=== PATIENT | male | born 1950 | race Caucasian/White ===

== ENCOUNTER 2016-06-03 10:03 | Inpatient (IN) | payer MEDICARE ==
--- NOTE | 2016-06-03 11:16 | ED ---
Nausea/Vomiting/Diarrhea HPI <AndreiDylan goodson - Last Filed: 06/03/16 14:44> - General Source: patient, EMS, RN notes reviewed Mode of arrival: EMS Limitations: physical limitation <Bonita Bains - Last Filed: 06/03/16 15:51> - General Chief complaint: Nausea/Vomiting/Diarrhea Stated complaint: NVD Time Seen by Provider: 06/03/16 10:50 - History of Present Illness Initial comments: 58-year-old male who is a paraplegic presents to the emergency department with a chief complaint of nausea vomiting and diarrhea. Patient has been having the symptoms for the past few days. Patient states that his got sick first and now he is sick. Patient states he is having a lot of acid reflux with this. Patient states having a lot of nausea and not as much vomiting. Patient does admit to diarrhea. Patient states that his whole belly is just kind of sore and bloated. Patient states that he was concerned because his normally changes his bandages but he is unable to have her do that due to feeling under the weather. Patient denies any fever chills with this. Patient states they're concerned due to the continued abdominal irritation so they thought that they should be seen. Patient denies any recent fever, chills, shortness of breath, chest pain, back pain, numbness or tingling, dysuria or hematuria, constipation, headaches or visual changes, or any other current symptoms. (Bonita Bains) - Related Data Home Medications Medication Instructions Recorded Confirmed Benazepril [Lotensin] 10 mg PO DAILY 06/03/16 06/03/16 Cholecalciferol [Vitamin D3] 1,000 unit PO DAILY 06/03/16 06/03/16 Cholecalciferol [Vitamin D3] 400 unit PO DAILY 06/03/16 06/03/16 Ferrous Sulfate [Feosol] 325 mg PO DAILY 06/03/16 06/03/16 Imipramine HCl [Tofranil] 10 mg PO TID 06/03/16 06/03/16 Metoclopramide [Reglan] 10 mg PO DAILY PRN 06/03/16 06/03/16 Nystatin 100,000 Unit/gm Powd 1 applic TOPICAL QID PRN 06/03/16 06/03/16 [Mycostatin Powder] Oxybutynin Chloride [Ditropan] 5 mg PO TID 06/03/16 06/03/16 Pravastatin Sodium [Pravachol] 20 mg PO HS 06/03/16 06/03/16 Zinc Sulfate 220 mg PO DAILY 06/03/16 06/03/16 metFORMIN HCL [Glucophage] 500 mg PO DAILY 06/03/16 06/03/16 traMADol HCl [Ultram] 50 mg PO DAILY PRN 06/03/16 06/03/16 Allergies Allergy/AdvReac Type Severity Reaction Status Date / Time Iodine and Iodide Containing Allergy Vomiting Verified 06/03/16 10:36 Produc Sulfa (Sulfonamide Allergy BODY Verified 06/03/16 10:36 Antibiotics) BLISTERS Review of Systems ROS Other: All systems not noted in ROS Statement are negative. <Dylan Forbes - Last Filed: 06/03/16 14:44> ROS Other: All systems not noted in ROS Statement are negative. <Bonita Bains - Last Filed: 06/03/16 15:51> ROS Statement: Those systems with pertinent positive or pertinent negative responses have been documented in the HPI. Past Medical History Past Medical History: Diabetes Mellitus, Hypertension Additional Past Medical History / Comment(s): parapalgic History of Any Multi-Drug Resistant Organisms: MRSA Additional Past Surgical History / Comment(s): spinal cord 1992 Past Psychological History: No Psychological Hx Reported Smoking Status: Former smoker Past Alcohol Use History: None Reported Past Drug Use History: None Reported <Bonita Bains - Last Filed: 06/03/16 15:51> General Exam <Dylan Forbes - Last Filed: 06/03/16 14:44> Limitations: physical limitation <Bonita Bains - Last Filed: 06/03/16 15:51> - General Exam Comments Initial Comments: General: The patient is awake and alert, in no distress, and does not appear acutely ill. Eye: Pupils are equal, round and reactive to light, extra-ocular movements are intact; there is normal conjunctiva bilaterally. No signs of icterus. Ears, nose, mouth and throat: There are moist mucous membranes and no oral lesions. Neck: The neck is supple, there is no tenderness. Cardiovascular: There is a regular rate and rhythm. No murmur, rub or gallop is appreciated. Respiratory: Lungs are clear to auscultation, respirations are non-labored, breath sounds are equal. No wheezes, stridor, rales, or rhonchi. Gastrointestinal: Soft, , non-tender abdomen without masses or organomegaly noted. There is no rebound or guarding present. No CVA tenderness. Bowel sounds are unremarkable. Back: There is no tenderness to palpation in the midline. There is no obvious deformity. No rashes noted. Musculoskeletal: Normal ROM, no tenderness, There is no pedal edema. There is no calf tenderness or swelling. Sensation intact. Pulses equal bilaterally 2+. Neurological: CN II-XII intact, There are no obvious motor or sensory deficits. Coordination appears grossly intact. Speech is normal. Skin: Skin is warm and dry and no rashes or lesions are noted. Psychiatric: Cooperative, appropriate mood & affect, normal judgment. (Bonita Bains) Medical Decision Making - Lab Data Result diagrams: 06/03/16 10:43 06/03/16 10:43 <Dylan Forbes - Last Filed: 06/03/16 14:44> - Lab Data Result diagrams: 06/03/16 10:43 06/03/16 10:43 - EKG Data -: EKG Interpreted by Me - Radiology Data Radiology results: report reviewed, image reviewed <Bonita Bains - Last Filed: 06/03/16 15:51> - Medical Decision Making Medical decision making. I interviewed the patient reviewed his labs. And spoke with his attending, Dr. Holliday. Patient be admitted to his service and started and continued on Rocephin and Levaquin. Septic protocol followed. Dr. Forbes (Dylan Forbes) 66-year-old male presents emergency department chief complaint of nausea vomiting and diarrhea. Results reviewed that do show positive UTI and also showed positive pneumonia patient also does have some distention and ileus in the abdomen. This time we will start antibiotics we will admit the patient. There is concern for possible CHF we did add cardiac enzymes any BNP to the patient's lab work which will be followed up By the Admitting Doctor. This and the Patient Will Be Admitted for Sepsis. All the Questions Have Been Answered. (Bonita Bains) - Lab Data Lab Results 06/03/16 06/03/16 06/03/16 Range/Units 10:43 10:43 11:37 WBC 16.0 H (3.8-10.6) k/uL RBC 4.76 (4.30-5.90) m/uL Hgb 13.8 (13.0-17.5) gm/dL Hct 41.6 (39.0-53.0) % MCV 87.2 (80.0-100.0) fL MCH 29.0 (25.0-35.0) pg MCHC 33.2 (31.0-37.0) g/dL RDW 14.5 (11.5-15.5) % Plt Count 290 (150-450) k/uL Neutrophils % 89 % Lymphocytes % 4 % Monocytes % 6 % Eosinophils % 0 % Basophils % 0 % Neutrophils # 14.3 H (1.3-7.7) k/uL Lymphocytes # 0.6 L (1.0-4.8) k/uL Monocytes # 1.0 (0-1.0) k/uL Eosinophils # 0.0 (0-0.7) k/uL Basophils # 0.0 (0-0.2) k/uL Sodium 135 L (137-145) mmol/L Potassium 3.9 (3.5-5.1) mmol/L Chloride 98 (98-107) mmol/L Carbon Dioxide 22 (22-30) mmol/L Anion Gap 15 mmol/L BUN 26 H (9-20) mg/dL Creatinine 0.78 (0.66-1.25) mg/dL Est GFR (MDRD) Af Amer >60 (>60 ml/min/1.73 sqM) Est GFR (MDRD) Non-Af >60 (>60 ml/min/1.73 sqM) Glucose 216 H (74-99) mg/dL Plasma Lactic Acid Timo 2.1 H (0.7-2.0) mmol/L Calcium 9.2 (8.4-10.2) mg/dL Total Bilirubin 0.6 (0.2-1.3) mg/dL AST 25 (17-59) U/L ALT 23 (21-72) U/L Alkaline Phosphatase 92 (38-126) U/L Total Creatine Kinase (55-170) U/L CK-MB (CK-2) (0.0-2.4) ng/mL CK-MB (CK-2) Rel Index Troponin I (0.000-0.034) ng/mL NT-Pro-B Natriuret Pep pg/mL Total Protein 7.5 (6.3-8.2) g/dL Albumin 3.8 (3.5-5.0) g/dL Amylase 41 (30-110) U/L Lipase 36 (23-300) U/L Urine Color Urine Appearance (Clear) Urine pH (5.0-8.0) Ur Specific [place] (1.001-1.035) Urine Protein (Negative) Urine Glucose (UA) (Negative) Urine Ketones (Negative) Urine Blood (Negative) Urine Nitrite (Negative) Urine Bilirubin (Negative) Urine Urobilinogen (<2.0) mg/dL Ur Leukocyte Esterase (Negative) Urine RBC (0-5) /hpf Urine WBC (0-5) /hpf Calcium Oxalate Crystal (None) /hpf Urine Bacteria (None) /hpf Urine Mucus (None) /hpf 06/03/16 06/03/16 06/03/16 Range/Units 11:37 11:37 12:05 WBC (3.8-10.6) k/uL RBC (4.30-5.90) m/uL Hgb (13.0-17.5) gm/dL Hct (39.0-53.0) % MCV (80.0-100.0) fL MCH (25.0-35.0) pg MCHC (31.0-37.0) g/dL RDW (11.5-15.5) % Plt Count (150-450) k/uL Neutrophils % % Lymphocytes % % Monocytes % % Eosinophils % % Basophils % % Neutrophils # (1.3-7.7) k/uL Lymphocytes # (1.0-4.8) k/uL Monocytes # (0-1.0) k/uL Eosinophils # (0-0.7) k/uL Basophils # (0-0.2) k/uL Sodium (137-145) mmol/L Potassium (3.5-5.1) mmol/L Chloride (98-107) mmol/L Carbon Dioxide (22-30) mmol/L Anion Gap mmol/L BUN (9-20) mg/dL Creatinine (0.66-1.25) mg/dL Est GFR (MDRD) Af Amer (>60 ml/min/1.73 sqM) Est GFR (MDRD) Non-Af (>60 ml/min/1.73 sqM) Glucose (74-99) mg/dL Plasma Lactic Acid Timo (0.7-2.0) mmol/L Calcium (8.4-10.2) mg/dL Total Bilirubin (0.2-1.3) mg/dL AST (17-59) U/L ALT (21-72) U/L Alkaline Phosphatase (38-126) U/L Total Creatine Kinase 159 (55-170) U/L CK-MB (CK-2) 0.9 (0.0-2.4) ng/mL CK-MB (CK-2) Rel Index 0.6 Troponin I <0.012 (0.000-0.034) ng/mL NT-Pro-B Natriuret Pep 376 pg/mL Total Protein (6.3-8.2) g/dL Albumin (3.5-5.0) g/dL Amylase (30-110) U/L Lipase (23-300) U/L Urine Color Yellow Urine Appearance Cloudy (Clear) Urine pH 6.5 (5.0-8.0) Ur Specific [place] 1.018 (1.001-1.035) Urine Protein 2+ H (Negative) Urine Glucose (UA) Negative (Negative) Urine Ketones 1+ H (Negative) Urine Blood Large H (Negative) Urine Nitrite Positive (Negative) Urine Bilirubin Negative (Negative) Urine Urobilinogen <2.0 (<2.0) mg/dL Ur Leukocyte Esterase Large H (Negative) Urine RBC 134 H (0-5) /hpf Urine WBC >182 H (0-5) /hpf Calcium Oxalate Crystal Occasional H (None) /hpf Urine Bacteria Rare H (None) /hpf Urine Mucus Rare H (None) /hpf 06/03/16 15:51 EKG is more suspicious of normal sinus rhythm most likely due to patient's positioning. No ST elevation or depression. (Bonita Bains) Disposition <Dylan Forbes - Last Filed: 06/03/16 14:44> Time of Disposition: 14:33 Decision Date: 06/03/16 Decision Time: 14:33 <Bonita Bains - Last Filed: 06/03/16 15:51> Clinical Impression: Hyponatremia, Sepsis, UTI (urinary tract infection), Right lower lobe pneumonia , Nausea & vomiting, Ileus Disposition: ADMITTED IP TO THIS HOSP Condition: Stable
[2016-06-03] MEDS ORDERED: METOCLOPRAMIDE 5 MG/ML 2 ML VIAL IVP STA (11:17)
[2016-06-03] MEDS ORDERED: SODIUM CHLORIDE 0.9% 1,000 ML IV STA (11:17)
[2016-06-03 11:53] LABS: Basophils % (A) 0 %; CHCM 33.3; Eosinophils % (A) 0 %; HCT 41.6 % (39.0-53.0); HDW 2.42; HGB 13.8 gm/dL (13.0-17.5); Luc # (Auto) 0.15; Luc % (Auto) 1; Lymphocytes # (A) 0.6 k/uL (1.0-4.8); Lymphocytes % (A) 4 %; MCHC 33.2 g/dL (31.0-37.0); MCV 87.2 fL (80.0-100.0); Mean Platelet Volume 7.2; Monocytes % (A) 6 %; Neutrophils # (A) 14.3 k/uL (1.3-7.7); Neutrophils % (A) 89 %; RBC 4.76 m/uL (4.30-5.90); RDW 14.5 % (11.5-15.5); WBC (Perox) 15.35
[2016-06-03 12:01] LABS: ALT 23 U/L (21-72); AST 25 U/L (17-59); Alkaline Phosphatase 92 U/L (38-126); Amylase 41 U/L (30-110); Anion Gap 15 mmol/L; Blood Urea Nitrogen 26 mg/dL (9-20); Calcium 9.2 mg/dL (8.4-10.2); Carbon Dioxide 22 mmol/L (22-30); Chloride 98 mmol/L (98-107); Glucose 216 mg/dL (74-99); Non-African American GFR(MDRD) >60 (>60 ml/min/1.73 sqM); Potassium 3.9 mmol/L (3.5-5.1); Sodium 135 mmol/L (137-145); Total Bilirubin 0.6 mg/dL (0.2-1.3); Total Protein 7.5 g/dL (6.3-8.2)
--- NOTE | 2016-06-03 13:17 | CT ---
EXAMINATION TYPE: CT abdomen pelvis wo con DATE OF EXAM: 06/03/2016 12:54 PM COMPARISON: NONE INDICATION: nausea, vomiting, diarrhea DLP: 1545.9 mGycm, Automated exposure control for dose reduction was used. CONTRAST: 0 mL of Omnipaque 300. Study performed without Oral Contrast TECHNIQUE: Axial images were obtained from above the diaphragm to the pubic rami in the axial plane a t 5 mm thick sections. Reconstructed images are reviewed on the computer in the coronal plane. FINDINGS: Limited CT sections are obtained the lung bases. There is a consolidation in the posterior medial ri ght lung base. Correlate for atelectasis and pneumonia. Underlying mass is not excluded. Small left p leural effusion is present. Note is made of the hardening artifact from fixation rods through the tho racic spine.. CT ABDOMEN: Liver: Normal Spleen: Normal Pancreas: Normal Adrenal glands: The adrenal glands are normal. Gallbladder: Normal Kidneys: No masses are evident. No hydronephrosis is present. No cysts are present. There is a 0.5 cm calcification without obstruction of the mid right kidney. There is a nonobstructing 0.5 similar calcification posterior left mid kidney. Couple of punctate cortical medullary junction stones are wi thin the mid posterior kidney on the left. Within the left infundibulum more proximal pelvis is a 1.3 x 0.6 cm calcification. No hydronephrosis is evident. No hydroureter is evident bilaterally. Aorta: Vascular calcification is within the aorta. Inferior vena cava: Normal. CT PELVIS: Study is without oral contrast limiting the evaluation. Colostomy is in the left lower quadrant. Ther e is mild prominence of small bowel loops without evidence of a zone of transition. Appendix: Not visualized Urinary bladder: Decompressed with a Epps catheter. Genitourinary structures: Prostate appears unremarkable. Osseous structures: There is a right medullary elias within the femur. Osseous brain is from the anteri or right acetabulum. Degenerative changes are within the lumbar spine. Facet degenerative changes are within the lumbar spine IMPRESSIONS: 1. Multiple bilateral nonobstructing renal stones. 2. Consolidation posterior medial right lung base. Correlate for atelectasis and pneumonia. Underlyin g mass is not excluded. This should be followed to clearing. 3. Colostomy. 4. Probable ileus. No zone of transition suggest mild obstruction is evident.
[2016-06-03 13:28] LABS: Appearance,Urine Cloudy (Clear); Bacteria,Urine Rare /hpf; Bilirubin,Urine Negative (Negative); Calcium Oxalate Crystals,Urine Occasional /hpf; Glucose,Urine (UA) Negative (Negative); Ketones,Urine 1+ (Negative); Leukocyte Esterase,Urine Large (Negative); Mucus,Urine Rare /hpf; Nitrite,Urine Positive (Negative); PH, Urine 6.5 (5.0-8.0); Particle Count 17336; Protein,Urine 2+ (Negative); RBC,Urine 134 /hpf (0-5); Specific Gravity,Urine 1.018 (1.001-1.035); UA Billing (MACRO vs. MICRO) MICRO; Urobilinogen,Urine <2.0 mg/dL (<2.0); WBC,Urine >182 /hpf (0-5)
[2016-06-03] MEDS ORDERED: LEVOFLOXACIN 750MG-D5W PMX 750 MG in DEXTROSE/WATER 1 150ML.BAG IVPB STA (13:56)
[2016-06-03] MEDS ORDERED: NYSTATIN 100,000 UNIT/GM POWD 15 GM TOPICAL PRN (14:00)
[2016-06-03] MEDS ORDERED: METOCLOPRAMIDE 10 MG TAB PO PRN (14:00)
[2016-06-03] MEDS ORDERED: IPRATROPIUM-ALBUTEROL 3 ML NEB INHALATION PRN (14:00)
[2016-06-03] MEDS: SODIUM CHLORIDE 0.9% 1,000 ML IV SCH (14:14)
--- NOTE | 2016-06-03 14:26 | XR ---
EXAMINATION TYPE: XR chest 2V DATE OF EXAM: 06/03/2016 2:12 PM COMPARISON: None HISTORY: 66-year-old male with pain TECHNIQUE: AP and lateral views FINDINGS: The heart is upper limits of normal in size. There is mild interstitial prominence and small left ple ural effusion. Some subtle right infrahilar opacity is also noted. Old healed left-sided rib fracture deformity. Vertebral compression deformity of a midthoracic vertebral body is age-indeterminate. Mid to lower thoracic posterior fusion hardware. IMPRESSION: 1. Heart at the upper limits of normal in size with small pleural effusion and interstitial prominenc e. Correlate to exclude mild CHF. 2. Some patchy atelectasis or early developing infiltrate/edema at the right lower lung. 3. Age-indeterminate mid thoracic vertebral compression deformity. Prior mid to lower thoracic foreign diplomat ior fusion hardware.
[2016-06-03 14:47] LABS: Creatine Kinase 159 U/L (55-170)
[2016-06-03 15:00] LABS: Creatine Kinase MB 0.9 ng/mL (0.0-2.4); Troponin I <0.012 ng/mL (0.000-0.034)
[2016-06-03 17:26] LABS: Glucose,Whole Blood 154 mg/dL (75-99)
[2016-06-03] MEDS: OXYBUTYNIN CHLORIDE 5 MG TAB PO SCH ×2 (18:47→22:05)
[2016-06-03] MEDS: IMIPRAMINE 10 MG TAB PO SCH ×2 (18:47→22:05)
[2016-06-03 21:35] LABS: Glucose,Whole Blood 143 mg/dL (75-99)
[2016-06-03] MEDS: PRAVASTATIN SODIUM 20 MG TAB PO SCH (22:05)
[2016-06-03] MEDS: FAMOTIDINE 20 MG/2 ML VIAL IV SCH (22:06)
[2016-06-04] MEDS: SODIUM CHLORIDE 0.9% 1,000 ML IV SCH ×5 (02:26→20:47)
[2016-06-04] MEDS: ONDANSETRON 4 MG/2 ML VIAL IVP PRN ×3 (06:05→22:54)
[2016-06-04] MEDS: traMADol 50 MG TAB PO PRN ×2 (06:05→15:00)
[2016-06-04 07:09] LABS: Glucose,Whole Blood 141 mg/dL (75-99)
[2016-06-04] MEDS: IMIPRAMINE 10 MG TAB PO SCH ×3 (08:12→20:44)
[2016-06-04] MEDS: FAMOTIDINE 20 MG/2 ML VIAL IV SCH ×2 (08:12→20:45)
[2016-06-04] MEDS: LISINOPRIL 10 MG TAB PO SCH (08:12)
[2016-06-04] MEDS: OXYBUTYNIN CHLORIDE 5 MG TAB PO SCH ×3 (08:13→20:45)
[2016-06-04] MEDS: ZINC SULFATE 220 MG CAP PO SCH (08:13)
[2016-06-04] MEDS: metFORMIN 500 MG TAB PO SCH (08:13)
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
[2016-06-04 11:22] LABS: Glucose,Whole Blood 135 mg/dL (75-99)
[2016-06-04] MEDS: CHOLECALCIFEROL 1,000 UNIT TAB PO SCH (12:53)
[2016-06-04] MEDS: CHOLECALCIFEROL 400 UNIT TAB PO SCH (12:54)
[2016-06-04] MEDS: FERROUS SULFATE 325 MG TAB PO SCH (12:57)
[2016-06-04 14:02] VITALS: BMI 31.6
[2016-06-04] MEDS: LEVOFLOXACIN 750MG-D5W PMX 750 MG in DEXTROSE/WATER 1 150ML.BAG IVPB SCH (15:00)
[2016-06-04 17:13] LABS: Glucose,Whole Blood 118 mg/dL (75-99)
[2016-06-04 20:19] LABS: Glucose,Whole Blood 116 mg/dL (75-99)
[2016-06-04] MEDS: PRAVASTATIN SODIUM 20 MG TAB PO SCH (20:44)
[2016-06-05] MEDS: SODIUM CHLORIDE 0.9% 1,000 ML IV SCH ×2 (03:32→11:11)
--- NOTE | 2016-06-05 06:15 | HP ---
DATE OF ADMISSION: CHIEF COMPLAINT: Intractable nausea, vomiting, diarrhea. HISTORY OF PRESENT ILLNESS: This is another admission for this 66-year-old white male paraplegic. He started to have a lot of liquid stool per his colostomy and nausea and vomiting. His has the same thing and she is his caregiver. He came to emergency room. He was assessed as being dehydrated and he was admitted. REVIEW OF SYSTEMS: He has had no headaches, change in his neurologic status, shortness of breath, cough, chest pain, heart disease, jaundice, etc. He does have an indwelling Epps. Past medical history, family history and personal history are all otherwise unremarkable and noncontributory and unchanged. PHYSICAL EXAMINATION: Blood pressure 138/87 with a pulse of 106, respirations 35 and he is afebrile. GENERAL: He appeared to be in no acute distress. Skin color is normal. Skin is warm and dry. Lymph nodes are not enlarged. Head, ears, eyes, nose, mouth, and throat were normal. Neck veins not distended. Thyroid was not enlarged. Chest is clear. Cardiac exam is normal. ABDOMEN: Soft and there are no masses. Colostomy is present. Extremities were unremarkable. He did have 2 ischial ulcers which are chronic. IMPRESSION: 1. Viral gastroenteritis. 2. Dehydration. 3. Chronic urinary tract infection with indwelling Epps. 4. Ischial decubiti.. 5. Paraplegia. PLAN: 1. Bedrest. 2. IV fluids. 3. Rehydrate. 4. Antiemetics and antidiarrheals.
--- NOTE | 2016-06-05 06:31 | PN ---
DATE OF SERVICE: 06/04/2016 CHIEF COMPLAINT: Probably gastroenteritis, dehydration and UTI. HISTORY OF PRESENT ILLNESS: This gentleman is doing fairly well and there has been no interval change. Diarrhea in the colostomy has slowed down and he is not as nauseated. PHYSICAL EXAM: Color is good and hydration is improved. Chest is clear. Cardiac exam is normal. IMPRESSION: Viral gastroenteritis. PLAN: Increase diet and advance activity as tolerated.
[2016-06-05] MEDS: FAMOTIDINE 20 MG/2 ML VIAL IV SCH (07:50)
[2016-06-05 07:52] LABS: Glucose,Whole Blood 101 mg/dL (75-99)
[2016-06-05] MEDS: IMIPRAMINE 10 MG TAB PO SCH ×3 (07:57→22:01)
[2016-06-05] MEDS: OXYBUTYNIN CHLORIDE 5 MG TAB PO SCH ×3 (07:57→22:01)
[2016-06-05] MEDS: ZINC SULFATE 220 MG CAP PO SCH (07:58)
[2016-06-05] MEDS: FERROUS SULFATE 325 MG TAB PO SCH (07:58)
[2016-06-05] MEDS: LISINOPRIL 10 MG TAB PO SCH (07:58)
[2016-06-05] MEDS: ZINC OXIDE 20% OINT 28.4 GM TUBE TOPICAL SCH (07:58)
[2016-06-05] MEDS: metFORMIN 500 MG TAB PO SCH (07:59)
[2016-06-05 09:05] LABS: Basophils % (A) 0 %; CH 28.3; CHCM 32.2; Eosinophils # (A) 0.3 k/uL (0-0.7); Eosinophils % (A) 5 %; HCT 35.8 % (39.0-53.0); HDW 2.61; HGB 11.7 gm/dL (13.0-17.5); Luc # (Auto) 0.15; Luc % (Auto) 2; Lymphocytes # (A) 0.5 k/uL (1.0-4.8); Lymphocytes % (A) 9 %; MCH 28.8 pg (25.0-35.0); MCHC 32.7 g/dL (31.0-37.0); MCV 88.2 fL (80.0-100.0); Mean Platelet Volume 6.5; Monocytes # (A) 0.5 k/uL (0-1.0); Monocytes % (A) 8 %; Neutrophils # (A) 4.7 k/uL (1.3-7.7); Neutrophils % (A) 76 %; RBC 4.06 m/uL (4.30-5.90); RDW 13.8 % (11.5-15.5); WBC 6.2 k/uL (3.8-10.6); WBC (Perox) 6.71
[2016-06-05 09:16] LABS: ALT 30 U/L (21-72); AST 17 U/L (17-59); Alkaline Phosphatase 75 U/L (38-126); Anion Gap 9 mmol/L; Blood Urea Nitrogen 10 mg/dL (9-20); Calcium 8.1 mg/dL (8.4-10.2); Carbon Dioxide 28 mmol/L (22-30); Chloride 103 mmol/L (98-107); Glucose 99 mg/dL (74-99); Non-African American GFR(MDRD) >60 (>60 ml/min/1.73 sqM); Potassium 3.5 mmol/L (3.5-5.1); Sodium 140 mmol/L (137-145); Total Bilirubin 0.4 mg/dL (0.2-1.3); Total Protein 6.2 g/dL (6.3-8.2)
[2016-06-05 11:26] LABS: Glucose,Whole Blood 104 mg/dL (75-99)
[2016-06-05] MEDS: CHOLECALCIFEROL 1,000 UNIT TAB PO SCH (11:40)
[2016-06-05] MEDS: CHOLECALCIFEROL 400 UNIT TAB PO SCH (11:40)
--- NOTE | 2016-06-05 14:04 | CDI ---
In responding to this query, please exercise your independent professional judgment. The [facility] Coding Staff and Clinical Documentation Specialists appreciate your assistance in clarifying documentation, maintaining compliance with coding guidelines, accurately documenting patients condition and capturing severity of illness. The fact that a question is asked does not imply that any particular answer is desired or expected. Communication forms are a method of clarifying documentation and are not made part of the Legal Health Record. Thank you in advance for your clarification. Last Revision, December 2014 Joan Tidwell [address] [place] [address] Documentation Clarification Form Date: 06/05/2016 1:52:00 PM From: Hoa Ellis, CCS, CCDS Admit Date: 06/03/2016 3:19:00 PM Patient Name: Barak Caputo Visit Number: [id number] Discharge Date: Dr. Reese Darling: A diagnosis of UTI has been documented in the ER note, the physician's H&P and also the [employer]'s H&P. The patient is a paraplegic with a chronic indwelling urinary catheter secondary to being a paraplegic and neurogenic bladder. History/Risk factors: Recent exposure to his being ill, nos. Hx UTIs, DM, previous DVT, Clinical Indicators: LAB: WBC 16.0^, Neut 14.3, Gluc 216 UA: cloudy, 2+ prot, 1+ ket, lg bl, lg osvaldo, RBC 134^, WBC >182^ Urine Culture: Pseudomonas aeruginosa, Gm Neg Bacilli. Blood culture prelim, neg @ 48 hrs. Treatment: IV Pepcid, INH, IV Levaquin, IV Zofran In your professional opinion, can you please clarify the etiology of the UTI, if known? Epps catheter Suprapubic catheter UTI not related to catheter/urostomy Other condition, please specify Unable to determine If an infective organism is present, please specify cause and effect relationship if applicable. Please document in your progress notes and discharge summary in order to capture severity of illness and risk of mortality. Include clinical findings that support your diagnosis. FYI: Press F11 to launch patient chart Place X here if this finding has no clinical significance, is not applicable or if you are not able to provide any additional documentation. Thank You. ENIO
[2016-06-05] MEDS: traMADol 50 MG TAB PO PRN (14:38)
[2016-06-05] MEDS: LEVOFLOXACIN 750MG-D5W PMX 750 MG in DEXTROSE/WATER 1 150ML.BAG IVPB SCH (15:20)
[2016-06-05] MEDS: ONDANSETRON 4 MG/2 ML VIAL IVP PRN (15:51)
[2016-06-05 17:21] LABS: Glucose,Whole Blood 113 mg/dL (75-99)
--- NOTE | 2016-06-05 17:45 | PN ---
DATE OF SERVICE: 06/05/2016 CHIEF COMPLAINT: Viral gastroenteritis and dehydration. HISTORY OF PRESENT ILLNESS: This gentleman is doing a bit better. The patient's nausea is improving and cramps are subsiding. PHYSICAL EXAMINATION: Color is good. Hydration is better. Chest is clear. Cardiac exam is normal. The abdomen is soft and nontender. IMPRESSION: Resolving viral gastroenteritis. PLAN: Continue on current program and advance diet and probably home tomorrow.
[2016-06-05 20:25] LABS: Glucose,Whole Blood 117 mg/dL (75-99)
[2016-06-05] MEDS: PRAVASTATIN SODIUM 20 MG TAB PO SCH (22:01)
[2016-06-05] MEDS: FAMOTIDINE 20 MG TAB PO SCH (22:01)
[2016-06-06] MEDS: SODIUM CHLORIDE 0.9% 1,000 ML IV SCH ×3 (07:27→11:47)
[2016-06-06 07:45] LABS: Glucose,Whole Blood 98 mg/dL (75-99)
[2016-06-06] MEDS: ZINC OXIDE 20% OINT 28.4 GM TUBE TOPICAL SCH (08:23)
[2016-06-06] MEDS: metFORMIN 500 MG TAB PO SCH (08:24)
[2016-06-06] MEDS: FERROUS SULFATE 325 MG TAB PO SCH (08:24)
[2016-06-06] MEDS: ZINC SULFATE 220 MG CAP PO SCH (08:24)
[2016-06-06] MEDS: FAMOTIDINE 20 MG TAB PO SCH (08:24)
[2016-06-06] MEDS: OXYBUTYNIN CHLORIDE 5 MG TAB PO SCH ×2 (08:24→15:32)
[2016-06-06] MEDS: LISINOPRIL 10 MG TAB PO SCH (08:24)
[2016-06-06] MEDS: IMIPRAMINE 10 MG TAB PO SCH ×2 (08:24→15:32)
[2016-06-06 11:03] LABS: Glucose,Whole Blood 130 mg/dL (75-99)
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
[2016-06-06] MEDS: CHOLECALCIFEROL 400 UNIT TAB PO SCH (12:04)
[2016-06-06] MEDS: LEVOFLOXACIN 750MG-D5W PMX 750 MG in DEXTROSE/WATER 1 150ML.BAG IVPB SCH (12:04)
[2016-06-06] MEDS: CHOLECALCIFEROL 1,000 UNIT TAB PO SCH (12:04)
[2016-06-06 16:32] VITALS: BP 118/60; PULSE 66; RESP 18; TEMP 96.9
[2016-06-07] MEDS ORDERED: LEVOFLOXACIN 750 MG TAB PO SCH (14:00)
--- NOTE | 2016-06-07 14:58 | PN ---
DATE OF SERVICE: 06/06/2016 CHIEF COMPLAINT: Abdominal pain, viral gastroenteritis, dehydration. HISTORY OF PRESENT ILLNESS: The gentleman is doing better and diet is being advanced. He can probably go home today. PHYSICAL EXAMINATION: ABDOMEN: Soft, nontender. Bowel sounds are present. CHEST: Clear. CARDIAC: Normal. IMPRESSION: 1. Viral gastroenteritis. 2. Dehydration. 3. Paraplegia. 4. Ischial decubiti. PLAN: Probably home today.
== END 2016-06-06 16:45 | disposition home health service (06) | DRG 698 ==
LOC: EC 10:03 → 5MS5E 15:19
PROVIDERS: ADMIT Family Medicine; ATTEND Family Medicine
DX: T83.511A Infection and inflammatory reaction due to indwelling urethral catheter, initial encounter (principal); A41.52 Sepsis due to Pseudomonas; J18.9 Pneumonia, unspecified organism; L89.153 Pressure ulcer of sacral region, stage 3; G82.20 Paraplegia, unspecified; E87.1 Hypo-osmolality and hyponatremia; K56.7 Ileus, unspecified; N31.9 Neuromuscular dysfunction of bladder, unspecified; E86.0 Dehydration; B96.1 Klebsiella pneumoniae [K. pneumoniae] as the cause of diseases classified elsewhere; E11.9 Type 2 diabetes mellitus without complications; I10 Essential (primary) hypertension; F32.9 Major depressive disorder, single episode, unspecified; A08.4 Viral intestinal infection, unspecified; E78.5 Hyperlipidemia, unspecified; N39.0 Urinary tract infection, site not specified; K21.9 Gastro-esophageal reflux disease without esophagitis; N20.0 Calculus of kidney; Y84.6 Urinary catheterization as the cause of abnormal reaction of the patient, or of later complication, without mention of misadventure at the time of the procedure; Z79.899 Other long term (current) drug therapy; Z82.49 Family history of ischemic heart disease and other diseases of the circulatory system; Z85.828 Personal history of other malignant neoplasm of skin; Z87.891 Personal history of nicotine dependence; Z93.3 Colostomy status; W14.XXXS Fall from tree, sequela
CPT/HCPCS: 36415; 71020; 74176; 80053; 81001; 82150; 82550; 82553; 83605; 83690; 83880; 84484; 85025; 87040; 87077; 87086; 87186; 87324; 87502; 93005; 96361; 96365; 96375; 99285

== ENCOUNTER 2016-08-29 12:35 | Emergency (ER) | payer MEDICARE ==
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
[2016-08-29 14:24] LABS: Basophils # (A) 0.1 k/uL (0-0.2); Basophils % (A) 1 %; CH 28.5; CHCM 33.9; Eosinophils # (A) 0.3 k/uL (0-0.7); Eosinophils % (A) 4 %; HCT 40.7 % (39.0-53.0); HDW 2.49; HGB 14.1 gm/dL (13.0-17.5); Luc # (Auto) 0.15; Luc % (Auto) 2; Lymphocytes # (A) 1.4 k/uL (1.0-4.8); Lymphocytes % (A) 17 %; MCH 29.3 pg (25.0-35.0); MCHC 34.7 g/dL (31.0-37.0); MCV 84.5 fL (80.0-100.0); Monocytes # (A) 0.9 k/uL (0-1.0); Monocytes % (A) 10 %; Neutrophils # (A) 5.6 k/uL (1.3-7.7); Neutrophils % (A) 66 %; RBC 4.81 m/uL (4.30-5.90); RDW 14.7 % (11.5-15.5); WBC 8.5 k/uL (3.8-10.6); WBC (Perox) 8.15
[2016-08-29] MEDS ORDERED: SODIUM CHLORIDE 0.9% 1,000 ML IV ONE (14:26)
[2016-08-29 14:33] LABS: ALT 22 U/L (21-72); AST 17 U/L (17-59); Alkaline Phosphatase 112 U/L (38-126); Anion Gap 11 mmol/L; Blood Urea Nitrogen 20 mg/dL (9-20); Calcium 9.7 mg/dL (8.4-10.2); Carbon Dioxide 25 mmol/L (22-30); Chloride 104 mmol/L (98-107); Glucose 260 mg/dL (74-99); Non-African American GFR(MDRD) >60 (>60 ml/min/1.73 sqM); Potassium 4.6 mmol/L (3.5-5.1); Sodium 140 mmol/L (137-145); Total Bilirubin 0.5 mg/dL (0.2-1.3); Total Protein 7.8 g/dL (6.3-8.2)
[2016-08-29] MEDS ORDERED: ceFAZolin 1,000 MG in DEXTROSE/WATER 1 50ML.BAG IVPB STA (14:54)
[2016-08-29 15:57] VITALS: BP 132/67; PULSE 73; RESP 16; TEMP 98.4
== END 2016-08-29 16:00 | disposition home or self-care (01) ==
LOC: EC 12:35
DX: T81.4XXA Infection following a procedure, initial encounter (principal); E11.9 Type 2 diabetes mellitus without complications; K21.9 Gastro-esophageal reflux disease without esophagitis; E78.5 Hyperlipidemia, unspecified; I10 Essential (primary) hypertension; F32.9 Major depressive disorder, single episode, unspecified; Z86.718 Personal history of other venous thrombosis and embolism; Z88.2 Allergy status to sulfonamides; Z91.048 Other nonmedicinal substance allergy status; Z79.82 Long term (current) use of aspirin; Z79.84 Long term (current) use of oral hypoglycemic drugs; Z79.899 Other long term (current) drug therapy; Z87.891 Personal history of nicotine dependence
CPT/HCPCS: 36415; 80053; 85025; 87040; 87070; 87205; 87077; 87186; 99283; 96365; J0690

== ENCOUNTER 2017-06-03 09:29 | Inpatient (IN) | payer MEDICARE ==
[2017-06-03] MEDS ORDERED: IBUPROFEN 600 MG TAB PO STA (09:48)
[2017-06-03] MEDS ORDERED: ACETAMINOPHEN TAB 500 MG TAB PO STA (09:48)
[2017-06-03] MEDS ORDERED: cefTRIAXone 2,000 MG in SODIUM CHLORIDE 0.9% 100 ML IVPB STA (09:49)
[2017-06-03] MEDS ORDERED: cefTRIAXone IN SWFI 2,000 MG/20 ML SYRINGE IVP STA (09:50)
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
[2017-06-03 10:17] LABS: Glucose,Whole Blood 167 mg/dL (75-99)
[2017-06-03] MEDS: SODIUM CHLORIDE 0.9% 500 ML IV SCH ×4 (10:29→11:20)
[2017-06-03 10:31] LABS: Appearance,Urine Turbid (Clear); Bilirubin,Urine Negative (Negative); Blood,Urine Large (Negative); Color,Urine Yellow; Glucose,Urine (UA) Negative (Negative); Ketones,Urine 2+ (Negative); Leukocyte Esterase,Urine Large (Negative); Mucus,Urine Moderate /hpf; Nitrite,Urine Positive (Negative); Protein,Urine 2+ (Negative); RBC,Urine >182 /hpf (0-5); Specific Gravity,Urine 1.018 (1.001-1.035); Urobilinogen,Urine <2.0 mg/dL (<2.0); WBC,Urine >182 /hpf (0-5)
[2017-06-03 10:47] LABS: Creatine Kinase 266 U/L (55-170)
[2017-06-03 10:51] LABS: HCT 35.7 % (39.0-53.0); HGB 11.7 gm/dL (13.0-17.5); MCH 27.7 pg (25.0-35.0); MCHC 32.8 g/dL (31.0-37.0); MCV 84.4 fL (80.0-100.0); Mean Platelet Volume 6.9; Platelet Count 222 k/uL (150-450); RBC 4.23 m/uL (4.30-5.90); RDW 14.4 % (11.5-15.5); WBC 7.2 k/uL (3.8-10.6)
[2017-06-03 10:55] LABS: INR 1.2 (<1.2); Partial Thromboplastin Time 27.2 sec (22.0-30.0); Prothrombin Time 11.7 sec (9.0-12.0)
[2017-06-03 10:59] LABS: Creatine Kinase MB 0.5 ng/mL (0.0-2.4); Troponin I <0.012 ng/mL (0.000-0.034)
[2017-06-03] MEDS ORDERED: OSELTAMIVIR 75 MG CAP PO STA (11:10)
--- NOTE | 2017-06-03 11:19 | XR ---
EXAMINATION TYPE: XR chest 2V DATE OF EXAM: 06/03/2017 COMPARISON: 06/03/2016 HISTORY: 67-year-old male with fever TECHNIQUE: AP and lateral views FINDINGS: Thoracic fusion hardware is present. Left heart margin obscured by adjacent pleural parenchymal disea se. Mild interstitial prominence. Large body habitus causing underpenetration limiting assessment. Th ere is a [id number] left pleural effusion, slightly increased from the exam of last year. IMPRESSION: Small to moderate left pleural effusion with left basilar and retrocardiac atelectasis and/or consoli dation.
[2017-06-03 11:20] LABS: ALT 30 U/L (21-72); AST 27 U/L (17-59); Albumin 3.4 g/dL (3.5-5.0); Alkaline Phosphatase 85 U/L (38-126); Anion Gap 14 mmol/L; Blood Urea Nitrogen 19 mg/dL (9-20); Calcium 8.4 mg/dL (8.4-10.2); Carbon Dioxide 24 mmol/L (22-30); Chloride 101 mmol/L (98-107); Glucose 164 mg/dL (74-99); Potassium 3.9 mmol/L (3.5-5.1); Sodium 139 mmol/L (137-145); Total Bilirubin 0.2 mg/dL (0.2-1.3); Total Protein 6.6 g/dL (6.3-8.2)
[2017-06-03 11:26] LABS: Band Neutrophils % 3 %; Eosinophils # (M) 0.22 k/uL (0-0.7); Lymphocytes # (M) 2.66 k/uL (1.0-4.8); Neutrophils % (M) 50 %; Nucleated Red Blood Cells 0 /100 WBC (0-0); Total Cells Counted 100
[2017-06-03 11:28] LABS: Hypochromasia (M) Present
[2017-06-03] MEDS ORDERED: SODIUM CHLORIDE 0.9% 500 ML IV ONE (11:30)
[2017-06-03] MEDS ORDERED: SODIUM CHLORIDE 0.9% 1,000 ML IV ONE (11:30)
[2017-06-03] MEDS ORDERED: NOREPINEPHRIN 4 MG-0.9% NS PMX 4 MG/250 ML ML IV ONE (14:45)
[2017-06-03] MEDS ORDERED: NALOXONE 0.4 MG/ML 1 ML VIAL IV PRN (14:57)
[2017-06-03 17:24] LABS: Glucose,Whole Blood 134 mg/dL (75-99)
[2017-06-03] MEDS: HYDROCORTISONE SUCCINATE 100 MG/2 ML VIAL IV SCH (19:09)
[2017-06-03] MEDS: LACTATED RINGERS 1,000 ML IV SCH (19:09)
[2017-06-03] MEDS ORDERED: NOREPINEPHRIN 4 MG-0.9% NS PMX 4 MG/250 ML ML IV SCH (20:00)
[2017-06-03 20:07] LABS: Glucose,Whole Blood 176 mg/dL (75-99)
[2017-06-03] MEDS ORDERED: AZITHROMYCIN 500 MG in SODIUM CHLORIDE 0.9% 250 ML IVPB SCH (21:00)
[2017-06-03] MEDS: OSELTAMIVIR 75 MG CAP PO SCH (21:38)
[2017-06-03] MEDS: OXYBUTYNIN CHLORIDE 5 MG TAB PO SCH (21:38)
[2017-06-03] MEDS: IMIPRAMINE 10 MG TAB PO SCH (21:38)
[2017-06-03] MEDS: INSULIN ASPART 100 UNIT/ML 1 ML 10 ML VIAL SQ SCH (21:39)
[2017-06-03] MEDS ORDERED: ALBUTEROL NEBULIZED 2.5 MG/3 ML INHALATION PRN (21:42)
[2017-06-04] MEDS: HYDROCORTISONE SUCCINATE 100 MG/2 ML VIAL IV SCH ×2 (00:39→06:26)
[2017-06-04] MEDS: HEPARIN SODIUM,PORCINE 5,000 UNIT/ML 1 ML VIAL SQ SCH ×3 (00:39→16:26)
[2017-06-04] MEDS: guaiFENesin SYRUP 100MG/5ML 200 MG/10 ML CUP PO PRN ×3 (00:40→21:37)
[2017-06-04] MEDS: LACTATED RINGERS 1,000 ML IV SCH ×4 (01:26→21:38)
[2017-06-04 04:57] LABS: Basophils % (A) 0 %; Eosinophils % (A) 0 %; HCT 34.5 % (39.0-53.0); HGB 11.2 gm/dL (13.0-17.5); Lymphocytes # (A) 0.3 k/uL (1.0-4.8); Lymphocytes % (A) 8 %; MCHC 32.4 g/dL (31.0-37.0); MCV 86.5 fL (80.0-100.0); Mean Platelet Volume 6.8; Monocytes # (A) 0.3 k/uL (0-1.0); Monocytes % (A) 7 %; Neutrophils # (A) 3.5 k/uL (1.3-7.7); Neutrophils % (A) 81 %; Platelet Count 181 k/uL (150-450); RBC 3.98 m/uL (4.30-5.90); WBC 4.4 k/uL (3.8-10.6)
[2017-06-04 05:14] LABS: Anion Gap 12 mmol/L; Blood Urea Nitrogen 14 mg/dL (9-20); Calcium 7.9 mg/dL (8.4-10.2); Carbon Dioxide 22 mmol/L (22-30); Chloride 108 mmol/L (98-107); Glucose 156 mg/dL (74-99); Magnesium 1.8 mg/dL (1.6-2.3); Phosphorus 2.8 mg/dL (2.5-4.5); Potassium 4.5 mmol/L (3.5-5.1); Sodium 142 mmol/L (137-145)
[2017-06-04 07:40] LABS: Glucose,Whole Blood 150 mg/dL (75-99)
[2017-06-04] MEDS: INSULIN ASPART 100 UNIT/ML 1 ML 10 ML VIAL SQ SCH ×4 (08:23→22:07)
[2017-06-04] MEDS: PANTOPRAZOLE 40 MG TABLET PO SCH (08:24)
--- NOTE | 2017-06-04 08:38 | XR ---
EXAMINATION TYPE: XR chest 1V DATE OF EXAM: 06/04/2017 COMPARISON: 06/03/2017 INDICATION: Assess lungs. No other history is provided. Previous history of fever. TECHNIQUE: Single frontal view of the chest is obtained. FINDINGS: The heart size is mildly prominent. The pulmonary vasculature is normal. Small left pleural effusion is present. Fixation rods from scoliosis treatment are evident. No significant interval changes evident. IMPRESSION: 1. Small stable left pleural effusion. Mild cardiomegaly may be present.
[2017-06-04] MEDS ORDERED: cefTRIAXone IN SWFI 1,000 MG/10 ML SYRINGE IVP SCH (09:00)
[2017-06-04] MEDS: ASCORBIC ACID 500 MG TAB PO SCH (09:14)
[2017-06-04] MEDS: DOCUSATE 100 MG CAP PO SCH (09:15)
[2017-06-04] MEDS: ASPIRIN 81 MG PO SCH (09:15)
[2017-06-04] MEDS: METOCLOPRAMIDE 10 MG TAB PO SCH (09:18)
[2017-06-04] MEDS: FERROUS SULFATE 325 MG TAB PO SCH (09:18)
[2017-06-04] MEDS: OXYBUTYNIN CHLORIDE 5 MG TAB PO SCH ×3 (09:18→21:38)
[2017-06-04] MEDS: OSELTAMIVIR 75 MG CAP PO SCH ×2 (09:19→21:38)
[2017-06-04] MEDS: IMIPRAMINE 10 MG TAB PO SCH ×3 (09:19→21:37)
[2017-06-04] MEDS: ZINC SULFATE 220 MG CAP PO SCH (09:20)
[2017-06-04] MEDS ORDERED: IPRATROPIUM-ALBUTEROL 3 ML NEB INHALATION PRN (10:29)
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
[2017-06-04] MEDS: IPRATROPIUM-ALBUTEROL 3 ML NEB INHALATION SCH ×3 (10:47→20:06)
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
[2017-06-04 12:41] LABS: Glucose,Whole Blood 220 mg/dL (75-99)
--- NOTE | 2017-06-04 12:47 | PN ---
PROGRESS NOTE DATE OF SERVICE: 06/04/2017 CHIEF COMPLAINT: Sepsis. HISTORY OF PRESENT ILLNESS: This gentleman is doing well. He feels better. Temperature is down. Blood pressure is improved. He is having no chest pain or abdominal pain. PHYSICAL EXAM: HEENT is normal. The chest is clear. Cardiac exam is normal. The abdomen is soft, nontender. IMPRESSION: 1. Septicemia. 2. Urinary tract infection. 3. Influenza. 4. Paraplegia. PLAN: Continue on IV fluids and antibiotics as well as Tamiflu. MMODL / IJN: [id number] /
--- NOTE | 2017-06-04 13:02 | HP ---
HISTORY AND PHYSICAL CHIEF COMPLAINT: Urinary tract infection, fever and 2 episodes of syncope. HISTORY OF PRESENT ILLNESS: This is another admission for this 67-year-old white male who has been paraplegic for many years and has suffered from frequent episodes of urinary tract infections as well as multiple stage IV decubitus include including coccyx, both ischium and now in the left greater trochanteric area. He developed fever and chills and came to the emergency room. While there had 2 syncopal events. Blood pressure is also low at 80 systolically. He was admitted. REVIEW OF SYSTEMS: He has had no neurologic changes, headache, change in vision, hearing, chest pain, cough, hemoptysis, sputum production, murmurs, rheumatic fever, renal failure, etc. Past medical history, family history and personal and social histories are otherwise essentially unremarkable. He is well cared for at home by his and home nursing. PHYSICAL EXAMINATION: Blood pressure is 80/45 with a pulse of 73 and regular, respirations of 15 and temperature of a 100.1. GENERAL: He appeared to be slightly overweight and in no acute distress. Skin color is normal and skin was hot and dry. Head ears, eyes, nose, mouth, and throat were normal. Neck veins are not distended and carotids normal. Chest demonstrated occasional rhonchi bilaterally and the cardiac exam demonstrates sinus rhythm. The abdomen is slightly protuberant, soft, nontender without any visceromegaly or masses. There is an indwelling catheter. Decubitus were not examined. IMPRESSION: 1. Probable bacterial septicemia. 2. Urinary tract infection. 3. History of numerous stage IV decubitus. 4. Paraplegia. PLAN: 1. Bed rest. 2. IV fluids. 3. Appropriate cultures. 4. IV antibiotic treatment. 5. Infectious Disease consult. MMODL / IJN: [id number] /
[2017-06-04 15:31] LABS: Hemoglobin A1C 7.3 % (4.0-6.0)
[2017-06-04 17:31] LABS: Glucose,Whole Blood 141 mg/dL (75-99)
[2017-06-04] MEDS: SODIUM HYPOCHLORITE 0.5% 480 ML BOT MISCELLANE SCH (19:46)
[2017-06-04] MEDS: AZITHROMYCIN 500 MG TAB PO SCH (21:38)
[2017-06-04 21:46] LABS: Glucose,Whole Blood 131 mg/dL (75-99)
--- NOTE | 2017-06-04 23:35 | P.CON ---
Consult Note - . Consult date: 06/04/17 Assessment/Plan:: This is a 67-year-old male patient who is well-known to ID service as he has history of a T8 complete spinal cord injury in 1991 and has had ongoing problems with pressure ulcers to his low back, ischium and perianal areas. He was treated here at the wound healing center for several years. He is status post colostomy and chronic Epps catheter placement. He now follows with Dr. Story at the wound center at [facility]. He goes there every 8 weeks by ambulance and has debridements and wound care performed and also has [facility] home care in place. Patient states that one wound is 4 cm deep with tunneling to the bone. Many years ago he was treated for osteomyelitis but not recently. Currently wound care is in the form of quarter-inch packing tape soaked with Dakins. He is also status post several flap procedures done by Dr. Story. Patient is essentially bedbound but recently has been getting into a wheelchair. Patient has a specialty mattress at home, air cushion and Roho for his chair. Regarding his Epps, this is changed every 30 days and was done yesterday. He has had history of frequent bladder infections but started using olive tree extract and his last bladder infection was at least 6 months ago. He continues to have output from his colostomy but no liquid stools. His usual consistency is soft. Patient states that on Friday he started feeling sick and canceled his usual wound appointment. He developed a cough that would not stop and he was not able to bring up any sputum. He was nauseated and then developed vomiting. His also had a cough but he does not think she had the flu. Patient developed mental status changes and was brought into [facility] emergency center for evaluation and was found to have temperature 101.5, tachycardia, hypotension and he was started on norepinephrine and was status post IV fluid resuscitation. Influenza A was positive and patient was started on Tamiflu. White count was 7.2, creatinine 0.6, albumin 3.4, CK 266. Urinalysis was turbid, blood large, leukoesterase large, rbc's greater than 182, wbc's greater than 182, clumps many, mucus moderate. Urine culture and blood culture are in progress. Lactic acid was 1.3. His chest x-ray showed small moderate left pleural effusion and left basilar and retrocardiac atelectasis and/or consolidation. Patient was admitted into the intensive care unit. Repeat chest x-ray this morning shows a small left pleural effusion and mild cardiomegaly. Patient's mental status is back to baseline. He is able to recall the events leading to his hospitalization and does remember being confused. Please see the consult note as dictated by LEAD[employer] WORK[employer] Mrs. Ragini Gil. as noted this pleasant Is known to the service is now been cared for by the plastic surgeon in [place]. The patient has evidence of influenza a and likely underlying pneumonia as well as gram-negative urinary tract infection and what that antibiotic therapy is altered to ceftazidime to ensure recovering from the prior Pseudomonas it's been isolated. This also give us coverage for. However Tamiflu is being utilized for his influenza. The patient's is mildly ill and does have a mask on, No other family members been ill and he does not have much outside contacts. He does not have much outside contact. The plan for now with final cultures to determine outpatient course of antibiotics. Local wound care Is provided with the nursing staff. Nu Gauze strip dressing is placed into the left deep hip ulceration. Cheryl dressing is applied to the left buttocks ulceration. DuoDERM to the right buttocks ulceration. Orders are placed. The patient will follow back up with his plastic surgeon after discharge. We however do discussed that he is currently in an air mattress at home and given his main difficulties he may do well to be transitioned to a gel mattress which may give him better offloading
[2017-06-05] MEDS: HEPARIN SODIUM,PORCINE 5,000 UNIT/ML 1 ML VIAL SQ SCH ×3 (00:18→16:16)
[2017-06-05] MEDS: guaiFENesin SYRUP 100MG/5ML 200 MG/10 ML CUP PO PRN (04:22)
[2017-06-05] MEDS: LACTATED RINGERS 1,000 ML IV SCH (04:23)
[2017-06-05 04:57] LABS: Anion Gap 9 mmol/L; Blood Urea Nitrogen 14 mg/dL (9-20); Calcium 7.8 mg/dL (8.4-10.2); Carbon Dioxide 28 mmol/L (22-30); Chloride 103 mmol/L (98-107); Glucose 142 mg/dL (74-99); Magnesium 1.7 mg/dL (1.6-2.3); Phosphorus 2.1 mg/dL (2.5-4.5); Potassium 3.4 mmol/L (3.5-5.1); Sodium 140 mmol/L (137-145)
[2017-06-05 05:08] LABS: Basophils % (A) 0 %; Eosinophils # (A) 0.1 k/uL (0-0.7); Eosinophils % (A) 1 %; Lymphocytes # (A) 0.9 k/uL (1.0-4.8); Lymphocytes % (A) 20 %; MCH 28.2 pg (25.0-35.0); MCHC 33.2 g/dL (31.0-37.0); MCV 84.9 fL (80.0-100.0); Mean Platelet Volume 6.9; Monocytes # (A) 0.4 k/uL (0-1.0); Monocytes % (A) 10 %; Neutrophils % (A) 67 %; Platelet Count 185 k/uL (150-450); RBC 3.53 m/uL (4.30-5.90); RDW 14.1 % (11.5-15.5); WBC 4.5 k/uL (3.8-10.6)
--- NOTE | 2017-06-05 06:48 | XR ---
EXAMINATION TYPE: XR chest 1V DATE OF EXAM: 06/05/2017 CLINICAL HISTORY: Difficulty breathing progress study. TECHNIQUE: Single AP portable frontal view of the chest is obtained. COMPARISON: Chest x-ray from one day earlier and older studies FINDINGS: Thoracic Shirley rods are redemonstrated. There is chronic parenchymal change with susp ected new small right pleural effusion. There is curvilinear left basilar opacity redemonstrated. Herb e left-sided volume loss with mediastinal shift is again seen. There are old left-sided posterior mid rib fractures again seen. Cardiac silhouette size is stable and upper limits of normal. Degenerative change right shoulder is redemonstrated. IMPRESSION: Chronic parenchymal change with small left pleural effusion and left-sided volume loss al l are redemonstrated. New small to tiny right pleural effusion is noted.
[2017-06-05 07:35] LABS: Glucose,Whole Blood 158 mg/dL (75-99)
[2017-06-05] MEDS: IPRATROPIUM-ALBUTEROL 3 ML NEB INHALATION SCH ×4 (07:58→18:38)
[2017-06-05] MEDS ORDERED: Magnesium Replacement Protocol 1 EACH MISC MISCELLANE PRN (08:04)
[2017-06-05] MEDS ORDERED: Potassium Replacement Protocol 1 EACH MISC MISCELLANE PRN (08:04)
[2017-06-05] MEDS: MAGNESIUM SULFATE-D5W PMX 1 GM in DEXTROSE/WATER 1 100ML.BAG IVPB SCH ×2 (08:09→08:32)
[2017-06-05] MEDS: METOCLOPRAMIDE 10 MG TAB PO SCH (08:16)
[2017-06-05] MEDS: PANTOPRAZOLE 40 MG TABLET PO SCH (08:17)
[2017-06-05] MEDS ORDERED: ONDANSETRON 4 MG/2 ML VIAL ONE (08:21)
[2017-06-05] MEDS: ASCORBIC ACID 500 MG TAB PO SCH (08:26)
[2017-06-05] MEDS: DOCUSATE 100 MG CAP PO SCH (08:27)
[2017-06-05] MEDS: ASPIRIN 81 MG PO SCH (08:27)
[2017-06-05] MEDS: OXYBUTYNIN CHLORIDE 5 MG TAB PO SCH ×3 (08:27→21:36)
[2017-06-05] MEDS: FERROUS SULFATE 325 MG TAB PO SCH (08:27)
[2017-06-05] MEDS: IMIPRAMINE 10 MG TAB PO SCH ×3 (08:27→21:36)
[2017-06-05] MEDS: OSELTAMIVIR 75 MG CAP PO SCH ×2 (08:27→20:41)
[2017-06-05] MEDS: ZINC SULFATE 220 MG CAP PO SCH (08:28)
[2017-06-05] MEDS: traMADol 50 MG TAB PO PRN ×2 (08:37→16:36)
[2017-06-05] MEDS: SODIUM HYPOCHLORITE 0.5% 480 ML BOT MISCELLANE SCH (08:40)
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
[2017-06-05] MEDS: INSULIN ASPART 100 UNIT/ML 1 ML 10 ML VIAL SQ SCH ×4 (10:45→20:56)
[2017-06-05] MEDS: POTASSIUM CHLORIDE ER 20 MEQ TAB.ER PO SCH ×2 (11:20→11:56)
[2017-06-05 11:52] LABS: Glucose,Whole Blood 166 mg/dL (75-99)
[2017-06-05] MEDS: SODIUM CHLORIDE 0.9% 1,000 ML IV SCH (14:21)
[2017-06-05] MEDS: ONDANSETRON 4 MG/2 ML VIAL IVP PRN ×2 (14:25→21:38)
[2017-06-05] MEDS ORDERED: ERTAPENEM 1 GM in SODIUM CHLORIDE 0.9% 50 ML IVPB SCH (16:00)
[2017-06-05 18:07] LABS: Glucose,Whole Blood 129 mg/dL (75-99)
--- NOTE | 2017-06-05 19:39 | PN ---
PROGRESS NOTE DATE OF SERVICE: 06/05/2017 CHIEF COMPLAINT: Sepsis, hypotension and syncope. HISTORY OF PRESENT ILLNESS: This gentleman is doing better. Pressors are off. He is nauseated but has no other symptoms. He states that he is occasionally prone to nausea. PHYSICAL EXAMINATION: Vital signs are normal. Chest is clear. Cardiac exam is normal. Abdomen is soft, nontender. IMPRESSION: 1. Bacterial septicemia. 2. Urinary tract infection. 3. Multiple decubitus ulcers. 4. Hypotension. PLAN: He will be moved to a step-down unit today. MMODL / IJN: [id number] /
[2017-06-05 20:12] LABS: Glucose,Whole Blood 136 mg/dL (75-99)
[2017-06-05] MEDS: AZITHROMYCIN 500 MG TAB PO SCH (20:41)
--- NOTE | 2017-06-05 22:36 | P.PN ---
Subjective Progress Note Date: 06/05/17 Principal diagnosis: Fever This is a 67-year-old male patient who is well-known to ID service as he has history of a T8 complete spinal cord injury in 1991 and has had ongoing problems with pressure ulcers to his low back, ischium and perianal areas. He was treated here at the wound healing center for several years. He is status post colostomy and chronic Epps catheter placement. He now follows with Dr. Story at the wound center at [facility]. He goes there every 8 weeks by ambulance and has debridements and wound care performed and also has [facility] home care in place. Patient states that one wound is 4 cm deep with tunneling to the bone. Many years ago he was treated for osteomyelitis but not recently. Currently wound care is in the form of quarter-inch packing tape soaked with Dakins. He is also status post several flap procedures done by Dr. Story. Patient is essentially bedbound but recently has been getting into a wheelchair. Patient has a specialty mattress at home, air cushion and Roho for his chair. Regarding his Epps, this is changed every 30 days and was done yesterday. He has had history of frequent bladder infections but started using olive tree extract and his last bladder infection was at least 6 months ago. He continues to have output from his colostomy but no liquid stools. His usual consistency is soft. Patient states that on Friday he started feeling sick and canceled his usual wound appointment. He developed a cough that would not stop and he was not able to bring up any sputum. He was nauseated and then developed vomiting. His also had a cough but he does not think she had the flu. Patient developed mental status changes and was brought into [facility] emergency center for evaluation and was found to have temperature 101.5, tachycardia, hypotension and he was started on norepinephrine and was status post IV fluid resuscitation. Influenza A was positive and patient was started on Tamiflu. White count was 7.2, creatinine 0.6, albumin 3.4, CK 266. Urinalysis was turbid, blood large, leukoesterase large, rbc's greater than 182, wbc's greater than 182, clumps many, mucus moderate. Urine culture and blood culture are in progress. Lactic acid was 1.3. His chest x-ray showed small moderate left pleural effusion and left basilar and retrocardiac atelectasis and/or consolidation. Patient was admitted into the intensive care unit. Repeat chest x-ray this morning shows a small left pleural effusion and mild cardiomegaly. Patient's mental status is back to baseline. He is able to recall the events leading to his hospitalization and does remember being confused. 06/05/2017 patient is feeling better today. Mental status is quite clear. Relates that he is eating quite well. Nursing staff relate no acute changes. Objective - Vital Signs Vital signs: Vital Signs Temp 97.3 F L 06/05/17 16:00 Pulse 67 06/05/17 18:48 Resp 16 06/05/17 18:48 BP 96/54 06/05/17 18:00 Pulse Ox 95 06/05/17 16:00 Intake & Output 06/05/17 06/05/17 06/06/17 06:59 18:59 06:59 Intake Total 2490 660 Output Total 1095 1620 Balance 1395 -960 Weight 107.6 kg 107.6 kg Intake: IV 1990 340 0.9ns 190 40 Lactated Ringers 1,000 ml 1800 300 @ 150 mls/hr IV .Q6H40M DARRICK Rx#:[id number] Intake, IV Titration 500 320 Amount Azithromycin 500 mg In 250 Sodium Chloride 0.9% 250 ml @ 125 mls/hr IVPB HS DARRICK Rx#:[id number] Lactated Ringers 1,000 ml 150 @ 150 mls/hr IV .Q6H40M DARRICK Rx#:[id number] Magnesium Sulfate-D5w Pmx 200 1 gm In Dextrose/Water 1 100ml.bag @ 100 mls/hr IVPB Q1H DARRICK Rx#: [id number] Sodium Chloride 0.9% 1, 20 000 ml @ 20 mls/hr IV . Q24H DARRICK Rx#:[id number] cefTAZidime 2 gm In 100 100 Sodium Chloride 0.9% 100 ml @ 100 mls/hr IVPB Q8HR DARRICK Rx#:[id number] Output: Urine 1095 1620 Other: Voiding Method Indwelling Catheter Indwelling Catheter - Exam Gen: This is a 67-year-old male. He is sitting up in the ICU bed and appears to be comfortable and in no acute distress. No respiratory distress is noted. HEENT: Head is atraumatic, normocephalic. Pupils equal, round. Sclerae is anicteric. Conjunctiva pink. Mucous members of the mouth are dry. No thrush noted. NECK: Supple. No JVD. No lymphadenopathy. No thyromegaly. LUNGS: Bilateral rhonchi. No intercostal retractions. HEART: Regular rate and rhythm. No murmur. ABDOMEN: Soft. Bowel sounds are present. No masses. No tenderness. Colostomy with bag filled with flatus. Epps catheter draining aime urine. Wound assessment deferred to Dr. Denis. EXTREMITIES: No pedal edema. Dorsalis pedis +2 bilaterally. NEUROLOGICAL: Patient is awake, alert and oriented x3. - Labs CBC & Chem 7: 06/05/17 04:10 06/05/17 16:06 Labs: Abnormal Lab Results - Last 24 Hours (Table) 06/05/17 06/05/17 06/05/17 Range/Units 04:10 04:10 07:33 RBC 3.53 L (4.30-5.90) m/uL Hgb 10.0 L (13.0-17.5) gm/dL Hct 30.0 L (39.0-53.0) % Lymphocytes # 0.9 L (1.0-4.8) k/uL Potassium 3.4 L (3.5-5.1) mmol/L Creatinine 0.60 L (0.66-1.25) mg/dL Glucose 142 H (74-99) mg/dL POC Glucose (mg/dL) 158 H (75-99) mg/dL Calcium 7.8 L (8.4-10.2) mg/dL Phosphorus 2.1 L (2.5-4.5) mg/dL 06/05/17 06/05/17 06/05/17 Range/Units 11:50 18:05 20:10 RBC (4.30-5.90) m/uL Hgb (13.0-17.5) gm/dL Hct (39.0-53.0) % Lymphocytes # (1.0-4.8) k/uL Potassium (3.5-5.1) mmol/L Creatinine (0.66-1.25) mg/dL Glucose (74-99) mg/dL POC Glucose (mg/dL) 166 H 129 H 136 H (75-99) mg/dL Calcium (8.4-10.2) mg/dL Phosphorus (2.5-4.5) mg/dL Microbiology - Last 24 Hours (Table) 06/03/17 09:50 Urine Culture - Preliminary Urine,Voided Klebsiella oxytoca 06/03/17 09:50 Blood Culture - Preliminary Blood No Growth after 48 hours Laboratory Results WBC 4.5 k/uL (3.8-10.6) 06/05/17 04:10 RBC 3.53 m/uL (4.30-5.90) L 06/05/17 04:10 Hgb 10.0 gm/dL (13.0-17.5) L 06/05/17 04:10 Hct 30.0 % (39.0-53.0) L 06/05/17 04:10 MCV 84.9 fL (80.0-100.0) 06/05/17 04:10 MCH 28.2 pg (25.0-35.0) 06/05/17 04:10 MCHC 33.2 g/dL (31.0-37.0) 06/05/17 04:10 RDW 14.1 % (11.5-15.5) 06/05/17 04:10 Plt Count 185 k/uL (150-450) 06/05/17 04:10 Neutrophils % 67 % 06/05/17 04:10 Neutrophils % (Manual) 50 % 06/03/17 09:50 Band Neutrophils % 3 % 06/03/17 09:50 Lymphocytes % 20 % 06/05/17 04:10 Lymphocytes % (Manual) 37 % 06/03/17 09:50 Monocytes % 10 % 06/05/17 04:10 Monocytes % (Manual) 7 % 06/03/17 09:50 Eosinophils % 1 % 06/05/17 04:10 Eosinophils % (Manual) 3 % 06/03/17 09:50 Basophils % 0 % 06/05/17 04:10 Neutrophils # 3.0 k/uL (1.3-7.7) 06/05/17 04:10 Neutrophils # (Manual) 3.80 k/uL (1.3-7.7) 06/03/17 09:50 Lymphocytes # 0.9 k/uL (1.0-4.8) L 06/05/17 04:10 Lymphocytes # (Manual) 2.66 k/uL (1.0-4.8) 06/03/17 09:50 Monocytes # 0.4 k/uL (0-1.0) 06/05/17 04:10 Monocytes # (Manual) 0.50 k/uL (0-1.0) 06/03/17 09:50 Eosinophils # 0.1 k/uL (0-0.7) 06/05/17 04:10 Eosinophils # (Manual) 0.22 k/uL (0-0.7) 06/03/17 09:50 Basophils # 0.0 k/uL (0-0.2) 06/05/17 04:10 Nucleated RBCs 0 /100 WBC (0-0) 06/03/17 09:50 Manual Slide Review Performed 06/03/17 09:50 Hypochromasia (manual) Present 06/03/17 09:50 PT 11.7 sec (9.0-12.0) 06/03/17 10:20 INR 1.2 (<1.2) H 06/03/17 10:20 APTT 27.2 sec (22.0-30.0) 06/03/17 10:20 Sodium 140 mmol/L (137-145) 06/05/17 04:10 Potassium 3.6 mmol/L (3.5-5.1) 06/05/17 16:06 Chloride 103 mmol/L (98-107) 06/05/17 04:10 Carbon Dioxide 28 mmol/L (22-30) 06/05/17 04:10 Anion Gap 9 mmol/L 06/05/17 04:10 BUN 14 mg/dL (9-20) 06/05/17 04:10 Creatinine 0.60 mg/dL (0.66-1.25) L 06/05/17 04:10 Est GFR (CKD-EPI)AfAm >90 (>60 ml/min/1.73 sqM) 06/05/17 04:10 Est GFR (CKD-EPI)NonAf >90 (>60 ml/min/1.73 sqM) 06/05/17 04:10 Glucose 142 mg/dL (74-99) H 06/05/17 04:10 POC Glucose (mg/dL) 136 mg/dL (75-99) H 06/05/17 20:10 POC Glu Concessionist ID Francine Robison 06/05/17 20:[address] Glu mg/dL 163 06/04/17 04:16 Hemoglobin A1c 7.3 % (4.0-6.0) H 06/04/17 04:16 Plasma Lactic Acid Timo 1.3 mmol/L (0.7-2.0) 06/03/17 09:50 Calcium 7.8 mg/dL (8.4-10.2) L 06/05/17 04:10 Phosphorus 2.1 mg/dL (2.5-4.5) L 06/05/17 04:10 Magnesium 1.7 mg/dL (1.6-2.3) 06/05/17 04:10 Total Bilirubin 0.2 mg/dL (0.2-1.3) 06/03/17 09:50 AST 27 U/L (17-59) 06/03/17 09:50 ALT 30 U/L (21-72) 06/03/17 09:50 Alkaline Phosphatase 85 U/L (38-126) 06/03/17 09:50 Total Creatine Kinase 266 U/L (55-170) H 06/03/17 09:50 CK-MB (CK-2) 0.5 ng/mL (0.0-2.4) 06/03/17 09:50 CK-MB (CK-2) Rel Index 0.2 06/03/17 09:50 Troponin I <0.012 ng/mL (0.000-0.034) 06/03/17 09:50 Total Protein 6.6 g/dL (6.3-8.2) 06/03/17 09:50 Albumin 3.4 g/dL (3.5-5.0) L 06/03/17 09:50 Cortisol 7 ug/dL 06/03/17 15:12 Urine Color Yellow 06/03/17 09:50 Urine Appearance Turbid (Clear) 06/03/17 09:50 Urine pH 6.0 (5.0-8.0) 06/03/17 09:50 Ur Specific [place] 1.018 (1.001-1.035) 06/03/17 09:50 Urine Protein 2+ (Negative) H 06/03/17 09:50 Urine Glucose (UA) Negative (Negative) 06/03/17 09:50 Urine Ketones 2+ (Negative) H 06/03/17 09:50 Urine Blood Large (Negative) H 06/03/17 09:50 Urine Nitrite Positive (Negative) 06/03/17 09:50 Urine Bilirubin Negative (Negative) 06/03/17 09:50 Urine Urobilinogen <2.0 mg/dL (<2.0) 06/03/17 09:50 Ur Leukocyte Esterase Large (Negative) H 06/03/17 09:50 Urine RBC >182 /hpf (0-5) H 06/03/17 09:50 Urine WBC >182 /hpf (0-5) H 06/03/17 09:50 Urine WBC Clumps Many /hpf (None) H 06/03/17 09:50 Urine Mucus Moderate /hpf (None) H 06/03/17 09:50 Influenza Type A RNA Detected (Not Detectd) H 06/03/17 10:00 Influenza Type B (PCR) Not Detected (Not Detectd) 06/03/17 10:00 Microbiology 06/03/17 09:50 Urine,Voided Urine Culture - Preliminary Klebsiella oxytoca 06/03/17 09:50 Blood Blood Culture - Preliminary No Growth after 48 hours Assessment and Plan (1) Influenza Current Visit: Yes Status: Acute Code(s): J11.1 - FLU DUE TO UNIDENTIFIED INFLUENZA VIRUS W OTH RESP MANIFEST SNOMED Code(s): 5610062 (2) Sepsis Narrative/Plan: this pleasant Is known to the service is now been cared for by the plastic surgeon in [place]. The patient has evidence of influenza a and likely underlying pneumonia as well as gram-negative urinary tract infection and what that antibiotic therapy is altered to ceftazidime to ensure recovering from the prior Pseudomonas it's been isolated. This also give us coverage for. However Tamiflu is being utilized for his influenza. The patient's is mildly ill and does have a mask on, No other family members been ill and he does not have much outside contacts. He does not have much outside contact. The plan for now with final cultures to determine outpatient course of antibiotics. Local wound care Is provided with the nursing staff. Nu Gauze strip dressing is placed into the left deep hip ulceration. Cheryl dressing is applied to the left buttocks ulceration. DuoDERM to the right buttocks ulceration. Orders are placed. The patient will follow back up with his plastic surgeon after discharge. We however do discussed that he is currently in an air mattress at home and given his main difficulties he may do well to be transitioned to a gel mattress which may give him better offloading 06/05/2017 reveals the patient to be feeling better. Still having cough, fever has improved. He is hemodynamically stable, and is ready for discharge out of the intensive care unit. Local wound care will continue as outlined. Continue antibiotic therapy however the gram-negative in his urine has now come back is an ESBL MDR to antibiotic therapy is changed to ertapenem. Continue the Tamiflu for the influenza. Current Visit: Yes Status: Acute Code(s): A41.9 - SEPSIS, UNSPECIFIED ORGANISM SNOMED Code(s): 41115900 (3) UTI (urinary tract infection) Current Visit: Yes Status: Acute Code(s): N39.0 - URINARY TRACT INFECTION, SITE NOT SPECIFIED SNOMED Code(s): 33914959
[2017-06-06] MEDS: HEPARIN SODIUM,PORCINE 5,000 UNIT/ML 1 ML VIAL SQ SCH ×3 (00:29→18:03)
[2017-06-06] MEDS: traMADol 50 MG TAB PO PRN ×3 (00:39→21:42)
[2017-06-06] MEDS: ONDANSETRON 4 MG/2 ML VIAL IVP PRN (05:13)
[2017-06-06 05:17] LABS: Basophils % (A) 1 %; Eosinophils # (A) 0.2 k/uL (0-0.7); Eosinophils % (A) 5 %; HCT 29.9 % (39.0-53.0); HGB 9.7 gm/dL (13.0-17.5); Lymphocytes # (A) 0.8 k/uL (1.0-4.8); Lymphocytes % (A) 17 %; MCH 27.4 pg (25.0-35.0); MCHC 32.5 g/dL (31.0-37.0); MCV 84.3 fL (80.0-100.0); Monocytes # (A) 0.4 k/uL (0-1.0); Monocytes % (A) 9 %; Neutrophils # (A) 3.3 k/uL (1.3-7.7); Neutrophils % (A) 67 %; Platelet Count 178 k/uL (150-450); RBC 3.55 m/uL (4.30-5.90); RDW 14.2 % (11.5-15.5); WBC 4.9 k/uL (3.8-10.6)
[2017-06-06 05:31] LABS: Anion Gap 9 mmol/L; Blood Urea Nitrogen 9 mg/dL (9-20); Calcium 7.8 mg/dL (8.4-10.2); Carbon Dioxide 32 mmol/L (22-30); Chloride 98 mmol/L (98-107); Glucose 113 mg/dL (74-99); Magnesium 2.1 mg/dL (1.6-2.3); Phosphorus 2.7 mg/dL (2.5-4.5); Potassium 3.6 mmol/L (3.5-5.1); Sodium 139 mmol/L (137-145)
[2017-06-06] MEDS: POTASSIUM CHLORIDE 10 MEQ in WATER FOR INJECTION 1 100ML.BAG IVPB SCH ×4 (06:40→13:53)
--- NOTE | 2017-06-06 07:21 | XR ---
EXAMINATION TYPE: XR chest 1V DATE OF EXAM: 06/06/2017 HISTORY: Shortness of breath. COMPARISON: 06/05/2017 TECHNIQUE: Single view of the chest is submitted. FINDINGS: Demonstrated are scattered senescent parenchymal change. Basilar infiltrates and small effusions persist. The heart is stable. Hilar and mediastinal structures are within normal limits. Degenerative changes are seen of the dorsal spine. Shirley rods are in place. IMPRESSION: 1. Essentially stable chest.
[2017-06-06 07:34] LABS: Glucose,Whole Blood 134 mg/dL (75-99)
[2017-06-06] MEDS: IPRATROPIUM-ALBUTEROL 3 ML NEB INHALATION SCH ×4 (07:37→19:47)
[2017-06-06] MEDS: INSULIN ASPART 100 UNIT/ML 1 ML 10 ML VIAL SQ SCH ×4 (07:48→21:04)
[2017-06-06] MEDS: ASCORBIC ACID 500 MG TAB PO SCH (08:39)
[2017-06-06] MEDS: DOCUSATE 100 MG CAP PO SCH (08:39)
[2017-06-06] MEDS: PANTOPRAZOLE 40 MG TABLET PO SCH (08:39)
[2017-06-06] MEDS: FERROUS SULFATE 325 MG TAB PO SCH (08:39)
[2017-06-06] MEDS: METOCLOPRAMIDE 10 MG TAB PO SCH (08:39)
[2017-06-06] MEDS: ASPIRIN 81 MG PO SCH (08:40)
[2017-06-06] MEDS: IMIPRAMINE 10 MG TAB PO SCH ×3 (08:40→21:41)
[2017-06-06] MEDS: OSELTAMIVIR 75 MG CAP PO SCH ×2 (08:41→21:42)
[2017-06-06] MEDS: ZINC SULFATE 220 MG CAP PO SCH (08:41)
[2017-06-06] MEDS ORDERED: FUROSEMIDE 10 MG/ML 4 ML VIAL IV STA (08:42)
[2017-06-06] MEDS: SODIUM HYPOCHLORITE 0.5% 480 ML BOT MISCELLANE SCH (08:51)
[2017-06-06] MEDS: OXYBUTYNIN CHLORIDE 5 MG TAB PO SCH ×3 (09:24→21:42)
[2017-06-06 09:38] VITALS: BMI 30.4
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
[2017-06-06 12:00] LABS: Glucose,Whole Blood 142 mg/dL (75-99)
[2017-06-06] MEDS: SODIUM CHLORIDE 0.9% 1,000 ML IV SCH (13:54)
[2017-06-06 17:30] LABS: Glucose,Whole Blood 112 mg/dL (75-99)
[2017-06-06] MEDS: MEROPENEM 1 GM in SODIUM CHLORIDE 0.9% 100 ML IVPB SCH (18:03)
--- NOTE | 2017-06-06 18:10 | PN ---
PROGRESS NOTE DATE OF SERVICE: 06/06/2017 CHIEF COMPLAINT: Sepsis. HISTORY OF PRESENT ILLNESS: This gentleman is doing a bit better yesterday than today. He is nauseated. He is not running a fever. PHYSICAL EXAM: His blood pressures are good. Chest is clear. Cardiac exam is normal. Abdomen is soft, nontender. IMPRESSION: 1. Septicemia. 2. Paraplegia. 3. Urinary tract infection. 4. Influenza. PLAN: Continue treatment and he will probably stay in ICU today for at least 1 more day. MMODL / IJN: [id number] /
[2017-06-06] MEDS: ONDANSETRON 4 MG TAB PO PRN (19:40)
[2017-06-06 20:39] LABS: Glucose,Whole Blood 132 mg/dL (75-99)
[2017-06-06] MEDS: guaiFENesin SYRUP 100MG/5ML 200 MG/10 ML CUP PO PRN (21:41)
[2017-06-06] MEDS: AZITHROMYCIN 500 MG TAB PO SCH (21:42)
--- NOTE | 2017-06-06 23:33 | P.PN ---
Subjective Progress Note Date: 06/06/17 Principal diagnosis: Fever This is a 67-year-old male patient who is well-known to ID service as he has history of a T8 complete spinal cord injury in 1991 and has had ongoing problems with pressure ulcers to his low back, ischium and perianal areas. He was treated here at the wound healing center for several years. He is status post colostomy and chronic Epps catheter placement. He now follows with Dr. Story at the wound center at [facility]. He goes there every 8 weeks by ambulance and has debridements and wound care performed and also has [facility] home care in place. Patient states that one wound is 4 cm deep with tunneling to the bone. Many years ago he was treated for osteomyelitis but not recently. Currently wound care is in the form of quarter-inch packing tape soaked with Dakins. He is also status post several flap procedures done by Dr. Story. Patient is essentially bedbound but recently has been getting into a wheelchair. Patient has a specialty mattress at home, air cushion and Roho for his chair. Regarding his Epps, this is changed every 30 days and was done yesterday. He has had history of frequent bladder infections but started using olive tree extract and his last bladder infection was at least 6 months ago. He continues to have output from his colostomy but no liquid stools. His usual consistency is soft. Patient states that on Friday he started feeling sick and canceled his usual wound appointment. He developed a cough that would not stop and he was not able to bring up any sputum. He was nauseated and then developed vomiting. His also had a cough but he does not think she had the flu. Patient developed mental status changes and was brought into [facility] emergency center for evaluation and was found to have temperature 101.5, tachycardia, hypotension and he was started on norepinephrine and was status post IV fluid resuscitation. Influenza A was positive and patient was started on Tamiflu. White count was 7.2, creatinine 0.6, albumin 3.4, CK 266. Urinalysis was turbid, blood large, leukoesterase large, rbc's greater than 182, wbc's greater than 182, clumps many, mucus moderate. Urine culture and blood culture are in progress. Lactic acid was 1.3. His chest x-ray showed small moderate left pleural effusion and left basilar and retrocardiac atelectasis and/or consolidation. Patient was admitted into the intensive care unit. Repeat chest x-ray this morning shows a small left pleural effusion and mild cardiomegaly. Patient's mental status is back to baseline. He is able to recall the events leading to his hospitalization and does remember being confused. 06/05/2017 patient is feeling better today. Mental status is quite clear. Relates that he is eating quite well. Nursing staff relate no acute changes. 06/06/2017 reveals the patient have further improvement. Appetite as well. Wounds have been dressed and he has no other new acute complaints. Is related to the culture now reveals evidence of the Klebsiella ESBL and subsequently his antibiotic therapy was changed to a carbapenem, however pseudomonas is now been isolated and further antibiotic changed to meropenem has been requested. Objective - Vital Signs Vital signs: Vital Signs Temp 98.6 F 06/06/17 21:52 Pulse 74 06/06/17 21:52 Resp 20 06/06/17 21:52 BP 96/55 06/06/17 21:52 Pulse Ox 95 06/06/17 21:52 Intake & Output 06/06/17 06/06/17 06/07/17 06:59 18:59 06:59 Intake Total 860 Output Total 1075 1850 475 Balance -215 -1850 -475 Weight 104.9 kg 104.9 kg Intake: IV 380 0.9ns 280 Potassium Chloride 10 meq 100 In Water For Injection 1 100ml.bag @ 100 mls/hr IVPB Q1H [facility] Rx#: [id number] Oral 480 Output: Urine 1075 1850 475 Other: Voiding Method Indwelling Catheter Indwelling Catheter - Exam Gen: This is a 67-year-old male. appears to be comfortable and in no acute distress. No respiratory distress is noted. HEENT: Head is atraumatic, normocephalic. Pupils equal, round. Sclerae is anicteric. Conjunctiva pink. Mucous members of the mouth are dry. No thrush noted. NECK: Supple. No JVD. No lymphadenopathy. No thyromegaly. LUNGS: Bilateral rhonchi. No intercostal retractions. HEART: Regular rate and rhythm. No murmur. ABDOMEN: Soft. Bowel sounds are present. No masses. No tenderness. Colostomy with bag filled with flatus. Epps catheter draining aime urine. Wound assessment reveals evidence of the dressings in place with no significant drainage or odor EXTREMITIES: No pedal edema. Dorsalis pedis +2 bilaterally. NEUROLOGICAL: Patient is awake, alert and oriented x3. - Labs CBC & Chem 7: 06/06/17 04:51 06/06/17 04:51 Labs: Abnormal Lab Results - Last 24 Hours (Table) 06/06/17 06/06/17 06/06/17 Range/Units 04:51 04:51 07:32 RBC 3.55 L (4.30-5.90) m/uL Hgb 9.7 L (13.0-17.5) gm/dL Hct 29.9 L (39.0-53.0) % Lymphocytes # 0.8 L (1.0-4.8) k/uL Carbon Dioxide 32 H (22-30) mmol/L Creatinine 0.60 L (0.66-1.25) mg/dL Glucose 113 H (74-99) mg/dL POC Glucose (mg/dL) 134 H (75-99) mg/dL Calcium 7.8 L (8.4-10.2) mg/dL 06/06/17 06/06/17 06/06/17 Range/Units 11:58 17:28 20:35 RBC (4.30-5.90) m/uL Hgb (13.0-17.5) gm/dL Hct (39.0-53.0) % Lymphocytes # (1.0-4.8) k/uL Carbon Dioxide (22-30) mmol/L Creatinine (0.66-1.25) mg/dL Glucose (74-99) mg/dL POC Glucose (mg/dL) 142 H 112 H 132 H (75-99) mg/dL Calcium (8.4-10.2) mg/dL Microbiology - Last 24 Hours (Table) 06/03/17 09:50 Blood Culture - Preliminary Blood No Growth after 72 hours 06/03/17 09:50 Urine Culture - Final Urine,Voided Klebsiella oxytoca Pseudomonas aeruginosa Laboratory Results WBC 4.9 k/uL (3.8-10.6) 06/06/17 04:51 RBC 3.55 m/uL (4.30-5.90) L 06/06/17 04:51 Hgb 9.7 gm/dL (13.0-17.5) L 06/06/17 04:51 Hct 29.9 % (39.0-53.0) L 06/06/17 04:51 MCV 84.3 fL (80.0-100.0) 06/06/17 04:51 MCH 27.4 pg (25.0-35.0) 06/06/17 04:51 MCHC 32.5 g/dL (31.0-37.0) 06/06/17 04:51 RDW 14.2 % (11.5-15.5) 06/06/17 04:51 Plt Count 178 k/uL (150-450) 06/06/17 04:51 Neutrophils % 67 % 06/06/17 04:51 Neutrophils % (Manual) 50 % 06/03/17 09:50 Band Neutrophils % 3 % 06/03/17 09:50 Lymphocytes % 17 % 06/06/17 04:51 Lymphocytes % (Manual) 37 % 06/03/17 09:50 Monocytes % 9 % 06/06/17 04:51 Monocytes % (Manual) 7 % 06/03/17 09:50 Eosinophils % 5 % 06/06/17 04:51 Eosinophils % (Manual) 3 % 06/03/17 09:50 Basophils % 1 % 06/06/17 04:51 Neutrophils # 3.3 k/uL (1.3-7.7) 06/06/17 04:51 Neutrophils # (Manual) 3.80 k/uL (1.3-7.7) 06/03/17 09:50 Lymphocytes # 0.8 k/uL (1.0-4.8) L 06/06/17 04:51 Lymphocytes # (Manual) 2.66 k/uL (1.0-4.8) 06/03/17 09:50 Monocytes # 0.4 k/uL (0-1.0) 06/06/17 04:51 Monocytes # (Manual) 0.50 k/uL (0-1.0) 06/03/17 09:50 Eosinophils # 0.2 k/uL (0-0.7) 06/06/17 04:51 Eosinophils # (Manual) 0.22 k/uL (0-0.7) 06/03/17 09:50 Basophils # 0.0 k/uL (0-0.2) 06/06/17 04:51 Nucleated RBCs 0 /100 WBC (0-0) 06/03/17 09:50 Manual Slide Review Performed 06/03/17 09:50 Hypochromasia (manual) Present 06/03/17 09:50 PT 11.7 sec (9.0-12.0) 06/03/17 10:20 INR 1.2 (<1.2) H 06/03/17 10:20 APTT 27.2 sec (22.0-30.0) 06/03/17 10:20 Sodium 139 mmol/L (137-145) 06/06/17 04:51 Potassium 3.6 mmol/L (3.5-5.1) 06/06/17 04:51 Chloride 98 mmol/L (98-107) 06/06/17 04:51 Carbon Dioxide 32 mmol/L (22-30) H 06/06/17 04:51 Anion Gap 9 mmol/L 06/06/17 04:51 BUN 9 mg/dL (9-20) 06/06/17 04:51 Creatinine 0.60 mg/dL (0.66-1.25) L 06/06/17 04:51 Est GFR (CKD-EPI)AfAm >90 (>60 ml/min/1.73 sqM) 06/06/17 04:51 Est GFR (CKD-EPI)NonAf >90 (>60 ml/min/1.73 sqM) 06/06/17 04:51 Glucose 113 mg/dL (74-99) H 06/06/17 04:51 POC Glucose (mg/dL) 132 mg/dL (75-99) H 06/06/17 20:35 POC Glu [employer] ID Addie Bridges 06/06/17 20:[address] Glu mg/dL 163 06/04/17 04:16 Hemoglobin A1c 7.3 % (4.0-6.0) H 06/04/17 04:16 Plasma Lactic Acid Timo 1.3 mmol/L (0.7-2.0) 06/03/17 09:50 Calcium 7.8 mg/dL (8.4-10.2) L 06/06/17 04:51 Phosphorus 2.7 mg/dL (2.5-4.5) 06/06/17 04:51 Magnesium 2.1 mg/dL (1.6-2.3) 06/06/17 04:51 Total Bilirubin 0.2 mg/dL (0.2-1.3) 06/03/17 09:50 AST 27 U/L (17-59) 06/03/17 09:50 ALT 30 U/L (21-72) 06/03/17 09:50 Alkaline Phosphatase 85 U/L (38-126) 06/03/17 09:50 Total Creatine Kinase 266 U/L (55-170) H 06/03/17 09:50 CK-MB (CK-2) 0.5 ng/mL (0.0-2.4) 06/03/17 09:50 CK-MB (CK-2) Rel Index 0.2 06/03/17 09:50 Troponin I <0.012 ng/mL (0.000-0.034) 06/03/17 09:50 Total Protein 6.6 g/dL (6.3-8.2) 06/03/17 09:50 Albumin 3.4 g/dL (3.5-5.0) L 06/03/17 09:50 Cortisol 7 ug/dL 06/03/17 15:12 Urine Color Yellow 06/03/17 09:50 Urine Appearance Turbid (Clear) 06/03/17 09:50 Urine pH 6.0 (5.0-8.0) 06/03/17 09:50 Ur Specific [place] 1.018 (1.001-1.035) 06/03/17 09:50 Urine Protein 2+ (Negative) H 06/03/17 09:50 Urine Glucose (UA) Negative (Negative) 06/03/17 09:50 Urine Ketones 2+ (Negative) H 06/03/17 09:50 Urine Blood Large (Negative) H 06/03/17 09:50 Urine Nitrite Positive (Negative) 06/03/17 09:50 Urine Bilirubin Negative (Negative) 06/03/17 09:50 Urine Urobilinogen <2.0 mg/dL (<2.0) 06/03/17 09:50 Ur Leukocyte Esterase Large (Negative) H 06/03/17 09:50 Urine RBC >182 /hpf (0-5) H 06/03/17 09:50 Urine WBC >182 /hpf (0-5) H 06/03/17 09:50 Urine WBC Clumps Many /hpf (None) H 06/03/17 09:50 Urine Mucus Moderate /hpf (None) H 06/03/17 09:50 Influenza Type A RNA Detected (Not Detectd) H 06/03/17 10:00 Influenza Type B (PCR) Not Detected (Not Detectd) 06/03/17 10:00 Microbiology 06/03/17 09:50 Blood Blood Culture - Preliminary No Growth after 72 hours 06/03/17 09:50 Urine,Voided Urine Culture - Final Klebsiella oxytoca Pseudomonas aeruginosa Assessment and Plan (1) Influenza Current Visit: Yes Status: Acute Code(s): J11.1 - FLU DUE TO UNIDENTIFIED INFLUENZA VIRUS W OTH RESP MANIFEST SNOMED Code(s): 2204259 (2) Sepsis Narrative/Plan: this pleasant Is known to the service is now been cared for by the plastic surgeon in [place]. The patient has evidence of influenza a and likely underlying pneumonia as well as gram-negative urinary tract infection and what that antibiotic therapy is altered to ceftazidime to ensure recovering from the prior Pseudomonas it's been isolated. This also give us coverage for. However Tamiflu is being utilized for his influenza. The patient's is mildly ill and does have a mask on, No other family members been ill and he does not have much outside contacts. He does not have much outside contact. The plan for now with final cultures to determine outpatient course of antibiotics. Local wound care Is provided with the nursing staff. Nu Gauze strip dressing is placed into the left deep hip ulceration. Cheryl dressing is applied to the left buttocks ulceration. DuoDERM to the right buttocks ulceration. Orders are placed. The patient will follow back up with his plastic surgeon after discharge. We however do discussed that he is currently in an air mattress at home and given his main difficulties he may do well to be transitioned to a gel mattress which may give him better offloading 06/05/2017 reveals the patient to be feeling better. Still having cough, fever has improved. He is hemodynamically stable, and is ready for discharge out of the intensive care unit. Local wound care will continue as outlined. Continue antibiotic therapy however the gram-negative in his urine has now come back is an ESBL MDR to antibiotic therapy is changed to ertapenem. Continue the Tamiflu for the influenza. 06/06/2017 patient has had some further improvement. Respiratory status is improving with the Tamiflu. Having no further high-grade fevers or chills. Cough is improved but still persistent. He does have evidence of the Klebsiella ESBL however pseudomonas is no also isolated and antibiotic therapy is further transition [facility]. Discharge plan is not yet clear Current Visit: Yes Status: Acute Code(s): A41.9 - SEPSIS, UNSPECIFIED ORGANISM SNOMED Code(s): 63836283 (3) UTI (urinary tract infection) Current Visit: Yes Status: Acute Code(s): N39.0 - URINARY TRACT INFECTION, SITE NOT SPECIFIED SNOMED Code(s): 83128297
[2017-06-07] MEDS: MEROPENEM 1 GM in SODIUM CHLORIDE 0.9% 100 ML IVPB SCH ×3 (00:12→17:46)
[2017-06-07] MEDS: HEPARIN SODIUM,PORCINE 5,000 UNIT/ML 1 ML VIAL SQ SCH ×3 (00:12→17:41)
[2017-06-07 07:12] LABS: Glucose,Whole Blood 116 mg/dL (75-99)
--- NOTE | 2017-06-07 07:15 | XR ---
EXAMINATION TYPE: XR chest 1V DATE OF EXAM: 06/07/2017 HISTORY: assess lungs. REFERENCE: Previous study dated 06/06/2017. FINDINGS: There has been elias fixation of the thoracic spine and thoracolumbar junction. The heart is enlarged. There is worsening right basilar atelectasis. There are small, bilateral effus ions. IMPRESSION: 1. CARDIOMEGALY. 2. WORSENING RIGHT BASILAR AIRSPACE DISEASE. 3. SMALL, BILATERAL EFFUSIONS.
[2017-06-07] MEDS: IPRATROPIUM-ALBUTEROL 3 ML NEB INHALATION SCH ×4 (07:20→20:04)
[2017-06-07] MEDS: INSULIN ASPART 100 UNIT/ML 1 ML 10 ML VIAL SQ SCH ×4 (07:35→21:19)
[2017-06-07] MEDS: ONDANSETRON 4 MG TAB PO PRN (08:29)
[2017-06-07] MEDS: ASPIRIN 81 MG PO SCH (08:31)
[2017-06-07] MEDS: OXYBUTYNIN CHLORIDE 5 MG TAB PO SCH ×3 (08:31→20:10)
[2017-06-07] MEDS: ASCORBIC ACID 500 MG TAB PO SCH (08:31)
[2017-06-07] MEDS: FERROUS SULFATE 325 MG TAB PO SCH (08:31)
[2017-06-07] MEDS: OSELTAMIVIR 75 MG CAP PO SCH ×2 (08:31→20:10)
[2017-06-07] MEDS: DOCUSATE 100 MG CAP PO SCH (08:31)
[2017-06-07] MEDS: METOCLOPRAMIDE 10 MG TAB PO SCH (08:32)
[2017-06-07] MEDS: IMIPRAMINE 10 MG TAB PO SCH ×3 (08:32→20:11)
[2017-06-07] MEDS: SODIUM HYPOCHLORITE 0.5% 480 ML BOT MISCELLANE SCH (08:32)
[2017-06-07] MEDS: PANTOPRAZOLE 40 MG TABLET PO SCH (08:33)
[2017-06-07] MEDS: ZINC SULFATE 220 MG CAP PO SCH (08:35)
[2017-06-07 08:36] LABS: Basophils % (A) 0 %; Eosinophils # (A) 0.3 k/uL (0-0.7); Eosinophils % (A) 5 %; HCT 32.5 % (39.0-53.0); HGB 10.9 gm/dL (13.0-17.5); Lymphocytes # (A) 0.6 k/uL (1.0-4.8); Lymphocytes % (A) 10 %; MCH 28.3 pg (25.0-35.0); MCHC 33.5 g/dL (31.0-37.0); MCV 84.5 fL (80.0-100.0); Mean Platelet Volume 6.9; Monocytes # (A) 0.5 k/uL (0-1.0); Monocytes % (A) 8 %; Neutrophils # (A) 4.7 k/uL (1.3-7.7); Neutrophils % (A) 75 %; Platelet Count 219 k/uL (150-450); RBC 3.84 m/uL (4.30-5.90); WBC 6.4 k/uL (3.8-10.6)
[2017-06-07 09:01] LABS: Anion Gap 12 mmol/L; Blood Urea Nitrogen 12 mg/dL (9-20); Calcium 8.4 mg/dL (8.4-10.2); Carbon Dioxide 30 mmol/L (22-30); Chloride 96 mmol/L (98-107); Glucose 105 mg/dL (74-99); Phosphorus 2.5 mg/dL (2.5-4.5); Potassium 3.9 mmol/L (3.5-5.1); Sodium 138 mmol/L (137-145)
[2017-06-07 12:08] LABS: Glucose,Whole Blood 129 mg/dL (75-99)
[2017-06-07] MEDS: methylPREDNISolone SOD SUCCI 40 MG/ML 1 ML VIAL IV SCH ×2 (12:35→17:41)
[2017-06-07] MEDS: SODIUM CHLORIDE 0.9% 1,000 ML IV SCH (12:38)
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
--- NOTE | 2017-06-07 14:14 | PN ---
PROGRESS NOTE DATE OF SERVICE: 06/07/17 CHIEF COMPLAINT: Sepsis and hypotension. HISTORY OF PRESENT ILLNESS: This gentleman is still having trouble with nausea. He has had no abdominal pain, fever, etc. PHYSICAL EXAM: Hydration is good. He is awake and alert. Chest is clear. Cardiac exam is normal and the abdomen is soft, nontender. IMPRESSION: 1. Septicemia. 2. Influenza. 3. Urinary tract infection. 4. Paraplegia. PLAN: Look for etiology of nausea and continue with the IV fluids and antibiotics. MMODL / IJN: [id number] /
[2017-06-07 17:32] LABS: Glucose,Whole Blood 197 mg/dL (75-99)
[2017-06-07] MEDS: AZITHROMYCIN 500 MG TAB PO SCH (20:10)
[2017-06-07 20:57] LABS: Glucose,Whole Blood 216 mg/dL (75-99)
[2017-06-08] MEDS: HEPARIN SODIUM,PORCINE 5,000 UNIT/ML 1 ML VIAL SQ SCH ×3 (00:02→16:36)
[2017-06-08] MEDS: MEROPENEM 1 GM in SODIUM CHLORIDE 0.9% 100 ML IVPB SCH ×3 (00:02→16:34)
[2017-06-08] MEDS: methylPREDNISolone SOD SUCCI 40 MG/ML 1 ML VIAL IV SCH ×4 (00:02→17:56)
[2017-06-08 07:25] LABS: Glucose,Whole Blood 228 mg/dL (75-99)
[2017-06-08] MEDS: IPRATROPIUM-ALBUTEROL 3 ML NEB INHALATION SCH ×4 (07:48→19:50)
[2017-06-08] MEDS: INSULIN ASPART 100 UNIT/ML 1 ML 10 ML VIAL SQ SCH ×4 (07:48→22:05)
[2017-06-08] MEDS: DOCUSATE 100 MG CAP PO SCH (07:50)
[2017-06-08] MEDS: OXYBUTYNIN CHLORIDE 5 MG TAB PO SCH ×3 (07:50→22:03)
[2017-06-08] MEDS: PANTOPRAZOLE 40 MG TABLET PO SCH (07:50)
[2017-06-08] MEDS: METOCLOPRAMIDE 10 MG TAB PO SCH (07:50)
[2017-06-08] MEDS: FERROUS SULFATE 325 MG TAB PO SCH (07:50)
[2017-06-08] MEDS: IMIPRAMINE 10 MG TAB PO SCH ×3 (07:50→22:03)
[2017-06-08] MEDS: ASCORBIC ACID 500 MG TAB PO SCH (07:50)
[2017-06-08] MEDS: ASPIRIN 81 MG PO SCH (07:51)
[2017-06-08] MEDS: ZINC SULFATE 220 MG CAP PO SCH (07:51)
[2017-06-08] MEDS: SODIUM CHLORIDE 0.9% 1,000 ML IV SCH (09:48)
[2017-06-08 12:20] LABS: Glucose,Whole Blood 191 mg/dL (75-99)
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
[2017-06-08 17:07] LABS: Glucose,Whole Blood 280 mg/dL (75-99)
[2017-06-08 21:40] LABS: Glucose,Whole Blood 267 mg/dL (75-99)
[2017-06-08] MEDS: AZITHROMYCIN 500 MG TAB PO SCH (22:03)
[2017-06-09] MEDS: HEPARIN SODIUM,PORCINE 5,000 UNIT/ML 1 ML VIAL SQ SCH ×4 (00:30→23:27)
[2017-06-09] MEDS: MEROPENEM 1 GM in SODIUM CHLORIDE 0.9% 100 ML IVPB SCH ×4 (00:30→23:27)
[2017-06-09] MEDS: SODIUM HYPOCHLORITE 0.5% 480 ML BOT MISCELLANE SCH ×2 (04:00→21:58)
[2017-06-09] MEDS: IPRATROPIUM-ALBUTEROL 3 ML NEB INHALATION SCH ×4 (07:16→19:15)
[2017-06-09 07:28] LABS: Glucose,Whole Blood 165 mg/dL (75-99)
[2017-06-09] MEDS: METOCLOPRAMIDE 10 MG TAB PO SCH (08:00)
[2017-06-09] MEDS: FERROUS SULFATE 325 MG TAB PO SCH (08:00)
[2017-06-09] MEDS: PANTOPRAZOLE 40 MG TABLET PO SCH (08:00)
[2017-06-09] MEDS: IMIPRAMINE 10 MG TAB PO SCH ×3 (08:00→21:54)
[2017-06-09] MEDS: ZINC SULFATE 220 MG CAP PO SCH ×2 (08:00→08:03)
[2017-06-09] MEDS: ASCORBIC ACID 500 MG TAB PO SCH (08:01)
[2017-06-09] MEDS: OXYBUTYNIN CHLORIDE 5 MG TAB PO SCH ×3 (08:01→21:54)
[2017-06-09] MEDS: ASPIRIN 81 MG PO SCH (08:01)
[2017-06-09] MEDS: DOCUSATE 100 MG CAP PO SCH (08:01)
[2017-06-09] MEDS: INSULIN ASPART 100 UNIT/ML 1 ML 10 ML VIAL SQ SCH ×4 (08:01→21:54)
[2017-06-09] MEDS: SODIUM CHLORIDE 0.9% 1,000 ML IV SCH (10:19)
[2017-06-09 12:14] LABS: Glucose,Whole Blood 166 mg/dL (75-99)
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
[2017-06-09 17:05] LABS: Glucose,Whole Blood 199 mg/dL (75-99)
--- NOTE | 2017-06-09 18:10 | PN ---
PROGRESS NOTE DATE OF SERVICE: 06/08/17 CHIEF COMPLAINT: Septicemia, influenza, and urinary tract infection. HISTORY OF PRESENT ILLNESS: This gentleman is doing a little bit better. He is less nauseated and he is starting to eat. Temperature has gone down. PHYSICAL EXAM: CHEST: Clear. Cardiac exam is normal. The abdomen is slightly protuberant, soft, nontender. IMPRESSION: 1. Septicemia. 2. Urinary tract infection. 3. Influenza. PLAN: He is probably getting to the point where he could go home soon. MMODL / IJN: [id number] /
--- NOTE | 2017-06-09 18:34 | PN ---
PROGRESS NOTE DATE OF SERVICE: 06/08/17 CHIEF COMPLAINT: Sepsis. HISTORY OF PRESENT ILLNESS: This gentleman is doing much better. Temperature is down, he has not had any significant shortness of breath or cough. He has had no abdominal pain. PHYSICAL EXAM: Chest is quite clear. Cardiac exam is normal. Abdomen is soft, nontender. The vital signs are normal. IMPRESSION: Resolving septicemia with hypotension and syncope. He can probably go home anytime. MMODL / IJN: [id number] /
[2017-06-09 20:49] LABS: Glucose,Whole Blood 214 mg/dL (75-99)
[2017-06-09] MEDS: AZITHROMYCIN 500 MG TAB PO SCH (21:54)
--- NOTE | 2017-06-09 23:24 | P.PN ---
Subjective Progress Note Date: 06/09/17 Principal diagnosis: Fever This is a 67-year-old male patient who is well-known to ID service as he has history of a T8 complete spinal cord injury in 1991 and has had ongoing problems with pressure ulcers to his low back, ischium and perianal areas. He was treated here at the wound healing center for several years. He is status post colostomy and chronic Epps catheter placement. He now follows with Dr. Story at the wound center at [facility]. He goes there every 8 weeks by ambulance and has debridements and wound care performed and also has [facility] home care in place. Patient states that one wound is 4 cm deep with tunneling to the bone. Many years ago he was treated for osteomyelitis but not recently. Currently wound care is in the form of quarter-inch packing tape soaked with Dakins. He is also status post several flap procedures done by Dr. Story. Patient is essentially bedbound but recently has been getting into a wheelchair. Patient has a specialty mattress at home, air cushion and Roho for his chair. Regarding his Epps, this is changed every 30 days and was done yesterday. He has had history of frequent bladder infections but started using olive tree extract and his last bladder infection was at least 6 months ago. He continues to have output from his colostomy but no liquid stools. His usual consistency is soft. Patient states that on Friday he started feeling sick and canceled his usual wound appointment. He developed a cough that would not stop and he was not able to bring up any sputum. He was nauseated and then developed vomiting. His also had a cough but he does not think she had the flu. Patient developed mental status changes and was brought into [facility] emergency center for evaluation and was found to have temperature 101.5, tachycardia, hypotension and he was started on norepinephrine and was status post IV fluid resuscitation. Influenza A was positive and patient was started on Tamiflu. White count was 7.2, creatinine 0.6, albumin 3.4, CK 266. Urinalysis was turbid, blood large, leukoesterase large, rbc's greater than 182, wbc's greater than 182, clumps many, mucus moderate. Urine culture and blood culture are in progress. Lactic acid was 1.3. His chest x-ray showed small moderate left pleural effusion and left basilar and retrocardiac atelectasis and/or consolidation. Patient was admitted into the intensive care unit. Repeat chest x-ray this morning shows a small left pleural effusion and mild cardiomegaly. Patient's mental status is back to baseline. He is able to recall the events leading to his hospitalization and does remember being confused. 06/05/2017 patient is feeling better today. Mental status is quite clear. Relates that he is eating quite well. Nursing staff relate no acute changes. 06/06/2017 reveals the patient have further improvement. Appetite as well. Wounds have been dressed and he has no other new acute complaints. Is related to the culture now reveals evidence of the Klebsiella ESBL and subsequently his antibiotic therapy was changed to a carbapenem, however pseudomonas is now been isolated and further antibiotic changed to meropenem has been requested. 06/09/2017 reveals the patient have further improvement. He is now out of the intensive care unit. In general he is feeling considerably better. Looking forward to potential transfer to home. Denies further fevers or chills. Wound care has been without difficulty. Objective - Vital Signs Vital signs: Vital Signs Temp 97.4 F L 06/09/17 14:00 Pulse 70 06/09/17 19:25 Resp 18 06/09/17 14:00 BP 109/55 06/09/17 14:00 Pulse Ox 92 L 06/09/17 14:00 Intake & Output 06/09/17 06/09/17 06/10/17 06:59 18:59 06:59 Intake Total 300 Output Total 700 475 Balance -400 -475 Intake: Oral 300 Output: Urine 700 475 Other: Voiding Method Indwelling Catheter Indwelling Catheter # Voids 0 - Exam Gen: This is a 67-year-old male. appears to be comfortable and in no acute distress. No respiratory distress is noted. HEENT: Head is atraumatic, normocephalic. Pupils equal, round. Sclerae is anicteric. Conjunctiva pink. Mucous members of the mouth are dry. No thrush noted. NECK: Supple. No JVD. No lymphadenopathy. No thyromegaly. LUNGS: Bilateral rhonchi. No intercostal retractions. HEART: Regular rate and rhythm. No murmur. ABDOMEN: Soft. Bowel sounds are present. No masses. No tenderness. Colostomy with bag filled with flatus. Epps catheter draining aime urine. Wound assessment reveals evidence of the dressings in place with no significant drainage or odor EXTREMITIES: No pedal edema. Dorsalis pedis +2 bilaterally. NEUROLOGICAL: Patient is awake, alert and oriented x3. - Labs CBC & Chem 7: 06/07/17 07:35 06/07/17 07:35 Labs: Abnormal Lab Results - Last 24 Hours (Table) 06/09/17 06/09/17 06/09/17 Range/Units 07:25 12:11 17:01 POC Glucose (mg/dL) 165 H 166 H 199 H (75-99) mg/dL 06/09/17 Range/Units 20:47 POC Glucose (mg/dL) 214 H (75-99) mg/dL Microbiology - Last 24 Hours (Table) 06/03/17 09:50 Blood Culture - Final Blood No Growth after 144 hours Laboratory Results WBC 6.4 k/uL (3.8-10.6) 06/07/17 07:35 RBC 3.84 m/uL (4.30-5.90) L 06/07/17 07:35 Hgb 10.9 gm/dL (13.0-17.5) L 06/07/17 07:35 Hct 32.5 % (39.0-53.0) L 06/07/17 07:35 MCV 84.5 fL (80.0-100.0) 06/07/17 07:35 MCH 28.3 pg (25.0-35.0) 06/07/17 07:35 MCHC 33.5 g/dL (31.0-37.0) 06/07/17 07:35 RDW 14.0 % (11.5-15.5) 06/07/17 07:35 Plt Count 219 k/uL (150-450) 06/07/17 07:35 Neutrophils % 75 % 06/07/17 07:35 Neutrophils % (Manual) 50 % 06/03/17 09:50 Band Neutrophils % 3 % 06/03/17 09:50 Lymphocytes % 10 % 06/07/17 07:35 Lymphocytes % (Manual) 37 % 06/03/17 09:50 Monocytes % 8 % 06/07/17 07:35 Monocytes % (Manual) 7 % 06/03/17 09:50 Eosinophils % 5 % 06/07/17 07:35 Eosinophils % (Manual) 3 % 06/03/17 09:50 Basophils % 0 % 06/07/17 07:35 Neutrophils # 4.7 k/uL (1.3-7.7) 06/07/17 07:35 Neutrophils # (Manual) 3.80 k/uL (1.3-7.7) 06/03/17 09:50 Lymphocytes # 0.6 k/uL (1.0-4.8) L 06/07/17 07:35 Lymphocytes # (Manual) 2.66 k/uL (1.0-4.8) 06/03/17 09:50 Monocytes # 0.5 k/uL (0-1.0) 06/07/17 07:35 Monocytes # (Manual) 0.50 k/uL (0-1.0) 06/03/17 09:50 Eosinophils # 0.3 k/uL (0-0.7) 06/07/17 07:35 Eosinophils # (Manual) 0.22 k/uL (0-0.7) 06/03/17 09:50 Basophils # 0.0 k/uL (0-0.2) 06/07/17 07:35 Nucleated RBCs 0 /100 WBC (0-0) 06/03/17 09:50 Manual Slide Review Performed 06/03/17 09:50 Hypochromasia (manual) Present 06/03/17 09:50 PT 11.7 sec (9.0-12.0) 06/03/17 10:20 INR 1.2 (<1.2) H 06/03/17 10:20 APTT 27.2 sec (22.0-30.0) 06/03/17 10:20 Sodium 138 mmol/L (137-145) 06/07/17 07:35 Potassium 3.9 mmol/L (3.5-5.1) 06/07/17 07:35 Chloride 96 mmol/L (98-107) L 06/07/17 07:35 Carbon Dioxide 30 mmol/L (22-30) 06/07/17 07:35 Anion Gap 12 mmol/L 06/07/17 07:35 BUN 12 mg/dL (9-20) 06/07/17 07:35 Creatinine 0.57 mg/dL (0.66-1.25) L 06/07/17 07:35 Est GFR (CKD-EPI)AfAm >90 (>60 ml/min/1.73 sqM) 06/07/17 07:35 Est GFR (CKD-EPI)NonAf >90 (>60 ml/min/1.73 sqM) 06/07/17 07:35 Glucose 105 mg/dL (74-99) H 06/07/17 07:35 POC Glucose (mg/dL) 214 mg/dL (75-99) H 06/09/17 20:47 POC Glu Order Runner ID Mana Hernandez 06/09/17 20:[address] Glu mg/dL 163 06/04/17 04:16 Hemoglobin A1c 7.3 % (4.0-6.0) H 06/04/17 04:16 Plasma Lactic Acid [place] 1.3 mmol/L (0.7-2.0) 06/03/17 09:50 Calcium 8.4 mg/dL (8.4-10.2) 06/07/17 07:35 Phosphorus 2.5 mg/dL (2.5-4.5) 06/07/17 07:35 Magnesium 2.0 mg/dL (1.6-2.3) 06/07/17 07:35 Total Bilirubin 0.2 mg/dL (0.2-1.3) 06/03/17 09:50 AST 27 U/L (17-59) 06/03/17 09:50 ALT 30 U/L (21-72) 06/03/17 09:50 Alkaline Phosphatase 85 U/L (38-126) 06/03/17 09:50 Total Creatine Kinase 266 U/L (55-170) H 06/03/17 09:50 CK-MB (CK-2) 0.5 ng/mL (0.0-2.4) 06/03/17 09:50 CK-MB (CK-2) Rel Index 0.2 06/03/17 09:50 Troponin I <0.012 ng/mL (0.000-0.034) 06/03/17 09:50 Total Protein 6.6 g/dL (6.3-8.2) 06/03/17 09:50 Albumin 3.4 g/dL (3.5-5.0) L 06/03/17 09:50 Cortisol 7 ug/dL 06/03/17 15:12 Urine Color Yellow 06/03/17 09:50 Urine Appearance Turbid (Clear) 06/03/17 09:50 Urine pH 6.0 (5.0-8.0) 06/03/17 09:50 Ur Specific [place] 1.018 (1.001-1.035) 06/03/17 09:50 Urine Protein 2+ (Negative) H 06/03/17 09:50 Urine Glucose (UA) Negative (Negative) 06/03/17 09:50 Urine Ketones 2+ (Negative) H 06/03/17 09:50 Urine Blood Large (Negative) H 06/03/17 09:50 Urine Nitrite Positive (Negative) 06/03/17 09:50 Urine Bilirubin Negative (Negative) 06/03/17 09:50 Urine Urobilinogen <2.0 mg/dL (<2.0) 06/03/17 09:50 Ur Leukocyte Esterase Large (Negative) H 06/03/17 09:50 Urine RBC >182 /hpf (0-5) H 06/03/17 09:50 Urine WBC >182 /hpf (0-5) H 06/03/17 09:50 Urine WBC Clumps Many /hpf (None) H 06/03/17 09:50 Urine Mucus Moderate /hpf (None) H 06/03/17 09:50 Influenza Type A RNA Detected (Not Detectd) H 06/03/17 10:00 Influenza Type B (PCR) Not Detected (Not Detectd) 06/03/17 10:00 Microbiology 06/03/17 09:50 Blood Blood Culture - Final No Growth after 144 hours 06/03/17 09:50 Urine,Voided Urine Culture - Final Klebsiella oxytoca Pseudomonas aeruginosa Assessment and Plan (1) Influenza Current Visit: Yes Status: Acute Code(s): J11.1 - FLU DUE TO UNIDENTIFIED INFLUENZA VIRUS W OTH RESP MANIFEST SNOMED Code(s): 9071270 (2) Sepsis Narrative/Plan: this pleasant Is known to the service is now been cared for by the plastic surgeon in [place]. The patient has evidence of influenza a and likely underlying pneumonia as well as gram-negative urinary tract infection and what that antibiotic therapy is altered to ceftazidime to ensure recovering from the prior Pseudomonas it's been isolated. This also give us coverage for. However Tamiflu is being utilized for his influenza. The patient's is mildly ill and does have a mask on, No other family members been ill and he does not have much outside contacts. He does not have much outside contact. The plan for now with final cultures to determine outpatient course of antibiotics. Local wound care Is provided with the nursing staff. Nu Gauze strip dressing is placed into the left deep hip ulceration. Cheryl dressing is applied to the left buttocks ulceration. DuoDERM to the right buttocks ulceration. Orders are placed. The patient will follow back up with his plastic surgeon after discharge. We however do discussed that he is currently in an air mattress at home and given his main difficulties he may do well to be transitioned to a gel mattress which may give him better offloading 06/05/2017 reveals the patient to be feeling better. Still having cough, fever has improved. He is hemodynamically stable, and is ready for discharge out of the intensive care unit. Local wound care will continue as outlined. Continue antibiotic therapy however the gram-negative in his urine has now come back is an ESBL MDR to antibiotic therapy is changed to ertapenem. Continue the Tamiflu for the influenza. 06/06/2017 patient has had some further improvement. Respiratory status is improving with the Tamiflu. Having no further high-grade fevers or chills. Cough is improved but still persistent. He does have evidence of the Klebsiella ESBL however pseudomonas is no also isolated and antibiotic therapy is further transition to meropenem from the [facility]. Discharge plan is not yet clear 06/09/2017 reveals a patient with further improvement. He has completed his course of Tamiflu and his fevers have resolved. However the difficulty with the urinary tract infection and there is evidence of klebsiella ESBL and pseudomonas. He is responding well to antibiotic therapy with meropenem. However at the time of discharge tomorrow we'll transition to doxycycline and ciprofloxacin to complete his course of therapy. Local wound care continues as per the plan of his plastic surgeon Dr. Story. Continue with offloading and local wound care currently with the honey and plain gauze packing. Current Visit: Yes Status: Acute Code(s): A41.9 - SEPSIS, UNSPECIFIED ORGANISM SNOMED Code(s): 01645085 (3) UTI (urinary tract infection) Current Visit: Yes Status: Acute Code(s): N39.0 - URINARY TRACT INFECTION, SITE NOT SPECIFIED SNOMED Code(s): 87968958
[2017-06-10] MEDS: traMADol 50 MG TAB PO PRN (02:39)
[2017-06-10] MEDS: ONDANSETRON 4 MG TAB PO PRN (04:35)
[2017-06-10 07:28] LABS: Glucose,Whole Blood 142 mg/dL (75-99)
[2017-06-10] MEDS: IPRATROPIUM-ALBUTEROL 3 ML NEB INHALATION SCH ×4 (07:40→20:05)
[2017-06-10] MEDS: ASCORBIC ACID 500 MG TAB PO SCH (08:33)
[2017-06-10] MEDS: HEPARIN SODIUM,PORCINE 5,000 UNIT/ML 1 ML VIAL SQ SCH ×2 (08:33→16:41)
[2017-06-10] MEDS: ZINC SULFATE 220 MG CAP PO SCH (08:34)
[2017-06-10] MEDS: INSULIN ASPART 100 UNIT/ML 1 ML 10 ML VIAL SQ SCH ×4 (08:34→21:12)
[2017-06-10] MEDS: OXYBUTYNIN CHLORIDE 5 MG TAB PO SCH ×3 (08:34→21:11)
[2017-06-10] MEDS: PANTOPRAZOLE 40 MG TABLET PO SCH (08:34)
[2017-06-10] MEDS: ASPIRIN 81 MG PO SCH (08:35)
[2017-06-10] MEDS: IMIPRAMINE 10 MG TAB PO SCH ×3 (08:35→21:12)
[2017-06-10] MEDS: FERROUS SULFATE 325 MG TAB PO SCH (08:35)
[2017-06-10] MEDS: METOCLOPRAMIDE 10 MG TAB PO SCH (08:35)
[2017-06-10] MEDS: MEROPENEM 1 GM in SODIUM CHLORIDE 0.9% 100 ML IVPB SCH ×2 (08:35→16:41)
[2017-06-10] MEDS: DOCUSATE 100 MG CAP PO SCH (08:35)
[2017-06-10 12:31] LABS: Glucose,Whole Blood 129 mg/dL (75-99)
[2017-06-10] MEDS: SODIUM CHLORIDE 0.9% 1,000 ML IV SCH (12:33)
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
[2017-06-10 17:26] LABS: Glucose,Whole Blood 146 mg/dL (75-99)
--- NOTE | 2017-06-10 18:02 | PN ---
PROGRESS NOTE DATE OF SERVICE: 06/10/17 CHIEF COMPLAINT: Septicemia. HISTORY OF PRESENT ILLNESS: This gentleman is doing well, but now he has redeveloped nausea. PHYSICAL EXAM: CHEST: Clear except for occasional rales. Cardiac exam is normal. Abdomen is soft, nontender. IMPRESSION: 1. Nausea, etiology unknown. 2. Septicemia with hypovolemic shock and syncope. PLAN: No change in program. He will not be able to go home until the nausea is cleared. MMODL / IJN: [id number] /
[2017-06-10 20:52] LABS: Glucose,Whole Blood 158 mg/dL (75-99)
[2017-06-10] MEDS: AZITHROMYCIN 500 MG TAB PO SCH (21:11)
[2017-06-10] MEDS: guaiFENesin SYRUP 100MG/5ML 200 MG/10 ML CUP PO PRN (21:12)
[2017-06-10] MEDS: SODIUM HYPOCHLORITE 0.5% 480 ML BOT MISCELLANE SCH (21:12)
[2017-06-10 22:48] VITALS: RESP 16
[2017-06-11] MEDS ORDERED: HEPARIN SODIUM,PORCINE 5,000 UNIT/ML 1 ML VIAL ONE
[2017-06-11 06:32] VITALS: BP 108/61; TEMP 97.9
[2017-06-11 07:26] LABS: Glucose,Whole Blood 146 mg/dL (75-99)
--- NOTE | 2017-06-11 07:44 | P.PN ---
Subjective Progress Note Date: 06/10/17 Principal diagnosis: Fever This is a 67-year-old male patient who is well-known to ID service as he has history of a T8 complete spinal cord injury in 1991 and has had ongoing problems with pressure ulcers to his low back, ischium and perianal areas. He was treated here at the wound healing center for several years. He is status post colostomy and chronic Epps catheter placement. He now follows with Dr. Story at the wound center at [facility]. He goes there every 8 weeks by ambulance and has debridements and wound care performed and also has [facility] home care in place. Patient states that one wound is 4 cm deep with tunneling to the bone. Many years ago he was treated for osteomyelitis but not recently. Currently wound care is in the form of quarter-inch packing tape soaked with Dakins. He is also status post several flap procedures done by Dr. Story. Patient is essentially bedbound but recently has been getting into a wheelchair. Patient has a specialty mattress at home, air cushion and Roho for his chair. Regarding his Epps, this is changed every 30 days and was done yesterday. He has had history of frequent bladder infections but started using olive tree extract and his last bladder infection was at least 6 months ago. He continues to have output from his colostomy but no liquid stools. His usual consistency is soft. Patient states that on Friday he started feeling sick and canceled his usual wound appointment. He developed a cough that would not stop and he was not able to bring up any sputum. He was nauseated and then developed vomiting. His also had a cough but he does not think she had the flu. Patient developed mental status changes and was brought into [facility] emergency center for evaluation and was found to have temperature 101.5, tachycardia, hypotension and he was started on norepinephrine and was status post IV fluid resuscitation. Influenza A was positive and patient was started on Tamiflu. White count was 7.2, creatinine 0.6, albumin 3.4, CK 266. Urinalysis was turbid, blood large, leukoesterase large, rbc's greater than 182, wbc's greater than 182, clumps many, mucus moderate. Urine culture and blood culture are in progress. Lactic acid was 1.3. His chest x-ray showed small moderate left pleural effusion and left basilar and retrocardiac atelectasis and/or consolidation. Patient was admitted into the intensive care unit. Repeat chest x-ray this morning shows a small left pleural effusion and mild cardiomegaly. Patient's mental status is back to baseline. He is able to recall the events leading to his hospitalization and does remember being confused. 06/05/2017 patient is feeling better today. Mental status is quite clear. Relates that he is eating quite well. Nursing staff relate no acute changes. 06/06/2017 reveals the patient have further improvement. Appetite as well. Wounds have been dressed and he has no other new acute complaints. Is related to the culture now reveals evidence of the Klebsiella ESBL and subsequently his antibiotic therapy was changed to a carbapenem, however pseudomonas is now been isolated and further antibiotic changed to meropenem has been requested. 06/09/2017 reveals the patient have further improvement. He is now out of the intensive care unit. In general he is feeling considerably better. Looking forward to potential transfer to home. Denies further fevers or chills. Wound care has been without difficulty. 06/10/2017 patient has further improvement. Remains without fever no difficulty with wound care. Much less short of breath. Objective - Vital Signs Vital signs: Vital Signs Temp 97.9 F 06/11/17 05:50 Pulse 67 06/11/17 05:50 Resp 16 06/11/17 05:50 BP 108/61 06/11/17 05:50 Pulse Ox 97 06/11/17 05:50 Intake & Output 06/10/17 06/11/17 06/11/17 18:59 06:59 18:59 Output Total 1250 975 Balance -1250 -975 Weight 104.9 kg 104.9 kg Output: Urine 1250 975 Other: Voiding Method Indwelling Catheter Indwelling Catheter # Voids 1 - Exam Gen: This is a 67-year-old male. appears to be comfortable and in no acute distress. No respiratory distress is noted. HEENT: Head is atraumatic, normocephalic. Pupils equal, round. Sclerae is anicteric. Conjunctiva pink. Mucous members of the mouth are dry. No thrush noted. NECK: Supple. No JVD. No lymphadenopathy. No thyromegaly. LUNGS: Bilateral rhonchi. No intercostal retractions. HEART: Regular rate and rhythm. No murmur. ABDOMEN: Soft. Bowel sounds are present. No masses. No tenderness. Colostomy with bag filled with flatus. Epps catheter draining aime urine. Wound assessment reveals evidence of the dressings in place with no significant drainage or odor EXTREMITIES: No pedal edema. Dorsalis pedis +2 bilaterally. NEUROLOGICAL: Patient is awake, alert and oriented x3. - Labs CBC & Chem 7: 06/07/17 07:35 06/07/17 07:35 Labs: Abnormal Lab Results - Last 24 Hours (Table) 06/10/17 06/10/17 06/10/17 Range/Units 12:27 17:16 20:51 POC Glucose (mg/dL) 129 H 146 H 158 H (75-99) mg/dL 06/11/17 Range/Units 07:22 POC Glucose (mg/dL) 146 H (75-99) mg/dL Laboratory Results WBC 6.4 k/uL (3.8-10.6) 06/07/17 07:35 RBC 3.84 m/uL (4.30-5.90) L 06/07/17 07:35 Hgb 10.9 gm/dL (13.0-17.5) L 06/07/17 07:35 Hct 32.5 % (39.0-53.0) L 06/07/17 07:35 MCV 84.5 fL (80.0-100.0) 06/07/17 07:35 MCH 28.3 pg (25.0-35.0) 06/07/17 07:35 MCHC 33.5 g/dL (31.0-37.0) 06/07/17 07:35 RDW 14.0 % (11.5-15.5) 06/07/17 07:35 Plt Count 219 k/uL (150-450) 06/07/17 07:35 Neutrophils % 75 % 06/07/17 07:35 Neutrophils % (Manual) 50 % 06/03/17 09:50 Band Neutrophils % 3 % 06/03/17 09:50 Lymphocytes % 10 % 06/07/17 07:35 Lymphocytes % (Manual) 37 % 06/03/17 09:50 Monocytes % 8 % 06/07/17 07:35 Monocytes % (Manual) 7 % 06/03/17 09:50 Eosinophils % 5 % 06/07/17 07:35 Eosinophils % (Manual) 3 % 06/03/17 09:50 Basophils % 0 % 06/07/17 07:35 Neutrophils # 4.7 k/uL (1.3-7.7) 06/07/17 07:35 Neutrophils # (Manual) 3.80 k/uL (1.3-7.7) 06/03/17 09:50 Lymphocytes # 0.6 k/uL (1.0-4.8) L 06/07/17 07:35 Lymphocytes # (Manual) 2.66 k/uL (1.0-4.8) 06/03/17 09:50 Monocytes # 0.5 k/uL (0-1.0) 06/07/17 07:35 Monocytes # (Manual) 0.50 k/uL (0-1.0) 06/03/17 09:50 Eosinophils # 0.3 k/uL (0-0.7) 06/07/17 07:35 Eosinophils # (Manual) 0.22 k/uL (0-0.7) 06/03/17 09:50 Basophils # 0.0 k/uL (0-0.2) 06/07/17 07:35 Nucleated RBCs 0 /100 WBC (0-0) 06/03/17 09:50 Manual Slide Review Performed 06/03/17 09:50 Hypochromasia (manual) Present 06/03/17 09:50 PT 11.7 sec (9.0-12.0) 06/03/17 10:20 INR 1.2 (<1.2) H 06/03/17 10:20 APTT 27.2 sec (22.0-30.0) 06/03/17 10:20 Sodium 138 mmol/L (137-145) 06/07/17 07:35 Potassium 3.9 mmol/L (3.5-5.1) 06/07/17 07:35 Chloride 96 mmol/L (98-107) L 06/07/17 07:35 Carbon Dioxide 30 mmol/L (22-30) 06/07/17 07:35 Anion Gap 12 mmol/L 06/07/17 07:35 BUN 12 mg/dL (9-20) 06/07/17 07:35 Creatinine 0.57 mg/dL (0.66-1.25) L 06/07/17 07:35 Est GFR (CKD-EPI)AfAm >90 (>60 ml/min/1.73 sqM) 06/07/17 07:35 Est GFR (CKD-EPI)NonAf >90 (>60 ml/min/1.73 sqM) 06/07/17 07:35 Glucose 105 mg/dL (74-99) H 06/07/17 07:35 POC Glucose (mg/dL) 146 mg/dL (75-99) H 06/11/17 07:22 POC Glu Wash [employer] Hel[employer] ID [place]ñez 06/11/17 07:[address] Glu mg/dL 163 06/04/17 04:16 Hemoglobin A1c 7.3 % (4.0-6.0) H 06/04/17 04:16 Plasma Lactic Acid Timo 1.3 mmol/L (0.7-2.0) 06/03/17 09:50 Calcium 8.4 mg/dL (8.4-10.2) 06/07/17 07:35 Phosphorus 2.5 mg/dL (2.5-4.5) 06/07/17 07:35 Magnesium 2.0 mg/dL (1.6-2.3) 06/07/17 07:35 Total Bilirubin 0.2 mg/dL (0.2-1.3) 06/03/17 09:50 AST 27 U/L (17-59) 06/03/17 09:50 ALT 30 U/L (21-72) 06/03/17 09:50 Alkaline Phosphatase 85 U/L (38-126) 06/03/17 09:50 Total Creatine Kinase 266 U/L (55-170) H 06/03/17 09:50 CK-MB (CK-2) 0.5 ng/mL (0.0-2.4) 06/03/17 09:50 CK-MB (CK-2) Rel Index 0.2 06/03/17 09:50 Troponin I <0.012 ng/mL (0.000-0.034) 06/03/17 09:50 Total Protein 6.6 g/dL (6.3-8.2) 06/03/17 09:50 Albumin 3.4 g/dL (3.5-5.0) L 06/03/17 09:50 Cortisol 7 ug/dL 06/03/17 15:12 Urine Color Yellow 06/03/17 09:50 Urine Appearance Turbid (Clear) 06/03/17 09:50 Urine pH 6.0 (5.0-8.0) 06/03/17 09:50 Ur Specific Cerulean 1.018 (1.001-1.035) 06/03/17 09:50 Urine Protein 2+ (Negative) H 06/03/17 09:50 Urine Glucose (UA) Negative (Negative) 06/03/17 09:50 Urine Ketones 2+ (Negative) H 06/03/17 09:50 Urine Blood Large (Negative) H 06/03/17 09:50 Urine Nitrite Positive (Negative) 06/03/17 09:50 Urine Bilirubin Negative (Negative) 06/03/17 09:50 Urine Urobilinogen <2.0 mg/dL (<2.0) 06/03/17 09:50 Ur Leukocyte Esterase Large (Negative) H 06/03/17 09:50 Urine RBC >182 /hpf (0-5) H 06/03/17 09:50 Urine WBC >182 /hpf (0-5) H 06/03/17 09:50 Urine WBC Clumps Many /hpf (None) H 06/03/17 09:50 Urine Mucus Moderate /hpf (None) H 06/03/17 09:50 Influenza Type A RNA Detected (Not Detectd) H 06/03/17 10:00 Influenza Type B (PCR) Not Detected (Not Detectd) 06/03/17 10:00 Microbiology 06/03/17 09:50 Blood Blood Culture - Final No Growth after 144 hours 06/03/17 09:50 Urine,Voided Urine Culture - Final Klebsiella oxytoca Pseudomonas aeruginosa Assessment and Plan (1) Influenza Current Visit: Yes Status: Acute Code(s): J11.1 - FLU DUE TO UNIDENTIFIED INFLUENZA VIRUS W OTH RESP MANIFEST SNOMED Code(s): 8356715 (2) Sepsis Narrative/Plan: this pleasant Is known to the service is now been cared for by the plastic surgeon in [place]. The patient has evidence of influenza a and likely underlying pneumonia as well as gram-negative urinary tract infection and what that antibiotic therapy is altered to ceftazidime to ensure recovering from the prior Pseudomonas it's been isolated. This also give us coverage for. However Tamiflu is being utilized for his influenza. The patient's is mildly ill and does have a mask on, No other family members been ill and he does not have much outside contacts. He does not have much outside contact. The plan for now with final cultures to determine outpatient course of antibiotics. Local wound care Is provided with the nursing staff. Nu Gauze strip dressing is placed into the left deep hip ulceration. Cheryl dressing is applied to the left buttocks ulceration. DuoDERM to the right buttocks ulceration. Orders are placed. The patient will follow back up with his plastic surgeon after discharge. We however do discussed that he is currently in an air mattress at home and given his main difficulties he may do well to be transitioned to a gel mattress which may give him better offloading 06/05/2017 reveals the patient to be feeling better. Still having cough, fever has improved. He is hemodynamically stable, and is ready for discharge out of the intensive care unit. Local wound care will continue as outlined. Continue antibiotic therapy however the gram-negative in his urine has now come back is an ESBL MDR to antibiotic therapy is changed to ertapenem. Continue the Tamiflu for the influenza. 06/06/2017 patient has had some further improvement. Respiratory status is improving with the Tamiflu. Having no further high-grade fevers or chills. Cough is improved but still persistent. He does have evidence of the Klebsiella ESBL however pseudomonas is no also isolated and antibiotic therapy is further transition to meropenem from the [facility]. Discharge plan is not yet clear 06/09/2017 reveals a patient with further improvement. He has completed his course of Tamiflu and his fevers have resolved. However the difficulty with the urinary tract infection and there is evidence of klebsiella ESBL and pseudomonas. He is responding well to antibiotic therapy with meropenem. However at the time of discharge tomorrow we'll transition to doxycycline and ciprofloxacin to complete his course of therapy. Local wound care continues as per the plan of his plastic surgeon Dr. Story. Continue with offloading and local wound care currently with the honey and plain gauze packing. 06/10/2017 patient continues to have improvement. His influenza responding well to Tamiflu however he will qualify for home O2. As noted there is evidence of the ESBL Klebsiella and Pseudomonas in his urine and fortunately we will transition this to doxycycline Current Visit: Yes Status: Acute Code(s): A41.9 - SEPSIS, UNSPECIFIED ORGANISM SNOMED Code(s): 14395117 (3) UTI (urinary tract infection) Current Visit: Yes Status: Acute Code(s): N39.0 - URINARY TRACT INFECTION, SITE NOT SPECIFIED SNOMED Code(s): 94173256
[2017-06-11] MEDS: MEROPENEM 1 GM in SODIUM CHLORIDE 0.9% 100 ML IVPB SCH ×2 (07:54→09:48)
[2017-06-11] MEDS: traMADol 50 MG TAB PO PRN (07:56)
[2017-06-11] MEDS: guaiFENesin SYRUP 100MG/5ML 200 MG/10 ML CUP PO PRN (07:56)
[2017-06-11] MEDS: IMIPRAMINE 10 MG TAB PO SCH (07:57)
[2017-06-11] MEDS: ZINC SULFATE 220 MG CAP PO SCH (07:57)
[2017-06-11] MEDS: HEPARIN SODIUM,PORCINE 5,000 UNIT/ML 1 ML VIAL SQ SCH ×2 (07:57→09:48)
[2017-06-11] MEDS: INSULIN ASPART 100 UNIT/ML 1 ML 10 ML VIAL SQ SCH ×2 (07:57→12:26)
[2017-06-11] MEDS: OXYBUTYNIN CHLORIDE 5 MG TAB PO SCH (07:58)
[2017-06-11] MEDS: FERROUS SULFATE 325 MG TAB PO SCH (07:58)
[2017-06-11] MEDS: ASPIRIN 81 MG PO SCH (07:58)
[2017-06-11] MEDS: DOCUSATE 100 MG CAP PO SCH (07:58)
[2017-06-11] MEDS: METOCLOPRAMIDE 10 MG TAB PO SCH (07:58)
[2017-06-11] MEDS: PANTOPRAZOLE 40 MG TABLET PO SCH (07:58)
[2017-06-11] MEDS: ASCORBIC ACID 500 MG TAB PO SCH (07:58)
[2017-06-11] MEDS: SODIUM CHLORIDE 0.9% 1,000 ML IV SCH (08:00)
[2017-06-11] MEDS: IPRATROPIUM-ALBUTEROL 3 ML NEB INHALATION SCH ×2 (08:20→12:30)
[2017-06-11 12:27] LABS: Glucose,Whole Blood 113 mg/dL (75-99)
[2017-06-11 12:31] VITALS: PULSE 76
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
--- NOTE | 2017-06-11 17:48 | DS ---
DISCHARGE SUMMARY CHIEF COMPLAINT: Sepsis, septic shock, and syncope. HISTORY OF PRESENT ILLNESS AND PHYSICAL EXAM: Details of this man's history and physical can be found in the initial workup. LABORATORY STUDIES: While he was in the hospital, he had laboratory studies, details of which can be found in the laboratory section of chart. COURSE IN HOSPITAL: After admission, he was placed on bedrest, started on intravenous fluids and was in ICU for several days. Blood pressure responded to antibiotics, pressors and fluids. Eventually was taken off pressors and was able to be moved to the step-down floor. He did fairly well except he had intermittent episodes of nausea, which were not explained. Finally, they seemed to subside and it was felt that he could be discharged. He will go home on his usual activity and medications and home care. Antibiotics will be prescribed by Infectious Disease and we will follow him as an outpatient. FINAL DIAGNOSES: 1. Bacterial septicemia. 2. Urinary tract infection. 3. Multiple stage IV decubiti. 4. Septic shock. 5. Syncopal episodes. 6. Paraplegia. OPERATIONS: None. CONSULTATION: Infectious Disease and intensive medicine. He is improved. MMODL / IJN: [id number] /
== END 2017-06-11 13:44 | disposition home health service (06) | DRG 698 ==
LOC: EC 09:29 → 6ICU 14:57 → 4MS4W 06-06 13:52
PROVIDERS: ADMIT Family Medicine; ATTEND Family Medicine
DX: T83.511A Infection and inflammatory reaction due to indwelling urethral catheter, initial encounter (principal); A41.59 Other Gram-negative sepsis; A41.52 Sepsis due to Pseudomonas; J96.01 Acute respiratory failure with hypoxia; J90 Pleural effusion, not elsewhere classified; R65.21 Severe sepsis with septic shock; R57.1 Hypovolemic shock; L89.154 Pressure ulcer of sacral region, stage 4; L89.324 Pressure ulcer of left buttock, stage 4; G93.41 Metabolic encephalopathy; L89.224 Pressure ulcer of left hip, stage 4; L89.314 Pressure ulcer of right buttock, stage 4; G82.20 Paraplegia, unspecified; J98.11 Atelectasis; E87.70 Fluid overload, unspecified; S24.103S Unspecified injury at T7-T10 level of thoracic spinal cord, sequela; N39.0 Urinary tract infection, site not specified; Z16.12 Extended spectrum beta lactamase (ESBL) resistance; E78.5 Hyperlipidemia, unspecified; R11.0 Nausea; F12.90 Cannabis use, unspecified, uncomplicated; F32.9 Major depressive disorder, single episode, unspecified; I11.9 Hypertensive heart disease without heart failure; J10.1 Influenza due to other identified influenza virus with other respiratory manifestations; J98.01 Acute bronchospasm; K21.9 Gastro-esophageal reflux disease without esophagitis; G43.909 Migraine, unspecified, not intractable, without status migrainosus; E11.9 Type 2 diabetes mellitus without complications; E66.9 Obesity, unspecified; J10.81 Influenza due to other identified influenza virus with encephalopathy; Z68.30 Body mass index [BMI] 30.0-30.9, adult; Z99.3 Dependence on wheelchair; Z93.3 Colostomy status; Z74.01 Bed confinement status; Z79.84 Long term (current) use of oral hypoglycemic drugs; Z79.899 Other long term (current) drug therapy; Z79.82 Long term (current) use of aspirin; Z88.2 Allergy status to sulfonamides; Z91.041 Radiographic dye allergy status; Z87.891 Personal history of nicotine dependence; Z86.718 Personal history of other venous thrombosis and embolism; Z86.14 Personal history of Methicillin resistant Staphylococcus aureus infection; Z85.828 Personal history of other malignant neoplasm of skin; Z86.69 Personal history of other diseases of the nervous system and sense organs; Z87.898 Personal history of other specified conditions; Z87.440 Personal history of urinary (tract) infections; Z82.49 Family history of ischemic heart disease and other diseases of the circulatory system; Z80.8 Family history of malignant neoplasm of other organs or systems; Z84.89 Family history of other specified conditions; Z82.0 Family history of epilepsy and other diseases of the nervous system; Z82.61 Family history of arthritis
CPT/HCPCS: 36415; 71045; 71046; 80048; 80053; 81001; 82533; 82550; 82553; 83036; 83605; 83735; 84100; 84132; 84484; 85025; 85610; 85730; 87040; 87077; 87086; 87186; 87502; 93005; 94640; 94760; 96361; 96365; 96366; 96375; 99291

== ENCOUNTER 2017-06-20 02:28 | Inpatient (IN) | payer MEDICARE ==
[2017-06-20] MEDS ORDERED: SODIUM CHLORIDE 0.9% 1,000 ML IV STA ×2 (03:07→08:34)
[2017-06-20] MEDS ORDERED: ONDANSETRON 4 MG/2 ML VIAL IVP STA (03:07)
[2017-06-20 03:41] LABS: Basophils % (A) 0 %; Eosinophils # (A) 0.2 k/uL (0-0.7); Eosinophils % (A) 1 %; HCT 36.1 % (39.0-53.0); HGB 11.7 gm/dL (13.0-17.5); Lymphocytes # (A) 0.6 k/uL (1.0-4.8); Lymphocytes % (A) 5 %; MCHC 32.4 g/dL (31.0-37.0); MCV 83.3 fL (80.0-100.0); Mean Platelet Volume 7.3; Monocytes # (A) 0.9 k/uL (0-1.0); Monocytes % (A) 7 %; Neutrophils # (A) 11.7 k/uL (1.3-7.7); Neutrophils % (A) 87 %; Platelet Count 328 k/uL (150-450); RBC 4.33 m/uL (4.30-5.90); RDW 14.5 % (11.5-15.5); WBC 13.5 k/uL (3.8-10.6)
[2017-06-20 03:51] LABS: Albumin 3.6 g/dL (3.5-5.0); Calcium 9.3 mg/dL (8.4-10.2); Potassium 4.6 mmol/L (3.5-5.1); Total Bilirubin 0.5 mg/dL (0.2-1.3); Total Protein 6.7 g/dL (6.3-8.2)
[2017-06-20 04:00] LABS: Appearance,Urine Turbid (Clear); Bacteria,Urine Rare /hpf; Bilirubin,Urine Negative (Negative); Blood,Urine Moderate (Negative); Budding Yeast,Urine Moderate /hpf; Color,Urine Yellow; Glucose,Urine (UA) Negative (Negative); Ketones,Urine 3+ (Negative); Leukocyte Esterase,Urine Large (Negative); Mucus,Urine Rare /hpf; Nitrite,Urine Negative (Negative); PH, Urine 5.5 (5.0-8.0); Protein,Urine 2+ (Negative); RBC,Urine 73 /hpf (0-5); Specific Gravity,Urine 1.019 (1.001-1.035); Squamous Epithelial Cell,Urine 2 /hpf (0-4); Urobilinogen,Urine <2.0 mg/dL (<2.0); WBC,Urine >182 /hpf (0-5)
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
--- NOTE | 2017-06-20 05:08 | XR ---
EXAM: XR Abdomen, 1 View CLINICAL HISTORY: Patient currently being treated for UTI and complains of nausea, vomiting and diarrhea. TECHNIQUE: Frontal supine view of the abdomen/pelvis. COMPARISON: Chest x-ray dated 06/07/[address] of the abdomen/pelvis dated 06/03/2016. FINDINGS: Limitations: Limited evaluation secondary to patient body habitus and acquisition of frontal images. Gastrointestinal tract: Nonspecific bowel gas pattern without evidence of obstruction. Mild small bowel wall thickening is suspected raising concern for infectious versus inflammatory enteritis. Left colostomy is noted. Organs: 0.9 cm radiopaque structure overlies the expected area of the left kidney, likely representing the nonobstructive stone seen on the prior study. Right nephrolithiasis previously seen is not definitively visualized on this study. Bones/joints: Multilevel degenerative changes are seen throughout the lumbar spine with mild/moderate levoscoliosis, as seen on prior study. Godwin fixation of the thoracic spine and thoracolumbar spine junction is again seen. Severe degenerative changes of the right hip are partially viewed. IMPRESSION: As above. If there is further clinical concern, consider CT of the abdomen/pelvis for further evaluation.
[2017-06-20] MEDS ORDERED: RX INFO: IV CONTRAST WAS GIVEN 1 EACH MISC MISCELLANE PRN (05:31)
[2017-06-20] MEDS ORDERED: methylPREDNISolone SOD SUCCI 125 MG/2 ML VIAL IV STA ×2 (05:32→05:50)
[2017-06-20] MEDS ORDERED: diphenhydrAMINE 50 MG/ML 1 ML VIAL IVP STA (05:32)
[2017-06-20] MEDS ORDERED: FAMOTIDINE 20 MG/2 ML VIAL IV STA ×2 (05:32→05:52)
[2017-06-20] MEDS ORDERED: SODIUM CHLORIDE 0.9% 1,000 ML IV ONE ×2 (05:54→08:33)
--- NOTE | 2017-06-20 07:40 | CT ---
EXAMINATION TYPE: CT abdomen pelvis w con DATE OF EXAM: 06/20/2017 COMPARISON: Prior CT abdomen pelvis June 03, 2016. Abdominal x-ray earlier today. HISTORY: nausea and vomiting CT DLP: 2791.7 mGycm, Automated Exposure Control for Dose Reduction was Utilized. CONTRAST: CT scan of the abdomen and pelvis is performed without oral but with IV Contrast, patient injected wi th 100 mL of Isovue 300. FINDINGS: LUNG BASES: There is persistent small left pleural effusion with associated left basilar compressive atelectasis not significantly changed from prior. Calcifications at level of aortic valve are redemon strated. Mild cardiomegaly is again seen. There is tiny right pleural effusion and associated right b asilar compressive atelectasis improved from prior. LIVER/GB: Somewhat contracted gallbladder is seen. PANCREAS: No significant abnormality is seen. SPLEEN: No significant abnormality is seen. ADRENALS: No significant abnormality is seen. KIDNEYS: There is 5 mm calculus lower pole level right kidney coronal image 59. There are 2-3 calculi scattered throughout the left kidney, largest measures 4 mm lower pole level posteriorly axial image 49 series 5. There is elongated oval-shaped 11 mm calculus at left UPJ on axial image 44 causing mil d to moderate left-sided pyelocaliectasis. There is delayed excretion in the left kidney noted. There is no right-sided obstructing calculi or hydronephrosis. Epps catheter is seen within urinary bladd er which is fairly well decompressed and thus suboptimally evaluated BOWEL: No suspicious small or large bowel dilatation is seen. There is rectal pouch remnant. There is left lower quadrant colostomy. PROSTATE/SEMINAL VESICLES: No gross abnormality seen. LYMPH NODES: No greater than 1cm abdominal or pelvic lymph nodes are appreciated. OSSEOUS STRUCTURES: There is heterotopic ossification anterior to the right femoral head. There is mo derate to advanced joint space loss in both hips. Osseous structures are demineralized. There is post surgical change in the thoracic spine. There are large bridging osteophytes in the lumbar spine. Ther e is facet arthropathy lower lumbar levels. OTHER: No significant additional abnormality is seen. IMPRESSION: 1. Redemonstration of oval left-sided renal calculus correlating with recent x-ray measuring 11 mm lo ng axis current study with interval change in position now at UPJ causing mild to moderate left-sided hydronephrosis and delayed excretion in the left kidney.
[2017-06-20] MEDS ORDERED: cefTRIAXone 2,000 MG in SODIUM CHLORIDE 0.9% 100 ML IVPB STA (08:26)
[2017-06-20] MEDS ORDERED: cefTRIAXone IN SWFI 2,000 MG/20 ML SYRINGE IVP STA (08:30)
[2017-06-20] MEDS ORDERED: KETOROLAC 30 MG/ML 1 ML VIAL IVP STA (08:34)
[2017-06-20] MEDS ORDERED: MORPHINE SULFATE 4 MG/0.8 ML SYRINGE (INJ) IVP PRN (08:34)
[2017-06-20] MEDS ORDERED: PANTOPRAZOLE 40 MG/10 ML VIAL IVP STA (08:34)
[2017-06-20] MEDS ORDERED: ONDANSETRON 4 MG/2 ML VIAL IVP PRN (08:34)
[2017-06-20] MEDS: SODIUM CHLORIDE 0.9% 1,000 ML IV SCH ×2 (08:44→17:40)
[2017-06-20 11:52] VITALS: BMI 30.3
[2017-06-20] MEDS ORDERED: DOCUSATE 100 MG CAP PO PRN (13:10)
[2017-06-20] MEDS ORDERED: traMADol 50 MG TAB PO PRN (13:10)
[2017-06-20] MEDS ORDERED: LEVOFLOXACIN 500MG-D5W PMX 500 MG in DEXTROSE/WATER 1 100ML.BAG IVPB SCH (14:00)
[2017-06-20] MEDS: MEROPENEM 1 GM in SODIUM CHLORIDE 0.9% 100 ML IVPB SCH ×2 (17:37→23:53)
[2017-06-20] MEDS: OXYBUTYNIN CHLORIDE 5 MG TAB PO SCH ×2 (17:38→21:30)
[2017-06-20] MEDS: IMIPRAMINE 10 MG TAB PO SCH ×2 (17:38→21:29)
--- NOTE | 2017-06-20 17:47 | HP ---
HISTORY AND PHYSICAL I am covering for Dr. Darling. DATE OF SERVICE: 06/20/2017 CHIEF COMPLAINTS: Nausea, vomiting and diarrhea. HISTORY OF PRESENT ILLNESS: This 67-year-old gentleman with a past medical history of DVT, diabetes mellitus , GERD, hypertension, hyperlipidemia, history of MRSA, history of back surgery, history of hernia repair, depression, being followed by Dr. Darling in the outpatient setting, was admitted with nausea, vomiting and diarrhea. The patient was recently in the hospital for sepsis with UTI. The patient was getting p.o. in the form of doxycycline and ciprofloxacin. Patient also had ESBL E coli. Patient also has a colostomy bag. The patient is not constipated. Because of significant difficulties, the patient was admitted for further evaluation and treatment. WBC count was 13.5. UA is unremarkable. Influenza is negative. There is no history of any fever, rigor or chills. No history of headache, loss of consciousness, seizures. The patient was also found to have a kidney stone on the abdominal/pelvis CT scan; left-sided renal calculus which is in the ureteropelvic junction causing mild to moderate left-sided hydronephrosis and delayed excretion of left kidney. However, the patient has paraplegia and is unable to feel any pain at this time. PAST MEDICAL HISTORY: 1. History of diabetes mellitus. 2. DVT. 3. GERD. 4. Hypertension. 5. Hyperlipidemia. HOME MEDICATIONS: 1. Ultram 50 mg q.i.d. p.r.n. 2. Glucophage 500 mg b.i.d. 3. Zinc sulfate 220 mg p.o. daily. 4. Pravachol 20 mg at bedtime. 5. Ditropan 5 mg p.o. t.i.d. 6. [place] leaf 150 to 300 mg p.o. daily. 7. Multivitamins 1 p.o. daily. 8. Reglan 10 mg p.o. daily. 9. Tofranil 10 mg p.o. t.i.d. 10.Iron sulfate 325 mg p.o. daily. 11.Monodox 100 mg p.o. b.i.d. 12.Dok 100 mg p.o. daily p.r.n. 13.Cipro 500 mg p.o. b.i.d. 14.Vitamin D3 400 daily. 15.Vitamin D3 1000 daily. 16.Lotensin 10 mg p.o. daily. 17.Ecotrin 81 mg p.o. daily. 18.Vitamin C 1000 mg p.o. daily. ALLERGIES: 1. SHELLFISH. 2. IODINE. 3. SULFA. FAMILY HISTORY: History of CAD, dementia, DJD, melanoma, asbestosis. SOCIAL HISTORY: No history of alcohol intake. Previous history of smoking. REVIEW OF SYSTEMS: ENT: No diminished hearing. Diminished vision. CARDIOVASCULAR SYSTEM: No angina, palpitations. RESPIRATORY SYSTEM: No cough, hemoptysis. GI: As mentioned earlier. : As mentioned earlier. NERVOUS SYSTEM: As mentioned earlier. ALLERGY/IMMUNOLOGY: No asthma, hayfever. MUSCULOSKELETAL: As mentioned earlier. HEMATOLOGY/ONCOLOGY: No history of anemia. ENDOCRINE: As mentioned earlier. CONSTITUTIONAL: As mentioned earlier. DERMATOLOGY: Negative. RHEUMATOLOGY: Negative. PSYCHIATRY: As mentioned earlier. PHYSICAL EXAMINATION: Alert, oriented x3. Pulse 71, blood pressure 120/60, respiration 18, temperature 97.6, pulse ox 96% on 2 L. HEENT: Conjunctivae normal. Oral mucosa moist. NECK: No jugular venous distention. No carotid bruit. No lymph node enlargement. CARDIOVASCULAR SYSTEM: S1, S2 muffled. No S3. No S4. RESPIRATORY SYSTEM: Breath sounds diminished at the bases. A few scattered rhonchi and crackles. Expiratory wheezing also present. ABDOMEN: Soft, obese, nontender. No mass palpable. LEGS: Paraplegia with weakness and wasting and contractures. NERVOUS SYSTEM: Higher functions as mentioned earlier. Paraplegia. SKIN: No ulcer, rash, bleeding. LYMPHATICS: No lymph node palpable in neck, axillae or groin. JOINTS: No active deforming arthropathy. LABS: WBC 13.5, hemoglobin 11.7. Glucose 185. UA noted. ASSESSMENT: 1. Nausea, vomiting, diarrhea; possible acute gastroenteritis or gastritis. 2. History of recent urinary tract infection with ESBL Escherichia coli. 3. Recent history of flu. 4. Rule out active urinary tract infection. 5. Paraplegia. 6. Increased white count. 7. Diabetes mellitus, type 2. 8. History of deep venous thrombosis. 9. Gastroesophageal reflux disease. 10.Hypertension. 11.Hyperlipidemia. 12.History of T8 spinal cord injury. 13.History of chronic Epps catheter. 14.History of methicillin-resistant Staphylococcus aeruginosa. 15.History of back surgery and degenerative joint disease. 16.History of hernia repair. 17.History of depression. RECOMMENDATIONS AND DISCUSSION: I recommend to continue current medication, continue symptomatic treatment. Otherwise, at this time I would recommend empiric antibiotics, infectious disease evaluation. Symptomatic treatment for the gastritis. Guarded prognosis because of the multiple complex medical issues. We will obtain cultures. See orders for further details. Home medications will be continued. Further recommendations to follow. Discussed with the patient, who understands and agrees. DARA / ELINAN: [id number] / ENIO
[2017-06-20 18:03] LABS: Appearance,Urine Turbid (Clear); Bacteria,Urine Rare /hpf; Bilirubin,Urine Negative (Negative); Blood,Urine Small (Negative); Budding Yeast,Urine Few /hpf; Color,Urine Yellow; Glucose,Urine (UA) Negative (Negative); Ketones,Urine Negative (Negative); Leukocyte Esterase,Urine Large (Negative); Mucus,Urine Occasional /hpf; Nitrite,Urine Negative (Negative); Protein,Urine Trace (Negative); RBC,Urine 36 /hpf (0-5); Specific Gravity,Urine 1.017 (1.001-1.035); Urobilinogen,Urine <2.0 mg/dL (<2.0); WBC,Urine 137 /hpf (0-5)
[2017-06-20] MEDS: metFORMIN 500 MG TAB PO SCH (21:29)
[2017-06-20] MEDS: PRAVASTATIN SODIUM 20 MG TAB PO SCH (21:29)
[2017-06-20] MEDS: HEPARIN SODIUM,PORCINE 5,000 UNIT/ML 1 ML VIAL SQ SCH (21:29)
[2017-06-21] MEDS: SODIUM CHLORIDE 0.9% 1,000 ML IV SCH ×3 (05:17→15:24)
--- NOTE | 2017-06-21 06:57 | CONS ---
CONSULTATION DATE OF SERVICE: 06/20/2017. REASON FOR CONSULTATION: Infection. HISTORY OF PRESENT ILLNESS: The patient is 67-year-old male with past medical history significant for PE, paraplegia. He was recently admitted at this facility where the patient was treated for acute influenza and also with urinary tract infection with urine culture finalized with ESBL Klebsiella and Pseudomonas aeruginosa. The patient has finished his Tamiflu therapy by the time he was discharged and he was discharged home on oral doxycycline to cover for the Pseudomonas and the ESBL Klebsiella. The patient was discharged home about 9 days ago and apparently the patient seems to be having decreased appetite since the time of discharge. The patient has been sleeping more. The patient started having vomiting yesterday evening with multiple bouts of vomiting. No significant abdominal pain, though the patient did have normal soft stool in his colostomy bag. No high- grade fever or chills. With these symptoms the patient presented back to the [facility] ER. The patient was evaluated by the ER physician. No fever on presentation to hospital. However, the patient did have an elevated white count of 13.5. His urine has been positive with large leukocyte esterase, 182 WBC, moderate bacteria with yeast. Influenza A and B were negative. The patient did have a CT of the abdomen and pelvis with lungs showing small pleural effusion. On the kidneys, the patient did have a left- sided calculus which apparently is now at the UB junction causing mild to moderate left- sided hydronephrosis. The patient has been admitted to the hospital and was started on Solu-Medrol in addition to levofloxacin and Rocephin. Infectious Disease was consulted for further recommendation regarding antibiotic therapy. The patient also have multiple wounds to his left hip and gluteal area for which the patient apparently has been following with [facility] with Dr. Story and current local wound care with Aquacel Silver packing. REVIEW OF SYSTEMS: CONSTITUTIONAL: Positive for weakness. Denies any high-grade fever. EYES: No complaint. ENT: No complaint. RESPIRATORY: No complaint. CARDIOVASCULAR: No complaint. GENITOURINARY: As per HPI. GASTROINTESTINAL: As per HPI. MUSCULOSKELETAL: No complaint. INTEGUMENTARY: As per HPI. PSYCHOLOGICAL: No complaint. ENDOCRINE: No complaint. NEUROLOGIC: No complaint. 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 PAST SURGICAL HISTORY: Right inguinal hernia repair, spinal cord surgery with Dr. Bhatti in [place], multiple wound debridements, right femur elias placement, neck abscess drained, skin cancer removed, colostomy, indwelling Epps. SOCIAL HISTORY: Remote history of smoking. No drinking or drug use. FAMILY HISTORY: Mother with history of coronary artery disease, dementia and osteoarthritis. Father history of melanoma and asbestosis. ALLERGIES: To SULFA, PRODUCTS and SHELLFISH. MEDICATION: Medications include the patient is currently on Rocephin 1 g IV piggyback daily. He is on Levaquin, vitamin C, Colace, heparin, , Zestril, Glucophage, Reglan, Theragran, Zofran, Ditropan, Protonix, Pravachol, Ultram. EXAMINATION: Blood pressure 120/52 with a pulse 81, temperature 97.7. He is 97% on 4 L nasal cannula. General description is an elderly male lying in bed in no distress. No tachypnea or accessory muscle of respiration use. HEENT: Shows slight pallor. No scleral icterus. Oral mucosa membrane is dry. No pharyngeal erythema or thrush. NECK: Trachea central. No thyromegaly. LUNGS: Unlabored breathing. Clear to auscultation anteriorly. HEART: S1, S2. Regular rate and rhythm. ABDOMEN: Soft, no tenderness. No guarding, no rigidity. EXTREMITIES: No edema feet. Examination of the left gluteal and pelvic area did show multiple pressure ulcers, mostly stage III with good granulation tissue. Minimal surrounding erythema. No foul smelling drainage. NEUROLOGICAL: Patient is awake, alert, oriented x3. Mood and affect normal. LABS: Hemoglobin is 11.7, white count 13.5, BUN of 24, creatinine 1.22. Electrolytes has been normal. Liver enzymes are normal. Urine has been significantly positive. Cultures have been currently pending. CT report as mentioned above. DIAGNOSTIC IMPRESSION AND PLAN: 1. Patient admitted to the hospital with intractable nausea and vomiting in a patient who did have recent urinary tract infection with urinary tract infection with the urine that also showed ESBL Klebsiella with Pseudomonas aeruginosa. Now presenting with nausea, vomiting and did have evidence of a left-sided kidney stone, currently at the ureteropelvic junction causing mild source is more likely responsible for his symptoms of nausea vomiting and his component of urinary tract infection. In view of the recent resistant gram-negative pathogen, I will recommend broad- spectrum antibiotic coverage to cover for these pathogens. 2. Patient does have multiple wounds to the left gluteal sacral area stage III pressure ulcers with no cellulitis. PLAN: 1. Discontinue Rocephin and Levaquin. 2. Will start the patient on meropenem 1 g q.8 to cover for the Pseudomonas as well as ESBL Klebsiella that was recently grown. 3. As Epps catheter is leaking, we will change his Epps catheter. Obtain the culture from new Epps. 4. Aquacel silver packing of the wound to the sacrum and gluteal area. 5. We will follow the patient over the weekend; however, as the patient is known to Dr. Denis, will sign out back to him on Friday. MMJESEL / ELINAN: [id number] /
[2017-06-21 07:50] LABS: Basophils % (A) 0 %; Eosinophils % (A) 0 %; HCT 32.3 % (39.0-53.0); HGB 10.4 gm/dL (13.0-17.5); Lymphocytes # (A) 0.5 k/uL (1.0-4.8); Lymphocytes % (A) 7 %; MCH 27.4 pg (25.0-35.0); MCHC 32.1 g/dL (31.0-37.0); MCV 85.3 fL (80.0-100.0); Mean Platelet Volume 7.6; Monocytes # (A) 0.6 k/uL (0-1.0); Monocytes % (A) 8 %; Neutrophils # (A) 6.2 k/uL (1.3-7.7); Neutrophils % (A) 83 %; Platelet Count 304 k/uL (150-450); RBC 3.78 m/uL (4.30-5.90); RDW 14.2 % (11.5-15.5); WBC 7.5 k/uL (3.8-10.6)
[2017-06-21 08:08] LABS: Anion Gap 10 mmol/L; Blood Urea Nitrogen 23 mg/dL (9-20); Calcium 8.7 mg/dL (8.4-10.2); Carbon Dioxide 27 mmol/L (22-30); Chloride 107 mmol/L (98-107); Glucose 157 mg/dL (74-99); Potassium 4.3 mmol/L (3.5-5.1); Sodium 144 mmol/L (137-145)
[2017-06-21] MEDS: MEROPENEM 1 GM in SODIUM CHLORIDE 0.9% 100 ML IVPB SCH ×3 (08:08→23:21)
[2017-06-21] MEDS: PANTOPRAZOLE 40 MG/10 ML VIAL IVP SCH (08:09)
[2017-06-21] MEDS: metFORMIN 500 MG TAB PO SCH ×2 (08:09→22:43)
[2017-06-21] MEDS: LISINOPRIL 10 MG TAB PO SCH (08:09)
[2017-06-21] MEDS: ASCORBIC ACID 500 MG TAB PO SCH (08:09)
[2017-06-21] MEDS: HEPARIN SODIUM,PORCINE 5,000 UNIT/ML 1 ML VIAL SQ SCH ×2 (08:09→22:42)
[2017-06-21] MEDS: METOCLOPRAMIDE 10 MG TAB PO SCH (08:09)
[2017-06-21] MEDS: OXYBUTYNIN CHLORIDE 5 MG TAB PO SCH ×3 (08:09→22:43)
[2017-06-21] MEDS: IMIPRAMINE 10 MG TAB PO SCH ×3 (08:09→22:43)
[2017-06-21] MEDS: ZINC SULFATE 220 MG CAP PO SCH (08:10)
[2017-06-21] MEDS ORDERED: OLIVE LEAF PO SCH (09:00)
[2017-06-21] MEDS ORDERED: cefTRIAXone IN SWFI 1,000 MG/10 ML SYRINGE IVP SCH (09:00)
--- NOTE | 2017-06-21 09:47 | P.PN ---
Subjective Progress Note Date: 06/21/17 The patient feels better. The nausea and vomiting is gone. His Epps catheters changed and is draining better. He can be discharged home from urologic standpoint. I make arrangements for shockwave lithotripsy to the left upper ureteral stone for a week from Friday. Objective - Vital Signs Vital signs: Vital Signs Temp 97.5 F L 06/21/17 07:55 Pulse 69 06/21/17 07:55 Resp 16 06/21/17 07:55 BP 102/57 06/21/17 07:55 Pulse Ox 97 06/21/17 08:13 Intake & Output 06/20/17 06/21/17 06/21/17 18:59 06:59 18:59 Intake Total 500 Output Total 1550 1200 Balance -1050 -1200 Weight 104.326 kg Intake: Intake, IV Titration 500 Amount Sodium Chloride 0.9% 1, 500 000 ml @ 100 mls/hr IV . Q10H ONE Rx#:[id number] Output: Urine 1150 1200 Stool 400 Other: Voiding Method Indwelling Catheter Indwelling Catheter - Labs CBC & Chem 7: 06/21/17 07:32 06/21/17 07:32 Labs: Abnormal Lab Results - Last 24 Hours (Table) 06/20/17 06/21/17 06/21/17 Range/Units 17:47 07:32 07:32 RBC 3.78 L (4.30-5.90) m/uL Hgb 10.4 L (13.0-17.5) gm/dL Hct 32.3 L (39.0-53.0) % Lymphocytes # 0.5 L (1.0-4.8) k/uL BUN 23 H (9-20) mg/dL Glucose 157 H (74-99) mg/dL Urine Protein Trace H (Negative) Urine Blood Small H (Negative) Ur Leukocyte Esterase Large H (Negative) Urine RBC 36 H (0-5) /hpf Urine WBC 137 H (0-5) /hpf Urine WBC Clumps Many H (None) /hpf Urine Bacteria Rare H (None) /hpf Urine Mucus Occasional H (None) /hpf Urine Yeast (Budding) Few H (None) /hpf Microbiology - Last 24 Hours (Table) 06/20/17 17:47 Urine Culture - Preliminary Urine,Catheterized 04/27/18 03:40 Urine Culture - Preliminary Urine,Catheterized
[2017-06-21] MEDS: MULTIVITAMINS, THERA 1 EACH TAB PO SCH (11:57)
--- NOTE | 2017-06-21 13:13 | P.PN ---
Subjective Progress Note Date: 06/21/17 Progress note being dictated for Dr. Gonzalez Interval history: This a 67-year-old gentleman admitted with nausea, vomiting, diarrhea, possible acute gastroenteritis or gastritis, possible acute UTI in a patient with history of recent UTI with ESBL E. coli, The patient who is paraplegic, multiple ulcers and multiple other medical issues. Epps catheter leaking, has been changed. Repeat culture obtained from new Epps catheter, results pending. Maintained on IV antibiotics of Merrem as per infectious disease,. Nausea, vomiting subsided. Tolerating clear liquid diet. Multiple ulcers of the left hip, left buttock-follows with Dr. Lucas at [facility] in [place]. Maintained on specialty bed. Regarding left upper ureteral stone, scheduled for shockwave lithotripsy outpatient as per urology. Objective - Vital Signs Vital signs: Vital Signs Temp 97.5 F L 06/21/17 07:55 Pulse 69 06/21/17 07:55 Resp 16 06/21/17 07:55 BP 102/57 06/21/17 07:55 Pulse Ox 97 06/21/17 08:13 Intake & Output 06/20/17 06/21/17 06/21/17 18:59 06:59 18:59 Intake Total 500 800 Output Total 1550 1200 Balance -1050 -1200 800 Weight 104.326 kg Intake: Intake, IV Titration 500 800 Amount Meropenem 1 gm In Sodium 100 Chloride 0.9% 100 ml @ 200 mls/hr IVPB Q8HR [facility] Rx#:[id number] Sodium Chloride 0.9% 1, 500 700 000 ml @ 100 mls/hr IV . Q10H ONE Rx#:[id number] Output: Urine 1150 1200 Stool 400 Other: Voiding Method Indwelling Catheter Indwelling Catheter Indwelling Catheter - Exam PHYSICAL EXAM: VITAL SIGNS: As above GENERAL: Sitting up in bed, no acute distress HEENT: Conjunctivae normal. eyes normal. Oral mucosa moist NECK: No JVD. No thyroid enlargement. No LNs CARDIOVASCULAR: S1, S2 muffled. No murmur RESPIRATION: Breath sounds diminished in the bases. Occasional scattered rhonch ,no crackles. No wheezing ABDOMEN: Soft, nontender . No guarding. no masses palpable. Positive bowel sounds. PSYCHIATRY: Alert and oriented -3, mood and affect normal. NERVOUS SYSTEM: Higher functions as previously mentioned, paraplegic. Skin: Ulcers: Left gluteal/pelvic area; Left hip, left lower buttocks, left upper buttock, and multiple pressure ulcers-mostly stage III without foul- smelling drainage, minimal erythema. Lymphatic system. No LN neck axilla or groin. Microbiology 06/20/17 17:47 Urine,Catheterized Urine Culture - Preliminary 06/20/17 03:40 Urine,Catheterized Urine Culture - Preliminary - Labs CBC & Chem 7: 06/21/17 07:32 06/21/17 07:32 Labs: Abnormal Lab Results - Last 24 Hours (Table) 06/20/17 06/21/17 06/21/17 Range/Units 17:47 07:32 07:32 RBC 3.78 L (4.30-5.90) m/uL Hgb 10.4 L (13.0-17.5) gm/dL Hct 32.3 L (39.0-53.0) % Lymphocytes # 0.5 L (1.0-4.8) k/uL BUN 23 H (9-20) mg/dL Glucose 157 H (74-99) mg/dL Urine Protein Trace H (Negative) Urine Blood Small H (Negative) Ur Leukocyte Esterase Large H (Negative) Urine RBC 36 H (0-5) /hpf Urine WBC 137 H (0-5) /hpf Urine WBC Clumps Many H (None) /hpf Urine Bacteria Rare H (None) /hpf Urine Mucus Occasional H (None) /hpf Urine Yeast (Budding) Few H (None) /hpf Microbiology - Last 24 Hours (Table) 06/20/17 17:47 Urine Culture - Preliminary Urine,Catheterized 06/20/17 03:40 Urine Culture - Preliminary Urine,Catheterized Assessment and Plan Assessment: 1. Nausea, vomiting, diarrhea, possible acute gastroenteritis or gastritis, improving 2. Recent UTI with ESBL E. coli, pseudomonas aeruginosa 3. Recent influenza 4. Rule out acute UTI 5. Paraplegic,History of T8 spinal cord injury 6. Chronic Epps catheter 7. Diabetes mellitus type 2 8. Leukocytosis, resolved 9. Left hip, left buttock, left upper buttock wounds, stage III pressure ulcers. 10. Left-sided kidney stone, scheduled for outpatient lithotripsy Plan: Continue on current medication regime ,monitoring and symptomatic treatment. Repeat urine cultures pending. Antibiotics/Wound Care as per infectious disease. Close monitoring of Accu-Cheks, sliding scale in addition to metformin. The impression and plan of care has been dictated as directed. : I performed a history and examination of this patient, discussed the same with the dictator. I agree with the dictator's note ,documented as a scribe. Any additional findings or plans will be noted.
--- NOTE | 2017-06-21 15:54 | PN ---
PROGRESS NOTE DATE OF SERVICE: 06/21/2017. REASON FOR FOLLOWUP VISIT: 1. Catheter associated urinary tract infection with mild hydronephrosis. 2. Multiple pressure ulcers to left . INTERVAL HISTORY: The patient is afebrile. He is feeling slightly better. No further nausea or vomiting. No complaint of any abdominal pain. Denies any chest pain or shortness of breath or cough. EXAMINATION: Blood pressure 102/57, pulse of 59, temperature 97.5. He is 99% on 4 L nasal cannula. General description is an elderly male lying in bed in no distress. Respiratory system unlabored breathing. Clear to auscultation anteriorly. Heart S1, S2. Regular rate and rhythm. Abdomen soft, no tenderness. LABS: Hemoglobin 10.4, white count normal to 7.5. BUN of 23, creatinine 0.91. The initial UA showing yeast. Patient repeat urine culture currently pending. DIAGNOSTIC IMPRESSION AND PLAN: 1. Patient with complicated urinary tract infection catheter associated in a patient who also has evidence of a mild to moderate left-sided hydronephrosis from UPJ stone evaluated by Urology, planning for outpatient procedure. Initial culture with yeast. Diflucan will be added. Continue meropenem while repeat urine cultures are finalized. 2. Patient with left scrotal multiple pressure ulcer. Local wound care with Aquacel Silver dressing. Keep the area off the pressure. MMODL / IJN: [id number] /
[2017-06-21 17:28] LABS: Glucose,Whole Blood 106 mg/dL (75-99)
[2017-06-21] MEDS: INSULIN ASPART 100 UNIT/ML 1 ML 10 ML VIAL SQ SCH ×2 (17:36→22:42)
[2017-06-21 19:52] LABS: Glucose,Whole Blood 160 mg/dL (75-99)
[2017-06-21] MEDS: PRAVASTATIN SODIUM 20 MG TAB PO SCH (22:43)
[2017-06-22 07:25] LABS: Glucose,Whole Blood 105 mg/dL (75-99)
[2017-06-22] MEDS: INSULIN ASPART 100 UNIT/ML 1 ML 10 ML VIAL SQ SCH ×3 (07:27→17:33)
[2017-06-22 07:33] LABS: Basophils % (A) 1 %; Eosinophils # (A) 0.1 k/uL (0-0.7); Eosinophils % (A) 3 %; HCT 32.2 % (39.0-53.0); HGB 10.6 gm/dL (13.0-17.5); Lymphocytes % (A) 20 %; MCH 27.9 pg (25.0-35.0); MCHC 32.9 g/dL (31.0-37.0); Monocytes # (A) 0.5 k/uL (0-1.0); Monocytes % (A) 10 %; Neutrophils # (A) 3.4 k/uL (1.3-7.7); Neutrophils % (A) 65 %; Platelet Count 282 k/uL (150-450); RBC 3.78 m/uL (4.30-5.90); RDW 14.2 % (11.5-15.5); WBC 5.3 k/uL (3.8-10.6)
[2017-06-22 07:51] LABS: Anion Gap 11 mmol/L; Blood Urea Nitrogen 23 mg/dL (9-20); Calcium 8.5 mg/dL (8.4-10.2); Carbon Dioxide 27 mmol/L (22-30); Chloride 106 mmol/L (98-107); Glucose 91 mg/dL (74-99); Potassium 4.2 mmol/L (3.5-5.1); Sodium 144 mmol/L (137-145)
[2017-06-22] MEDS: ZINC SULFATE 220 MG CAP PO SCH (08:44)
[2017-06-22] MEDS: OXYBUTYNIN CHLORIDE 5 MG TAB PO SCH ×2 (08:44→15:31)
[2017-06-22] MEDS: MEROPENEM 1 GM in SODIUM CHLORIDE 0.9% 100 ML IVPB SCH ×2 (08:44→15:31)
[2017-06-22] MEDS: METOCLOPRAMIDE 10 MG TAB PO SCH (08:44)
[2017-06-22] MEDS: IMIPRAMINE 10 MG TAB PO SCH ×2 (08:44→15:31)
[2017-06-22] MEDS: LISINOPRIL 10 MG TAB PO SCH (08:44)
[2017-06-22] MEDS: metFORMIN 500 MG TAB PO SCH (08:45)
[2017-06-22] MEDS: HEPARIN SODIUM,PORCINE 5,000 UNIT/ML 1 ML VIAL SQ SCH (08:45)
[2017-06-22] MEDS: ASCORBIC ACID 500 MG TAB PO SCH (08:45)
[2017-06-22] MEDS: PANTOPRAZOLE 40 MG/10 ML VIAL IVP SCH (08:46)
[2017-06-22 08:54] VITALS: BP 108/63; PULSE 65; RESP 18; TEMP 97.4
[2017-06-22] MEDS: SODIUM CHLORIDE 0.9% 1,000 ML IV SCH ×2 (08:57→19:02)
[2017-06-22] MEDS ORDERED: FLUCONAZOLE 100 MG TAB PO SCH (09:00)
--- NOTE | 2017-06-22 09:30 | P.PN ---
Subjective Progress Note Date: 06/22/17 The patient remains afebrile. There is no nausea. From a urologic standpoint he may be discharged home. Objective - Vital Signs Vital signs: Vital Signs Temp 97.4 F L 06/22/17 08:00 Pulse 65 06/22/17 08:00 Resp 18 06/22/17 08:00 BP 108/63 06/22/17 08:00 Pulse Ox 94 L 06/21/17 21:09 Intake & Output 06/21/17 06/22/17 06/22/17 18:59 06:59 18:59 Intake Total 800 700 Output Total 2200 Balance 800 -1500 Intake: Intake, IV Titration 800 100 Amount Meropenem 1 gm In Sodium 100 100 Chloride 0.9% 100 ml @ 200 mls/hr IVPB Q8HR [facility] Rx#:[id number] Sodium Chloride 0.9% 1, 700 000 ml @ 100 mls/hr IV . Q10H ONE Rx#:[id number] Oral 600 Output: Urine 2200 Other: Voiding Method Indwelling Catheter Indwelling Catheter - Labs CBC & Chem 7: 06/22/17 07:05 06/22/17 07:05 Labs: Abnormal Lab Results - Last 24 Hours (Table) 06/21/17 06/21/17 06/21/17 Range/Units 07:32 17:22 19:51 RBC (4.30-5.90) m/uL Hgb (13.0-17.5) gm/dL Hct (39.0-53.0) % BUN (9-20) mg/dL POC Glucose (mg/dL) 106 H 160 H (75-99) mg/dL Hemoglobin A1c 7.0 H (4.0-6.0) % 06/22/17 06/22/17 06/22/17 Range/Units 07:05 07:05 07:24 RBC 3.78 L (4.30-5.90) m/uL Hgb 10.6 L (13.0-17.5) gm/dL Hct 32.2 L (39.0-53.0) % BUN 23 H (9-20) mg/dL POC Glucose (mg/dL) 105 H (75-99) mg/dL Hemoglobin A1c (4.0-6.0) % Microbiology - Last 24 Hours (Table) 06/20/17 17:47 Urine Culture - Final Urine,Catheterized 06/20/17 13:29 Blood Culture - Preliminary Blood No Growth after 24 hours 06/20/17 03:40 Urine Culture - Preliminary Urine,Catheterized Yeast species
[2017-06-22 11:25] LABS: Glucose,Whole Blood 126 mg/dL (75-99)
[2017-06-22] MEDS: MULTIVITAMINS, THERA 1 EACH TAB PO SCH (13:12)
--- NOTE | 2017-06-22 16:30 | P.DS ---
Providers Date of admission: 06/20/17 08:35 Attending physician: Mayra Taylor Consults: 06/20/17 08:33 Consult Physician Routine Consulting Provider: Clarence Gunderson Consult Reason/Comments: known Do you want consulting provider notified?: Yes 06/20/17 13:13 Consult Physician Routine Consulting Provider: Ronnie Pal Consult Reason/Comments: uti Do you want consulting provider notified?: Already Contacted Primary care physician: Reese Holleyhven [place] [facility] Course: Mr. Lin is a 67-year-old male with a past medical history of DVT, diabetes mellitus, GERD,, hypertension, hyperlipidemia, history of MRSA, history of back surgery, history of hernia repair, depression now being followed by within an outpatient setting admitted to the hospital with a chief complaint of nausea vomiting and diarrhea. The patient was recently admitted to the hospital for sepsis with UTI. Patient has been getting doxycycline and ciprofloxacin as outpatient. Patient had ESBL E. coli. Patient also has a colostomy bag in place. So this current admission the patient was found to have a kidney stone on the abdomen/pelvis CAT scan of with left-sided renal calculus which is in the ureteropelvic junction causing mild to moderate left-sided hydronephrosis and delayed excretion of left kidney. However the patient has paraplegia so was not able to feel any pain at this time. So urology and ID services have been consulted. Patient was empirically started on meropenem by ID Dr. Pal. Eventually on looking at his previous cultures and that he responded to the previous antibiotics it was decided that the patient can be discharged on Ceftin 500 mg twice a day for 1 week as per ID recommendations. The patient showed significant improvement in his symptoms and urology services stated that he can have outpatient follow-up for his renal calculi. So the patient has been cleared by both urology and ID services and is being discharged home on Ceftin 500 mg twice a day for 7 days. Prior treatment plan was discussed in detail with the patient and his at the bedside. Discharge diagnosis Nausea vomiting secondary to acute viral gastroenteritis resolved History of recent urinary tract infection with ESBL E. coli Reason history of flu Left renal calculi Paraplegia Type 2 diabetes mellitus History of DVT GERD Hypertension Hyperlipidemia 38 spinal cord injury Chronic indwelling Epps catheter History of MRSA in the past History of back surgery History of depression Patient Condition at Discharge: Good Plan - Discharge Summary Discharge Rx Participant: No New Discharge Prescriptions: New Cefuroxime Axetil [Ceftin] 500 mg PO BID 7 Days #14 tab Continue traMADol HCl [Ultram] 50 mg PO QID PRN PRN Reason: Pain Ferrous Sulfate [Iron (65 MG Elemental)] 325 mg PO DAILY Imipramine HCl [Tofranil] 10 mg PO TID Oxybutynin Chloride [Ditropan] 5 mg PO TID Benazepril [Lotensin] 10 mg PO DAILY metFORMIN HCL [Glucophage] 500 mg PO BID Pravastatin Sodium [Pravachol] 20 mg PO HS Cholecalciferol [Vitamin D3] 1,000 unit PO DAILY Zinc Sulfate 220 mg PO DAILY Metoclopramide [Reglan] 10 mg PO DAILY Rhododendron [place] 150mg 150 - 300 mg PO DAILY Multivitamins, Thera [Multivitamin (formulary)] 1 tab PO DAILY Docusate Sodium [Dok] 100 mg PO DAILY PRN PRN Reason: Constipation Ascorbic Acid [Vitamin C] 1,000 mg PO DAILY Aspirin EC [Ecotrin Low Dose] 81 mg PO DAILY Discontinued Cholecalciferol [Vitamin D3] 400 unit PO DAILY Ciprofloxacin HCl [Cipro] 500 mg PO Q12HR #20 tablet Doxycycline Monohydrate [Monodox] 100 mg PO Q12HR #20 cap Discharge Medication List Benazepril [Lotensin] 10 mg PO DAILY 06/03/16 [History] Cholecalciferol [Vitamin D3] 1,000 unit PO DAILY 06/03/16 [History] Ferrous Sulfate [Iron (65 MG Elemental)] 325 mg PO DAILY 06/03/16 [History] Imipramine HCl [Tofranil] 10 mg PO TID 06/03/16 [History] Metoclopramide [Reglan] 10 mg PO DAILY 06/03/16 [History] Oxybutynin Chloride [Ditropan] 5 mg PO TID 06/03/16 [History] Pravastatin Sodium [Pravachol] 20 mg PO HS 06/03/16 [History] Zinc Sulfate 220 mg PO DAILY 06/03/16 [History] metFORMIN HCL [Glucophage] 500 mg PO BID 06/03/16 [History] traMADol HCl [Ultram] 50 mg PO QID PRN 06/03/16 [History] Ascorbic Acid [Vitamin C] 1,000 mg PO DAILY 08/29/16 [History] Aspirin EC [Ecotrin Low Dose] 81 mg PO DAILY 08/29/16 [History] Docusate Sodium [Dok] 100 mg PO DAILY PRN 08/29/16 [History] Multivitamins, Thera [Multivitamin (formulary)] 1 tab PO DAILY 08/29/16 [History ] Rhododendron [place] 150mg 150 - 300 mg PO DAILY 08/29/16 [History] Cefuroxime Axetil [Ceftin] 500 mg PO BID 7 Days #14 tab 06/22/17 [Rx] Follow up Appointment(s)/Referral(s): Reese Darling MD [Primary Care Provider] - 1-2 days (plese call for appt , office closed) [facility], [NON-STAFF] - 3 Days (continue previous scheduled appointment. ) Ronnie Pal MD [STAFF PHYSICIAN] - As Needed (please call for appointment if needed, office closed.) Clarence Gunderson MD [STAFF PHYSICIAN] - 1-2 Days (as previously scheduled for outpatient procedure) Patient Instructions/Handouts: Urinary Tract Infection in Men (DC), Type 2 Diabetes in Adults (DC) Discharge Disposition: HOME WITH HOME HEALTH SERVICES
[2017-06-22 17:16] LABS: Glucose,Whole Blood 99 mg/dL (75-99)
--- NOTE | 2017-06-22 19:07 | PN ---
PROGRESS NOTE DATE OF SERVICE: 06/22/2017. REASON FOR FOLLOWUP: 1. Catheter associated UTI infection, complicated UTI with left-sided hydronephrosis. 2. Patient with multiple left gluteal pressure ulcer. INTERVAL HISTORY: The patient is afebrile. He is feeling much better. The patient denies having any chest pain or shortness of breath. No cough. No further nausea or vomiting. Did have output in the colostomy bag and tolerating her regular diet. Patient is anxious to go home today. EXAMINATION: Blood pressure 108/63 with a pulse of 55, temperature 97.4. He is 95% on room air. General description is an elderly male lying in bed in no distress. Respiratory system: Unlabored breathing, clear to auscultation anteriorly. Heart S1, S2. Regular rate and rhythm. Abdomen soft. No tenderness. Extremities: No edema of feet. LABS: Hemoglobin 10.2, white count 5.3, BUN of 23, creatinine 0.87. The cultures done on initial admission Mouna glabrata with repeat urine culture has been negative. Blood cultures negative. DIAGNOSTIC IMPRESSION AND PLAN: Patient admitted to the hospital with nausea and vomiting with evidence of left-sided mild hydronephrosis from ureteropelvic junction stone with significantly positive urinalysis likely a complicated catheter associated urinary tract infection. The patient fever and white count responded to the initial antibiotics, which were in the form of Rocephin and Levaquin but will subsequently switch over to meropenem with a previous history of ESBL pathogen. However, now with the culture negative and did not show any resistant pathogen, the patient insisting on going home, he may be able to go home on Ceftin 500 b.i.d. for another 7 to 10 days with close outpatient followup. This was discussed in detail with the admitting services. In view of the patient insisting on going home, the patient ended up staying in the hospital overnight. Dr. Denis will follow the patient as of tomorrow. DARA / ELINAN: [id number] /
== END 2017-06-22 19:23 | disposition home health service (06) | DRG 391 ==
LOC: EC 02:28 → 5MS5E 08:35
PROVIDERS: ADMIT Hospitalist; ATTEND Hospitalist
DX: A08.4 Viral intestinal infection, unspecified (principal); L89.223 Pressure ulcer of left hip, stage 3; L89.323 Pressure ulcer of left buttock, stage 3; T83.518A Infection and inflammatory reaction due to other urinary catheter, initial encounter; N39.0 Urinary tract infection, site not specified; N13.2 Hydronephrosis with renal and ureteral calculous obstruction; G82.20 Paraplegia, unspecified; E11.9 Type 2 diabetes mellitus without complications; K21.9 Gastro-esophageal reflux disease without esophagitis; I10 Essential (primary) hypertension; E78.5 Hyperlipidemia, unspecified; F32.9 Major depressive disorder, single episode, unspecified; T83.031A Leakage of indwelling urethral catheter, initial encounter; M47.9 Spondylosis, unspecified; E86.0 Dehydration; Z86.14 Personal history of Methicillin resistant Staphylococcus aureus infection; Z87.19 Personal history of other diseases of the digestive system; Z93.3 Colostomy status; Z87.440 Personal history of urinary (tract) infections; Z87.828 Personal history of other (healed) physical injury and trauma; Z87.891 Personal history of nicotine dependence; Z86.718 Personal history of other venous thrombosis and embolism; Z80.8 Family history of malignant neoplasm of other organs or systems; Z82.49 Family history of ischemic heart disease and other diseases of the circulatory system; Z81.8 Family history of other mental and behavioral disorders; Z88.2 Allergy status to sulfonamides; Z91.041 Radiographic dye allergy status; Z91.013 Allergy to seafood; Z79.899 Other long term (current) drug therapy; Z79.84 Long term (current) use of oral hypoglycemic drugs; Z79.2 Long term (current) use of antibiotics; Z85.828 Personal history of other malignant neoplasm of skin; Y84.6 Urinary catheterization as the cause of abnormal reaction of the patient, or of later complication, without mention of misadventure at the time of the procedure; Z79.82 Long term (current) use of aspirin
CPT/HCPCS: 36415; 74018; 74177; 80048; 80053; 81001; 82150; 83036; 83690; 85025; 87040; 87086; 87502; 93005; 94760; 96361; 96374; 96375; 99285

== ENCOUNTER 2017-07-14 11:30 | Day surgery (SDC) | payer MEDICARE ==
[2017-07-09 09:12] VITALS: BMI 30.3
[2017-07-14 09:58] VITALS: TEMP 97.8
--- NOTE | 2017-07-14 10:13 | XR ---
Abdomen HISTORY: Preop kidney stones Frontal view of the abdomen submitted on 2 images and correlated prior abdomen and CT abdomen pelvis 06/20/2017 Hypertrophic changes about the hips are again seen, postop changes in the proximal right femur. No ev ident bowel obstruction or pneumoperitoneum. Large amount of bowel gas obscures detail somewhat howev er calcification is present overlying the midpole the right kidney measuring approximately 6 mm in si ze. There is a calcification superimposed over the left renal pelvis measuring approximately 1 cm in greatest dimension. Surgical clips present in the mid abdomen. Postop changes are noted to the thorac ic spine. Ostomy present in the left lower quadrant. IMPRESSION: Bilateral nephrolithiasis.
--- NOTE | 2017-07-14 10:43 | P.OP ---
Date of Procedure: 07/14/17 Preoperative Diagnosis: Left renal stone Postoperative Diagnosis: Same Procedure(s) Performed: Extracorporeal shockwave lithotripsy 2500 shocks at energy level 4 Anesthesia: MAC Surgeon: Clarence Gunderson Pathology: none sent Condition: stable Disposition: PACU Indications for Procedure: The patient is a 67-year-old paraplegic totally bedridden the 12 mm UPJ stone causing nausea and vomiting Description of Procedure: Patient is brought to the operating suite. He is given IV sedation. The stone was seen in 2 views of fluoroscopy. 2500 shocks at energy levels 4R administered to fracture the stone. Then of the procedure the patient awake and returned recovery in good condition. He tolerated procedure well be discharged home upon recovery. He'll follow-up in the office in one week with a KUB.
[2017-07-14 10:51] VITALS: RESP 18
[2017-07-14 11:17] VITALS: BP 120/78; PULSE 99
[~2017-07-14 11:30] MED LIST: DEXAMETHASONE SOD PHOSPHATE 10 MG/ML 1 ML VIAL IV ONE; GLYCOPYRROLATE 0.2 MG/ML 2 ML VIAL ONE; KETAMINE 10 MG/ML 20 ML VIAL ONE; LACTATED RINGERS 1,000 ML IV SCH; LIDOCAINE 1% 20 ML VIAL (10MG/ML) FOR IV START INTRADERMA PRN; LIDOCAINE 1% INJ 10MG/ML (20 ML MDV) ONE; MIDAZOLAM 2 MG/2 ML VIAL ONE; MORPHINE SULFATE 4 MG/ML SYRINGE IV PRN; ONDANSETRON 4 MG/2 ML VIAL IVP ONE; PROPOFOL 10 MG/ML 20 ML VIAL IV ONE; Pre Op ABX Message 1 EACH MISC MISCELLANE ONE; fentaNYL (PF) 50 MCG/ML 2 ML AMP ONE
== END 2017-07-14 12:45 | disposition home or self-care (01) ==
LOC: ORWHC2ENDO 11:30
PROVIDERS: ATTEND Urology
DX: N20.1 Calculus of ureter (principal); N31.9 Neuromuscular dysfunction of bladder, unspecified; Z91.048 Other nonmedicinal substance allergy status; I10 Essential (primary) hypertension; E11.9 Type 2 diabetes mellitus without complications; E78.00 Pure hypercholesterolemia, unspecified; M19.90 Unspecified osteoarthritis, unspecified site; G82.20 Paraplegia, unspecified; Z86.718 Personal history of other venous thrombosis and embolism; Z85.828 Personal history of other malignant neoplasm of skin; Z79.82 Long term (current) use of aspirin; Z79.84 Long term (current) use of oral hypoglycemic drugs; Z79.899 Other long term (current) drug therapy; Z88.1 Allergy status to other antibiotic agents; Z88.0 Allergy status to penicillin; Z91.013 Allergy to seafood; Z88.2 Allergy status to sulfonamides
CPT/HCPCS: 74018; 50590; J2250; J2001; J3010; J2704

== ENCOUNTER → 2017-07-19 | Outpatient (CLI) | payer MEDICARE ==
--- NOTE | 2017-07-19 11:08 | XR ---
EXAMINATION TYPE: XR abdomen 1V DATE OF EXAM: 07/19/2017 10:16 AM CLINICAL HISTORY: Left renal calculus status post lithotripsy TECHNIQUE: Single supine KUB image of the abdomen is obtained. COMPARISON: 07/14/2017. FINDINGS: There is decrease in size of the previously seen 11 mm calculus now measuring 5 mm radiogra phically. Exam is slightly limited by overlying colonic stool and gas, however no gross evidence of c alculus is seen along the course of the ureters. Known right renal calculi are obstructed in visualiz ation. Diffuse colonic gas and stool are similar to the prior and may represent ileus with distal col onic gas noted. Extensive degenerative changes the hip, partial visualization of a right femoral fixa tion elias, and diffuse osseous demineralization with extensive degenerative changes of the lumbar spin e are seen in addition to partial visualization of scoliosis rods. IMPRESSION: Decreased size of the known left renal calculus previously measuring 11 mm and now measur ing 5 mm. Visualization of the remaining calculi are limited due to extensive overlying bowel gas and fecal material.
== END | disposition home or self-care (01) ==
LOC: RADXRMAIN 10:02
PROVIDERS: ATTEND Family Medicine
DX: N20.0 Calculus of kidney (principal)
CPT/HCPCS: 74018

== ENCOUNTER 2017-12-30 04:27 | Inpatient (IN) | payer MEDICARE ==
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
[2017-12-30] MEDS: SODIUM CHLORIDE 0.9% 500 ML 500 ML IV SCH (04:54)
--- NOTE | 2017-12-30 05:18 | XR ---
EXAMINATION TYPE: XR chest 1V portable DATE OF EXAM: 12/30/2017 COMPARISON: 06/07/2017 HISTORY: Fever TECHNIQUE: Single frontal view of the chest is obtained. FINDINGS: There is blunting of left costophrenic angle. There is probably infiltrate in the left low er lobe. The right lung is clear. There is no heart failure. There is spinal elias stabilizing the thor acic spine. IMPRESSION: There is clearing of pleural fluid and infiltrate at the right lung base compared to old exam. There is increased pleural fluid and infiltrate at the left lung base compared to old exam. No heart failure.
[2017-12-30 05:43] LABS: Basophils % (A) 0 %; Eosinophils % (A) 0 %; HCT 33.1 % (39.0-53.0); HGB 10.7 gm/dL (13.0-17.5); Lymphocytes # (A) 0.2 k/uL (1.0-4.8); Lymphocytes % (A) 2 %; MCH 27.4 pg (25.0-35.0); MCHC 32.4 g/dL (31.0-37.0); MCV 84.5 fL (80.0-100.0); Mean Platelet Volume 7.1; Monocytes # (A) 0.7 k/uL (0-1.0); Monocytes % (A) 6 %; Neutrophils % (A) 90 %; Platelet Count 196 k/uL (150-450); RBC 3.92 m/uL (4.30-5.90); RDW 15.5 % (11.5-15.5); WBC 11.2 k/uL (3.8-10.6)
[2017-12-30 05:51] LABS: INR 1.3 (<1.2); Partial Thromboplastin Time 27.6 sec (22.0-30.0)
[2017-12-30 05:56] LABS: Albumin 2.9 g/dL (3.5-5.0); Calcium 8.6 mg/dL (8.4-10.2); Potassium 4.4 mmol/L (3.5-5.1); Total Bilirubin 0.6 mg/dL (0.2-1.3); Total Protein 6.2 g/dL (6.3-8.2)
[2017-12-30 06:18] LABS: Appearance,Urine Turbid (Clear); Bacteria,Urine Rare /hpf; Bilirubin,Urine Negative (Negative); Blood,Urine Moderate (Negative); Budding Yeast,Urine Many /hpf; Color,Urine Yellow; Glucose,Urine (UA) Negative (Negative); Ketones,Urine 1+ (Negative); Leukocyte Esterase,Urine Large (Negative); Mucus,Urine Rare /hpf; Nitrite,Urine Negative (Negative); Protein,Urine 2+ (Negative); RBC,Urine 61 /hpf (0-5); Specific Gravity,Urine 1.015 (1.001-1.035); Squamous Epithelial Cell,Urine 13 /hpf (0-4); Urobilinogen,Urine <2.0 mg/dL (<2.0); WBC,Urine >182 /hpf (0-5)
[2017-12-30] MEDS ORDERED: LEVOFLOXACIN 750MG-D5W PMX 750 MG in DEXTROSE/WATER 1 150ML.BAG IVPB STA (06:44)
[2017-12-30] MEDS ORDERED: PNEUMONIA PROTOCOL UTILIZED 1 EACH MISC PO PRN (06:44)
[2017-12-30] MEDS ORDERED: PIPERACILLIN-TAZOBACTAM 3.375 GM in SODIUM CHLORIDE 0.9% 100 ML IVPB STA (06:44)
[2017-12-30] MEDS: HEPARIN SODIUM,PORCINE 5,000 UNIT/ML 1 ML VIAL SQ SCH ×2 (10:34→14:56)
[2017-12-30] MEDS ORDERED: DOCUSATE 100 MG CAP PO PRN (11:03)
[2017-12-30] MEDS: SODIUM CHLORIDE 0.9% 1,000 ML IV SCH ×3 (11:14→19:59)
[2017-12-30] MEDS ORDERED: LEVOFLOXACIN 750 MG TAB PO SCH (12:00)
[2017-12-30] MEDS: PIPERACILLIN-TAZOBACTAM 3.375 GM in SODIUM CHLORIDE 0.9% 100 ML IVPB SCH (14:56)
[2017-12-30] MEDS: IMIPRAMINE 10 MG TAB PO SCH ×2 (14:56→20:52)
[2017-12-30] MEDS: OXYBUTYNIN CHLORIDE 5 MG TAB PO SCH ×2 (14:56→20:52)
[2017-12-30 15:42] LABS: Appearance,Urine Cloudy (Clear); Bacteria,Urine Rare /hpf; Bilirubin,Urine Negative (Negative); Blood,Urine Moderate (Negative); Budding Yeast,Urine Few /hpf; Color,Urine Yellow; Glucose,Urine (UA) Negative (Negative); Hyaline Casts,Urine 5 /lpf (0-2); Ketones,Urine Negative (Negative); Leukocyte Esterase,Urine Large (Negative); Nitrite,Urine Negative (Negative); PH, Urine 5.5 (5.0-8.0); Protein,Urine 1+ (Negative); RBC,Urine 26 /hpf (0-5); Specific Gravity,Urine 1.014 (1.001-1.035); Squamous Epithelial Cell,Urine 1 /hpf (0-4); Urobilinogen,Urine <2.0 mg/dL (<2.0); WBC,Urine 80 /hpf (0-5)
[2017-12-30 17:02] LABS: Glucose,Whole Blood 128 mg/dL (75-99)
[2017-12-30] MEDS: INSULIN ASPART 100 UNIT/ML 1 ML 10 ML VIAL SQ SCH ×2 (17:05→20:51)
--- NOTE | 2017-12-30 18:33 | HP ---
HISTORY AND PHYSICAL CHIEF COMPLAINT: Three or four day history of fever, chills, and urinary tract infection. HISTORY OF PRESENT ILLNESS: This is another of many admissions for this 67-year-old paraplegic. He frequently gets into difficulty urinary tract infections and has become septic. He also has a problem with chronic decubiti. He has a colostomy and indwelling Epps catheter. He was started on antibiotic, but continued to have chills, fever, and presented to the emergency room. He has become dehydrated and his renal function is deteriorating. REVIEW OF SYSTEMS: He has no confusion, syncope, change in vision or hearing, headache, chest pain, shortness of breath, nausea, vomiting, abdominal pain, etc. Past medical history, family history, personal and social histories are essentially otherwise unremarkable and unchanged. HE IS ALLERGIC TO SULFA, PENICILLIN, IODINE. He does not smoke or drink. PHYSICAL EXAMINATION: Blood pressure 77/54 with a pulse of 94, respirations of 36 and temperature 101. In general he appeared to be slightly dehydrated. He is awake and alert. Head, ears, eyes, nose, mouth, and throat were normal. Mucous membranes are dry. Chest is clear to auscultation. Cardiac exam demonstrates a grade 2/6 systolic murmur. The abdomen is slightly protuberant, soft and no masses. He had a colostomy in the left lower quadrant. There is an indwelling Epps. IMPRESSION: 1. Urinary tract infection. 2. Paraplegia. 3. Neurogenic bladder. 4. Dehydration. 5. Prerenal azotemia. PLAN: 1. Bed rest. 2. IV fluids. 3. IV antibiotics. 4. Follow kidney function. MMODL / IJN: [id number] /
[2017-12-30] MEDS: ACETAMINOPHEN TAB 325 MG TAB PO PRN (18:52)
[2017-12-30 20:41] LABS: Glucose,Whole Blood 194 mg/dL (75-99)
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
[2017-12-31] MEDS: HEPARIN SODIUM,PORCINE 5,000 UNIT/ML 1 ML VIAL SQ SCH ×4 (00:44→23:44)
[2017-12-31] MEDS: PIPERACILLIN-TAZOBACTAM 3.375 GM in SODIUM CHLORIDE 0.9% 100 ML IVPB SCH ×3 (00:49→16:56)
[2017-12-31] MEDS: ACETAMINOPHEN TAB 325 MG TAB PO PRN ×3 (03:22→21:39)
[2017-12-31] MEDS: SODIUM CHLORIDE 0.9% 1,000 ML IV SCH ×4 (04:18→23:43)
[2017-12-31 05:05] LABS: Hemoglobin A1C 7.4 % (4.0-6.0)
[2017-12-31] MEDS: traMADol 50 MG TAB PO PRN ×3 (06:28→16:58)
[2017-12-31] MEDS ORDERED: VANCOMYCIN IV PER PHARMACY 1 EACH MISC MISCELLANE PRN (07:06)
[2017-12-31 07:22] LABS: Glucose,Whole Blood 190 mg/dL (75-99)
[2017-12-31] MEDS: INSULIN ASPART 100 UNIT/ML 1 ML 10 ML VIAL SQ SCH ×4 (07:58→21:22)
[2017-12-31] MEDS: ASPIRIN 81 MG PO SCH (07:59)
[2017-12-31] MEDS: IMIPRAMINE 10 MG TAB PO SCH ×3 (07:59→21:21)
[2017-12-31] MEDS: ASCORBIC ACID 500 MG TAB PO SCH (07:59)
[2017-12-31] MEDS: OXYBUTYNIN CHLORIDE 5 MG TAB PO SCH ×3 (07:59→21:21)
[2017-12-31] MEDS: LISINOPRIL 10 MG TAB PO SCH (07:59)
[2017-12-31] MEDS: FERROUS SULFATE 325 MG TAB PO SCH (07:59)
[2017-12-31] MEDS ORDERED: VANCOMYCIN 2,000 MG in SODIUM CHLORIDE 0.9% 500 ML 500 ML IVPB ONE (08:00)
[2017-12-31 09:03] LABS: Basophils % (A) 0 %; Eosinophils % (A) 0 %; HCT 32.3 % (39.0-53.0); HGB 10.5 gm/dL (13.0-17.5); Lymphocytes # (A) 0.3 k/uL (1.0-4.8); Lymphocytes % (A) 3 %; MCH 27.7 pg (25.0-35.0); MCHC 32.6 g/dL (31.0-37.0); Mean Platelet Volume 7.7; Monocytes # (A) 0.3 k/uL (0-1.0); Monocytes % (A) 3 %; Neutrophils # (A) 9.8 k/uL (1.3-7.7); Neutrophils % (A) 92 %; Platelet Count 175 k/uL (150-450); RBC 3.81 m/uL (4.30-5.90); RDW 15.8 % (11.5-15.5); WBC 10.6 k/uL (3.8-10.6)
[2017-12-31 09:05] LABS: Calcium 8.2 mg/dL (8.4-10.2); Potassium 3.8 mmol/L (3.5-5.1)
[2017-12-31 10:12] LABS: C Reactive Protein 220.5 mg/L (<10.0)
[2017-12-31 10:37] LABS: Erythrocyte Sedimentation Rate 102 mm/hr (0-15)
[2017-12-31 12:14] LABS: Glucose,Whole Blood 175 mg/dL (75-99)
[2017-12-31 13:34] VITALS: BMI 29.0
--- NOTE | 2017-12-31 15:52 | CDI ---
Last Revision, January 2017 Documentation Clarification Form Date: 12/31/2017 3:28:14 PM From: Nina Ascencio RN, CCDS Admit Date: 12/30/2017 6:49:00 AM Patient Name: Barak Caputo Visit Number: [id number] Discharge Date: ATTENTION: The Clinical Documentation Specialists (CDI) and [facility] Coding Staff appreciate your assistance in clarifying documentation. Please respond to the clarification below the line at the bottom and electronically sign. The CDI & [facility] Coding staff will review the response and follow-up if needed. Please note: Queries are made part of the Legal Health Record. If you have any questions, please contact the author of this message via ITS. Rahat Chandra MD UTI was documented in the Emergency Department notes and your consult. History/Risk Factors: Chronic Epps present on admission, UTI, Diabetes mellitus, Complete T8 spinal cord injury, Paraplegia Clinical Indicators: Present with mental status change more confused with evidence of urinary tract infection. Patient has a history of chronic Epps catheter, last changed 12/24/17. Vital Signs: 91/57 97 20 100.5 93 % RA WBC: 11.2 Neutrophils 10.0, Lactic acid 1.7, UA: Large Leukocyte esterase, WBC .182, hyaline casts 5 Urine Culture: Pending Treatment Zosyn IV Vancomycin IV IV Fluids Monitor CBC, Electrolytes Vital signs Please document the condition that these clinical indicators signify, whether Present on Admission, and cause if known: UTI With Sepsis If due to Epps catheter Not Epps catheter related Specify organism, if known Identify location of infection (if known) Bladder, Kidney, Urethra Pyelonephritis Contaminated specimen Other, please specify Unable to determine Present on Admission: Yes No Please continue to document in your progress notes in order to capture severity of illness and risk of mortality. Include clinical findings that support your diagnosis. At admission there was concerns for urinary tract infection given the outpatient urinalysis and urine culture. However the inpatient urine culture failed to reveal evidence of significant infection related to the Epps catheter that was in place at admission. There is no evidence of pyelonephritis. The source for sepsis at the time of admission was found to be related to the large pressure ulceration from the recent surgical intervention of the left buttocks area. MTDD
--- NOTE | 2017-12-31 16:26 | CDI ---
Last Revision, January 2017 Documentation Clarification Form Date: 12/31/2017 3:52:59 PM From: Nina Ascencio RN, CCDS Admit Date: 12/30/2017 6:49:00 AM Patient Name: Barak Caputo Visit Number: [id number] Discharge Date: ATTENTION: The Clinical Documentation Specialists (CDI) and [facility] Coding Staff appreciate your assistance in clarifying documentation. Please respond to the clarification below the line at the bottom and electronically sign. The CDI & [facility] Coding staff will review the response and follow-up if needed. Please note: Queries are made part of the Legal Health Record. If you have any questions, please contact the author of this message via ITS. Reese Cortes MD Altered mental status was documented in the in the Emergency department assessment, ID assessment and evaluation. Patient history/risk factors: Spinal cord injury with paraplegia, Hypertension, UTI, Chronic Epps, Clinical Indicators: Present to ED with history of becoming less responsive and more confused, disoriented. Family member reports fever and weakness. Labs: WBC 11.2, HGB 10.7, HCT 33.1, BUN 77, CR 3.30 Lactic acid 1.7 Chest x ray: There is increased pleural fluid and infiltrate at the left lung base. Treatment: ID Consult states "Paraplegia with evidence of altered mental status and still some confusion" "Gram negative Sepsis, UTI" Neuro assessment per protocol Monitor Labs: CBC, Electrolyte In your professional opinion, please clarify the etiology of the altered mental status, if known. Metabolic Encephalopathy Other condition (please specify) Unable to determine Please continue to document in your progress notes and discharge summary in order to capture severity of illness and risk of mortality. Include clinical findings that support your diagnosis. MTDD
[2017-12-31 17:17] LABS: Glucose,Whole Blood 130 mg/dL (75-99)
[2017-12-31] MEDS: MEROPENEM 1 GM in SODIUM CHLORIDE 0.9% 100 ML IVPB SCH (18:32)
[2017-12-31 21:23] LABS: Glucose,Whole Blood 109 mg/dL (75-99)
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
[2018-01-01] MEDS: SODIUM CHLORIDE 0.9% 1,000 ML IV SCH ×3 (05:35→21:42)
[2018-01-01] MEDS: MEROPENEM 1 GM in SODIUM CHLORIDE 0.9% 100 ML IVPB SCH ×2 (05:36→18:22)
[2018-01-01] MEDS ORDERED: LEVOFLOXACIN 750MG-D5W PMX 750 MG in DEXTROSE/WATER 1 150ML.BAG IVPB SCH (06:00)
[2018-01-01 06:09] LABS: Calcium 7.9 mg/dL (8.4-10.2); Potassium 4.1 mmol/L (3.5-5.1)
[2018-01-01 07:47] LABS: Glucose,Whole Blood 123 mg/dL (75-99)
[2018-01-01] MEDS: INSULIN ASPART 100 UNIT/ML 1 ML 10 ML VIAL SQ SCH ×5 (08:22→21:42)
[2018-01-01] MEDS: HEPARIN SODIUM,PORCINE 5,000 UNIT/ML 1 ML VIAL SQ SCH ×2 (08:30→16:12)
[2018-01-01] MEDS: IMIPRAMINE 10 MG TAB PO SCH ×3 (08:30→21:13)
[2018-01-01] MEDS: ASCORBIC ACID 500 MG TAB PO SCH (08:31)
[2018-01-01] MEDS: OXYBUTYNIN CHLORIDE 5 MG TAB PO SCH ×3 (08:31→21:13)
[2018-01-01] MEDS: LISINOPRIL 10 MG TAB PO SCH (08:31)
[2018-01-01] MEDS: ASPIRIN 81 MG PO SCH (08:31)
[2018-01-01] MEDS: FERROUS SULFATE 325 MG TAB PO SCH (08:31)
[2018-01-01] MEDS ORDERED: VANCOMYCIN 1,500 MG in SODIUM CHLORIDE 0.9% 250 ML IVPB ONE (09:00)
--- NOTE | 2018-01-01 10:35 | CDI ---
Last Revision, January 2017 Documentation Clarification Form Date: 01/01/2018 10:07:34 AM From: Nina Ascencio RN, CCDS Admit Date: 12/30/2017 6:49:00 AM Patient Name: Barak Caputo Visit Number: [id number] Discharge Date: ATTENTION: The Clinical Documentation Specialists (CDI) and [facility] Coding Staff appreciate your assistance in clarifying documentation. Please respond to the clarification below the line at the bottom and electronically sign. The CDI & [facility] Coding staff will review the response and follow-up if needed. Please note: Queries are made part of the Legal Health Record. If you have any questions, please contact the author of this message via ITS. Reese Cortes MD 12/30/17 ID consult (Dr. Denis) progress note states Gram negative sepsis". History/Risk Factors: Chronic indwelling Epps catheter, UTI's, Diabetes mellitus, Complete T8 spinal cord injury with Paraplegia, Clinical Indicators: "Patient presents for evaluation of increasing alteration of his mental status. He had evidence of sepsis as noted by the fever, leukocytosis and acute renal failure. The patient also had markedly altered mental status." per Dr. Denis assessment. WBC/Left Shift 11.2, Neutrophils 10.0, UA Large Leukocyte esterase, WBC >182, culture prior to admit show pseudomonas aeruginosa; BUN 77, Creatinine 3.30 Albumin 2.9 Lactic acid: 1.7 Blood cultures: Pending Vitals signs on admission: 97 20 100.5, 92 22 Treatment: ID Consult: Yes, see above assessment Antibiotics: Meropenem IV, Levaquin IV, Vancomycin IV IV Bolus, IV Fluid Monitor CBC, Lytes, Blood sugars Vital signs In your professional opinion, please clarify if these findings signify one of the following conditions, whether the condition is POA, and cause, if known: Condition Sepsis ruled in Sepsis ruled out Severe Sepsis (specify organ dysfunction) Septic Shock Other, please specify Unable to determine Present on Admission: Yes No Identify the (suspected) organism Link or clarify if there is associated (due to/with): Organ failure Shock Please continue to document in your progress notes and discharge summary in order to capture severity of illness and risk of mortality. Include clinical findings that support your diagnosis. MTDD
[2018-01-01 12:11] LABS: Glucose,Whole Blood 137 mg/dL (75-99)
--- NOTE | 2018-01-01 13:07 | PN ---
PROGRESS NOTE DATE OF SERVICE: 12/31/2017 CHIEF COMPLAINT: Urinary tract infection, sepsis and dehydration. HISTORY OF PRESENT ILLNESS: This gentleman is a little bit better, but he is still a little bit lethargic. Temperature has come down. Cultures are pending. PHYSICAL EXAM: Hydration is improved. Skin is still dry. Chest is clear. Cardiac exam is unchanged. Abdomen is soft and protuberant. IMPRESSION: 1. Urinary tract infection. 2. Paraplegia. 3. Dehydration. PLAN: Continue on current program. MMODL / IJN: [id number] /
--- NOTE | 2018-01-01 15:53 | PN ---
PROGRESS NOTE CHIEF COMPLAINT: Urinary tract infection, dehydration. HISTORY OF PRESENT ILLNESS: This gentleman is definitely improving. His hydration is improved. He is more much more awake and alert. PHYSICAL EXAMINATION: Color is better and hydration is improved. Chest is clear. Cardiac exam is unchanged. Abdomen is soft, nontender. IMPRESSION: 1. Urinary tract infection. 2. Dehydration. 3. Paraplegia. 4. Renal failure. PLAN: 1. Continue with IV fluids and antibiotics. 2. Renal consult. MMODL / IJN: [id number] /
[2018-01-01 17:21] LABS: Glucose,Whole Blood 149 mg/dL (75-99)
--- NOTE | 2018-01-01 20:02 | CONS ---
CONSULTATION REASON FOR CONSULT: Renal failure. HISTORY OF PRESENT ILLNESS: The patient is a 67-year-old male who has a history of paraplegia and currently has a chronic indwelling Epps catheter. Patient has had previous history of urinary tract infections. He was admitted to the hospital with decreased oral intake, nausea, weakness, not feeling well. Patient is maintained on HERSON inhibitors at home. His blood pressure was significantly low with systolic in the 80s. Currently patient is maintained on IV fluids. There is no previous history of kidney diseases. Previous serum creatinine in May was 0.87 mg/dL. On this admission, serum creatinine was at 3.3 mg/dL. Patient has had good urine output. His creatinine is down to 3.1 today. The HERSON inhibitors are on hold and patient is maintained on IV fluids. However, blood pressure remains on the lower side. Patient states overall he is feeling better. PAST MEDICAL HISTORY: 1. History of spinal cord injury. 2. Chronic wounds. 3. History of repeated urinary tract infections. 4. Colostomy for non-healing wounds as a diversion along with the indwelling Epps catheter. 5. Chronic wounds on the skin with history of osteomyelitis. 6. History of rheumatic fever. 7. Previous history of nephrolithiasis. PAST SURGICAL HISTORY: 1. Hernia repair. 2. Lithotripsy. 3. Right inguinal hernia repair. 4. Spinal cord surgeries. 5. Wound debridements. 6. Basal cell skin cancer removal. 7. Colostomy. 8. Drainage of an abscess in the back. SOCIAL HISTORY: Patient is a former smoker. No history of drug abuse or alcohol abuse. MEDICATIONS: Medications at home included: 1. Lotensin. 2. Vitamin D3. 3. Iron. 4. Tofranil. 5. Reglan. 6. Ditropan. 7. Pravachol. 8. Glucophage. 9. Ultram. 10.Vitamin C. 11.Aspirin. 12.Levaquin. ALLERGIES: Include: 1. SHELLFISH. 2. IODINE. 3. SULFA. SHELLFISH AND IODINE CAUSE NAUSEA, VOMITING AND DIARRHEA. SULFA CAUSES BLISTERS. REVIEW OF SYSTEMS: As per HPI. Other systems negative. PHYSICAL EXAMINATION: Patient is currently comfortable, awake. He is alert and oriented x3. He is not in any acute distress. Blood pressure was 123/83, heart rate 106 per minute. Patient is afebrile. EXAMINATION OF THE HEART: S1, S2. EXAMINATION OF LUNGS: Bilateral breath sounds are heard. ABDOMEN: Soft, non-tender. Examination of lower extremities shows wasting bilaterally. Patient is paraplegic. LABS: Labs show sodium 137, potassium 4.1, chloride 108. CO2 is 19, BUN 87, serum creatinine 3.17. Vancomycin trough was 13.3. ASSESSMENT: 1. Acute kidney injury, non-oliguric, secondary to hypotension, hypoperfusion, currently with good urine output. Continue to hold off on HERSON inhibitors. Continue aggressive IV hydration. Repeat labs in a.m. and continue to avoid nephrotoxic agents. Recommend close monitoring of vancomycin levels. However, if it is not absolutely necessary, vancomycin should be discontinued, given the advanced renal failure. 2. Chronic wounds and decubitus ulcers, being followed at the wound clinic at [facility]. 3. History of hypertension. Blood pressure is currently low. 4. Pyuria with previous urine cultures showing no significant growth. PLAN: Continue IV fluids. Discontinue lisinopril. Repeat labs in a.m. Recommend to discontinue the vancomycin. Thank you for this consultation. We will continue to follow the patient with you during his hospitalization. MMODL / IJN: [id number] /
[2018-01-01 21:03] LABS: Glucose,Whole Blood 174 mg/dL (75-99)
[2018-01-02] MEDS: HEPARIN SODIUM,PORCINE 5,000 UNIT/ML 1 ML VIAL SQ SCH ×4 (00:39→23:34)
[2018-01-02] MEDS: SODIUM CHLORIDE 0.9% 1,000 ML IV SCH ×4 (06:03→23:35)
[2018-01-02] MEDS: MEROPENEM 1 GM in SODIUM CHLORIDE 0.9% 100 ML IVPB SCH ×2 (06:45→18:29)
[2018-01-02] MEDS: IMIPRAMINE 10 MG TAB PO SCH ×3 (07:18→21:59)
[2018-01-02] MEDS: ASCORBIC ACID 500 MG TAB PO SCH (07:19)
[2018-01-02] MEDS: ASPIRIN 81 MG PO SCH (07:19)
[2018-01-02] MEDS: OXYBUTYNIN CHLORIDE 5 MG TAB PO SCH ×3 (07:19→21:59)
[2018-01-02] MEDS: FERROUS SULFATE 325 MG TAB PO SCH (07:20)
[2018-01-02] MEDS: ACETAMINOPHEN TAB 325 MG TAB PO PRN ×2 (07:21→17:11)
[2018-01-02] MEDS: INSULIN ASPART 100 UNIT/ML 1 ML 10 ML VIAL SQ SCH ×5 (07:21→22:00)
[2018-01-02 07:40] LABS: Glucose,Whole Blood 152 mg/dL (75-99)
--- NOTE | 2018-01-02 10:16 | P.PN ---
Subjective Patient is seen in follow-up for acute kidney injury. Patient's basic creatinine is 1 and peaked at 3.37 this admission. It was 3.17 yesterday. Labs from this morning are pending. Patient presented with altered mental status. He is noted to have UTI but urine culture positive for Pseudomonas as an outpatient. Additionally he has sacral wounds which are positive for Pseudomonas and MRSA. One set of blood culture was also positive for staph epi. He is maintained on IV antibiotics. He's receiving normal saline at 150 mL an hour. He is a chronic Epps catheter and is nonoliguric. Oral intake is fair. No vomiting or diarrhea. Vital signs are stable. General: The patient appeared well nourished and normally developed. HEENT: Head exam is unremarkable. Neck is without jugular venous distension. LUNGS: Lungs are clear to auscultation and percussion. Breath sounds decreased. HEART: Rate and Rhythm are regular. First and second heart sounds normal. No murmurs, rubs or gallops. ABDOMEN: Abdominal exam reveals normal bowel sounds. Non-tender and non- distended. No evidence of peritonitis. EXTREMITITES: Trace edema. Objective - Vital Signs Vital signs: Vital Signs Temp 98.0 F 01/02/18 07:23 Pulse 69 01/02/18 07:23 Resp 20 01/02/18 08:00 BP 104/64 01/02/18 07:23 Pulse Ox 93 L 01/02/18 07:23 Intake & Output 01/01/18 01/02/18 01/02/18 18:59 06:59 18:59 Intake Total 1500 Output Total 900 900 Balance -900 600 Intake: Intake, IV Titration 1300 Amount Meropenem 1 gm In Sodium 100 Chloride 0.9% 100 ml @ 200 mls/hr IVPB Q12H [facility] Rx#:[id number] Sodium Chloride 0.9% 1, 1200 000 ml @ 150 mls/hr IV . Q6H40M [facility] Rx#:[id number] Oral 200 Output: Urine 900 900 Other: Voiding Method Indwelling Catheter Indwelling Catheter Indwelling Catheter - Labs CBC & Chem 7: 12/31/17 08:16 01/01/18 05:12 Labs: Abnormal Lab Results - Last 24 Hours (Table) 01/01/18 01/01/18 01/01/18 Range/Units 11:56 17:08 21:00 POC Glucose (mg/dL) 137 H 149 H 174 H (75-99) mg/dL 01/02/18 Range/Units 07:06 POC Glucose (mg/dL) 152 H (75-99) mg/dL Microbiology - Last 24 Hours (Table) 12/30/17 14:50 Gram Stain - Final Hip - Left Wound Culture - Final Pseudomonas aeruginosa Methicillin resist S. aureus 12/30/17 14:50 Gram Stain - Final Buttock Wound Culture - Final Pseudomonas aeruginosa Methicillin resist S. aureus 12/31/17 19:47 Blood Culture Gram Stain - Preliminary Blood 12/31/17 19:47 Blood Culture - Final Blood 12/31/17 20:01 Blood Culture - Preliminary Blood No Growth after 24 hours 12/30/17 00:47 Blood Culture Gram Stain - Final Blood Blood Culture - Final Staphylococcus epidermidis 12/30/17 14:50 Anaerobic Culture - Preliminary Hip - Left 12/30/17 14:50 Anaerobic Culture - Preliminary Buttock Assessment and Plan Plan: Assessment: 1. Acute kidney injury secondary to ATN secondary to hypotension. His blood pressure was in the systolic 70s to 80s yesterday. Creatinine 3.17 as of yesterday. Baseline creatinine is 1. 2. Sepsis secondary to UTI. Also noted to have sacral wound. Urine culture prior to admission was positive for Pseudomonas. Wound cultures positive for Pseudomonas and MRSA. Maintain on antibiotics per infectious disease. 3. Staph epidermidis bacteremia. 4. Metabolic acidosis secondary to acute kidney injury. 5. History of hypertension. Blood pressures currently on the lower side. Plan: I will decrease rate of normal saline to 100 mL an hour. Add oral sodium bicarbonate. Avoid nephrotoxins. Continue to hold antihypertensives. Encouraged oral intake. Check renal ultrasound.
[2018-01-02 10:29] LABS: Calcium 8.2 mg/dL (8.4-10.2); Potassium 3.9 mmol/L (3.5-5.1)
[2018-01-02] MEDS: SODIUM BICARBONATE TAB 650 MG TAB PO SCH ×2 (11:37→21:59)
[2018-01-02] MEDS ORDERED: VANCOMYCIN 1,500 MG in SODIUM CHLORIDE 0.9% 250 ML IVPB ONE (12:00)
[2018-01-02 12:44] LABS: Glucose,Whole Blood 190 mg/dL (75-99)
--- NOTE | 2018-01-02 13:07 | P.PN ---
Subjective 67-year-old pleasant gentleman paraplegic has chronic decubitus ulcers which appears to be infected with staph aureus pseudomonas as well as Epps catheter with urinary tract infection at the same organisms. Patient the pseudomonas and staph aureus resistant to levofloxacin because of which levofloxacin will be discontinued. Patient is presently on meropenem and vancomycin both of which will be continued. Patient was bacteremic on sixth and repeat blood cultures on 08-31 that negative. Patient also has acute renal failure baseline creatinine of around 1 has gone up to around 3.5 secondary to acute tubular necrosis. HERSON inhibitor is being held. Patient had low blood pressures because of a possibly sepsis. Presently doing well regarding this. Patient is receiving IV hydration nephrology is following the patient. Constitutional: Denied any fatigue denied any fever. Cardio vascular: denied any chest pain, palpitations Gastrointestinal denied any nausea vomiting Pulmonary: Denied any shortness of breath cough Neurologic denied any new focal deficits All inpatient medications were reviewed and appropriate changes in these medications as dictated in the interval history and assessment and plan. Objective - Vital Signs Vital signs: Vital Signs Temp 98.0 F 01/02/18 07:23 Pulse 69 01/02/18 07:23 Resp 20 01/02/18 08:00 BP 104/64 01/02/18 07:23 Pulse Ox 93 L 01/02/18 07:23 Intake & Output 01/01/18 01/02/18 01/02/18 18:59 06:59 18:59 Intake Total 1500 Output Total 900 900 Balance -900 600 Weight 99.79 kg Intake: Intake, IV Titration 1300 Amount Meropenem 1 gm In Sodium 100 Chloride 0.9% 100 ml @ 200 mls/hr IVPB Q12H [facility] Rx#:[id number] Sodium Chloride 0.9% 1, 1200 000 ml @ 150 mls/hr IV . Q6H40M [facility] Rx#:[id number] Oral 200 Output: Urine 900 900 Other: Voiding Method Indwelling Catheter Indwelling Catheter Indwelling Catheter - Exam PHYSICAL EXAMINATION: GENERAL: The patient is alert and oriented x3, not in any acute distress. Well developed, well nourished. HEENT: Pupils are round and equally reacting to light. EOMI. No scleral icterus. No conjunctival pallor. Normocephalic, atraumatic. No pharyngeal erythema. No thyromegaly. CARDIOVASCULAR: S1 and S2 present. No murmurs, rubs, or gallops. PULMONARY: Chest is clear to auscultation, no wheezing or crackles. ABDOMEN: Soft, nontender, nondistended, normoactive bowel sounds. No palpable organomegaly. has a colostomy in place MUSCULOSKELETAL: No joint swelling or deformity. EXTREMITIES: No cyanosis, clubbing, or pedal edema. Patient's decubitus ulcerations staging please refer to infectious disease and nursing documentation NEUROLOGICAL: Gross neurological examination did not reveal any focal deficits. SKIN: No rashes. - Labs CBC & Chem 7: 12/31/17 08:16 01/02/18 08:48 Labs: Abnormal Lab Results - Last 24 Hours (Table) 01/01/18 01/01/18 01/02/18 Range/Units 17:08 21:00 07:06 Chloride (98-107) mmol/L Carbon Dioxide (22-30) mmol/L BUN (9-20) mg/dL Creatinine (0.66-1.25) mg/dL Glucose (74-99) mg/dL POC Glucose (mg/dL) 149 H 174 H 152 H (75-99) mg/dL Calcium (8.4-10.2) mg/dL 01/02/18 01/02/18 Range/Units 08:48 12:38 Chloride 110 H (98-107) mmol/L Carbon Dioxide 19 L (22-30) mmol/L BUN 74 H (9-20) mg/dL Creatinine 2.49 H (0.66-1.25) mg/dL Glucose 157 H (74-99) mg/dL POC Glucose (mg/dL) 190 H (75-99) mg/dL Calcium 8.2 L (8.4-10.2) mg/dL Microbiology - Last 24 Hours (Table) 12/30/17 14:50 Gram Stain - Final Hip - Left Wound Culture - Final Pseudomonas aeruginosa Methicillin resist S. aureus 12/30/17 14:50 Gram Stain - Final Buttock Wound Culture - Final Pseudomonas aeruginosa Methicillin resist S. aureus 12/31/17 19:47 Blood Culture Gram Stain - Preliminary Blood 12/31/17 19:47 Blood Culture - Final Blood 12/31/17 20:01 Blood Culture - Preliminary Blood No Growth after 24 hours 12/30/17 00:47 Blood Culture Gram Stain - Final Blood Blood Culture - Final Staphylococcus epidermidis 12/30/17 14:50 Anaerobic Culture - Preliminary Hip - Left 12/30/17 14:50 Anaerobic Culture - Preliminary Buttock Assessment and Plan Plan: Sepsis and gram-negative bacteria possible source of infection being urinary tract infection or infected decubitus ulcers. Patient is an above-mentioned antibiotics meropenem and vancomycin. Levofloxacin was discontinued . Patient had MRSA and pseudomonal bacteremia -Acute tubular necrosis: Secondary to sepsis hypotension improving now continue with IV fluids. Continue to hold off on HERSON inhibitor -Paraplegia supportive care -Toxic encephalopathy from sepsis resolved at this point of time it appears to have had a encephalopathy on admission. -DVT in the past: Patient is not on any anti-correlation for DVT although is on DVT prophylaxis with subcutaneous heparin -Hyperlipidemia -Hypertension
--- NOTE | 2018-01-02 14:39 | US ---
EXAMINATION TYPE: US kidneys/renal and bladder DATE OF EXAM: 01/02/2018 COMPARISON: NONE CLINICAL HISTORY: miguel. EXAM MEASUREMENTS: Right Kidney: 12.8 x 5.0 x 6.8 cm Left Kidney: 15.0 x 8.4 x 7.9 cm Right Kidney: No hydronephrosis or masses seen Left Kidney: No hydronephrosis or masses seen Bladder: benavides in place, empty IMPRESSION: 1. Normal renal ultrasound
[2018-01-02 17:30] LABS: Glucose,Whole Blood 107 mg/dL (75-99)
[2018-01-02 20:48] LABS: Glucose,Whole Blood 154 mg/dL (75-99)
[2018-01-03] MEDS: MEROPENEM 1 GM in SODIUM CHLORIDE 0.9% 100 ML IVPB SCH ×2 (06:36→17:36)
[2018-01-03 07:29] LABS: Glucose,Whole Blood 148 mg/dL (75-99)
[2018-01-03 08:10] LABS: Calcium 8.1 mg/dL (8.4-10.2); Magnesium 2.1 mg/dL (1.6-2.3); Potassium 3.9 mmol/L (3.5-5.1)
[2018-01-03] MEDS: SODIUM BICARBONATE TAB 650 MG TAB PO SCH ×2 (08:10→20:16)
[2018-01-03] MEDS: HEPARIN SODIUM,PORCINE 5,000 UNIT/ML 1 ML VIAL SQ SCH ×3 (08:10→23:25)
[2018-01-03] MEDS: ASCORBIC ACID 500 MG TAB PO SCH (08:10)
[2018-01-03] MEDS: FERROUS SULFATE 325 MG TAB PO SCH (08:10)
[2018-01-03] MEDS: OXYBUTYNIN CHLORIDE 5 MG TAB PO SCH ×3 (08:10→20:16)
[2018-01-03] MEDS: INSULIN ASPART 100 UNIT/ML 1 ML 10 ML VIAL SQ SCH ×4 (08:11→20:57)
[2018-01-03] MEDS: ASPIRIN 81 MG PO SCH (08:11)
[2018-01-03] MEDS: IMIPRAMINE 10 MG TAB PO SCH ×3 (08:11→20:16)
[2018-01-03] MEDS ORDERED: VANCOMYCIN 2,000 MG in SODIUM CHLORIDE 0.9% 500 ML 500 ML IVPB ONE (09:00)
[2018-01-03] MEDS ORDERED: LEVOFLOXACIN 750 MG TAB PO SCH (09:00)
[2018-01-03] MEDS: SODIUM CHLORIDE 0.9% 1,000 ML IV SCH ×2 (11:24→20:12)
[2018-01-03 11:51] LABS: Glucose,Whole Blood 207 mg/dL (75-99)
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
--- NOTE | 2018-01-03 12:48 | P.PN ---
Subjective 67-year-old pleasant gentleman paraplegic has chronic decubitus ulcers which appears to be infected with staph aureus pseudomonas as well as Epps catheter with urinary tract infection at the same organisms. Patient the pseudomonas and staph aureus resistant to levofloxacin because of which levofloxacin will be discontinued. Patient is presently on meropenem and vancomycin both of which will be continued. Patient was bacteremic on sixth and repeat blood cultures on - that negative. Patient also has acute renal failure baseline creatinine of around 1 has gone up to around 3.5 secondary to acute tubular necrosis. HERSON inhibitor is being held. Patient had low blood pressures because of a possibly sepsis. Presently doing well regarding this. Patient is receiving IV hydration nephrology is following the patient. 01/03/2018 No overnight events. Constitutional: Denied any fatigue denied any fever. Cardio vascular: denied any chest pain, palpitations Gastrointestinal denied any nausea vomiting Pulmonary: Denied any shortness of breath cough Neurologic denied any new focal deficits All inpatient medications were reviewed and appropriate changes in these medications as dictated in the interval history and assessment and plan. Objective - Vital Signs Vital signs: Vital Signs Temp 98.8 F 01/03/18 07:04 Pulse 85 01/03/18 07:04 Resp 18 01/03/18 07:04 BP 110/70 01/03/18 07:04 Pulse Ox 93 L 01/03/18 07:04 Intake & Output 01/02/18 01/03/18 01/03/18 18:59 06:59 18:59 Output Total 700 1550 Balance -700 -1550 Weight 99.79 kg Output: Urine 700 1550 Other: Voiding Method Indwelling Catheter Indwelling Catheter Indwelling Catheter - Exam PHYSICAL EXAMINATION: GENERAL: The patient is alert and oriented x3, not in any acute distress. Well developed, well nourished. HEENT: Pupils are round and equally reacting to light. EOMI. No scleral icterus. No conjunctival pallor. Normocephalic, atraumatic. No pharyngeal erythema. No thyromegaly. CARDIOVASCULAR: S1 and S2 present. No murmurs, rubs, or gallops. PULMONARY: Chest is clear to auscultation, no wheezing or crackles. ABDOMEN: Soft, nontender, nondistended, normoactive bowel sounds. No palpable organomegaly. has a colostomy in place MUSCULOSKELETAL: No joint swelling or deformity. EXTREMITIES: No cyanosis, clubbing, or pedal edema. Patient's decubitus ulcerations staging please refer to infectious disease and nursing documentation NEUROLOGICAL: Gross neurological examination did not reveal any focal deficits. SKIN: No rashes. - Labs CBC & Chem 7: 12/31/17 08:16 01/03/18 07:23 Labs: Abnormal Lab Results - Last 24 Hours (Table) 01/02/18 01/02/18 01/03/18 Range/Units 17:21 20:47 07:10 Chloride (98-107) mmol/L Carbon Dioxide (22-30) mmol/L BUN (9-20) mg/dL Creatinine (0.66-1.25) mg/dL Glucose (74-99) mg/dL POC Glucose (mg/dL) 107 H 154 H 148 H (75-99) mg/dL Calcium (8.4-10.2) mg/dL 01/03/18 01/03/18 Range/Units 07:23 11:40 Chloride 113 H (98-107) mmol/L Carbon Dioxide 21 L (22-30) mmol/L BUN 56 H (9-20) mg/dL Creatinine 1.94 H (0.66-1.25) mg/dL Glucose 141 H (74-99) mg/dL POC Glucose (mg/dL) 207 H (75-99) mg/dL Calcium 8.1 L (8.4-10.2) mg/dL Microbiology - Last 24 Hours (Table) 12/30/17 14:50 Gram Stain - Final Hip - Left Wound Culture - Final Pseudomonas aeruginosa Methicillin resist S. aureus 12/31/17 19:47 Blood Culture Gram Stain - Final Blood Blood Culture - Final Coagulase Negative Staph 12/31/17 20:01 Blood Culture - Preliminary Blood No Growth after 48 hours 12/30/17 14:50 Gram Stain - Final Buttock Wound Culture - Final Pseudomonas aeruginosa Methicillin resist S. aureus Assessment and Plan Plan: Sepsis and gram-negative bacteria possible source of infection being urinary tract infection or infected decubitus ulcers. Patient is an above-mentioned antibiotics meropenem and vancomycin. Levofloxacin was discontinued . Patient had MRSA and pseudomonal bacteremia -Acute tubular necrosis: Secondary to sepsis hypotension improving now continue with IV fluids. Continue to hold off on HERSON inhibitor -Paraplegia supportive care -Toxic encephalopathy from sepsis resolved at this point of time it appears to have had a encephalopathy on admission. -DVT in the past: Patient is not on any anti-correlation for DVT although is on DVT prophylaxis with subcutaneous heparin -Hyperlipidemia -Hypertension
[2018-01-03 17:08] LABS: Glucose,Whole Blood 125 mg/dL (75-99)
[2018-01-03 20:43] LABS: Glucose,Whole Blood 145 mg/dL (75-99)
[2018-01-04] MEDS: MEROPENEM 1 GM in SODIUM CHLORIDE 0.9% 100 ML IVPB SCH ×2 (05:13→17:33)
[2018-01-04] MEDS: SODIUM CHLORIDE 0.9% 1,000 ML IV SCH ×2 (05:13→16:45)
[2018-01-04 07:15] LABS: Glucose,Whole Blood 154 mg/dL (75-99)
[2018-01-04 07:46] LABS: Calcium 7.9 mg/dL (8.4-10.2)
[2018-01-04] MEDS: SODIUM BICARBONATE TAB 650 MG TAB PO SCH ×2 (08:38→21:06)
[2018-01-04] MEDS: ASPIRIN 81 MG PO SCH (08:38)
[2018-01-04] MEDS: OXYBUTYNIN CHLORIDE 5 MG TAB PO SCH ×3 (08:38→21:06)
[2018-01-04] MEDS: ASCORBIC ACID 500 MG TAB PO SCH (08:38)
[2018-01-04] MEDS: IMIPRAMINE 10 MG TAB PO SCH ×3 (08:38→21:06)
[2018-01-04] MEDS: HEPARIN SODIUM,PORCINE 5,000 UNIT/ML 1 ML VIAL SQ SCH ×3 (08:39→23:24)
[2018-01-04] MEDS: INSULIN ASPART 100 UNIT/ML 1 ML 10 ML VIAL SQ SCH ×4 (08:39→21:06)
[2018-01-04] MEDS: FERROUS SULFATE 325 MG TAB PO SCH (08:39)
[2018-01-04] MEDS: traMADol 50 MG TAB PO PRN (08:45)
[2018-01-04 09:13] LABS: Vancomycin,Random 23.1 ug/mL
[2018-01-04 11:47] LABS: Glucose,Whole Blood 190 mg/dL (75-99)
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
[2018-01-04 16:47] LABS: Glucose,Whole Blood 162 mg/dL (75-99)
[2018-01-04 20:57] LABS: Glucose,Whole Blood 151 mg/dL (75-99)
[2018-01-05] MEDS: SODIUM CHLORIDE 0.9% 1,000 ML IV SCH ×3 (05:03→23:03)
[2018-01-05] MEDS: MEROPENEM 1 GM in SODIUM CHLORIDE 0.9% 100 ML IVPB SCH (05:04)
[2018-01-05] MEDS ORDERED: VANCOMYCIN 2,000 MG in SODIUM CHLORIDE 0.9% 500 ML 500 ML IVPB ONE (06:00)
[2018-01-05 07:07] LABS: Glucose,Whole Blood 174 mg/dL (75-99)
[2018-01-05] MEDS: OXYBUTYNIN CHLORIDE 5 MG TAB PO SCH ×3 (08:23→21:10)
[2018-01-05] MEDS: IMIPRAMINE 10 MG TAB PO SCH ×3 (08:23→21:10)
[2018-01-05] MEDS: ASPIRIN 81 MG PO SCH (08:23)
[2018-01-05] MEDS: SODIUM BICARBONATE TAB 650 MG TAB PO SCH ×2 (08:23→21:10)
[2018-01-05] MEDS: HEPARIN SODIUM,PORCINE 5,000 UNIT/ML 1 ML VIAL SQ SCH ×3 (08:23→23:01)
[2018-01-05] MEDS: ASCORBIC ACID 500 MG TAB PO SCH (08:23)
[2018-01-05] MEDS: INSULIN ASPART 100 UNIT/ML 1 ML 10 ML VIAL SQ SCH ×4 (08:23→21:25)
[2018-01-05] MEDS: FERROUS SULFATE 325 MG TAB PO SCH (08:23)
[2018-01-05] MEDS: traMADol 50 MG TAB PO PRN (08:28)
[2018-01-05 09:42] LABS: Calcium 7.8 mg/dL (8.4-10.2); Potassium 4.3 mmol/L (3.5-5.1)
[2018-01-05 12:22] LABS: Glucose,Whole Blood 146 mg/dL (75-99)
[2018-01-05 17:31] LABS: Glucose,Whole Blood 113 mg/dL (75-99)
[2018-01-05 21:02] LABS: Glucose,Whole Blood 136 mg/dL (75-99)
[2018-01-05] MEDS: CEFEPIME 2 GM in SODIUM CHLORIDE 0.9% 50 ML IVPB SCH (21:10)
[2018-01-05] MEDS: DOXYCYCLINE 100 MG CAP PO SCH (21:10)
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
[2018-01-05] MEDS: ACETAMINOPHEN TAB 325 MG TAB PO PRN (23:01)
[2018-01-06] MEDS: ACETAMINOPHEN TAB 325 MG TAB PO PRN (04:01)
[2018-01-06] MEDS: SODIUM CHLORIDE 0.9% 1,000 ML IV SCH ×2 (04:17→18:41)
[2018-01-06 04:27] LABS: Anisocytosis Slight; Basophils % (A) 0 %; Eosinophils # (A) 0.1 k/uL (0-0.7); Eosinophils % (A) 1 %; HCT 31.8 % (39.0-53.0); HGB 10.5 gm/dL (13.0-17.5); Lymphocytes # (A) 0.4 k/uL (1.0-4.8); Lymphocytes % (A) 3 %; MCH 28.5 pg (25.0-35.0); MCHC 33.1 g/dL (31.0-37.0); MCV 86.2 fL (80.0-100.0); Mean Platelet Volume 8.1; Monocytes # (A) 0.3 k/uL (0-1.0); Monocytes % (A) 3 %; Neutrophils # (A) 9.4 k/uL (1.3-7.7); Neutrophils % (A) 91 %; Platelet Count 306 k/uL (150-450); RBC 3.69 m/uL (4.30-5.90); RDW 16.2 % (11.5-15.5); WBC 10.3 k/uL (3.8-10.6)
[2018-01-06 05:40] LABS: Albumin 2.6 g/dL (3.5-5.0); Calcium 7.9 mg/dL (8.4-10.2); Potassium 4.8 mmol/L (3.5-5.1); Total Bilirubin 0.6 mg/dL (0.2-1.3)
[2018-01-06 07:06] LABS: Glucose,Whole Blood 169 mg/dL (75-99)
[2018-01-06] MEDS: INSULIN ASPART 100 UNIT/ML 1 ML 10 ML VIAL SQ SCH ×4 (08:04→21:52)
[2018-01-06] MEDS: HEPARIN SODIUM,PORCINE 5,000 UNIT/ML 1 ML VIAL SQ SCH ×2 (08:04→16:47)
[2018-01-06] MEDS: ASCORBIC ACID 500 MG TAB PO SCH (08:05)
[2018-01-06] MEDS: ASPIRIN 81 MG PO SCH (08:06)
[2018-01-06] MEDS: CEFEPIME 2 GM in SODIUM CHLORIDE 0.9% 50 ML IVPB SCH (08:06)
[2018-01-06] MEDS: FERROUS SULFATE 325 MG TAB PO SCH (08:06)
[2018-01-06] MEDS: DOXYCYCLINE 100 MG CAP PO SCH ×2 (08:06→21:45)
[2018-01-06] MEDS: SODIUM BICARBONATE TAB 650 MG TAB PO SCH ×2 (08:07→21:45)
[2018-01-06] MEDS: IMIPRAMINE 10 MG TAB PO SCH ×3 (08:07→21:45)
[2018-01-06] MEDS: OXYBUTYNIN CHLORIDE 5 MG TAB PO SCH ×3 (08:07→21:45)
[2018-01-06] MEDS: METOCLOPRAMIDE 5 MG/ML 2 ML VIAL IVP PRN (10:46)
--- NOTE | 2018-01-06 11:00 | CDI ---
Last Revision, January 2017 Documentation Clarification Form Date: 01/06/2018 10:25:58 AM From: Nina Ascencio RN, CCDS Admit Date: 12/30/2017 6:49:00 AM Patient Name: Barak Caputo Visit Number: [id number] Discharge Date: 01/14/18 ATTENTION: The Clinical Documentation Specialists (CDI) and [facility] Coding Staff appreciate your assistance in clarifying documentation. Please respond to the clarification below the line at the bottom and electronically sign. The CDI & [facility] Coding staff will review the response and follow-up if needed. Please note: Queries are made part of the Legal Health Record. If you have any questions, please contact the author of this message via ITS. Rahat Chandra MD A decubitus ulcers was documented in the past medical history and ongoing progress notes by Nephrology and Internal medicine. History/Risk Factors: Diabetes Mellitus, Hypertension, Spinal cord injury, paraplegia, UTI with Chronic Epps catheter, Clinical Indicators: It is noted that the patient has nonhealing sores on buttocks, current wounds 4 1/2 cm deep wound to left hip trochanter, left ischium, on buttock right and left. In the past medical history wound description: evidence of recent surgical intervention to the left buttock. There is evidence of the large surgical wound that is healing well along the trochanter area; evidence of the ulceration is approximately 1x0.5 x 4.5 cm. On the buttock the ulceration are approximately [id number]. Treatment: Air bed Vibromycin PO Cefepime IV Ensure TID Monitor supplement intake, monitor wound heal Monitor BGL Elements for accurate and compliant documentation of an ulcer: The location/laterality of the ulcer Etiology (decubitus/pressure, diabetic, PVD) Stage I-IV, Unstageable, Suspected Deep Tissue Injury (To the deepest stage) If the ulcer was present at admission (POA) or occurred after admission In your professional opinion, can you please further clarify the diagnosis, location, laterality and whether present on admission (POA): Stage 1 Pressure/Decubitus Ulcer (intact skin, non-blanching redness of local area) Stage 2 Pressure/Decubitus Ulcer (Partial thickness, loss of dermis, pink wound bed) Stage 3 Pressure/Decubitus Ulcer (Full thickness tissue loss) Stage 4 Pressure/Decubitus Ulcer (Full thickness tissue loss with exposed bone , tendon, or muscle. May have slough or eschar present) Unstageable Other condition, please specify Unable to determine Please indicate etiology of pressure ulcer (if known). Please continue to document in your progress notes and discharge summary in order to capture severity of illness and risk of mortality. Include clinical findings that support your diagnosis. ____ please clarify that the large post surgical pressure ulcerations, which are present on admission, are of the left hip area specifically at the left trochanter measuring at 1 x 0.5 x 4.5, left buttocks at 4 x 3 x 1 cm. The pressure ulcerations are stage IV in that they penetrate to the exposed bony structure of the pelvis. MTDD
[2018-01-06 11:45] LABS: Glucose,Whole Blood 128 mg/dL (75-99)
--- NOTE | 2018-01-06 15:45 | PN ---
PROGRESS NOTE DATE OF SERVICE: 01/05/2018 CHIEF COMPLAINT: Urinary tract infection, dehydration. HISTORY OF PRESENT ILLNESS: This gentleman is doing fairly well, but he still does not feel back to normal. He is running somewhat low-grade temperatures. There is question as to whether not he will receive a PICC line. PHYSICAL EXAM: Chest is clear. Cardiac exam is unchanged and the abdomen is protuberant, soft, nontender. IMPRESSION: 1. Urinary tract infection. 2. Paraplegia. 3. Dehydration. PLAN: Continue with fluids and antibiotics and await further guidelines from Infectious Disease. MMODL / IJN: [id number] /
--- NOTE | 2018-01-06 15:51 | PN ---
PROGRESS NOTE DATE OF SERVICE: 01/06/2018 CHIEF COMPLAINT: Urinary tract infection and quadriplegia with persistent low-grade fever. HISTORY OF PRESENT ILLNESS: This gentleman does not feel well today. He cannot pinpoint it. He is not having any nausea, chest pain, shortness of breath, abdominal pain, etc. PHYSICAL EXAM: He is still running low-grade temperatures around 99-100. Chest is clear. Cardiac exam is normal except for his murmur. Abdomen is soft and nontender. IMPRESSION: 1. Urinary tract infection. 2. Malaise. 3. Persistent fever. 4. Paraplegia. PLAN: Continue with IV fluids and antibiotics. We are waiting to see if anything further is to be done with regard to treating his infection from Infectious Disease. MMODL / IJN: [id number] /
[2018-01-06 16:58] LABS: Glucose,Whole Blood 163 mg/dL (75-99)
[2018-01-06] MEDS: traMADol 50 MG TAB PO PRN (17:46)
[2018-01-06 21:00] LABS: Glucose,Whole Blood 151 mg/dL (75-99)
--- NOTE | 2018-01-06 22:19 | PN ---
PROGRESS NOTE HISTORY: Patient is seen for followup for acute kidney injury. His renal function has improved. Patient is maintained on IV fluids. His serum creatinine is down to 1.4 from 3.3 mg/dL on admission. Creatinine was 1.3 yesterday, it is at 1.4 today. The patient has an indwelling Epps catheter. PHYSICAL EXAMINATION: Blood pressure this morning was 127/56, heart rate about 87. Patient had temperature of 100.3 degrees Fahrenheit. He had a temperature of 101 earlier this morning. Examination of the heart, S1, S2. Examination lungs bilateral breath sounds are heard. Abdomen is soft, nontender. Examination of the lower extremity shows significant wasting and paraplegia. LABS: Sodium 136, potassium 4.8, chloride 107, BUN 27, serum creatinine 1.4 mg/dL. ASSESSMENT: 1. Acute kidney injury, prerenal, currently improved with IV hydration. Serum creatinine slightly worse today. Will continue to monitor for now. Continue with IV fluids. There are no nephrotoxic agents on board at this time. The patient is not severely hypotensive. 2. Wound in the left hip growing pseudomonas and MRSA, maintained on cefepime and doxycycline. 3. Paraplegia with chronic wounds and diverting colostomy and indwelling Epps catheter. 4. Fever, being followed by ID. Continue antibiotics as per ID recommendations. Repeat labs in a.m. MMJESEL / ELINAN: [id number] /
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
[2018-01-07] MEDS: HEPARIN SODIUM,PORCINE 5,000 UNIT/ML 1 ML VIAL SQ SCH ×4 (00:23→23:59)
[2018-01-07] MEDS: ACETAMINOPHEN TAB 325 MG TAB PO PRN (05:15)
[2018-01-07] MEDS: SODIUM CHLORIDE 0.9% 1,000 ML IV SCH ×2 (05:15→17:21)
[2018-01-07 07:34] LABS: Glucose,Whole Blood 144 mg/dL (75-99)
[2018-01-07] MEDS: ASCORBIC ACID 500 MG TAB PO SCH (08:29)
[2018-01-07] MEDS: SODIUM BICARBONATE TAB 650 MG TAB PO SCH ×2 (08:30→21:22)
[2018-01-07] MEDS: IMIPRAMINE 10 MG TAB PO SCH ×3 (08:30→21:22)
[2018-01-07] MEDS: OXYBUTYNIN CHLORIDE 5 MG TAB PO SCH ×3 (08:30→21:22)
[2018-01-07] MEDS: DOXYCYCLINE 100 MG CAP PO SCH ×2 (08:30→21:22)
[2018-01-07] MEDS: FERROUS SULFATE 325 MG TAB PO SCH (08:31)
[2018-01-07] MEDS: ASPIRIN 81 MG PO SCH (08:31)
[2018-01-07] MEDS: INSULIN ASPART 100 UNIT/ML 1 ML 10 ML VIAL SQ SCH ×4 (08:31→20:50)
[2018-01-07] MEDS: CEFEPIME 2 GM in SODIUM CHLORIDE 0.9% 50 ML IVPB SCH (09:18)
[2018-01-07 10:46] LABS: Anisocytosis Slight; Basophils % (A) 0 %; Eosinophils # (A) 0.1 k/uL (0-0.7); Eosinophils % (A) 1 %; HCT 31.4 % (39.0-53.0); HGB 9.9 gm/dL (13.0-17.5); Lymphocytes # (A) 0.2 k/uL (1.0-4.8); Lymphocytes % (A) 2 %; MCH 27.2 pg (25.0-35.0); MCHC 31.7 g/dL (31.0-37.0); MCV 85.9 fL (80.0-100.0); Mean Platelet Volume 7.1; Monocytes # (A) 0.1 k/uL (0-1.0); Monocytes % (A) 1 %; Neutrophils # (A) 10.9 k/uL (1.3-7.7); Neutrophils % (A) 96 %; Platelet Count 295 k/uL (150-450); RBC 3.65 m/uL (4.30-5.90); RDW 16.3 % (11.5-15.5); WBC 11.3 k/uL (3.8-10.6)
[2018-01-07 10:58] LABS: Calcium 7.9 mg/dL (8.4-10.2); Potassium 4.7 mmol/L (3.5-5.1)
[2018-01-07] MEDS: ACETAMINOPHEN IV (For NPO) 1,000 MG in EMPTY BAG 1 BAG IVPB PRN ×2 (11:29→18:52)
[2018-01-07 12:38] LABS: Glucose,Whole Blood 141 mg/dL (75-99)
--- NOTE | 2018-01-07 13:35 | PN ---
PROGRESS NOTE DATE OF SERVICE: 01/07/2018 CHIEF COMPLAINT: Sepsis with urinary tract infection. HISTORY OF PRESENT ILLNESS: This gentleman is currently having a shaking chill. He denies any pain in the abdomen, chest, or headache. He is oriented and alert. PHYSICAL EXAM: Breath sounds are heard on both sides. The abdomen is soft and nontender. IMPRESSION: 1. Shaking chill. 2. Sepsis. 3. Urinary tract infection. 4. decubitus. PLAN: 1. Blood cultures. 2. May require changes to his antibiotic regimen. MMODL / IJN: [id number] /
[2018-01-07 17:10] LABS: Glucose,Whole Blood 122 mg/dL (75-99)
[2018-01-07 20:50] LABS: Glucose,Whole Blood 120 mg/dL (75-99)
--- NOTE | 2018-01-07 23:05 | PN ---
PROGRESS NOTE The patient was seen this morning for followup for acute kidney injury. Currently maintained on IV fluids. The patient has had good urine output. He has been running a fever. It had been at 102.9 degrees Fahrenheit this morning at around 11 o'clock. Heart rate about 109-110 per minute. EXAMINATION: Of the heart S1, S2. Examination of the lungs, decreased breath sounds at the bases. Abdomen is soft, nontender. Exam of lower extremities shows severe wasting. The PBX TEACHER exam shows paraplegia. The labs show sodium 137, potassium 4.7, chloride 106, BUN 24, serum creatinine 1.49, hemoglobin 9.9 g/dL. ASSESSMENT: 1. Acute kidney injury, mainly prerenal, improved with IV hydration. Serum creatinine is staying at about 1.4 mg/dL. The patient remains on IV fluids and there is a component of acute tubular necrosis as well secondary to underlying infection. No nephrotoxic agents on board. Blood pressure has been slightly on the lower side. The patient has had good urine output. I will continue the IV fluids. 2. Fever secondary to wound in the left trochanteric area, status post skin graft, maintained on cefepime being followed by ID. The patient is also on Vibramycin. Wound cultures have grown MRSA and Pseudomonas. 3. Paraplegia with significant wounds with diverting colostomy and chronic indwelling Peps catheter. PLAN: Continue with IV fluids. Continue antibiotics. Continue with oral sodium bicarb as well. Avoid nephrotoxic agents. MMODL / IJN: [id number] /
[2018-01-08] MEDS: SODIUM CHLORIDE 0.9% 1,000 ML IV SCH ×3 (00:57→23:11)
[2018-01-08] MEDS: ACETAMINOPHEN IV (For NPO) 1,000 MG in EMPTY BAG 1 BAG IVPB PRN (05:30)
[2018-01-08 07:29] LABS: Glucose,Whole Blood 139 mg/dL (75-99)
[2018-01-08] MEDS: IMIPRAMINE 10 MG TAB PO SCH ×3 (08:38→23:11)
[2018-01-08] MEDS: FERROUS SULFATE 325 MG TAB PO SCH (08:38)
[2018-01-08] MEDS: OXYBUTYNIN CHLORIDE 5 MG TAB PO SCH ×3 (08:38→23:11)
[2018-01-08] MEDS: ASPIRIN 81 MG PO SCH (08:38)
[2018-01-08] MEDS: SODIUM BICARBONATE TAB 650 MG TAB PO SCH ×2 (08:38→21:00)
[2018-01-08] MEDS: ASCORBIC ACID 500 MG TAB PO SCH (08:39)
[2018-01-08] MEDS: HEPARIN SODIUM,PORCINE 5,000 UNIT/ML 1 ML VIAL SQ SCH ×3 (08:39→23:11)
[2018-01-08] MEDS: DOXYCYCLINE 100 MG CAP PO SCH ×2 (08:39→21:00)
[2018-01-08] MEDS: INSULIN ASPART 100 UNIT/ML 1 ML 10 ML VIAL SQ SCH ×4 (08:39→21:21)
[2018-01-08] MEDS: CEFEPIME 2 GM in SODIUM CHLORIDE 0.9% 50 ML IVPB SCH (08:40)
[2018-01-08 11:59] LABS: Glucose,Whole Blood 136 mg/dL (75-99)
[2018-01-08] MEDS: ACETAMINOPHEN TAB 325 MG TAB PO PRN ×2 (12:46→18:49)
[2018-01-08 17:05] LABS: Glucose,Whole Blood 110 mg/dL (75-99)
--- NOTE | 2018-01-08 18:51 | PN ---
PROGRESS NOTE DATE OF SERVICE: 01/08/2018 CHIEF COMPLAINT: Sepsis. HISTORY OF PRESENT ILLNESS: This gentleman is still not doing well. Blood cultures were obtained yesterday. He is still getting shaking chills at night. PHYSICAL EXAMINATION: He is slightly pale. Hydration is good. Chest is clear. Cardiac exam is normal. Abdomen is soft, nontender. IMPRESSION: Persistent septicemia, probably secondary to either cystitis or decubitus ulcers. PLAN: Continue to follow with Infectious Disease. MMODL / IJN: [id number] /
[2018-01-08 20:36] LABS: Glucose,Whole Blood 130 mg/dL (75-99)
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
--- NOTE | 2018-01-08 23:18 | PN ---
PROGRESS NOTE Patient is seen for followup for acute kidney injury. His renal function has improved. Creatinine serum creatinine was 1.49 yesterday, down from 3.37. The patient continues to have good urine output. He is maintained on IV fluids. He is not eating much and when patient was seen this morning, he is having chills. He continues to have a fever which was 102 degrees Fahrenheit in the early afternoon. PHYSICAL EXAMINATION: Blood pressure this morning was 106/55, heart rate of 92 per minute. Patient is afebrile. Examination of the heart S1, S2. Examination of lungs bilateral breath sounds are heard. Decreased breath sounds at the bases. Abdomen is soft, nontender. Examination lower extremity shows severe wasting and edema trace bilaterally. Chronic skin changes are noted. VP LAB exam shows patient has paraplegia. LABS: Show sodium 137, potassium 4.7, BUN 24, serum creatinine 1.49, calcium 7.9, hemoglobin 9.9 g/dL. ASSESSMENT: 1. Acute kidney injury. Prerenal and secondary to underlying infection, currently nonoliguric and significantly improved. Patient remains on IV fluids. He has very poor oral intake. I will repeat his labs tomorrow. There are no nephrotoxic agents on board at this time. Blood pressure is low. He may need a fluid bolus if blood pressure remains on the lower side. 2. Fever/sepsis secondary to wound on the left trochanteric area with skin graft being followed by ID maintained on antibiotics. 3. Paraplegia with chronic wounds and with chronic indwelling Epps catheter and diverting colostomy. 4. Type 2 diabetes. 5. Pyuria with urine culture showing no growth. PLAN: Continue IV fluids. The patient may use the Tylenol for fever and we would like to avoid the Motrin if possible. Repeat a basic metabolic panel in a.m. MMODL / IJN: [id number] /
[2018-01-08] MEDS: DAPTOmycin 500 MG in SODIUM CHLORIDE 0.9% 50 ML IVPB SCH (23:45)
[2018-01-09] MEDS: METOCLOPRAMIDE 5 MG/ML 2 ML VIAL IVP PRN (05:37)
[2018-01-09] MEDS: SODIUM CHLORIDE 0.9% 1,000 ML IV SCH ×2 (05:42→18:13)
[2018-01-09 07:15] LABS: Glucose,Whole Blood 105 mg/dL (75-99)
[2018-01-09] MEDS: INSULIN ASPART 100 UNIT/ML 1 ML 10 ML VIAL SQ SCH ×4 (07:17→21:34)
[2018-01-09] MEDS: FERROUS SULFATE 325 MG TAB PO SCH (07:36)
[2018-01-09] MEDS: IMIPRAMINE 10 MG TAB PO SCH ×3 (07:36→21:34)
[2018-01-09] MEDS: ASPIRIN 81 MG PO SCH (07:36)
[2018-01-09] MEDS: SODIUM BICARBONATE TAB 650 MG TAB PO SCH ×2 (07:36→21:33)
[2018-01-09] MEDS: ASCORBIC ACID 500 MG TAB PO SCH (07:37)
[2018-01-09] MEDS: OXYBUTYNIN CHLORIDE 5 MG TAB PO SCH ×3 (07:37→21:34)
[2018-01-09] MEDS: ACETAMINOPHEN TAB 325 MG TAB PO PRN ×3 (07:37→21:35)
[2018-01-09] MEDS: HEPARIN SODIUM,PORCINE 5,000 UNIT/ML 1 ML VIAL SQ SCH ×2 (07:37→15:37)
[2018-01-09] MEDS: CEFEPIME 2 GM in SODIUM CHLORIDE 0.9% 50 ML IVPB SCH ×2 (07:37→22:24)
--- NOTE | 2018-01-09 09:31 | MISC ---
MISCELLANOUS REPORT Sepsis is ruled in. MMODL / IJN: [id number] /
--- NOTE | 2018-01-09 09:31 | MISC ---
MISCELLANOUS REPORT ETIOLOGY OF ALTERED MENTAL STATUS: Other condition septicemia. MMODL / IJN: [id number] /
--- NOTE | 2018-01-09 09:55 | P.PN ---
Subjective Patient is seen in follow-up for acute kidney injury. Renal function has improved since admission. Creatinine from January 07 was 1.49. Oral intake is just fair. He is a Epps catheter in place. He is nonoliguric. He continues to be febrile. Vital signs are stable. General: The patient appeared well nourished and normally developed. HEENT: Head exam is unremarkable. Neck is without jugular venous distension. LUNGS: Lungs are clear to auscultation and percussion. Breath sounds decreased. HEART: Rate and Rhythm are regular. First and second heart sounds normal. No murmurs, rubs or gallops. ABDOMEN: Abdominal exam reveals normal bowel sounds. Non-tender and non- distended. No evidence of peritonitis. EXTREMITITES: No clubbing, cyanosis, or edema. Chronic skin changes noted. Objective - Vital Signs Vital signs: Vital Signs Temp 101.2 F H 01/09/18 08:30 Pulse 83 01/09/18 06:28 Resp 16 01/09/18 08:00 BP 126/74 01/09/18 06:28 Pulse Ox 92 L 01/09/18 06:28 Intake & Output 01/08/18 01/09/18 01/09/18 18:59 06:59 18:59 Intake Total 200 Output Total 700 550 Balance -500 -550 Intake: Oral 200 Output: Urine 700 550 Other: Voiding Method Indwelling Catheter Indwelling Catheter # Voids 0 # Bowel Movements 0 0 - Labs CBC & Chem 7: 01/07/18 10:35 01/07/18 10:35 Labs: Abnormal Lab Results - Last 24 Hours (Table) 01/08/18 01/08/18 01/08/18 Range/Units 11:37 17:03 20:35 POC Glucose (mg/dL) 136 H 110 H 130 H (75-99) mg/dL 01/09/18 Range/Units 07:12 POC Glucose (mg/dL) 105 H (75-99) mg/dL Microbiology - Last 24 Hours (Table) 01/06/18 04:02 Blood Culture - Preliminary Blood No Growth after 72 hours 01/06/18 03:50 Blood Culture - Preliminary Blood No Growth after 72 hours 01/07/18 10:54 Blood Culture - Preliminary Blood No Growth after 24 hours 01/07/18 10:35 Blood Culture - Preliminary Blood No Growth after 24 hours Assessment and Plan Plan: Assessment: 1. Acute kidney injury secondary to ATN secondary to hypotension and infection. Creatinine 1.49 as of January 07. Baseline creatinine is 1. No evidence of hydronephrosis noted on renal ultrasound. 2. Sepsis secondary to sacral and trochanteric wound. Wound cultures positive for Pseudomonas and MRSA. Maintained on antibiotics per infectious disease. 3. Paraplegia with chronic wounds and chronic indwelling Epps catheter. 4. Metabolic acidosis secondary to acute kidney injury. 5. History of hypertension. Currently controlled. Plan: I will decrease rate of normal saline to 75 mL an hour. Maintain oral sodium bicarbonate. Avoid nephrotoxins. Continue to hold antihypertensives. Encouraged oral intake. Repeat electrolytes the morning.
[2018-01-09] MEDS ORDERED: LIDOCAINE 1% INJ 10MG/ML (20 ML MDV) SQ ONE (11:17)
[2018-01-09 12:17] LABS: Glucose,Whole Blood 106 mg/dL (75-99)
--- NOTE | 2018-01-09 12:18 | IR ---
PICC LINE PLACEMENT: HISTORY: Infection requiring long-term antibiotic therapy PROCEDURE: Ultrasound and fluoroscopic guidance of PICC line placement. COMPLICATIONS: None ANESTHESIA: 1. 1% Lidocaine locally. FINDINGS/TECHNIQUE: The procedure was explained to the patient. The risks, complications, benefits and alternatives were discussed and any questions were answered. Informed consent was obtained. The patient was placed supine on the fluoroscopic table and prepped and draped in the usual sterile fash ion. Utilizing a 21 gauge needle and sonographic and fluoroscopic guidance, access in the left ceph alic vein was achieved and there is placement of a 0.018 guidewire. The vein is patent. A 4-F sheat h was placed over the guidewire. The guidewire and dilator were removed and a 4-F. PICC line was miri timothy through the sheath with the tip at the level of the SVC. The sheath was removed, the catheter wa s flushed and sutured into position. The patient was stable throughout the procedure and remained st able upon discharge from the Department of Radiology. The vein puncture was patent under ultrasound. A fontana scale image was obtained to document patency of the vein punctured. All elements of the maximal barrier technique were utilized. FLUOROSCOPY TIME: 0.4 minutes and one image submitted IMPRESSION: Successful PICC line placement under ultrasound and fluoroscopic guidance.
[2018-01-09 13:45] LABS: Calcium 7.7 mg/dL (8.4-10.2); Potassium 4.2 mmol/L (3.5-5.1)
[2018-01-09 17:06] LABS: Glucose,Whole Blood 140 mg/dL (75-99)
--- NOTE | 2018-01-09 17:19 | XR ---
EXAMINATION TYPE: XR chest 1V portable DATE OF EXAM: 01/09/2018 COMPARISON: 12/30/2017 HISTORY: Pneumonia. Chest pain TECHNIQUE: Single frontal view of the chest is obtained. FINDINGS: There is some pleural reaction and blunting at the left costophrenic angle. There is no he art failure. There are paraspinal rods stabilizing the thoracic and lumbar spine. There is no heart f ailure. Right lung is fairly clear. IMPRESSION: Pleural diaphragmatic scarring and atelectasis and fluid at the left lung base unchanged compared to last exam. No heart failure.
[2018-01-09 20:46] LABS: Glucose,Whole Blood 144 mg/dL (75-99)
[2018-01-09] MEDS: DAPTOmycin 500 MG in SODIUM CHLORIDE 0.9% 50 ML IVPB SCH (21:34)
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
[2018-01-10] MEDS: HEPARIN SODIUM,PORCINE 5,000 UNIT/ML 1 ML VIAL SQ SCH ×4 (00:08→23:14)
[2018-01-10] MEDS: SODIUM CHLORIDE 0.9% 1,000 ML IV SCH ×2 (06:19→20:51)
[2018-01-10 07:15] LABS: Glucose,Whole Blood 114 mg/dL (75-99)
[2018-01-10] MEDS: INSULIN ASPART 100 UNIT/ML 1 ML 10 ML VIAL SQ SCH ×4 (07:34→21:47)
[2018-01-10] MEDS: IMIPRAMINE 10 MG TAB PO SCH ×3 (07:36→21:47)
[2018-01-10] MEDS: ASPIRIN 81 MG PO SCH (07:37)
[2018-01-10] MEDS: OXYBUTYNIN CHLORIDE 5 MG TAB PO SCH ×3 (07:37→21:47)
[2018-01-10] MEDS: FERROUS SULFATE 325 MG TAB PO SCH (07:37)
[2018-01-10] MEDS: SODIUM BICARBONATE TAB 650 MG TAB PO SCH ×2 (07:37→21:47)
[2018-01-10] MEDS: ASCORBIC ACID 500 MG TAB PO SCH (07:37)
[2018-01-10] MEDS: CEFEPIME 2 GM in SODIUM CHLORIDE 0.9% 50 ML IVPB SCH (07:57)
--- NOTE | 2018-01-10 08:08 | P.PN ---
Subjective Patient is seen in follow-up for acute kidney injury. Renal function has improved since admission. Creatinine down to 1.5 as of yesterday. Oral intake is just fair. He is a Epps catheter in place. He is nonoliguric. Afebrile this morning. Feels better. Vital signs are stable. General: The patient appeared well nourished and normally developed. HEENT: Head exam is unremarkable. Neck is without jugular venous distension. LUNGS: Lungs are clear to auscultation and percussion. Breath sounds decreased. HEART: Rate and Rhythm are regular. First and second heart sounds normal. No murmurs, rubs or gallops. ABDOMEN: Abdominal exam reveals normal bowel sounds. Non-tender and non- distended. No evidence of peritonitis. EXTREMITITES: No clubbing, cyanosis, or edema. Chronic skin changes noted. Objective - Vital Signs Vital signs: Vital Signs Temp 98.5 F 01/10/18 06:35 Pulse 90 01/09/18 23:00 Resp 18 01/09/18 23:00 BP 129/66 01/09/18 23:00 Pulse Ox 90 L 01/09/18 23:00 Intake & Output 01/09/18 01/10/18 01/10/18 18:59 06:59 18:59 Intake Total 450 Output Total 1300 1325 Balance -1300 -875 Intake: Oral 450 Output: Urine 1300 1325 Other: Voiding Method Indwelling Catheter Indwelling Catheter # Bowel Movements 1 - Labs CBC & Chem 7: 01/07/18 10:35 01/09/18 13:17 Labs: Abnormal Lab Results - Last 24 Hours (Table) 01/09/18 01/09/18 01/09/18 Range/Units 12:10 13:17 17:04 Chloride 108 H (98-107) mmol/L Carbon Dioxide 20 L (22-30) mmol/L BUN 23 H (9-20) mg/dL Glucose 107 H (74-99) mg/dL POC Glucose (mg/dL) 106 H 140 H (75-99) mg/dL Calcium 7.7 L (8.4-10.2) mg/dL 01/09/18 01/10/18 Range/Units 20:35 07:13 Chloride (98-107) mmol/L Carbon Dioxide (22-30) mmol/L BUN (9-20) mg/dL Glucose (74-99) mg/dL POC Glucose (mg/dL) 144 H 114 H (75-99) mg/dL Calcium (8.4-10.2) mg/dL Microbiology - Last 24 Hours (Table) 01/06/18 04:02 Blood Culture - Preliminary Blood No Growth after 96 hours 01/06/18 03:50 Blood Culture - Preliminary Blood No Growth after 96 hours 01/07/18 10:54 Blood Culture - Preliminary Blood No Growth after 48 hours 01/07/18 10:35 Blood Culture - Preliminary Blood No Growth after 48 hours Assessment and Plan Plan: Assessment: 1. Acute kidney injury secondary to ATN secondary to hypotension and infection. Creatinine 1.5 as of yesterday. Baseline creatinine is 1. No evidence of hydronephrosis noted on renal ultrasound. 2. Sepsis secondary to sacral and trochanteric wound. Wound cultures positive for Pseudomonas and MRSA. Maintained on antibiotics per infectious disease. 3. Paraplegia with chronic wounds and chronic indwelling Epps catheter. 4. Metabolic acidosis secondary to acute kidney injury. 5. History of hypertension. Currently controlled. Plan: Maintain normal saline at 75 mL an hour. Maintain oral sodium bicarbonate. Avoid nephrotoxins. Continue to hold antihypertensives. Encouraged oral intake.
[2018-01-10 09:43] LABS: Calcium 7.6 mg/dL (8.4-10.2); Magnesium 1.8 mg/dL (1.6-2.3); Potassium 3.6 mmol/L (3.5-5.1)
[2018-01-10 12:07] LABS: Glucose,Whole Blood 127 mg/dL (75-99)
[2018-01-10] MEDS: MEROPENEM 2 GM in SODIUM CHLORIDE 0.9% 100 ML IVPB SCH ×2 (13:08→20:51)
--- NOTE | 2018-01-10 15:13 | PN ---
PROGRESS NOTE DATE OF SERVICE: 01/09/2018 CHIEF COMPLAINT: Urinary tract infection, sepsis, sacral decubitus ulcers, paraplegia. HISTORY OF PRESENT ILLNESS: This gentleman continues to struggle. He is still having significant malaise, nausea, chills and fever. PHYSICAL EXAMINATION: He is pale. Skin is dry. Chest is clear. Cardiac exam is normal. Abdomen is soft. IMPRESSION: 1. Paraplegia with sepsis. 2. Urinary tract infection. 3. Paraplegia. 4. Decubitus ulcers. PLAN: Infectious Disease is adjusting antibiotics and cultures are demonstrating Klebsiella from his wounds as well as strep on the blood culture. MMODL / IJN: [id number] /
--- NOTE | 2018-01-10 15:28 | PN ---
PROGRESS NOTE DATE OF SERVICE: 01/10/2018 CHIEF COMPLAINT: Sepsis. HISTORY OF PRESENT ILLNESS: This gentleman is doing better. His temperature was down last night. He is not nauseated. PHYSICAL EXAMINATION: Color is better. Chest is clear. Cardiac exam is normal. Abdomen is soft, nontender. IMPRESSION: 1. Sepsis. 2. Urinary tract infection. 3. Decubitus ulcers. 4. Paraplegia. PLAN: Continue with current program with the hopes that sepsis clears. MMODL / IJN: [id number] /
[2018-01-10 17:16] LABS: Glucose,Whole Blood 139 mg/dL (75-99)
[2018-01-10 21:20] LABS: Glucose,Whole Blood 138 mg/dL (75-99)
[2018-01-10] MEDS: DAPTOmycin 500 MG in SODIUM CHLORIDE 0.9% 50 ML IVPB SCH (22:13)
[2018-01-10] MEDS: ACETAMINOPHEN TAB 325 MG TAB PO PRN (23:13)
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
[2018-01-11] MEDS: MEROPENEM 2 GM in SODIUM CHLORIDE 0.9% 100 ML IVPB SCH ×3 (05:19→21:27)
[2018-01-11 07:16] LABS: Glucose,Whole Blood 123 mg/dL (75-99)
[2018-01-11] MEDS ORDERED: ANIDULAFUNGIN 200 MG in SODIUM CHLORIDE 0.9% 200 ML IVPB ONE (07:19)
[2018-01-11] MEDS: INSULIN ASPART 100 UNIT/ML 1 ML 10 ML VIAL SQ SCH ×4 (07:48→21:38)
--- NOTE | 2018-01-11 08:22 | P.PN ---
Subjective Patient is seen in follow-up for acute kidney injury. Renal function has improved since admission. Creatinine down to 1.11 as of yesterday. Oral intake is just fair. He is a Epps catheter in place. He is nonoliguric. Afebrile this morning. Continues to be nauseous. Vital signs are stable. General: The patient appeared well nourished and normally developed. HEENT: Head exam is unremarkable. Neck is without jugular venous distension. LUNGS: Lungs are clear to auscultation and percussion. Breath sounds decreased. HEART: Rate and Rhythm are regular. First and second heart sounds normal. No murmurs, rubs or gallops. ABDOMEN: Abdominal exam reveals normal bowel sounds. Non-tender and non- distended. No evidence of peritonitis. EXTREMITITES: No clubbing, cyanosis, or edema. Chronic skin changes noted. Objective - Vital Signs Vital signs: Vital Signs Temp 96.9 F L 01/11/18 06:38 Pulse 76 01/11/18 06:38 Resp 18 01/11/18 06:38 BP 122/67 01/11/18 06:38 Pulse Ox 92 L 01/11/18 06:38 Intake & Output 01/10/18 01/11/18 01/11/18 18:59 06:59 18:59 Intake Total 600 Output Total 600 1800 Balance -600 -1200 Intake: Oral 600 Output: Urine 600 1800 Stool 0 Other: Voiding Method Indwelling Catheter Indwelling Catheter # Bowel Movements 1 0 - Labs CBC & Chem 7: 01/07/18 10:35 01/10/18 09:02 Labs: Abnormal Lab Results - Last 24 Hours (Table) 01/10/18 01/10/18 01/10/18 Range/Units 09:02 12:02 17:13 Chloride 110 H (98-107) mmol/L BUN 22 H (9-20) mg/dL Glucose 185 H (74-99) mg/dL POC Glucose (mg/dL) 127 H 139 H (75-99) mg/dL Calcium 7.6 L (8.4-10.2) mg/dL 01/10/18 01/11/18 Range/Units 21:12 07:15 Chloride (98-107) mmol/L BUN (9-20) mg/dL Glucose (74-99) mg/dL POC Glucose (mg/dL) 138 H 123 H (75-99) mg/dL Calcium (8.4-10.2) mg/dL Microbiology - Last 24 Hours (Table) 01/06/18 04:02 Blood Culture - Preliminary Blood No Growth after 120 hours 01/06/18 03:50 Blood Culture - Preliminary Blood No Growth after 120 hours 01/07/18 10:54 Blood Culture - Final Blood 01/07/18 10:35 Blood Culture - Preliminary Blood No Growth after 72 hours Assessment and Plan Plan: Assessment: 1. Acute kidney injury secondary to ATN secondary to hypotension and infection. Creatinine 1.11 as of yesterday. Baseline creatinine is 1. No evidence of hydronephrosis noted on renal ultrasound. 2. Sepsis secondary to sacral and trochanteric wound. Wound cultures positive for Pseudomonas and MRSA. Maintained on antibiotics per infectious disease. 3. Paraplegia with chronic wounds and chronic indwelling Epps catheter. 4. Metabolic acidosis secondary to acute kidney injury. Improved. 5. History of hypertension. Currently controlled. Plan: I will decrease normal saline to 50 mL an hour. Maintain oral sodium bicarbonate. Avoid nephrotoxins. Continue to hold antihypertensives. Encouraged oral intake.
[2018-01-11] MEDS: HEPARIN SODIUM,PORCINE 5,000 UNIT/ML 1 ML VIAL SQ SCH ×2 (08:38→15:56)
[2018-01-11] MEDS: ASCORBIC ACID 500 MG TAB PO SCH (08:38)
[2018-01-11] MEDS: SODIUM BICARBONATE TAB 650 MG TAB PO SCH ×2 (08:38→21:29)
[2018-01-11] MEDS: FERROUS SULFATE 325 MG TAB PO SCH (08:38)
[2018-01-11] MEDS: IMIPRAMINE 10 MG TAB PO SCH ×2 (08:38→21:41)
[2018-01-11] MEDS: OXYBUTYNIN CHLORIDE 5 MG TAB PO SCH ×3 (08:38→21:41)
[2018-01-11] MEDS: ASPIRIN 81 MG PO SCH (08:38)
[2018-01-11] MEDS: SODIUM CHLORIDE 0.9% 1,000 ML IV SCH (08:39)
[2018-01-11 11:44] LABS: Glucose,Whole Blood 177 mg/dL (75-99)
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
[2018-01-11] MEDS: ACETAMINOPHEN TAB 325 MG TAB PO PRN ×2 (15:56→18:08)
[2018-01-11 17:17] LABS: Glucose,Whole Blood 127 mg/dL (75-99)
[2018-01-11 20:55] LABS: Glucose,Whole Blood 139 mg/dL (75-99)
[2018-01-11] MEDS ORDERED: IBUPROFEN 400 MG TAB PO STA (22:13)
[2018-01-11] MEDS: DAPTOmycin 500 MG in SODIUM CHLORIDE 0.9% 50 ML IVPB SCH (22:38)
[2018-01-12] MEDS: HEPARIN SODIUM,PORCINE 5,000 UNIT/ML 1 ML VIAL SQ SCH ×4 (00:25→23:03)
[2018-01-12] MEDS: ACETAMINOPHEN TAB 325 MG TAB PO PRN ×3 (00:26→20:57)
[2018-01-12] MEDS: MEROPENEM 2 GM in SODIUM CHLORIDE 0.9% 100 ML IVPB SCH ×3 (04:32→19:42)
[2018-01-12 07:45] LABS: Glucose,Whole Blood 120 mg/dL (75-99)
[2018-01-12] MEDS: METOCLOPRAMIDE 5 MG/ML 2 ML VIAL IVP PRN (08:29)
--- NOTE | 2018-01-12 08:30 | P.PN ---
Subjective Patient is seen in follow-up for acute kidney injury. Renal function has improved since admission. Creatinine down to 1.11 as of 01/10. Oral intake is just fair. He is a Epps catheter in place. He is nonoliguric. Patient again spiked a fever last night. Vital signs are stable. General: The patient appeared well nourished and normally developed. HEENT: Head exam is unremarkable. Neck is without jugular venous distension. LUNGS: Lungs are clear to auscultation and percussion. Breath sounds decreased. HEART: Rate and Rhythm are regular. First and second heart sounds normal. No murmurs, rubs or gallops. ABDOMEN: Abdominal exam reveals normal bowel sounds. Non-tender and non- distended. No evidence of peritonitis. EXTREMITITES: No clubbing, cyanosis, or edema. Chronic skin changes noted. Objective - Vital Signs Vital signs: Vital Signs Temp 97.7 F 01/12/18 07:35 Pulse 92 01/12/18 07:35 Resp 16 01/12/18 07:35 BP 127/63 01/12/18 07:35 Pulse Ox 93 L 01/12/18 07:35 Intake & Output 01/11/18 01/12/18 01/12/18 18:59 06:59 18:59 Intake Total 1400 Output Total 1200 1150 Balance 200 -1150 Intake: Oral 1400 Output: Urine 1200 1150 Other: Voiding Method Indwelling Catheter Indwelling Catheter # Voids 0 # Bowel Movements 0 0 - Labs CBC & Chem 7: 01/07/18 10:35 01/10/18 09:02 Labs: Abnormal Lab Results - Last 24 Hours (Table) 01/11/18 01/11/18 01/11/18 Range/Units 11:42 17:12 20:49 POC Glucose (mg/dL) 177 H 127 H 139 H (75-99) mg/dL 01/12/18 Range/Units 07:34 POC Glucose (mg/dL) 120 H (75-99) mg/dL Microbiology - Last 24 Hours (Table) 01/06/18 04:02 Blood Culture - Final Blood No Growth after 144 hours 01/06/18 03:50 Blood Culture - Final Blood No Growth after 144 hours 01/07/18 10:54 Blood Culture Gram Stain - Preliminary Blood Blood Culture - Preliminary Mouna glabrata 01/07/18 10:35 Blood Culture - Preliminary Blood No Growth after 96 hours Assessment and Plan Plan: Assessment: 1. Acute kidney injury secondary to ATN secondary to hypotension and infection. Creatinine 1.11 as of January 10. Baseline creatinine is 1. No evidence of hydronephrosis noted on renal ultrasound. 2. Sepsis secondary to sacral and trochanteric wound. Wound cultures positive for Pseudomonas and MRSA. Maintained on antibiotics per infectious disease. Also noted to have Mouna glabrata bacteremia and is maintained on antifungal. 3. Paraplegia with chronic wounds and chronic indwelling Epps catheter. 4. Metabolic acidosis secondary to acute kidney injury. Improved. 5. History of hypertension. Currently controlled. Plan: Maintain normal saline at 50 mL an hour. Maintain oral sodium bicarbonate. Avoid nephrotoxins. Continue to hold antihypertensives. Encouraged oral intake.
[2018-01-12] MEDS: ASPIRIN 81 MG PO SCH (08:33)
[2018-01-12] MEDS: ANIDULAFUNGIN 100 MG in SODIUM CHLORIDE 0.9% 100 ML IVPB SCH (08:33)
[2018-01-12] MEDS: ASCORBIC ACID 500 MG TAB PO SCH (08:33)
[2018-01-12] MEDS: IMIPRAMINE 10 MG TAB PO SCH ×3 (08:33→20:58)
[2018-01-12] MEDS: OXYBUTYNIN CHLORIDE 5 MG TAB PO SCH ×3 (08:33→20:58)
[2018-01-12] MEDS: SODIUM BICARBONATE TAB 650 MG TAB PO SCH ×2 (08:33→20:58)
[2018-01-12] MEDS: FERROUS SULFATE 325 MG TAB PO SCH (08:33)
[2018-01-12] MEDS: INSULIN ASPART 100 UNIT/ML 1 ML 10 ML VIAL SQ SCH ×4 (08:33→20:58)
[2018-01-12] MEDS: SODIUM CHLORIDE 0.9% 1,000 ML IV SCH ×2 (08:34→23:04)
[2018-01-12 11:39] LABS: Glucose,Whole Blood 163 mg/dL (75-99)
[2018-01-12 17:33] LABS: Glucose,Whole Blood 132 mg/dL (75-99)
[2018-01-12 20:48] LABS: Glucose,Whole Blood 152 mg/dL (75-99)
[2018-01-12] MEDS: DAPTOmycin 500 MG in SODIUM CHLORIDE 0.9% 50 ML IVPB SCH (20:58)
--- NOTE | 2018-01-12 21:29 | P.PN ---
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 infection) Current Visit: Yes Status: Acute Code(s): N39.0 - URINARY TRACT INFECTION, SITE NOT SPECIFIED SNOMED Code(s): 40323076 (4) Paraplegia Current Visit: Yes Status: Acute Code(s): G82.20 - PARAPLEGIA, UNSPECIFIED SNOMED Code(s): 60039267
[2018-01-13] MEDS: MEROPENEM 2 GM in SODIUM CHLORIDE 0.9% 100 ML IVPB SCH ×3 (03:18→20:22)
[2018-01-13] MEDS: ACETAMINOPHEN TAB 325 MG TAB PO PRN ×3 (03:18→21:01)
[2018-01-13] MEDS: METOCLOPRAMIDE 5 MG/ML 2 ML VIAL IVP PRN (06:05)
[2018-01-13 07:27] LABS: Glucose,Whole Blood 111 mg/dL (75-99)
[2018-01-13] MEDS: INSULIN ASPART 100 UNIT/ML 1 ML 10 ML VIAL SQ SCH ×4 (08:14→21:01)
[2018-01-13] MEDS: ANIDULAFUNGIN 100 MG in SODIUM CHLORIDE 0.9% 100 ML IVPB SCH (08:15)
[2018-01-13] MEDS: HEPARIN SODIUM,PORCINE 5,000 UNIT/ML 1 ML VIAL SQ SCH ×2 (08:15→16:47)
[2018-01-13] MEDS: OXYBUTYNIN CHLORIDE 5 MG TAB PO SCH ×3 (08:16→21:01)
[2018-01-13] MEDS: FERROUS SULFATE 325 MG TAB PO SCH (08:16)
[2018-01-13] MEDS: ASPIRIN 81 MG PO SCH (08:16)
[2018-01-13] MEDS: SODIUM BICARBONATE TAB 650 MG TAB PO SCH (08:16)
[2018-01-13] MEDS: ASCORBIC ACID 500 MG TAB PO SCH (08:16)
[2018-01-13] MEDS: IMIPRAMINE 10 MG TAB PO SCH ×3 (08:16→21:01)
--- NOTE | 2018-01-13 10:45 | ECHOF ---
Referral Reason:Endocarditis MEASUREMENTS -------- HEIGHT: 185.4 cm WEIGHT: 99.8 kg BP: 121/64 RVIDd: 3.9 cm (< 3.3) IVSd: 1.2 cm (0.6 - 1.1) LVIDd: 3.5 cm (3.9 - 5.3) LVPWd: 1.2 cm (0.6 - 1.1) IVSs: 1.5 cm LVIDs: 1.8 cm LVPWs: 1.5 cm Ao Diam: 3.6 cm (2.0 - 3.7) Ao Diam: 3.6 cm (2.0 - 3.7) AV Cusp: 1.0 cm (1.5 - 2.6) LA Diam: 3.1 cm (2.7 - 3.8) MV E Riley: 1.17 m/s MV DecT: 433 ms MV A Riley: 1.30 m/s MV E/A Ratio: 0.91 AV maxP.59 mmHg AV meanP.03 mmHg RAP: 5.00 mmHg RVSP: 27.93 mmHg FINDINGS -------- The rhythm appears to be atrial flutter. This was a technically difficult study with suboptimal views. The left ventricular size is normal. There is mild concentric left ventricular hypertrophy. Overa ll left ventricular systolic function is normal with, an EF between 55 - 60 %. The right ventricle is mild to moderately enlarged. Normal LA size by volume 22+/-6 ml/m2. The right atrium was not well visualized. 3 ml of Lumason was utilized for enhancement of images. There is mild aortic valve sclerosis. There is no evidence of aortic regurgitation. There is no e vidence of aortic stenosis. The mitral valve leaflets are mildly thickened. Mild mitral annular calcification present. There is trace to mild mitral regurgitation. The peak and mean MV gradients are 12.90mmHg 5.71mmHg as me asured by doppler. Kuny-[id number]-ugohxwjc mitral stenosis. Trace tricuspid regurgitation present. Right ventricular systolic pressure is normal at < 35 mmHg. There is no evidence of pulmonary hypertension. The pulmonic valve was not well visualized. The aortic root size is normal. Normal inferior vena cava with normal inspiratory collapse consistent with estimated right atrial pre ssure of 5 mmHg. There is no pericardial effusion. CONCLUSIONS -------- 1. The rhythm appears to be atrial flutter. 2. This was a technically difficult study with suboptimal views. 3. The left ventricular size is normal. 4. There is mild concentric left ventricular hypertrophy. 5. Overall left ventricular systolic function is normal with, an EF between 55 - 60 %. 6. The right ventricle is mild to moderately enlarged. 7. Normal LA size by volume 22+/-6 ml/m2. 8. The right atrium was not well visualized. 9. 3 ml of Lumason was utilized for enhancement of images. 10. There is mild aortic valve sclerosis. 11. There is no evidence of aortic stenosis. 12. The mitral valve leaflets are mildly thickened. 13. Mild mitral annular calcification present. 14. There is trace to mild mitral regurgitation. 15. The peak and mean MV gradients are 12.90mmHg 5.71mmHg as measured by doppler. 16. Ayau-ye-akzwuquv mitral stenosis. 17. Trace tricuspid regurgitation present. 18. Right ventricular systolic pressure is normal at < 35 mmHg. 19. There is no evidence of pulmonary hypertension. 20. The pulmonic valve was not well visualized. 21. The aortic root size is normal. 22. There is no pericardial effusion. PERFORMING [employer] TECHNICIANS: Tai Kessler RDCS
[2018-01-13 10:51] LABS: Calcium 7.4 mg/dL (8.4-10.2); Magnesium 1.8 mg/dL (1.6-2.3); Potassium 3.3 mmol/L (3.5-5.1)
[2018-01-13] MEDS ORDERED: Potassium Replacement Protocol 1 EACH MISC MISCELLANE PRN (11:01)
[2018-01-13 12:05] LABS: Glucose,Whole Blood 115 mg/dL (75-99)
[2018-01-13] MEDS: POTASSIUM CHLORIDE ER 20 MEQ TAB.ER PO SCH ×2 (12:37→14:28)
--- NOTE | 2018-01-13 14:10 | PN ---
PROGRESS NOTE DATE OF SERVICE: 01/11/2018 CHIEF COMPLAINT: Persistent sepsis. HISTORY OF PRESENT ILLNESS: This gentleman continues to run fevers at night and experience malaise. He is not having any chest pain, abdominal pain, etc. Blood cultures are being taken regularly and he may have grown out a fungus. PHYSICAL EXAM: His chest is clear and the cardiac exam demonstrated sinus rhythm. Abdomen is soft. He is somewhat pale. IMPRESSION: 1. Sepsis, source unknown. 2. Urinary tract infection. 3. Decubiti. 4. Paraplegia. PLAN: Continue to follow blood cultures and recommendations of Infectious Disease. MMODL / IJN: [id number] /
--- NOTE | 2018-01-13 14:16 | PN ---
PROGRESS NOTE DATE OF SERVICE: 01/12/2018 CHIEF COMPLAINT: Sepsis. HISTORY OF PRESENT ILLNESS: This patient is still having difficulties with elevating temperatures at night AND septicemia. Antifungal has been added. He has no other complaints except his malaise. PHYSICAL EXAM: His color is good. Hydration is adequate. Chest is clear. The cardiac exam is normal. Abdomen is soft, nontender. IMPRESSION: 1. Septicemia. 2. Probable fungal infection. PLAN: Continue to follow with the IV fluids, antibiotics and recommendations of Infectious Disease. MMODL / IJN: [id number] /
--- NOTE | 2018-01-13 14:19 | PN ---
PROGRESS NOTE DATE OF SERVICE: 01/13/2018 CHIEF COMPLAINT: Persistent sepsis. HISTORY OF PRESENT ILLNESS: This gentleman is still having difficulty with elevated temperatures. PICC line is removed which would considered a source of swell. He has no chest pain or shortness of breath. He has had no abdominal pain. PHYSICAL EXAM: He is slightly pale. Chest is clear. Cardiac exam is normal. The. Abdomen is soft and nontender. IMPRESSION: 1. Sepsis, source unknown. 2. Positive blood cultures for fungi. 3. Paraplegia. PLAN: No change in program at this time and continue with IV antibiotics and antifungals. MMODL / IJN: [id number] /
[2018-01-13 17:04] LABS: Glucose,Whole Blood 112 mg/dL (75-99)
[2018-01-13] MEDS: SODIUM CHLORIDE 0.9% 1,000 ML IV SCH (20:22)
[2018-01-13 20:43] LABS: Glucose,Whole Blood 136 mg/dL (75-99)
[2018-01-13] MEDS: DAPTOmycin 500 MG in SODIUM CHLORIDE 0.9% 50 ML IVPB SCH (21:01)
--- NOTE | 2018-01-13 22:04 | PN ---
PROGRESS NOTE Patient is seen for followup for acute kidney injury. His renal function has improved significantly. Serum creatinine has been 1. When patient was seen this morning, he did not have a fever. He was comfortable. Blood pressure was 127/63, heart rate off about 80 per minute. Patient is afebrile. Examination of the heart: S1, S2. Examination of the lungs: Bilateral breath sounds are heard. Abdomen is soft, nontender. Exam of the lower extremities shows wasting of the lower extremities. The patient is paraplegic. LABS: Show sodium 140, potassium 3.3, chloride 106, BUN 20, serum creatinine 1.0. ASSESSMENT: 1. Acute kidney injury, ATN, as well as secondary to hypovolemia, currently improved. 2. Left hip wound with skin graft and infection maintained on antibiotics, being followed by ID. Wound cultures positive for Pseudomonas and MRSA. 3. Mouna glabrata fungemia. Repeat blood cultures have been negative. The patient is maintained on . 4. Paraplegia. 5. Metabolic acidosis. Maintained on sodium bicarb, currently improved. PLAN: Decrease oral sodium bicarb. Continue to encourage increased oral intake. May continue with IV fluids currently at 50 mL an hour. Repeat labs in a.m. Continue to avoid nephrotoxic agents. MMODL / IJN: [id number] /
--- NOTE | 2018-01-13 23:08 | P.PN ---
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 the patient has again worsened in the last day. Fevers have recurred is feeling much more poorly. Having fevers and chills feeling quite cold at times. The case is reviewed with the nurse, and the patient's PICC line was placed with evidence of negative blood cultures but after the PICC line was placed the Mouna glabrata became isolate from the blood. Because of this and now with increasing fevers and rash with PICC line to be removed hemolyze peripheral access for now. Echocardiogram has been requested and is still awaited. With the fungemia there is concerns to superinfection of possible endocarditis. Continue the Eraxis and monitor for clearance of his bacteremia and fungemia. January 13 2018 reveals the patient to have some further improvement today. His fever has resolved. He's feeling considerably better. At this time it appears that the Mouna glabrata fungemia was driving the fevers and was present at the time the PICC line was placed. This was not known. With removal of the PICC line he is now resolved his fever and is feeling considerably better. Echocardiogram without evidence of endocarditis As the patient starts to improve we'll then need to have several steps occur. Negative blood cultures will need to be verified before his next type of long- term catheter is placed. Then the outpatient antimicrobial therapy will need to be arranged. We'll try to reduce the antimicrobial spectrum, now that it is evident that the funky me was the cause of the fever and not antibiotic therapy. We'll de- escalate meropenem back to cefepime. This would also ease burden of antibiotic therapy in the home setting. Current Visit: Yes Status: Acute Code(s): A41.50 - GRAM-NEGATIVE SEPSIS, UNSPECIFIED SNOMED Code(s): 214676254 (3) UTI (urinary tract infection) Current Visit: Yes Status: Acute Code(s): N39.0 - URINARY TRACT INFECTION, SITE NOT SPECIFIED SNOMED Code(s): 03836012 (4) Paraplegia Current Visit: Yes Status: Acute Code(s): G82.20 - PARAPLEGIA, UNSPECIFIED SNOMED Code(s): 72714209
[2018-01-14] MEDS: HEPARIN SODIUM,PORCINE 5,000 UNIT/ML 1 ML VIAL SQ SCH ×2 (01:30→10:13)
[2018-01-14] MEDS: ACETAMINOPHEN TAB 325 MG TAB PO PRN (01:30)
[2018-01-14] MEDS ORDERED: MEPERIDINE 50 MG/ML SYRINGE IVP STA (03:18)
[2018-01-14] MEDS ORDERED: IBUPROFEN 400 MG TAB PO PRN (03:19)
[2018-01-14] MEDS ORDERED: ACETAMINOPHEN IV (For NPO) 1,000 MG in EMPTY BAG 1 BAG IVPB STA (04:44)
[2018-01-14 04:51] LABS: Glucose,Whole Blood 139 mg/dL (75-99)
[2018-01-14 07:16] LABS: Glucose,Whole Blood 131 mg/dL (75-99)
[2018-01-14 07:52] VITALS: RESP 18
[2018-01-14] MEDS: INSULIN ASPART 100 UNIT/ML 1 ML 10 ML VIAL SQ SCH ×2 (07:55→11:47)
[2018-01-14] MEDS ORDERED: SODIUM CHLORIDE 0.9% 500 ML 500 ML IV ONE (08:17)
[2018-01-14] MEDS: ANIDULAFUNGIN 100 MG in SODIUM CHLORIDE 0.9% 100 ML IVPB SCH (08:25)
[2018-01-14] MEDS ORDERED: CEFEPIME 2 GM in SODIUM CHLORIDE 0.9% 50 ML IVPB SCH (09:00)
[2018-01-14] MEDS ORDERED: SODIUM BICARBONATE TAB 650 MG TAB PO SCH (09:00)
[2018-01-14 09:58] VITALS: BP 88/53; PULSE 81; TEMP 96.1
[2018-01-14] MEDS: IMIPRAMINE 10 MG TAB PO SCH (10:10)
[2018-01-14] MEDS: ASCORBIC ACID 500 MG TAB PO SCH (10:10)
[2018-01-14] MEDS: FERROUS SULFATE 325 MG TAB PO SCH (10:10)
[2018-01-14] MEDS: ASPIRIN 81 MG PO SCH (10:10)
[2018-01-14] MEDS: OXYBUTYNIN CHLORIDE 5 MG TAB PO SCH (10:11)
[2018-01-14 11:40] LABS: Glucose,Whole Blood 133 mg/dL (75-99)
[2018-01-14] MEDS ORDERED: BARIUM SULFATE 450 ML ORAL.SUSP BOTTLE PO PRN (13:14)
[2018-01-14] MEDS ORDERED: NYSTATIN 100,000 UNIT/ML SUSP 500,000 UNIT/5 ML CUP PO SCH (13:30)
--- NOTE | 2018-01-17 10:23 | DS ---
DISCHARGE SUMMARY CHIEF COMPLAINT: Fever and chills with urinary tract infection and . HISTORY OF PRESENT ILLNESS AND PHYSICAL EXAM: Details of this man's history and physical can be found in the initial workup. COURSE IN THE HOSPITAL: After admission, he was placed on bedrest, started on intravenous fluids and IV antibiotics. fairly well, but he began to spike temperatures and have episodes of tachycardia with hypotension. Blood cultures were obtained. He was treated specifically for Gram He continued to have septic episodes and then grew out yeast. He seemed not to be responding and there was concern after he had when his blood pressure dropped and his temperature went to 103. It was decided to be safest to transfer him to a tertiary hospital and arrangements were made for him to go to [facility]. FINAL DIAGNOSES: 1. Septicemia. 2. Urinary tract infection. 3. sepsis . 4. Fungal sepsis. 5. Paraplegia. 6. History of multiple . MMODL / IJN: [id number] /
== END 2018-01-14 15:00 | disposition short-term general hospital (02) | DRG 871 ==
LOC: EC 04:27 → 4MS4W 06:49
PROVIDERS: ADMIT Family Medicine; ATTEND Family Medicine
PROC: 02HV33Z Insertion of Infusion Device into Superior Vena Cava, Percutaneous Approach (ICD-10-PCS; principal; 2017-12-30)
DX: A41.02 Sepsis due to Methicillin resistant Staphylococcus aureus (principal); L89.154 Pressure ulcer of sacral region, stage 4; G92 Toxic encephalopathy; N17.0 Acute kidney failure with tubular necrosis; B49 Unspecified mycosis; E87.2 Acidosis; G82.21 Paraplegia, complete; N39.0 Urinary tract infection, site not specified; A41.52 Sepsis due to Pseudomonas; E78.5 Hyperlipidemia, unspecified; D64.9 Anemia, unspecified; L08.89 Other specified local infections of the skin and subcutaneous tissue; E86.0 Dehydration; Z16.23 Resistance to quinolones and fluoroquinolones; N31.9 Neuromuscular dysfunction of bladder, unspecified; E86.1 Hypovolemia; I10 Essential (primary) hypertension; K21.9 Gastro-esophageal reflux disease without esophagitis; Z85.828 Personal history of other malignant neoplasm of skin; Z93.3 Colostomy status; Z88.0 Allergy status to penicillin; Z88.2 Allergy status to sulfonamides; Z88.8 Allergy status to other drugs, medicaments and biological substances; Z87.442 Personal history of urinary calculi; Z87.891 Personal history of nicotine dependence; Z79.2 Long term (current) use of antibiotics; Z79.84 Long term (current) use of oral hypoglycemic drugs; Z79.82 Long term (current) use of aspirin; Z79.899 Other long term (current) drug therapy; Z74.01 Bed confinement status; Z86.14 Personal history of Methicillin resistant Staphylococcus aureus infection; Z80.8 Family history of malignant neoplasm of other organs or systems; Z82.49 Family history of ischemic heart disease and other diseases of the circulatory system; Z87.440 Personal history of urinary (tract) infections; R21 Rash and other nonspecific skin eruption
CPT/HCPCS: 36415; 36569; 71045; 76770; 76937; 77001; 80048; 80053; 80202; 81001; 83036; 83605; 83735; 84484; 85025; 85610; 85652; 85730; 86140; 87040; 87070; 87075; 87077; 87086; 87186; 87205; 93005; 93306; 94760; 96361; 96365; 96366; 96367; 96372; 99285

== ENCOUNTER 2018-04-03 17:44 | Inpatient (IN) | payer MEDICARE, OTHER ==
[2018-04-03 18:28] LABS: Basophils # (A) 0.1 k/uL (0-0.2); Basophils % (A) 1 %; Eosinophils # (A) 0.3 k/uL (0-0.7); Eosinophils % (A) 3 %; HCT 36.6 % (39.0-53.0); HGB 11.9 gm/dL (13.0-17.5); Lymphocytes % (A) 10 %; MCH 27.7 pg (25.0-35.0); MCHC 32.4 g/dL (31.0-37.0); MCV 85.5 fL (80.0-100.0); Mean Platelet Volume 5.9; Monocytes # (A) 0.6 k/uL (0-1.0); Monocytes % (A) 6 %; Neutrophils % (A) 79 %; Platelet Count 394 k/uL (150-450); RBC 4.28 m/uL (4.30-5.90); RDW 15.6 % (11.5-15.5); WBC 10.1 k/uL (3.8-10.6)
[2018-04-03 18:37] LABS: Appearance,Urine Cloudy (Clear); Bacteria,Urine Occasional /hpf; Bilirubin,Urine Negative (Negative); Blood,Urine Trace (Negative); Color,Urine Yellow; Glucose,Urine (UA) Negative (Negative); Hyaline Casts,Urine 9 /lpf (0-2); Ketones,Urine Negative (Negative); Leukocyte Esterase,Urine Large (Negative); Mucus,Urine Rare /hpf; Nitrite,Urine Positive (Negative); Protein,Urine Trace (Negative); RBC,Urine 15 /hpf (0-5); Specific Gravity,Urine 1.014 (1.001-1.035); Urobilinogen,Urine <2.0 mg/dL (<2.0); WBC,Urine >182 /hpf (0-5)
[2018-04-03 18:38] LABS: Albumin 4.7 g/dL (3.5-5.0); Potassium 4.8 mmol/L (3.5-5.1); Total Bilirubin 0.3 mg/dL (0.2-1.3); Total Protein 8.9 g/dL (6.3-8.2)
[2018-04-03] MEDS ORDERED: PIPERACILLIN-TAZOBACTAM 3.375 GM in SODIUM CHLORIDE 0.9% 100 ML IVPB STA (18:49)
[2018-04-03] MEDS ORDERED: SODIUM CHLORIDE 0.9% 1,000 ML IV ONE (18:59)
[2018-04-03] MEDS ORDERED: NALOXONE 0.4 MG/ML 1 ML VIAL IV PRN (19:02)
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
[2018-04-03] MEDS ORDERED: METOCLOPRAMIDE 10 MG TAB PO PRN (20:25)
[2018-04-03 20:34] LABS: Glucose,Whole Blood 111 mg/dL (75-99)
[2018-04-03] MEDS: SODIUM CHLORIDE 0.9% 1,000 ML IV SCH (20:43)
[2018-04-03] MEDS: IMIPRAMINE 10 MG TAB PO SCH (20:43)
[2018-04-03] MEDS: PRAVASTATIN SODIUM 20 MG TAB PO SCH (20:43)
[2018-04-03] MEDS: OXYBUTYNIN CHLORIDE 5 MG TAB PO SCH (20:43)
[2018-04-03] MEDS: INSULIN ASPART (NovoLOG) 100 UNIT/ML VIAL SQ SCH (20:43)
[2018-04-03] MEDS: metFORMIN 500 MG TAB PO SCH (20:59)
[2018-04-03] MEDS: PIPERACILLIN-TAZOBACTAM 3.375 GM in SODIUM CHLORIDE 0.9% 100 ML IVPB SCH (23:50)
[2018-04-04 04:32] LABS: Hemoglobin A1C 6.2 % (4.0-6.0)
[2018-04-04] MEDS ORDERED: metFORMIN 500 MG TAB PO SCH (07:30)
[2018-04-04 07:44] LABS: Glucose,Whole Blood 135 mg/dL (75-99)
[2018-04-04] MEDS: INSULIN ASPART (NovoLOG) 100 UNIT/ML VIAL SQ SCH ×4 (10:05→20:28)
[2018-04-04] MEDS: IMIPRAMINE 10 MG TAB PO SCH ×3 (10:18→21:13)
[2018-04-04] MEDS: OXYBUTYNIN CHLORIDE 5 MG TAB PO SCH ×3 (10:19→21:13)
[2018-04-04] MEDS: LISINOPRIL 10 MG TAB PO SCH (10:19)
[2018-04-04] MEDS: CHOLECALCIFEROL 1,000 UNIT TAB PO SCH (10:19)
[2018-04-04] MEDS: SODIUM CHLORIDE 0.9% 1,000 ML IV SCH ×2 (10:19→20:27)
[2018-04-04] MEDS: FERROUS SULFATE 325 MG TAB PO SCH (10:19)
[2018-04-04] MEDS: ASPIRIN 81 MG PO SCH (10:19)
[2018-04-04] MEDS: metFORMIN 500 MG TAB PO SCH ×2 (10:19→18:03)
[2018-04-04] MEDS: ACETAMINOPHEN TAB 325 MG TAB PO PRN ×2 (10:29→16:27)
[2018-04-04] MEDS: PIPERACILLIN-TAZOBACTAM 3.375 GM in SODIUM CHLORIDE 0.9% 100 ML IVPB SCH ×3 (10:30→23:48)
[2018-04-04 11:44] LABS: Glucose,Whole Blood 143 mg/dL (75-99)
[2018-04-04] MEDS ORDERED: traMADol 50 MG TAB PO PRN (12:38)
[2018-04-04] MEDS: ONDANSETRON 4 MG/2 ML VIAL IVP PRN (14:51)
--- NOTE | 2018-04-04 15:11 | PN ---
PROGRESS NOTE DATE OF SERVICE: 04/04/2018 CHIEF COMPLAINT: Urinary tract infection. HISTORY OF PRESENT ILLNESS: This gentleman is doing well. He feels a little bit nauseated, but this could be from the antibiotic. He has had no fever. PHYSICAL EXAMINATION: Chest is clear. Cardiac exam is normal. Abdomen is soft, nontender. IMPRESSION: 1. Urinary tract infection. 2. Indwelling Epps catheter. 3. Paraplegia. PLAN: Continue with IV antibiotics and IV fluids. MMODL / IJN: [id number] /
--- NOTE | 2018-04-04 16:11 | HP ---
HISTORY AND PHYSICAL . CHIEF COMPLAINT: Urinary tract infection. HISTORY OF PRESENT ILLNESS: This is another of many admissions for this paraplegic gentleman who gets frequent difficulty with urinary tract infections. Visiting nurse called the office and said that he was having "symptoms." He was not having fever and chills, pain, etc., but he only noticed some leaking around his indwelling Epps catheter which has been a sign in the past of infection. Cultures obtained at the office at the same time was found to have an infection with Pseudomonas resistant to everything oral. We discussed with Infectious Disease. It was decided to bring him into the hospital for IV antibiotics. REVIEW OF SYSTEMS: He has had no headaches, confusion, chest pain, shortness of breath. No abdominal pain, delirium, fever and chills, etc. Past medical history, family history, personal and social history are all otherwise and unremarkable and noncontributory. He has chronic decubitus in the ischial area, hip, and now a new one in the left calf. The remainder of his history is unremarkable. PHYSICAL EXAM: Temperature 98.3, and blood pressure 108/69 with a pulse of 86 and respirations 16. GENERAL: He appeared to be well developed, well nourished, no acute distress. Skin color is normal. Skin is warm, dry. Lymph nodes are not enlarged. Head, ears, eyes, nose, mouth, and throat were normal. Neck veins not distended. Thyroid enlarged. Chest is clear. Cardiac exam is normal sinus rhythm. The abdomen is soft, nontender without any masses. There is a colostomy. He had an indwelling Epps. IMPRESSION: 1. Pseudomonas urinary tract infection, resistant to any antibiotics that can be taken orally. 2. Paraplegia. 3. Chronic decubiti of the ischium, hip. PLAN: 1. Bed rest. 2. IV fluids. 3. Infectious Disease consult. 4. Zosyn IV. He will have to be considered for a PICC line again. MMODL / IJN: [id number] /
[2018-04-04 17:25] LABS: Glucose,Whole Blood 91 mg/dL (75-99)
[2018-04-04] MEDS: MENTHOL-ZINC OXIDE OINT 113 GM TUBE TOPICAL SCH (20:27)
[2018-04-04] MEDS: PRAVASTATIN SODIUM 20 MG TAB PO SCH (20:27)
[2018-04-04 20:35] LABS: Glucose,Whole Blood 95 mg/dL (75-99)
[2018-04-04] MEDS ORDERED: ACETAMINOPHEN TOPICAL SCH (21:00)
[2018-04-04] MEDS ORDERED: BUTALBITAL TOPICAL SCH (21:00)
[2018-04-04] MEDS ORDERED: CAFFEINE TOPICAL SCH (21:00)
--- NOTE | 2018-04-05 00:08 | CONS ---
CONSULTATION DATE OF SERVICE: 04/04/2018. REASON FOR CONSULTATION: 1. Pseudomonas Catheter-associated urinary tract infection. 2. Multiple wounds. HISTORY OF PRESENT ILLNESS: The patient is a 68-year-old male with a past medical history significant for T8 paraplegia of traumatic fall. The patient did have a urinary retention requiring chronic Epps catheter apparently it was last changed last week on Friday. The patient that provided most of the history did mention that he was noticed to have significantly foul smelling urine from new bag. UA and cultures have been sent by the primary care physician with urine cultures have been very positive pseudomonas aeruginosa that was resistant to Quinolones as no oral option was available. We were unable to arrange for home IV antibiotic therapy on Friday evening day at 4:30. The patient was directed to go to the emergency room. Patient was seen by the ER physician. He was started on Zosyn and admitted to the hospital. Infectious Disease was consulted for further management of antibiotic therapy. The patient with no high- grade fever or chills. No nausea, no vomiting. Some generalized weakness. The patient also has multiple wounds to his left posterior leg and the left hip area and one to the sacrum area at different stages of healing. Currently with no significant drainage from any of these wounds. No surrounding redness. REVIEW OF SYSTEMS: Positive points have been mentioned in HPI. Rest of the review of systems has been negative. PAST MEDICAL HISTORY: T8 paraplegia, urinary retention, recurrent UTI, diabetes mellitus, DVT, gastroesophageal reflux disease, hypertension, hyperlipidemia. History of a ESBL E coli and MRSA infection. PAST SURGICAL HISTORY: Back surgery, hernia repair, surgery. Hernia repair, multiple wound debridements, right femoral art placement. SOCIAL HISTORY: Remote history of smoking. No drinking or drug use. FAMILY HISTORY: Mother with history of coronary artery disease, dementia, osteoarthritis. Father history of melanoma and asbestosis. ALLERGIES: TO IODINATED CONTRAST DYE, SULFA ANTIBIOTIC. MEDICATIONS: The patient is currently on Tylenol, aspirin, Calmoseptine ointment, vitamin D3, iron sulfate, NovoLog, Zestril. Glucophage, Reglan, Narcan, Zofran, Ditropan, Pravachol and Ultram. PHYSICAL EXAMINATION: Blood pressure is 97/56, pulse 72, temperature 97.4. He is 97% on room air. General description is an elderly male lying in bed in no distress. No tachypnea or accessory muscles of respiration use. HEENT: Shows slight pallor. No scleral icterus. Oral mucosal membranes are dry. No pharyngeal erythema or thrush. Neck: Trachea central. No thyromegaly. Lungs unlabored breathing, clear to auscultation anteriorly. Heart S1, S2. Regular rate and rhythm. ABDOMEN: Soft, no tenderness. No guarding or rigidity. EXTREMITIES: No edema of the feet. Skin examination: No rash or mass palpable. Patient wound with no slough tissue or erythema. The left gluteal area did have a wound. Stage IV pressure ulcer. No slough tissue. No erythema oir any drainage. Chronic deep wound to the left hip area with . Neurological: Patient is awake, alert, oriented times three. Mood and affect normal. LAB: UA was positive for leukocytosis with more than 2 WBC. BUN of 31, creatinine 1.10. White count 10.1. Urine culture done 03/31 for Pseudomonas aeruginosa that was resistant to quinolones. DIAGNOSTIC IMPRESSION AND PLAN: 1. The patient with catheter associated urinary tract infection showing Pseudomonas aeruginosa with no oral option available in this patient who did have a chronic indwelling Epps catheter because of urinary retention from a T8 spinal injury. The Epps catheter was recently changed, however it being an infected, Epps catheter and obtaining a urine culture from new Epps. 2. The patient did have multiple wounds including to the left posterior leg, left hip and gluteal area with no evidence of any secondary cellulitis. PLAN: 1. Recommend changing his Epps catheter. Obtain urine culture from new Epps. 2. Cefepime 2 g q.12h and will try to arrange for a midline on Friday. Continue Cefepime for about 4 days to finish a course of therapy. 3. Left leg wound to be treated with Aquacel Silver dressing which is . 4. Left gluteal wound with Medihoney, change daily. 5. Left leg wound will be packed with iodoform packing. was present at bedside. All her questions were answered. MMODL / IJN: [id number] /
[2018-04-05 07:28] LABS: Glucose,Whole Blood 107 mg/dL (75-99)
[2018-04-05] MEDS: INSULIN ASPART (NovoLOG) 100 UNIT/ML VIAL SQ SCH ×4 (07:29→20:58)
[2018-04-05] MEDS: FERROUS SULFATE 325 MG TAB PO SCH (08:17)
[2018-04-05] MEDS: LISINOPRIL 10 MG TAB PO SCH (08:17)
[2018-04-05] MEDS: ASPIRIN 81 MG PO SCH (08:17)
[2018-04-05] MEDS: metFORMIN 500 MG TAB PO SCH ×2 (08:17→17:36)
[2018-04-05] MEDS: OXYBUTYNIN CHLORIDE 5 MG TAB PO SCH ×3 (08:17→20:56)
[2018-04-05] MEDS: CHOLECALCIFEROL 1,000 UNIT TAB PO SCH (08:17)
[2018-04-05] MEDS: PIPERACILLIN-TAZOBACTAM 3.375 GM in SODIUM CHLORIDE 0.9% 100 ML IVPB SCH ×2 (08:18→15:32)
[2018-04-05] MEDS: IMIPRAMINE 10 MG TAB PO SCH ×3 (08:18→20:56)
[2018-04-05] MEDS: IRON POLYSACCHARIDE PO SCH (08:20)
[2018-04-05] MEDS: MENTHOL-ZINC OXIDE OINT 113 GM TUBE TOPICAL SCH ×2 (08:20→20:59)
[2018-04-05] MEDS: ZINC SULFATE 220 MG CAP PO SCH (08:22)
[2018-04-05 11:40] LABS: Glucose,Whole Blood 107 mg/dL (75-99)
[2018-04-05] MEDS: SODIUM CHLORIDE 0.9% 1,000 ML IV SCH ×2 (11:48→22:21)
[2018-04-05 17:40] LABS: Glucose,Whole Blood 134 mg/dL (75-99)
[2018-04-05 17:56] LABS: Appearance,Urine Cloudy (Clear); Bilirubin,Urine Negative (Negative); Blood,Urine Small (Negative); Color,Urine Light Yellow; Glucose,Urine (UA) Negative (Negative); Hyaline Casts,Urine 3 /lpf (0-2); Ketones,Urine Negative (Negative); Leukocyte Esterase,Urine Large (Negative); Mucus,Urine Rare /hpf; Nitrite,Urine Negative (Negative); PH, Urine 6.5 (5.0-8.0); Protein,Urine Trace (Negative); RBC,Urine 3 /hpf (0-5); Specific Gravity,Urine 1.009 (1.001-1.035); Squamous Epithelial Cell,Urine <1 /hpf (0-4); Urobilinogen,Urine <2.0 mg/dL (<2.0)
[2018-04-05] MEDS: CEFEPIME 2 GM in SODIUM CHLORIDE 0.9% 100 ML IVPB SCH (20:50)
[2018-04-05] MEDS: PRAVASTATIN SODIUM 20 MG TAB PO SCH (20:56)
[2018-04-05 20:59] LABS: Glucose,Whole Blood 117 mg/dL (75-99)
[2018-04-05] MEDS: ONDANSETRON 4 MG/2 ML VIAL IVP PRN (21:03)
--- NOTE | 2018-04-05 21:51 | PN ---
PROGRESS NOTE CHIEF COMPLAINT: Urinary tract infection with early sepsis. HISTORY OF PRESENT ILLNESS: This gentleman is doing better. Pain is improved and appetite is come back. Nausea is gone. PHYSICAL EXAM: Vital signs are normal. He is afebrile. Chest is clear. Abdomen is soft. IMPRESSION: 1. Urinary tract infection. 2. Paraplegia. PLAN: Is for him to have a PICC line placed and then receive IV antibiotics at home. MMODL / IJN: [id number] /
--- NOTE | 2018-04-06 00:45 | PN ---
PROGRESS NOTE DATE OF SERVICE: 04/05/2018. REASON FOR FOLLOW UP: 1. Pseudomonas urinary tract infection .. 2. Multiple wounds. INTERVAL HISTORY: The patient is currently afebrile. He has been feeling better. Breathing comfortably. Denies any chest pain or any cough. No abdominal pain and no diarrhea. PHYSICAL EXAMINATION: Blood pressure 111/69 with a pulse of 84, temperature 98.1. He is 97% on room air. General description is an elderly male lying in bed in no distress. Respiratory system: Unlabored breathing. Clear to auscultation anteriorly. Heart S1, S2. Regular rate and rhythm. The abdomen soft, no tenderness. LABS: Urine with pseudomonas. . DIAGNOSTIC IMPRESSION AND PLAN: 1. Patient with Pseudomonas aeruginosa urinary tract infection. Patient antibiotic in the form of 2 g q.12h. He will get a midline tomorrow, to continue with the for another week. Epps catheter has been changed. 2. The patient with left leg and gluteal area wound with local wound care that was up yesterday. Family present at bedside. Questions answered. MMODL / IJN: [id number] /
[2018-04-06 07:27] LABS: Glucose,Whole Blood 118 mg/dL (75-99)
[2018-04-06] MEDS: INSULIN ASPART (NovoLOG) 100 UNIT/ML VIAL SQ SCH ×2 (07:28→12:21)
[2018-04-06] MEDS: ONDANSETRON 4 MG/2 ML VIAL IVP PRN (07:31)
[2018-04-06] MEDS: ZINC SULFATE 220 MG CAP PO SCH (07:32)
[2018-04-06] MEDS: IMIPRAMINE 10 MG TAB PO SCH (07:32)
[2018-04-06] MEDS: OXYBUTYNIN CHLORIDE 5 MG TAB PO SCH (07:32)
[2018-04-06] MEDS: metFORMIN 500 MG TAB PO SCH (07:32)
[2018-04-06] MEDS: CEFEPIME 2 GM in SODIUM CHLORIDE 0.9% 100 ML IVPB SCH (07:32)
[2018-04-06] MEDS: CHOLECALCIFEROL 1,000 UNIT TAB PO SCH (07:32)
[2018-04-06] MEDS: ASPIRIN 81 MG PO SCH (07:32)
[2018-04-06] MEDS: FERROUS SULFATE 325 MG TAB PO SCH (07:32)
[2018-04-06] MEDS: IRON POLYSACCHARIDE PO SCH (07:33)
[2018-04-06] MEDS: LISINOPRIL 10 MG TAB PO SCH (07:33)
[2018-04-06] MEDS: MENTHOL-ZINC OXIDE OINT 113 GM TUBE TOPICAL SCH (07:34)
[2018-04-06 07:42] VITALS: BP 94/55; PULSE 69; RESP 16; TEMP 97.8
[2018-04-06 11:03] VITALS: BMI 29.0
[2018-04-06 12:19] LABS: Glucose,Whole Blood 99 mg/dL (75-99)
[2018-04-06] MEDS: SODIUM CHLORIDE 0.9% 1,000 ML IV SCH (14:14)
--- NOTE | 2018-04-06 17:16 | PN ---
PROGRESS NOTE DATE OF SERVICE: 04/06/2018. REASON FOR FOLLOWUP VISIT: 1. Pseudomonas catheter associated urinary tract infection. 2. Multiple wounds to the leg and hip area. INTERVAL HISTORY: The patient is seen on rounds this afternoon. The patient took out his PICC line waiting for discharge. Denies any chest pain, shortness of breath or cough. No abdominal pain. No diarrhea. PHYSICAL EXAMINATION: Blood pressure 94/55, pulse of 69, temperature 97.8. He is 95% on room air. General description is an elderly male lying in bed in no distress. Respiratory system: Unlabored breathing. Clear to auscultation anteriorly. Heart S1, S2. Regular rate and rhythm. ABDOMEN: Soft, no tenderness. LABS: No new labs have been obtained today. DIAGNOSTIC IMPRESSION AND PLAN: Patient with pseudomonas catheter associated urinary tract infection. The patient, at this time, to continue with Cefepime 2 gram for another five days to finish course of therapy. Continue supportive care. MMODL / IJN: [id number] /
--- NOTE | 2018-04-06 18:07 | DS ---
DISCHARGE SUMMARY CHIEF COMPLAINT: Urinary tract infection and early sepsis. HISTORY OF PRESENT ILLNESS AND PHYSICAL EXAMINATION: Details of this man's history and physical can be found in the initial workup. LABORATORY STUDIES: While he was in the hospital he had laboratory studies, details of which can be found in the laboratory section of his chart. COURSE IN THE HOSPITAL: After admission he was placed on bedrest and started on intravenous fluids and IV antibiotics. He was seen by Infectious Disease. He did quite well. It was felt that he could go home on March 06, and he will go home on IV antibiotics for another 7 to 10 days. FINAL DIAGNOSES: 1. Early septicemia. 2. Urinary tract infection. 3. Quadriplegia. 4. Several chronic or recurrent decubitus ulcers. OPERATIONS: None. CONSULTATIONS: Infectious Disease. He is improved. MMODL / IJN: [id number] /
== END 2018-04-06 14:46 | disposition home health service (06) | DRG 698 ==
LOC: EC 17:44 → 4MS4W 19:02 → OBSVTOIN 04-05 14:30
PROVIDERS: ADMIT Family Medicine; ATTEND Family Medicine
PROC: 05HF33Z Insertion of Infusion Device into Left Cephalic Vein, Percutaneous Approach (ICD-10-PCS; principal; 2018-04-06 13:15)
DX: T83.511A Infection and inflammatory reaction due to indwelling urethral catheter, initial encounter (principal); L89.224 Pressure ulcer of left hip, stage 4; A41.52 Sepsis due to Pseudomonas; G82.20 Paraplegia, unspecified; N39.0 Urinary tract infection, site not specified; L89.149 Pressure ulcer of left lower back, unspecified stage; L89.329 Pressure ulcer of left buttock, unspecified stage; L89.899 Pressure ulcer of other site, unspecified stage; S24.103S Unspecified injury at T7-T10 level of thoracic spinal cord, sequela; E11.9 Type 2 diabetes mellitus without complications; E78.5 Hyperlipidemia, unspecified; K21.9 Gastro-esophageal reflux disease without esophagitis; I10 Essential (primary) hypertension; Z79.82 Long term (current) use of aspirin; Z79.84 Long term (current) use of oral hypoglycemic drugs; Z79.899 Other long term (current) drug therapy; Z93.3 Colostomy status; Z86.718 Personal history of other venous thrombosis and embolism; Z74.01 Bed confinement status; Z87.440 Personal history of urinary (tract) infections; Z87.820 Personal history of traumatic brain injury; Z86.69 Personal history of other diseases of the nervous system and sense organs; Z86.19 Personal history of other infectious and parasitic diseases; Z85.828 Personal history of other malignant neoplasm of skin; Z87.81 Personal history of (healed) traumatic fracture; Z86.14 Personal history of Methicillin resistant Staphylococcus aureus infection; Z87.891 Personal history of nicotine dependence; Z86.59 Personal history of other mental and behavioral disorders; Y84.6 Urinary catheterization as the cause of abnormal reaction of the patient, or of later complication, without mention of misadventure at the time of the procedure; Z91.013 Allergy to seafood; Z88.2 Allergy status to sulfonamides; Z91.041 Radiographic dye allergy status; Z88.8 Allergy status to other drugs, medicaments and biological substances; Z82.49 Family history of ischemic heart disease and other diseases of the circulatory system; Z80.8 Family history of malignant neoplasm of other organs or systems; Z81.8 Family history of other mental and behavioral disorders; Z83.6 Family history of other diseases of the respiratory system; Z82.61 Family history of arthritis; W14.XXXS Fall from tree, sequela
CPT/HCPCS: 36410; 36415; 76937; 80053; 81001; 83036; 83605; 83690; 85025; 87040; 87077; 87086; 87186; 96365; 99284

== ENCOUNTER → 2018-08-19 | Day surgery (SDC) | payer MEDICARE, OTHER ==
[2018-08-18 12:04] VITALS: BMI 29.0
[2018-08-19 11:42] LABS: Basophils # (A) 0.1 k/uL (0-0.2); Basophils % (A) 1 %; Eosinophils # (A) 0.3 k/uL (0-0.7); Eosinophils % (A) 4 %; HCT 36.8 % (39.0-53.0); HGB 11.6 gm/dL (13.0-17.5); Lymphocytes # (A) 1.3 k/uL (1.0-4.8); Lymphocytes % (A) 15 %; MCH 26.4 pg (25.0-35.0); MCHC 31.4 g/dL (31.0-37.0); MCV 84.1 fL (80.0-100.0); Mean Platelet Volume 6.9; Monocytes # (A) 0.7 k/uL (0-1.0); Monocytes % (A) 8 %; Neutrophils # (A) 5.7 k/uL (1.3-7.7); Neutrophils % (A) 70 %; Platelet Count 300 k/uL (150-450); RBC 4.38 m/uL (4.30-5.90); RDW 15.4 % (11.5-15.5); WBC 8.2 k/uL (3.8-10.6)
[2018-08-19 11:57] LABS: Calcium 9.7 mg/dL (8.4-10.2); Potassium 4.6 mmol/L (3.5-5.1)
== END ==
LOC: CATHCVL 10:46
PROVIDERS: ATTEND Radiology Diagnostic Radiology
DX: N39.0 Urinary tract infection, site not specified (principal); Z91.013 Allergy to seafood; Z88.2 Allergy status to sulfonamides; Z91.09 Other allergy status, other than to drugs and biological substances
CPT/HCPCS: 36410; 76937; 80048; 85025; C1751

== ENCOUNTER 2021-11-05 18:30 | Inpatient (IN) | payer MEDICARE, OTHER ==
[2021-11-05] MEDS ORDERED: VANCOMYCIN IV PER PHARMACY 1 EACH MISC MISCELLANE PRN (18:55)
[2021-11-05] MEDS ORDERED: PIPERACILLIN-TAZOBACTAM 3.375 GM in SODIUM CHLORIDE 0.9% 100 ML IVPB STA (18:56)
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
[2021-11-05] MEDS ORDERED: VANCOMYCIN 1,500 MG in SODIUM CHLORIDE 0.9% 250 ML IVPB STA (19:00)
[2021-11-05 19:49] LABS: Anisocytosis Slight; Basophils # (A) 0.1 k/uL (0-0.2); Basophils % (A) 1 %; Eosinophils # (A) 0.4 k/uL (0-0.7); Eosinophils % (A) 3 %; HGB 9.3 gm/dL (13.0-17.5); Hypochromasia Slight; Lymphocytes % (A) 7 %; MCH 24.3 pg (25.0-35.0); MCHC 30.2 g/dL (31.0-37.0); MCV 80.6 fL (80.0-100.0); Monocytes # (A) 1.2 k/uL (0-1.0); Monocytes % (A) 8 %; Neutrophils # (A) 11.7 k/uL (1.3-7.7); Neutrophils % (A) 80 %; Platelet Count 579 k/uL (150-450); RBC 3.84 m/uL (4.30-5.90); RDW 16.5 % (11.5-15.5); WBC 14.7 k/uL (3.8-10.6)
[2021-11-05 19:55] LABS: African American GFR (CKD) >90 (>60 ml/min/1.73 sqM); Anion Gap 12 mmol/L; Blood Urea Nitrogen 23 mg/dL (9-20); Calcium 8.7 mg/dL (8.4-10.2); Carbon Dioxide 24 mmol/L (22-30); Chloride 100 mmol/L (98-107); Glucose 73 mg/dL (74-99); Non-African American GFR(CKD) >90 (>60 ml/min/1.73 sqM); Potassium 4.3 mmol/L (3.5-5.1); Sodium 136 mmol/L (137-145)
[2021-11-05] MEDS ORDERED: ACETAMINOPHEN TAB 325 MG TAB PO PRN (19:57)
[2021-11-05] MEDS ORDERED: NALOXONE 0.4 MG/ML 1 ML VIAL IV PRN (19:57)
[2021-11-05 20:03] LABS: INR 1.1 (<1.2); Partial Thromboplastin Time 29.3 sec (22.0-30.0); Prothrombin Time 11.8 sec (9.0-12.0)
--- NOTE | 2021-11-05 20:36 | XR ---
EXAMINATION TYPE: XR chest 2V DATE OF EXAM: 11/05/2021 COMPARISON: NONE None available. HISTORY: Fever TECHNIQUE: 2 views FINDINGS: There is thoracic mild kyphotic deformity with anterior wedging of lower thoracic vertebra. There is posterior spinal rods stabilizing the thoracic spine. There is increased density left lower lobe consistent with airspace consolidation. Left diaphragm not well evaluated. Right lung is clear. No heart failure. IMPRESSION: There is evidence for left pleural effusion and left lower lobe consolidation. No heart f ailure seen.
[2021-11-05] MEDS: SODIUM CHLORIDE 0.9% 1,000 ML IV SCH (21:25)
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
[2021-11-06] MEDS: HEPARIN SODIUM,PORCINE/PF 5,000 UNIT/0.5 ML SYRINGE SQ SCH ×2 (00:10→09:30)
[2021-11-06] MEDS: SODIUM CHLORIDE 0.9% 1,000 ML IV SCH ×2 (04:40→14:48)
[2021-11-06] MEDS: PIPERACILLIN-TAZOBACTAM 3.375 GM in SODIUM CHLORIDE 0.9% 100 ML IVPB SCH ×3 (04:41→20:57)
[2021-11-06] MEDS ORDERED: VANCOMYCIN 1,500 MG in SODIUM CHLORIDE 0.9% 250 ML IVPB SCH (08:00)
[2021-11-06 11:12] LABS: % Iron Saturation 6.37 (15.00-50.00)
[2021-11-06] MEDS ORDERED: traMADol 50 MG TAB PO PRN (12:02)
[2021-11-06] MEDS ORDERED: DEXTROSE 50% SYRINGE 50 ML IVP PRN ×2 (12:03)
[2021-11-06] MEDS ORDERED: PROTEIN SUPPLEMENT PO SCH (12:15)
[2021-11-06 12:44] LABS: Glucose,Whole Blood 160 mg/dL (70-110)
[2021-11-06] MEDS: INSULIN ASPART (NovoLOG) 100 UNIT/ML VIAL SQ SCH ×2 (12:46→18:09)
[2021-11-06] MEDS: ENOXAPARIN 40 MG/0.4 ML SYRINGE SQ SCH (14:03)
[2021-11-06] MEDS: FERROUS SULFATE 325 MG TAB PO SCH (14:03)
[2021-11-06 15:01] LABS: Appearance,Urine Clear (Clear); Bilirubin,Urine Negative (Negative); Blood,Urine Negative (Negative); Color,Urine Colorless; Glucose,Urine (UA) Negative (Negative); Ketones,Urine Negative (Negative); Leukocyte Esterase,Urine Negative (Negative); Nitrite,Urine Negative (Negative); PH, Urine 6.5 (5.0-8.0); Protein,Urine Negative (Negative); Urobilinogen,Urine <2.0 mg/dL (<2.0)
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
[2021-11-06] MEDS ORDERED: CALCIUM CARBONATE 500 MG CHEWABLE PO PRN (18:53)
[2021-11-06] MEDS ORDERED: TEMAZEPAM 15 MG CAP PO PRN (18:53)
[2021-11-06] MEDS ORDERED: LORazepam 0.5 MG TAB PO PRN (18:53)
[2021-11-06] MEDS ORDERED: LACTULOSE 20 GM/30 ML CUP PO PRN (18:53)
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
[2021-11-06] MEDS: metFORMIN 500 MG TAB PO SCH (20:58)
[2021-11-06] MEDS: PRAVASTATIN SODIUM 20 MG TAB PO SCH (20:58)
[2021-11-06 21:13] LABS: Glucose,Whole Blood 137 mg/dL (70-110)
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
[2021-11-07] MEDS: SODIUM CHLORIDE 0.9% 1,000 ML IV SCH ×3 (02:24→21:36)
[2021-11-07] MEDS: PIPERACILLIN-TAZOBACTAM 3.375 GM in SODIUM CHLORIDE 0.9% 100 ML IVPB SCH ×3 (04:33→21:34)
[2021-11-07 06:19] LABS: African American GFR (CKD) >90 (>60 ml/min/1.73 sqM); Anion Gap 12 mmol/L; Blood Urea Nitrogen 22 mg/dL (9-20); Calcium 8.3 mg/dL (8.4-10.2); Carbon Dioxide 25 mmol/L (22-30); Chloride 101 mmol/L (98-107); Glucose 157 mg/dL (74-99); Non-African American GFR(CKD) 80 (>60 ml/min/1.73 sqM); Potassium 4.8 mmol/L (3.5-5.1); Sodium 138 mmol/L (137-145)
[2021-11-07 07:15] LABS: Glucose,Whole Blood 145 mg/dL (70-110)
[2021-11-07] MEDS: INSULIN ASPART (NovoLOG) 100 UNIT/ML VIAL SQ SCH ×3 (07:30→16:54)
[2021-11-07 09:22] LABS: HCT 27.7 % (39.6-50.0); HGB 8.6 g/dL (13.0-17.0); MCH 24.7 pg (27.0-32.0); MCV 79.6 fL (80.0-97.0); Mean Platelet Volume 8.9 fL (9.5-12.2); NRBC Per 100 WBC 0 /100 WBCS (0.0-0.0); Platelet Count 592 X 10*3/uL (140-440); RBC 3.48 X 10*6/uL (4.40-5.60); RDW 18.5 % (11.5-14.5); WBC 14.27 X 10*3/uL (4.50-10.00)
[2021-11-07 09:30] LABS: C Reactive Protein 20.9 mg/dL (<1.0)
[2021-11-07] MEDS: metFORMIN 500 MG TAB PO SCH ×2 (09:41→21:36)
[2021-11-07] MEDS: ENOXAPARIN 40 MG/0.4 ML SYRINGE SQ SCH (09:41)
[2021-11-07] MEDS: FERROUS SULFATE 325 MG TAB PO SCH (09:43)
[2021-11-07 10:15] LABS: Basophils # (A) 0.06 X 10*3/uL (0.00-0.10); Basophils % (A) 0.4 %; Eosinophils # (A) 0.25 X 10*3/uL (0.04-0.35); Eosinophils % (A) 1.8 %; Immature Grans, Automated 1.2 %; Lymphocytes # (A) 1.06 X 10*3/uL (0.90-5.00); Lymphocytes % (A) 7.4 %; Monocytes % (A) 11.2 %; Neutrophils # (A) 11.13 X 10*3/uL (1.80-7.70)
[2021-11-07 12:07] LABS: Glucose,Whole Blood 159 mg/dL (70-110)
[2021-11-07 13:09] VITALS: BMI 26.4
[2021-11-07 16:55] LABS: Glucose,Whole Blood 130 mg/dL (70-110)
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
[2021-11-07] MEDS: ONDANSETRON 4 MG/2 ML VIAL IVP PRN (18:45)
[2021-11-07 20:15] LABS: Glucose,Whole Blood 159 mg/dL (70-110)
[2021-11-07] MEDS: PRAVASTATIN SODIUM 20 MG TAB PO SCH (21:36)
[2021-11-08] MEDS: PIPERACILLIN-TAZOBACTAM 3.375 GM in SODIUM CHLORIDE 0.9% 100 ML IVPB SCH ×3 (02:26→18:35)
[2021-11-08] MEDS: SODIUM CHLORIDE 0.9% 1,000 ML IV SCH ×2 (02:27→18:56)
[2021-11-08 07:05] LABS: Glucose,Whole Blood 142 mg/dL (70-110)
[2021-11-08] MEDS: INSULIN ASPART (NovoLOG) 100 UNIT/ML VIAL SQ SCH ×3 (07:48→16:48)
[2021-11-08] MEDS: metFORMIN 500 MG TAB PO SCH ×2 (07:54→20:55)
[2021-11-08] MEDS: ENOXAPARIN 40 MG/0.4 ML SYRINGE SQ SCH (07:55)
[2021-11-08] MEDS: FERROUS SULFATE 325 MG TAB PO SCH (07:55)
[2021-11-08 11:34] LABS: Glucose,Whole Blood 179 mg/dL (70-110)
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
[2021-11-08 16:41] LABS: Glucose,Whole Blood 130 mg/dL (70-110)
[2021-11-08] MEDS: ONDANSETRON 4 MG/2 ML VIAL IVP PRN (18:30)
[2021-11-08] MEDS ORDERED: ACETAMINOPHEN IV (For NPO) 1,000 MG in EMPTY BAG 1 BAG IVPB PRN (19:30)
[2021-11-08] MEDS: PRAVASTATIN SODIUM 20 MG TAB PO SCH (20:55)
[2021-11-08 21:05] LABS: Glucose,Whole Blood 141 mg/dL (70-110)
--- NOTE | 2021-11-08 22:45 | P.PN ---
Subjective Progress Note Date: 11/07/21 Principal diagnosis: UTI and pneumonia Patient is a 71-year-old male with a past medical history significant for hemiplegia since 1990 with a chronic indwelling Epps catheter and a recent outpatient culture positive for pseudomonas and MRSA admitted to the hospital with weakness and low-grade fever and elevated white count chest x-ray on admission also showed possible left lower lobe consolidation. On today's evaluation that is 11/07/2021, the patient denies having any fever or any chills, the patient is currently breathing comfortably denies any chest pain or shortness needed have a cough with occasional sputum no abdominal pain or diarrhea Objective - Vital Signs Vital signs: Vital Signs Temp 98.2 F 11/07/21 10:14 Pulse 77 11/07/21 10:14 Resp 16 11/07/21 09:12 BP 96/66 11/07/21 10:14 Pulse Ox 97 11/07/21 10:14 FiO2 Intake & Output 11/06/21 11/07/21 11/07/21 18:59 06:59 18:59 Intake Total 540 Output Total 0 600 Balance 540 -600 Weight 90.718 kg Intake: Oral 540 Output: Urine 0 600 Other: Voiding Method Indwelling Catheter Indwelling Catheter - Exam GENERAL DESCRIPTION: An elderly male lying in bed in no distress RESPIRATORY SYSTEM: Unlabored breathing , decreased breath sounds at bases HEART: S1 S2 regular rate and rhythm , ABDOMEN: Soft , no tenderness EXTREMITIES: No edema feet - Labs CBC & Chem 7: 11/07/21 05:31 11/07/21 05:31 Labs: Abnormal Lab Results - Last 24 Hours (Table) 11/06/21 11/06/21 11/06/21 Range/Units 12:42 14:54 21:12 WBC (4.50-10.00) X 10*3/uL RBC (4.40-5.60) X 10*6/uL Hgb (13.0-17.0) g/dL Hct (39.6-50.0) % MCV (80.0-97.0) fL MCH (27.0-32.0) pg MCHC (32.0-37.0) g/dL RDW (11.5-14.5) % Plt Count (140-440) X 10*3/uL Plt Count Comment MPV (9.5-12.2) fL Immature Gran # (0.00-0.04) X 10*3/uL Neutrophils # (1.80-7.70) X 10*3/uL Monocytes # (0.20-1.00) X 10*3/uL BUN (9-20) mg/dL Glucose (74-99) mg/dL POC Glucose (mg/dL) 160 H 137 H (70-110) mg/dL Calcium (8.4-10.2) mg/dL C-Reactive Protein (<1.0) mg/dL Procalcitonin (0.02-0.09) ng/mL Ur Specific [place] 1.000 L (1.001-1.035) 11/07/21 11/07/21 11/07/21 Range/Units 05:31 05:31 05:31 WBC 14.27 H (4.50-10.00) X 10*3/uL RBC 3.48 L (4.40-5.60) X 10*6/uL Hgb 8.6 L (13.0-17.0) g/dL Hct 27.7 L (39.6-50.0) % MCV 79.6 L (80.0-97.0) fL MCH 24.7 L (27.0-32.0) pg MCHC 31.0 L (32.0-37.0) g/dL RDW 18.5 H (11.5-14.5) % Plt Count 592 H (140-440) X 10*3/uL Plt Count Comment INCREASED A MPV 8.9 L (9.5-12.2) fL Immature Gran # 0.17 H (0.00-0.04) X 10*3/uL Neutrophils # 11.13 H (1.80-7.70) X 10*3/uL Monocytes # 1.60 H (0.20-1.00) X 10*3/uL BUN 22 H (9-20) mg/dL Glucose 157 H (74-99) mg/dL POC Glucose (mg/dL) (70-110) mg/dL Calcium 8.3 L (8.4-10.2) mg/dL C-Reactive Protein 20.9 H (<1.0) mg/dL Procalcitonin 0.43 H (0.02-0.09) ng/mL Ur Specific [place] (1.001-1.035) 11/07/21 11/07/21 Range/Units 07:13 12:05 WBC (4.50-10.00) X 10*3/uL RBC (4.40-5.60) X 10*6/uL Hgb (13.0-17.0) g/dL Hct (39.6-50.0) % MCV (80.0-97.0) fL MCH (27.0-32.0) pg MCHC (32.0-37.0) g/dL RDW (11.5-14.5) % Plt Count (140-440) X 10*3/uL Plt Count Comment MPV (9.5-12.2) fL Immature Gran # (0.00-0.04) X 10*3/uL Neutrophils # (1.80-7.70) X 10*3/uL Monocytes # (0.20-1.00) X 10*3/uL BUN (9-20) mg/dL Glucose (74-99) mg/dL POC Glucose (mg/dL) 145 H 159 H (70-110) mg/dL Calcium (8.4-10.2) mg/dL C-Reactive Protein (<1.0) mg/dL Procalcitonin (0.02-0.09) ng/mL Ur Specific [place] (1.001-1.035) Microbiology - Last 24 Hours (Table) 11/05/21 19:15 Blood Culture Gram Stain - Preliminary Blood 11/05/21 19:15 Blood Culture - Final Blood 11/05/21 19:00 Blood Culture - Preliminary Blood No Growth after 24 hours Assessment and Plan (1) Pneumonia Current Visit: Yes Status: Acute Code(s): J18.9 - PNEUMONIA, UNSPECIFIED ORGANISM SNOMED Code(s): 791596923 (2) UTI (urinary tract infection) Current Visit: Yes Status: Acute Code(s): N39.0 - URINARY TRACT INFECTION, SITE NOT SPECIFIED SNOMED Code(s): 85958859 Plan: 1patient with a chronic indwelling Epps catheter recently changed with urine culture done on 10/30/2021 positive for MRSA and Pseudomonas aeruginosa in this patient presenting to the hospital with weakness did have elevated white count and concern for possible catheter associated UTI, however UA this admission has been negative 2patient also have evidence of left lower pneumonia on the chest x-ray could be contributing to his symptoms 3patient will continue with Zosyn , try to obtain sputum to narrow down antibiotics 4patient with multiple wounds chronic local care with Aquacel silver rope and keep the area off the pressure
--- NOTE | 2021-11-08 22:48 | P.PN ---
Subjective Progress Note Date: 11/08/21 Principal diagnosis: UTI and pneumonia Patient is a 71-year-old male with a past medical history significant for hemiplegia since 1990 with a chronic indwelling Epps catheter and a recent outpatient culture positive for pseudomonas and MRSA admitted to the hospital with weakness and low-grade fever and elevated white count chest x-ray on admission also showed possible left lower lobe consolidation. On today's evaluation that is 11/08/2021, the patient remains to be afebrile, the patient is breathing comfortably on room air, the patient denies any chest pain or shortness needed have a cough with occasional sputum no abdominal pain or diarrhea Objective - Vital Signs Vital signs: Vital Signs Temp 98.0 F 11/08/21 12:37 Pulse 81 11/08/21 12:37 Resp 14 11/08/21 12:37 BP 99/61 11/08/21 12:37 Pulse Ox 91 L 11/08/21 01:43 FiO2 Intake & Output 11/07/21 11/08/21 11/08/21 18:59 06:59 18:59 Intake Total 1408 Output Total 400 Balance 1408 -400 Weight 90.718 kg Intake: Intake, IV Titration 1408 Amount Piperacillin-Tazobactam 3 100 .375 gm In Sodium Chloride 0.9% 100 ml @ 25 mls/hr IVPB Q8H [facility] Rx#: [id number] Sodium Chloride 0.9% 1, 1308 000 ml @ 130 mls/hr IV . Q7H42M [facility] Rx#:[id number] Output: Urine 400 Other: Voiding Method Indwelling Catheter Indwelling Catheter Indwelling Catheter - Exam GENERAL DESCRIPTION: An elderly male lying in bed in no distress RESPIRATORY SYSTEM: Unlabored breathing , decreased breath sounds at bases HEART: S1 S2 regular rate and rhythm , ABDOMEN: Soft , no tenderness EXTREMITIES: No edema feet - Labs CBC & Chem 7: 11/07/21 05:31 11/07/21 05:31 Labs: Abnormal Lab Results - Last 24 Hours (Table) 11/07/21 11/07/21 11/08/21 Range/Units 16:53 20:13 07:03 POC Glucose (mg/dL) 130 H 159 H 142 H (70-110) mg/dL 11/08/21 Range/Units 11:32 POC Glucose (mg/dL) 179 H (70-110) mg/dL Microbiology - Last 24 Hours (Table) 11/05/21 19:15 Blood Culture Gram Stain - Final Blood Blood Culture - Final Diphtheroid species 11/07/21 09:30 Gram Stain - Preliminary Sputum Sputum Culture - Preliminary 11/05/21 19:00 Blood Culture - Preliminary Blood No Growth after 48 hours Assessment and Plan (1) Pneumonia Current Visit: Yes Status: Acute Code(s): J18.9 - PNEUMONIA, UNSPECIFIED ORGANISM SNOMED Code(s): 623253649 Plan: 1patient with a chronic indwelling Epps catheter recently changed with urine culture done on 10/30/2021 positive for MRSA and Pseudomonas aeruginosa in this patient presenting to the hospital with weakness did have elevated white count and concern for possible catheter associated UTI, however UA this admission has been negative 2patient also have evidence of left lower pneumonia on the chest x-ray could be contributing to his symptoms 3patient will continue with Zosyn , sputum cultures are currently pending will wait for the culture finalized to determine discharge antibiotics 4patient with multiple wounds chronic local care with Aquacel silver rope and keep the area off the pressure 5-positive blood culture with diphtheroids species more likely contamination Time with Patient: Less than 30
[2021-11-09] MEDS: PIPERACILLIN-TAZOBACTAM 3.375 GM in SODIUM CHLORIDE 0.9% 100 ML IVPB SCH ×2 (02:51→10:32)
[2021-11-09] MEDS: SODIUM CHLORIDE 0.9% 1,000 ML IV SCH ×2 (05:21→10:31)
[2021-11-09 06:57] LABS: Glucose,Whole Blood 133 mg/dL (70-110)
[2021-11-09] MEDS: INSULIN ASPART (NovoLOG) 100 UNIT/ML VIAL SQ SCH ×3 (07:12→17:42)
[2021-11-09] MEDS: metFORMIN 500 MG TAB PO SCH (09:12)
[2021-11-09] MEDS: FERROUS SULFATE 325 MG TAB PO SCH (09:12)
[2021-11-09] MEDS: ENOXAPARIN 40 MG/0.4 ML SYRINGE SQ SCH (09:12)
[2021-11-09 09:14] LABS: Basophils # (A) 0.06 X 10*3/uL (0.00-0.10); Basophils % (A) 0.4 %; Eosinophils # (A) 0.41 X 10*3/uL (0.04-0.35); HCT 26.5 % (39.6-50.0); Immature Grans, Automated 0.9 %; Lymphocytes # (A) 0.96 X 10*3/uL (0.90-5.00); Lymphocytes % (A) 6.9 %; MCH 24.4 pg (27.0-32.0); MCHC 30.2 g/dL (32.0-37.0); MCV 80.8 fL (80.0-97.0); Mean Platelet Volume 8.8 fL (9.5-12.2); Monocytes # (A) 1.67 X 10*3/uL (0.20-1.00); NRBC Per 100 WBC 0 /100 WBCS (0.0-0.0); Neutrophils # (A) 10.65 X 10*3/uL (1.80-7.70); Neutrophils % (A) 76.8 %; Platelet Count 612 X 10*3/uL (140-440); RBC 3.28 X 10*6/uL (4.40-5.60); WBC 13.87 X 10*3/uL (4.50-10.00)
[2021-11-09 09:26] LABS: African American GFR (CKD) 102.7 (60.0-200.0); Albumin 2.5 g/dL (3.8-4.9); Albumin/Globulin Ratio 0.64 (1.60-3.17); Anion Gap 9.7 mmol/L (10.00-18.00); BUN/Creat Ratio 18.5 Ratio (12.00-20.00); Blood Urea Nitrogen 14.8 mg/dL (9.0-27.0); C Reactive Protein 14.5 mg/dL (0.00-0.80); Calcium 8.4 mg/dL (8.7-10.3); Carbon Dioxide 26.3 mmol/L (20.0-27.5); Globulin 3.9 g/dL (1.6-3.3); Non-African American GFR(CKD) 88.6 (60.0-200.0); Potassium 4.5 mmol/L (3.5-5.5); Total Bilirubin 0.2 mg/dL (0.30-1.20); Total Protein 6.4 g/dL (6.2-8.2)
[2021-11-09 11:37] LABS: Glucose,Whole Blood 172 mg/dL (70-110)
[2021-11-09 13:10] VITALS: BP 104/66; PULSE 87; RESP 14; TEMP 98.6
--- NOTE | 2021-11-09 15:49 | P.PN ---
Subjective Progress Note Date: 11/09/21 Principal diagnosis: UTI and pneumonia Patient is a 71-year-old male with a past medical history significant for hemiplegia since 1990 with a chronic indwelling Epps catheter and a recent outpatient culture positive for pseudomonas and MRSA admitted to the hospital with weakness and low-grade fever and elevated white count chest x-ray on admission also showed possible left lower lobe consolidation. On today's evaluation that is 11/09/2021, the patient continues to be afebrile, the patient is breathing comfortably on room air, the patient denies any chest pain or shortness of breath, the patient denies any worsening cough or sputum production, no abdominal pain or diarrhea Objective - Vital Signs Vital signs: Vital Signs Temp 97.9 F 11/09/21 07:39 Pulse 96 11/09/21 07:39 Resp 16 11/09/21 07:40 BP 98/59 11/09/21 07:39 Pulse Ox 94 L 11/09/21 02:00 FiO2 Intake & Output 11/08/21 11/09/21 11/09/21 18:59 06:59 18:59 Output Total 700 700 Balance -700 -700 Output: Urine 700 700 Other: Voiding Method Indwelling Catheter Indwelling Catheter Indwelling Catheter - Exam GENERAL DESCRIPTION: An elderly male lying in bed in no distress RESPIRATORY SYSTEM: Unlabored breathing , decreased breath sounds at bases HEART: S1 S2 regular rate and rhythm , ABDOMEN: Soft , no tenderness EXTREMITIES: No edema feet - Labs CBC & Chem 7: 11/09/21 05:49 11/09/21 05:49 Labs: Abnormal Lab Results - Last 24 Hours (Table) 11/08/21 11/08/21 11/08/21 Range/Units 11:32 16:38 21:04 WBC (4.50-10.00) X 10*3/uL RBC (4.40-5.60) X 10*6/uL Hgb (13.0-17.0) g/dL Hct (39.6-50.0) % MCH (27.0-32.0) pg MCHC (32.0-37.0) g/dL RDW (11.5-14.5) % Plt Count (140-440) X 10*3/uL MPV (9.5-12.2) fL Immature Gran # (0.00-0.04) X 10*3/uL Neutrophils # (1.80-7.70) X 10*3/uL Monocytes # (0.20-1.00) X 10*3/uL Eosinophils # (0.04-0.35) X 10*3/uL Anion Gap (10.00-18.00) mmol/L Glucose (70-110) mg/dL POC Glucose (mg/dL) 179 H 130 H 141 H (70-110) mg/dL Calcium (8.7-10.3) mg/dL Total Bilirubin (0.30-1.20) mg/dL C-Reactive Protein (0.00-0.80) mg/dL Albumin (3.8-4.9) g/dL Globulin (1.6-3.3) g/dL Albumin/Globulin Ratio (1.60-3.17) g/dL 11/09/21 11/09/21 11/09/21 Range/Units 05:49 05:49 06:55 WBC 13.87 H (4.50-10.00) X 10*3/uL RBC 3.28 L (4.40-5.60) X 10*6/uL Hgb 8.0 L (13.0-17.0) g/dL Hct 26.5 L (39.6-50.0) % MCH 24.4 L (27.0-32.0) pg MCHC 30.2 L (32.0-37.0) g/dL RDW 18.0 H (11.5-14.5) % Plt Count 612 H (140-440) X 10*3/uL MPV 8.8 L (9.5-12.2) fL Immature Gran # 0.12 H (0.00-0.04) X 10*3/uL Neutrophils # 10.65 H (1.80-7.70) X 10*3/uL Monocytes # 1.67 H (0.20-1.00) X 10*3/uL Eosinophils # 0.41 H (0.04-0.35) X 10*3/uL Anion Gap 9.70 L (10.00-18.00) mmol/L Glucose 128 H (70-110) mg/dL POC Glucose (mg/dL) 133 H (70-110) mg/dL Calcium 8.4 L (8.7-10.3) mg/dL Total Bilirubin 0.20 L (0.30-1.20) mg/dL C-Reactive Protein 14.50 H (0.00-0.80) mg/dL Albumin 2.5 L (3.8-4.9) g/dL Globulin 3.9 H (1.6-3.3) g/dL Albumin/Globulin Ratio 0.64 L (1.60-3.17) g/dL Microbiology - Last 24 Hours (Table) 11/07/21 09:30 Gram Stain - Final Sputum Sputum Culture - Final Mouna albicans 11/05/21 19:00 Blood Culture - Preliminary Blood No Growth after 72 hours 11/05/21 19:15 Blood Culture Gram Stain - Final Blood Blood Culture - Final Diphtheroid species Assessment and Plan (1) Pneumonia Current Visit: Yes Status: Acute Code(s): J18.9 - PNEUMONIA, UNSPECIFIED ORGANISM SNOMED Code(s): 395834153 Plan: 1patient with a chronic indwelling Epps catheter recently changed with urine culture done on 10/30/2021 positive for MRSA and Pseudomonas aeruginosa in this patient presenting to the hospital with weakness did have elevated white count and concern for possible catheter associated UTI, however UA this admission has been negative 2patient also have evidence of left lower pneumonia on the chest x-ray could be contributing to his symptoms 3-patient with multiple wounds chronic local care with Aquacel silver rope and k eep the area off the pressure, patient advised to follow-up in the wound care center for continued local wound care 4-positive blood culture with diphtheroids species more likely contamination 5patient has shown clinical improvement, the patient sputum culture showing Mouna likely colonizer with no resistant organism grown we will give a short course of oral Augmentin on discharge, prescription was sent to the pharmacy Time with Patient: Less than 30
[2021-11-09 16:50] LABS: Glucose,Whole Blood 121 mg/dL (70-110)
--- NOTE | 2021-11-09 21:46 | P.DS ---
Providers Date of admission: 11/05/21 19:57 Expected date of discharge: 11/09/21 Attending physician: Timoteo Enciso Consults: 11/05/21 19:39 Consult Physician Routine Consulting Provider: Ronnie Pal Consult Reason/Comments: polymicrobial uti Do you want consulting provider notified?: Yes Primary care physician: Howard William MD Hospital Course: Hospital course: Fever Hospital course: This is a 71-year-old patient, follows with visiting physicians. Has complete T8 spinal cord injury from fall from a tree while hunting in 1990 paraplegic. Chronic Epps catheter. Colostomy was done because patient being bedridden. And wounds. Patient presented with fever for about 7 days. Becoming delirious confused. Decreased appetite. Started on IV Zosyn. November 06: I assumed care of patient today. Tired. Eating some. IV Zosyn. at the bedside. ID consulted for wound care. November 07: Oral intake fair. Diet. IV Zosyn. Blood cultures positive for gram-positive bacilli. November 08: Some nausea. Getting IV Zosyn. Oral intake fair. Feels a bit better today. at the bedside. Blood cultures growing diphtheria species. Likely contaminant. November 09: Repeat cultures negative. Patient to be discharged on Augmentin for 7 days. Discussed with ID. Patient doing well. Patient may have of pneumonia also. Slight congested cough. Though better. Discussion and discharge planning more than 35 minutes On examination: VITAL SIGNS: 98.6, 87, 14, 104/66, 95% room air GENERAL APPEARANCE: Propped up in bed, comfortable HEENT: Normal external appearance of nose and ear. Oral cavity normal EYES: Pupils equal. Conjunctiva normal. NECK: JVD not raised. Mass not palpable. RESPIRATORY: Respiratory effort normal. Lungs clear to auscultation. CARDIOVASCULAR: First and second sounds normal. No edema. ABDOMEN: Soft. Liver and spleen not palpable. No tenderness. No mass palpable. Colostomy bag PSYCHIATRY: Alert and oriented x3. Mood and affect normal. NEUROLOGICAL: No power sensation lower extremity. DERMATOLOGICAL: Wounds more details look at nursing pictures INVESTIGATIONS, reviewed in the clinical context: November 06: WBC 13.8 hemoglobin 8 potassium 4.5 creatinine 0.8 November 07: WBC 14.2 hemoglobin 8.6 platelets 192 potassium 4.8 creatinine 0.95 White count 14.7 hemoglobin 9.3 platelets 579 potassium 4.3 BUN 23 crit 0.74 Influenza type A/type B/RSV/COVID-19: Not detected Previous labs: UA from [October 30]: Leukoesterase positive, WBC, WBC clumps moderate bacteria. Pseudomonas aeruginosa, Enterococcus faecalis Assessment and plan: -Possible pneumonia, suspect gram-negative organism Received IV Zosyn. Completed course of Augmentin -Acute UTI with cystitis secondary to Epps catheter from Pseudomonas aeruginosa and Enterococcus faecalis. IV Zosyn. Complete course of Augmentin was 7 days. -Chronic Decubitus wounds. Wound care per ID. -Diabetes mellitus type 2, on oral hypoglycemic Resume at home and. Follow Accu-Cheks -Chronic neurogenic bladder secondary to T8 injury Epps catheter -GERD Pepcid when necessary -Hyperlipidemia Pravachol -Chronic paraplegia from T8 spinal cord injury in 1990. -Chronic colostomy for diversion Colostomy care -Full code Disposition: Home Plan - Discharge Summary New Discharge Prescriptions: New Amoxic-Pot Clav 875-125Mg [Augmentin 875-125] 1 tab PO Q12HR 7 Days #14 tab Continue traMADol HCl [Ultram] 50 mg PO QID PRN PRN Reason: Pain Ferrous Sulfate [Iron (65 MG Elemental)] 325 mg PO BID Imipramine HCl [Tofranil] 10 mg PO BID Oxybutynin Chloride [Ditropan] 5 mg PO BID Benazepril [Lotensin] 10 mg PO DAILY metFORMIN HCL [Glucophage] 500 mg PO BID Pravastatin Sodium [Pravachol] 20 mg PO HS Dakin's Solution 0.25% 1 applic TOPICAL DAILY glipiZIDE [Glucotrol] 5 mg PO BID Imipramine [Tofranil] 10 mg PO DAILY PRN PRN Reason: leaking Discontinued Oxybutynin Chloride [Ditropan] 5 mg PO DAILY PRN PRN Reason: leaking Discharge Medication List Benazepril [Lotensin] 10 mg PO DAILY 06/03/16 [History] Ferrous Sulfate [Iron (65 MG Elemental)] 325 mg PO BID 06/03/16 [History] Imipramine HCl [Tofranil] 10 mg PO BID 06/03/16 [History] Oxybutynin Chloride [Ditropan] 5 mg PO BID 06/03/16 [History] Pravastatin Sodium [Pravachol] 20 mg PO HS 06/03/16 [History] metFORMIN HCL [Glucophage] 500 mg PO BID 06/03/16 [History] traMADol HCl [Ultram] 50 mg PO QID PRN 06/03/16 [History] Dakin's Solution 0.25% 1 applic TOPICAL DAILY 11/06/21 [History] Imipramine [Tofranil] 10 mg PO DAILY PRN 11/06/21 [History] glipiZIDE [Glucotrol] 5 mg PO BID 11/06/21 [History] Amoxic-Pot Clav 875-125Mg [Augmentin 875-125] 1 tab PO Q12HR 7 Days #14 tab 11/09/21 [Rx] Follow up Appointment(s)/Referral(s): Howard William MD [Primary Care Provider] - 1-2 days [facility], [NON-STAFF] - 1-2 Days Patient Instructions/Handouts: Urinary Tract Infection in Men (DC) Activity/Diet/Wound Care/Special Instructions: antibiotics per ID Discharge Disposition: HOME WITH HOME HEALTH SERVICES
--- NOTE | 2021-11-13 19:10 | CDI ---
Documentation Clarification Form Date: 11/13/21 From: NILA Verdugo Admit Date: 11/05/2021 07:57:00 PM Patient Name: Barak Caputo Visit Number: [id number] Discharge Date: 11/09/2021 05:44:00 PM ATTENTION: The Clinical Documentation Specialists (CDI) and [facility] Coding Staff appreciate your assistance in clarifying documentation. Please respond to the clarification below the line at the bottom and electronically sign. The CDI & [facility] Coding staff will review the response and follow-up if needed. Please note: Queries are made part of the Legal Health Record. If you have any questions, please contact the author of this message via ITS. Dr. Timoteo Enciso Decubitus ulcers are documented in the chart and by Wound Care on 11/06. Based on this information and the findings below, please clarify the site of the decubitus ulcers for this patient? History/Risk Factors: Patient is admitted with a UTI with an indwelling benavides catheter. Per the H&P, Benavides catheter had been placed due to his non-healing decubitus ulcers. Progress notes and the discharge summary state "chronic decubitus wounds" Clinical Indicators: Wound care indicates Right buttock, Stage 2, POA Left buttock, Stage 2, POA Left gluteal fold, Stage 2, POA Right buttock, DTI, POA Treatment: Dressing changes, Aquacel silver rope Please clarify the site of the documented decubitus ulcers for this patient? [ + ] Right buttock pressure ulcer, Left buttock pressure ulcer and Left gluteal fold pressure ulcer, Right buttock DTI [ ] Other sites, please specify [ ] Unable to determine MTDD
== END 2021-11-09 17:44 | disposition home health service (06) | DRG 698 ==
LOC: EC 18:30 → 4SSUR 19:57
PROVIDERS: ADMIT Hospitalist; ATTEND Hospitalist
DX: T83.511A Infection and inflammatory reaction due to indwelling urethral catheter, initial encounter (principal); J15.6 Pneumonia due to other Gram-negative bacteria; G82.20 Paraplegia, unspecified; N30.00 Acute cystitis without hematuria; Y73.2 Prosthetic and other implants, materials and accessory gastroenterology and urology devices associated with adverse incidents; B96.5 Pseudomonas (aeruginosa) (mallei) (pseudomallei) as the cause of diseases classified elsewhere; B95.2 Enterococcus as the cause of diseases classified elsewhere; E78.5 Hyperlipidemia, unspecified; N31.9 Neuromuscular dysfunction of bladder, unspecified; K21.9 Gastro-esophageal reflux disease without esophagitis; F32.A Depression, unspecified; Z20.822 Contact with and (suspected) exposure to COVID-19; E11.649 Type 2 diabetes mellitus with hypoglycemia without coma; F41.9 Anxiety disorder, unspecified; I10 Essential (primary) hypertension; Z99.3 Dependence on wheelchair; W14.XXXS Fall from tree, sequela; S24.103S Unspecified injury at T7-T10 level of thoracic spinal cord, sequela; L89.322 Pressure ulcer of left buttock, stage 2; Z74.01 Bed confinement status; Z93.3 Colostomy status; L89.96 Pressure-induced deep tissue damage of unspecified site; Z87.891 Personal history of nicotine dependence; L89.312 Pressure ulcer of right buttock, stage 2; Z87.440 Personal history of urinary (tract) infections; Z85.828 Personal history of other malignant neoplasm of skin; Z79.899 Other long term (current) drug therapy; Z79.84 Long term (current) use of oral hypoglycemic drugs; Z79.82 Long term (current) use of aspirin; Z88.2 Allergy status to sulfonamides; Z91.041 Radiographic dye allergy status; Z91.013 Allergy to seafood
CPT/HCPCS: 36415; 71046; 80048; 80053; 81003; 82607; 82728; 83540; 83550; 83605; 84145; 85025; 85610; 85730; 86140; 87040; 87070; 87205; 87636; 93005

== ENCOUNTER 2021-12-12 13:07 | Inpatient (IN) | payer MEDICARE, OTHER ==
[2021-12-12 13:50] LABS: Anisocytosis Slight; Basophils # (A) 0.1 k/uL (0-0.2); Basophils % (A) 1 %; Eosinophils # (A) 0.2 k/uL (0-0.7); Eosinophils % (A) 2 %; HCT 30.4 % (39.0-53.0); HGB 9.5 gm/dL (13.0-17.5); Hypochromasia Marked; Lymphocytes # (A) 0.7 k/uL (1.0-4.8); Lymphocytes % (A) 7 %; MCH 25.1 pg (25.0-35.0); MCHC 31.3 g/dL (31.0-37.0); Mean Platelet Volume 6.7; Monocytes # (A) 0.6 k/uL (0-1.0); Monocytes % (A) 6 %; Neutrophils # (A) 8.1 k/uL (1.3-7.7); Neutrophils % (A) 83 %; Platelet Count 525 k/uL (150-450); RDW 16.3 % (11.5-15.5); WBC 9.8 k/uL (3.8-10.6)
[2021-12-12 13:56] LABS: Appearance,Urine Turbid (Clear); Bilirubin,Urine Negative (Negative); Blood,Urine Moderate (Negative); Budding Yeast,Urine Rare /hpf; Color,Urine Yellow; Glucose,Urine (UA) Negative (Negative); Ketones,Urine Negative (Negative); Leukocyte Esterase,Urine Large (Negative); Mucus,Urine Many /hpf; Nitrite,Urine Positive (Negative); PH, Urine 5.5 (5.0-8.0); Protein,Urine 1+ (Negative); RBC,Urine 37 /hpf (0-5); Squamous Epithelial Cell,Urine 7 /hpf (0-4); Urobilinogen,Urine <2.0 mg/dL (<2.0); WBC,Urine >182 /hpf (0-5)
[2021-12-12 13:58] LABS: INR 1.2 (<1.2); Prothrombin Time 12.6 sec (9.0-12.0)
[2021-12-12 13:59] LABS: ALT 12 U/L (4-49); AST 19 U/L (17-59); African American GFR (CKD) >90 (>60 ml/min/1.73 sqM); Albumin 3.3 g/dL (3.5-5.0); Alkaline Phosphatase 108 U/L (38-126); Amylase 50 U/L (30-110); Anion Gap 14 mmol/L; Blood Urea Nitrogen 14 mg/dL (9-20); Calcium 8.9 mg/dL (8.4-10.2); Carbon Dioxide 29 mmol/L (22-30); Chloride 93 mmol/L (98-107); Glucose 134 mg/dL (74-99); Lipase 107 U/L (23-300); Magnesium 1.8 mg/dL (1.6-2.3); Non-African American GFR(CKD) >90 (>60 ml/min/1.73 sqM); Potassium 3.6 mmol/L (3.5-5.1); Sodium 136 mmol/L (137-145); Total Bilirubin 0.4 mg/dL (0.2-1.3); Total Protein 8.2 g/dL (6.3-8.2)
--- NOTE | 2021-12-12 14:06 | XR ---
EXAMINATION TYPE: XR chest 2V DATE OF EXAM: 12/12/2021 COMPARISON: Chest x-ray November 05, 2021 HISTORY: Weakness. TECHNIQUE: Frontal and lateral views of the chest are obtained. FINDINGS: Frontal view is suboptimal as does not include entire left lung base. Persistent small left pleural effusion and cardiomegaly. Persistent left basilar opacity. Right lung remains clear. Long s egment Shirley rods partially imaged. Bridging osteophytes in the thoracic spine again seen. High riding right humeral head suggests chronic rotator cuff tear similar to prior. IMPRESSION: Cardiomegaly with small left pleural effusion and left basilar acute infiltrate and/or a telectasis redemonstrated. No significant change from prior x-ray.
--- NOTE | 2021-12-12 14:47 | CT ---
EXAMINATION TYPE: CT abdomen pelvis wo con CT DLP: 766 mGycm, Automated exposure control for dose reduction was used. DATE OF EXAM: 12/12/2021 1:56 PM COMPARISON: CT abdomen pelvis most recent from 06/20/2017 . CLINICAL INDICATION:Male, 71 years old with history of Loss of appetite, nausea; TECHNIQUE: Standard CT of the abdomen and pelvis without IV or oral contrast. Lack of IV or oral co ntrast limits evaluation of solid and hollow organ viscera. Coronal and sagittal reformats were perfo rmed. FINDINGS: LOWER CHEST: Small left pleural effusion with associated atelectasis. Aortic valvular calcifications. Coronary arterial calcifications. ABDOMEN LIVER: Noncontrast appearance. GALLBLADDER AND BILE DUCTS: Unremarkable. PANCREAS: Unremarkable noncontrast appearance. SPLEEN: Unremarkable noncontrast appearance. ADRENAL GLANDS: Unremarkable noncontrast appearance. KIDNEYS AND URETERS: No hydronephrosis. Nonobstructive bilateral renal calculi. PELVIS BLADDER: Decompressed with Epps catheter in place. Few calculi demonstrated layering within the uret er bladder. REPRODUCTIVE: Unremarkable. ABDOMEN & PELVIS STOMACH AND BOWEL: Left lower quadrant colostomy. There is rectal pouch remnant. No evidence of bowel obstruction. PERITONEUM: No evidence of pneumoperitoneum or free fluid. VASCULATURE: Moderate atherosclerotic calcifications are present throughout the abdominal aorta and i ts branches. No evidence of aortic aneurysm. MUSCULOSKELETAL: No acute osseous abnormalities. Diffuse bone demineralization. Severe osteoarthritic changes of both hips. Partial visualization of right femoral intramedullary elias. Advanced degenerati ve changes of the thoracolumbar spine with fixation hardware along the posterior thoracic spine. Larg e bridging osteophytes of the lumbar spine. Atrophy of the right paraspinal musculature. LYMPH NODES: No gross evidence for lymphadenopathy. SOFT TISSUE/ABDOMINAL WALL: Asymmetric left lateral soft tissue edema. IMPRESSION: 1. No acute abdominal cyst pelvic process. 2. Nonobstructive bilateral renal calculi and urinary bladder calculi with Epps catheter in place. 3. Small left pleural effusion with associated atelectasis.
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
[2021-12-12] MEDS ORDERED: ACETAMINOPHEN IV (For NPO) 1,000 MG in EMPTY BAG 1 BAG IVPB STA (16:12)
[2021-12-12] MEDS ORDERED: SODIUM CHLORIDE 0.9% 1,000 ML IV STA ×2 (16:12→17:52)
[2021-12-12] MEDS ORDERED: cefTRIAXone IN SWFI 1,000 MG/10 ML SYRINGE IVP STA (16:54)
[2021-12-12] MEDS ORDERED: NALOXONE 0.4 MG/ML 1 ML VIAL IV PRN (17:53)
[2021-12-12] MEDS ORDERED: ACETAMINOPHEN IV (For NPO) 1,000 MG in EMPTY BAG 1 BAG IVPB PRN (17:54)
[2021-12-12] MEDS ORDERED: CEFEPIME 2 GM in SODIUM CHLORIDE 0.9% 100 ML IVPB SCH (18:00)
[2021-12-12] MEDS ORDERED: SODIUM CHLORIDE 0.9% 1,000 ML IV ONE (18:58)
[2021-12-12] MEDS: FERROUS SULFATE 325 MG TAB PO SCH (22:20)
[2021-12-12] MEDS: CEFEPIME 2 GM in SODIUM CHLORIDE 0.9% 100 ML IVPB SCH (22:20)
[2021-12-12] MEDS: OXYBUTYNIN CHLORIDE 5 MG TAB PO SCH (22:21)
[2021-12-12] MEDS: IMIPRAMINE 10 MG TAB PO SCH (22:21)
[2021-12-12] MEDS: PRAVASTATIN SODIUM 20 MG TAB PO SCH (22:22)
[2021-12-13] MEDS: CEFEPIME 2 GM in SODIUM CHLORIDE 0.9% 100 ML IVPB SCH ×3 (05:03→20:41)
[2021-12-13] MEDS: ONDANSETRON 4 MG/2 ML VIAL IVP PRN ×2 (05:56→20:35)
[2021-12-13 07:07] LABS: Glucose,Whole Blood 136 mg/dL (70-110)
[2021-12-13] MEDS ORDERED: IMIPRAMINE 10 MG TAB PO PRN (07:57)
[2021-12-13] MEDS ORDERED: traMADol 50 MG TAB PO PRN (07:57)
[2021-12-13] MEDS: OXYBUTYNIN CHLORIDE 5 MG TAB PO SCH ×2 (10:35→20:41)
[2021-12-13] MEDS: ASCORBIC ACID 500 MG TAB PO SCH (10:35)
[2021-12-13] MEDS: glipiZIDE 5 MG TAB PO SCH ×2 (10:35→20:41)
[2021-12-13] MEDS: metFORMIN 500 MG TAB PO SCH ×2 (10:35→17:04)
[2021-12-13] MEDS: lisinopriL 10 MG TAB PO SCH (10:35)
[2021-12-13] MEDS: FERROUS SULFATE 325 MG TAB PO SCH ×2 (10:35→20:41)
[2021-12-13] MEDS: SODIUM HYPOCHLORITE 0.25% 480 ML BOT MISCELLANE SCH (10:39)
[2021-12-13] MEDS: CHOLECALCIFEROL 10 MCG (400 IU) TABLET PO SCH (11:05)
[2021-12-13 11:44] LABS: Glucose,Whole Blood 140 mg/dL (70-110)
[2021-12-13 14:02] VITALS: BMI 23.0
--- NOTE | 2021-12-13 14:14 | FL ---
EXAMINATION TYPE: FL barium swallow w video DATE OF EXAM: 12/13/2021 MODIFIED SWALLOW / DEGLUTITION STUDY CLINICAL HISTORY: Dysphagia. History of paraplegic. TECHNIQUE: Deglutition study is performed utilizing thin liquid barium, and barium thick applesauce. 1 minutes of fluoro time and 0 images obtained. COMPARISON: None. FINDINGS: The oral and pharyngeal phases show satisfactory initiation and propagation with all modali ties tested. There is no evidence of penetration or aspiration with any modality tested. No signific ant pharyngeal residue was appreciated. Other modalities could not be assessed due to patient nausea and vomiting. IMPRESSION: Suboptimal study. No penetration or aspiration observed. Please refer to speech therapist notes for further details if necessary.
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
[2021-12-13] MEDS: IMIPRAMINE 10 MG TAB PO SCH ×2 (14:49→20:42)
[2021-12-13] MEDS: LACTATED RINGERS 1,000 ML IV SCH (16:15)
[2021-12-13 16:47] LABS: Glucose,Whole Blood 88 mg/dL (70-110)
[2021-12-13 20:36] LABS: Glucose,Whole Blood 112 mg/dL (70-110)
[2021-12-13] MEDS: PRAVASTATIN SODIUM 20 MG TAB PO SCH (20:41)
[2021-12-13] MEDS: PANTOPRAZOLE 40 MG/10 ML VIAL IVP SCH (20:41)
[2021-12-14] MEDS: LACTATED RINGERS 1,000 ML IV SCH ×4 (01:40→22:00)
[2021-12-14] MEDS: CEFEPIME 2 GM in SODIUM CHLORIDE 0.9% 100 ML IVPB SCH ×3 (05:47→21:51)
[2021-12-14 07:07] LABS: Glucose,Whole Blood 89 mg/dL (70-110)
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
[2021-12-14] MEDS: metFORMIN 500 MG TAB PO SCH ×2 (07:48→19:45)
[2021-12-14] MEDS: OXYBUTYNIN CHLORIDE 5 MG TAB PO SCH ×2 (08:45→21:50)
[2021-12-14] MEDS: CHOLECALCIFEROL 10 MCG (400 IU) TABLET PO SCH (08:45)
[2021-12-14] MEDS: IMIPRAMINE 10 MG TAB PO SCH ×2 (08:46→21:50)
[2021-12-14] MEDS: PANTOPRAZOLE 40 MG/10 ML VIAL IVP SCH (08:46)
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
[2021-12-14 10:50] LABS: Glucose,Whole Blood 91 mg/dL (70-110)
[2021-12-14] MEDS: SODIUM HYPOCHLORITE 0.25% 480 ML BOT MISCELLANE SCH (11:29)
[2021-12-14] MEDS ORDERED: SODIUM CHLORIDE 0.9% 500 ML 500 ML IV ONE (12:30)
[2021-12-14] MEDS: lisinopriL 10 MG TAB PO SCH (12:47)
[2021-12-14] MEDS: glipiZIDE 5 MG TAB PO SCH ×2 (12:47→22:50)
[2021-12-14] MEDS ORDERED: IV FLUID CONTINUATION 1,000 ML IV ONE (12:48)
[2021-12-14] MEDS ORDERED: PHENYLEPHRINE-0.9% NACL SYG 1,000 MCG/10 ML SYRINGE ONE (12:49)
[2021-12-14] MEDS ORDERED: LIDOCAINE 2% INJ 20 MG/ML (2 ML VIAL) ONE (12:49)
[2021-12-14] MEDS ORDERED: PROPOFOL 10 MG/ML 20 ML VIAL IV ONE (12:49)
--- NOTE | 2021-12-14 13:02 | P.PCN ---
Date of Procedure: 12/14/21 Procedure(s) Performed: BRIEF HISTORY: Patient is a 71-year-old, pleasant, white male with history of paraplegia admitted hospital with generalized weakness, persistent nausea with occasional emesis and progressive weight loss of almost 40 pounds in the last 6 months duration. He was on Reglan for the nausea with no help.. PROCEDURE PERFORMED: Esophagogastroduodenoscopy with biopsy. PREOPERATIVE DIAGNOSIS: Chronic persistent nausea/abdominal discomfort and weight loss of 30 pounds. IV sedation per anesthesia. PROCEDURE: After informed consent was obtained, the patient was brought into the endoscopy unit. IV sedation was administered by Anesthesia under continuous monitoring. Initially the Olympus GIF-140 video endoscope was inserted into the mouth. Esophagus intubated without any difficulty. It was gradually advanced into the stomach and duodenum and carefully examined. The bulb and the second part of the duodenum appeared normal. Biopsies were done from this area to rule out celiac disease. The scope at this time was withdrawn to the stomach, adequately insufflated with air, and upon careful examination, mucosa of the antrum, appeared normal. There was diffuse gastritis involving the proximal body the stomach and multiple biopsies were done from this area. The cardia and the fundus appeared normal. The scope was then withdrawn into the esophagus. The GE junction was located at 47 cm from the incisors. The esophagus appeared normal. There were no erosions or ulcerations seen and the patient tolerated the procedure well. IMPRESSION: 1. Mild diffuse gastritis involving the body the stomach status post biopsies. 2. No evidence of esophagitis, peptic ulcer disease or gastric outlet obstruction. RECOMMENDATIONS: The findings of this examination were discussed with the patient . At this time will await biopsy results. Continue with Reglan and Zofran alternating with each other for the nausea. Continue Protonix 40 mg daily. Advance diet as tolerated
[2021-12-14] MEDS: ASCORBIC ACID 500 MG TAB PO SCH (13:29)
[2021-12-14] MEDS: FERROUS SULFATE 325 MG TAB PO SCH ×2 (13:29→21:51)
[2021-12-14] MEDS ORDERED: ONDANSETRON 4 MG/2 ML VIAL IVP ONE (13:32)
--- NOTE | 2021-12-14 16:07 | P.PN ---
Subjective Progress Note Date: 12/14/21 Principal diagnosis: Urinary tract infection Patient is a 71-year-old male presented to hospital for weakness and decrease oral intake in this patient with a chronic indwelling Epps catheter patient was noticed to have a positive UA concerning for catheter associated a ttack infection and also have multiple ulceration to the sacral and gluteal area but no evidence of any cellulitis. On today's evaluation that is 12/14/2021, the patient denies having any fever or ages, patient is feeling slightly better today breathing comfortably on nasal cannula oxygen no chest pain shortness of breath or cough no abdominal pain or diarrhea Objective - Vital Signs Vital signs: Vital Signs Temp 97.4 F L 12/14/21 13:05 Pulse 78 12/14/21 13:05 Resp 16 12/14/21 13:05 BP 90/55 12/14/21 13:05 Pulse Ox 100 12/14/21 13:05 FiO2 Intake & Output 12/13/21 12/14/21 12/14/21 18:59 06:59 18:59 Intake Total 100 Output Total 100 500 150 Balance -100 -500 -50 Weight 79.107 kg Intake: IV 100 Output: Urine 100 500 150 Other: Voiding Method Indwelling Catheter Indwelling Catheter Indwelling Catheter - Exam GENERAL DESCRIPTION: An elderly male lying in bed in no distress RESPIRATORY SYSTEM: Unlabored breathing , decreased breath sounds at bases HEART: S1 S2 regular rate and rhythm , ABDOMEN: Soft , no tenderness EXTREMITIES: No edema feet - Labs CBC & Chem 7: 12/12/21 13:27 12/12/21 13:27 Labs: Abnormal Lab Results - Last 24 Hours (Table) 12/13/21 Range/Units 20:35 POC Glucose (mg/dL) 112 H (70-110) mg/dL Microbiology - Last 24 Hours (Table) 12/12/21 20:40 Blood Culture - Preliminary Blood No Growth after 24 hours 12/12/21 20:30 Blood Culture - Preliminary Blood No Growth after 24 hours 12/12/21 13:27 Urine Culture - Preliminary Urine,Voided Gram Neg Bacilli Assessment and Plan (1) UTI (urinary tract infection) Current Visit: Yes Status: Acute Code(s): N39.0 - URINARY TRACT INFECTION, SITE NOT SPECIFIED SNOMED Code(s): 54198013 Plan: 1patient presented to hospital with generalized weakness decreased urine output more likely related to the catheter assisted UTI and more likely from a gram- negative pathogen. 2patient with mildly elevated procalcitonin of 0.11 patient did have some atelectasis on the chest x-ray and do not have significant respiratory symptoms to be concerned for pneumonia. 3patient did have multiple pressure ulceration to his sacral area as well as left hip with no evidence of any cellulitis we will recommend local wound care. 4patient to continue cefepime while waiting for the culture to finalize and monitor clinical course closely. Family the bedside questions concerned were answered Time with Patient: Less than 30
[2021-12-14 16:50] LABS: Glucose,Whole Blood 87 mg/dL (70-110)
--- NOTE | 2021-12-14 18:22 | P.PN ---
Progress Note - Text Progress Note Date: 12/14/21 Chief Complaint: Decreased appetite This is a 71-year-old patient, follows with visiting physicians. 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 Chronic Epps catheter. Colostomy was done because patient being bedridden. And wo unds. Patient now presents with at least 4 weeks or more of nausea vomiting. Especially with eating. Unable to keep much down. Has been losing weight. Some shortness of breath. Has been having weight loss. Lives with his at home. 12/14/2021: Earlier underwent EGD. Showed mild diffuse gastritis. By Dr. Aamir Darling. Put on Reglan and Zofran. We will change to a ground diet. Had ensure. Active Medications Ascorbic Acid (Ascorbic Acid 500 Mg Tab) 500 mg PO DAILY [facility] Last Admin: 12/14/21 13:29 Dose: Not Given Cholecalciferol (Cholecalciferol 10 Mcg (400 Iu) Tablet) 10 mcg PO DAILY [facility] Last Admin: 12/14/21 08:45 Dose: 10 mcg Ferrous Sulfate (Ferrous Sulfate 325 Mg Tab) 325 mg PO BID [facility] Last Admin: 12/14/21 13:29 Dose: Not Given Glipizide (Glipizide 5 Mg Tab) 5 mg PO BID [facility] Last Admin: 12/14/21 12:47 Dose: Not Given Acetaminophen 1,000 mg/ IV (Solution) 100 mls @ 400 mls/hr IVPB Q6H PRN PRN Reason: Fever and/ or Pain Cefepime HCl 2 gm/ Sodium (Chloride) 100 mls @ 200 mls/hr IVPB Q8H [facility]; Protocol Last Admin: 12/14/21 15:30 Dose: 200 mls/hr Lactated Ringer's (Lactated Ringers) 1,000 mls @ 125 mls/hr IV .Q8H [facility] Last Admin: 12/14/21 16:20 Dose: Not Given Imipramine HCl (Imipramine 10 Mg Tab) 10 mg PO BID [facility] Last Admin: 12/14/21 08:46 Dose: 10 mg Imipramine HCl (Imipramine 10 Mg Tab) 10 mg PO DAILY PRN PRN Reason: leaking (urinary incontinence) Last Admin: 12/13/21 11:04 Dose: 10 mg Lisinopril (Lisinopril 10 Mg Tab) 10 mg PO DAILY [facility] Last Admin: 12/14/21 12:47 Dose: Not Given Metformin HCl (Metformin 500 Mg Tab) 500 mg PO BID-W/MEALS [facility] Last Admin: 12/14/21 07:48 Dose: 500 mg Metoclopramide HCl (Metoclopramide 10 Mg Tab) 10 mg PO ACHS PRN PRN Reason: Nausea Naloxone HCl (Naloxone 0.4 Mg/Ml 1 Ml Vial) 0.2 mg IV Q2M PRN PRN Reason: Opioid Reversal Ondansetron HCl (Ondansetron 4 Mg/2 Ml Vial) 4 mg IVP Q8HR PRN PRN Reason: Nausea And Vomiting Last Admin: 12/13/21 20:35 Dose: 4 mg Oxybutynin Chloride (Oxybutynin Chloride 5 Mg Tab) 5 mg PO BID [facility] Last Admin: 12/14/21 08:45 Dose: 5 mg Pantoprazole Sodium (Pantoprazole 40 Mg/10 Ml Vial) 40 mg IVP BID [facility] Last Admin: 12/14/21 08:46 Dose: 40 mg Pravastatin Sodium (Pravastatin Sodium 20 Mg Tab) 20 mg PO HS [facility] Last Admin: 12/13/21 20:41 Dose: 20 mg Sodium Hypochlorite (Sodium Hypochlorite 0.25% 480 Ml Bot) 10 ml MISCELLANE DAILY [facility] Last Admin: 12/14/21 11:29 Dose: Not Given Tramadol HCl (Tramadol 50 Mg Tab) 50 mg PO QID PRN PRN Reason: Pain Past medical history to include: Chronic decubitus ulcers, diabetes mellitus type 2, chronic neurogenic bladder with Epps catheter, GERD, chronic paraplegia from T8 spinal cord injury 1990, hyperlipidemia, chronic colostomy for diversion, DVT, depression Social history: Patient started smoking cigarettes age of 15 - changed to by smoking stopped in 2004. History of alcohol abuse stopped in 1990. 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 Lives with his . Has a wheelchair. Hospital bed with specialty mattress. On examination: VITAL SIGNS: 97.4, 83, 16, 86/46, 94% GENERAL APPEARANCE: Propped up in bed, tired HEENT: Normal external appearance of nose and ear. Oral cavity normal EYES: Pupils equal. Conjunctiva normal. NECK: JVD not raised. Mass not palpable. RESPIRATORY: Respiratory effort normal. Lungs clear to auscultation. CARDIOVASCULAR: First and second sounds normal. No edema. ABDOMEN: Soft. Liver and spleen not palpable. No tenderness. No mass palpable. Colostomy bag PSYCHIATRY: Alert and oriented x3. Mood and affect normal. NEUROLOGICAL: No power sensation lower extremity. DERMATOLOGICAL: Wounds more details look at nursing pictures INVESTIGATIONS, reviewed in the clinical context: EGD: Gastritis WBC 9.8 hemoglobin 9.5 platelets 525 sodium 136 potassium 3.6 creatinine 0.59 Pro-calcitonin 0.11 COVID 19: Detected EKG tracing personally reviewed by me-normal sinus rhythm. Nonspecific ST-T speech changes. Chest x-ray film personally reviewed by me-some cardiomegaly. Infiltrate versus atelectasis. Report: unchanged from previous x-ray. Assessment and plan: -Possible pneumonia, suspect gram-negative organism IV cefepime. -Questionable UTI with cystitis secondary to Epps catheter , difficult to assess patient nausea vomiting could be attributed to UTI. IV cefepime. Consult ID -Intermittent nausea vomiting. Difficulty swallowing. Barium swallow test unremarkable. EGD: Gastritis. -Chronic Decubitus wounds. Wound care -Diabetes mellitus type 2, on oral hypoglycemic Resume at home and. Follow Accu-Cheks -Chronic neurogenic bladder secondary to T8 injury Epps catheter -GERD Pepcid when necessary -Hyperlipidemia Pravachol -Chronic paraplegia from T8 spinal cord injury in 1990. -Chronic colostomy for diversion Colostomy care Continue IV cefepime. Changed to ground diet. Medications for nausea. PPI.
[2021-12-14] MEDS: METOCLOPRAMIDE 10 MG TAB PO PRN (19:46)
[2021-12-14 20:42] LABS: Glucose,Whole Blood 118 mg/dL (70-110)
[2021-12-14] MEDS: PRAVASTATIN SODIUM 20 MG TAB PO SCH (21:50)
[2021-12-15] MEDS: CEFEPIME 2 GM in SODIUM CHLORIDE 0.9% 100 ML IVPB SCH ×3 (05:50→21:17)
[2021-12-15 07:15] LABS: Glucose,Whole Blood 104 mg/dL (70-110)
[2021-12-15] MEDS: LACTATED RINGERS 1,000 ML IV SCH ×2 (08:53→12:45)
[2021-12-15] MEDS: metFORMIN 500 MG TAB PO SCH ×2 (08:55→16:46)
[2021-12-15] MEDS: PANTOPRAZOLE 40 MG TABLET PO SCH (08:55)
[2021-12-15] MEDS: ASCORBIC ACID 500 MG TAB PO SCH (08:55)
[2021-12-15] MEDS: IMIPRAMINE 10 MG TAB PO SCH ×2 (08:55→21:34)
[2021-12-15] MEDS: glipiZIDE 5 MG TAB PO SCH ×2 (08:55→21:18)
[2021-12-15] MEDS: OXYBUTYNIN CHLORIDE 5 MG TAB PO SCH ×2 (08:55→21:17)
[2021-12-15] MEDS: CHOLECALCIFEROL 10 MCG (400 IU) TABLET PO SCH (08:55)
[2021-12-15] MEDS: lisinopriL 10 MG TAB PO SCH (08:55)
[2021-12-15] MEDS: FERROUS SULFATE 325 MG TAB PO SCH ×2 (08:55→21:17)
[2021-12-15] MEDS: SODIUM HYPOCHLORITE 0.25% 480 ML BOT MISCELLANE SCH (08:56)
[2021-12-15 11:53] LABS: Glucose,Whole Blood 152 mg/dL (70-110)
[2021-12-15 16:44] LABS: Glucose,Whole Blood 72 mg/dL (70-110)
[2021-12-15] MEDS: ONDANSETRON 4 MG/2 ML VIAL IVP PRN (18:06)
[2021-12-15 19:25] LABS: Glucose,Whole Blood 98 mg/dL (70-110)
[2021-12-15] MEDS: PRAVASTATIN SODIUM 20 MG TAB PO SCH (21:17)
[2021-12-16] MEDS: CEFEPIME 2 GM in SODIUM CHLORIDE 0.9% 100 ML IVPB SCH ×3 (06:19→21:53)
[2021-12-16] MEDS: LACTATED RINGERS 1,000 ML IV SCH ×3 (06:19→16:03)
[2021-12-16 07:24] LABS: Glucose,Whole Blood 101 mg/dL (70-110)
[2021-12-16] MEDS: ONDANSETRON 4 MG/2 ML VIAL IVP PRN (07:44)
[2021-12-16] MEDS: ASCORBIC ACID 500 MG TAB PO SCH (07:44)
[2021-12-16] MEDS: CHOLECALCIFEROL 10 MCG (400 IU) TABLET PO SCH (07:44)
[2021-12-16] MEDS: glipiZIDE 5 MG TAB PO SCH ×2 (07:44→22:18)
[2021-12-16] MEDS: OXYBUTYNIN CHLORIDE 5 MG TAB PO SCH ×2 (07:44→21:53)
[2021-12-16] MEDS: IMIPRAMINE 10 MG TAB PO SCH ×2 (07:44→21:53)
[2021-12-16] MEDS: metFORMIN 500 MG TAB PO SCH (07:44)
[2021-12-16] MEDS: PANTOPRAZOLE 40 MG TABLET PO SCH ×2 (07:44→21:53)
[2021-12-16] MEDS: FERROUS SULFATE 325 MG TAB PO SCH (07:44)
[2021-12-16] MEDS: lisinopriL 10 MG TAB PO SCH (07:44)
[2021-12-16] MEDS: SODIUM HYPOCHLORITE 0.25% 480 ML BOT MISCELLANE SCH (07:47)
[2021-12-16 11:40] LABS: Glucose,Whole Blood 98 mg/dL (70-110)
[2021-12-16] MEDS: METOCLOPRAMIDE 10 MG TAB PO PRN (11:55)
[2021-12-16 11:58] LABS: African American GFR (CKD) 123.5 (60.0-200.0); Anion Gap 7.1 mmol/L (10.00-18.00); BUN/Creat Ratio 21.72 Ratio (12.00-20.00); Blood Urea Nitrogen 11.1 mg/dL (9.0-27.0); Calcium 7.9 mg/dL (8.7-10.3); Non-African American GFR(CKD) 106.6 (60.0-200.0); Potassium 3.5 mmol/L (3.5-5.5)
[2021-12-16 12:11] LABS: Basophils # (A) 0.04 X 10*3/uL (0.00-0.10); Basophils % (A) 0.5 %; Eosinophils # (A) 0.27 X 10*3/uL (0.04-0.35); Eosinophils % (A) 3.4 %; HCT 22.5 % (39.6-50.0); HGB 6.5 g/dL (13.0-17.0); Immature Grans, Automated 0.8 %; Lymphocytes # (A) 0.42 X 10*3/uL (0.90-5.00); Lymphocytes % (A) 5.3 %; MCH 23.1 pg (27.0-32.0); MCHC 28.9 g/dL (32.0-37.0); MCV 80.1 fL (80.0-97.0); Monocytes # (A) 0.95 X 10*3/uL (0.20-1.00); Monocytes % (A) 12.1 %; NRBC Per 100 WBC 0 /100 WBCS (0.0-0.0); Neutrophils # (A) 6.12 X 10*3/uL (1.80-7.70); Neutrophils % (A) 77.9 %; Platelet Count 365 X 10*3/uL (140-440); RBC 2.81 X 10*6/uL (4.40-5.60); RDW 17.6 % (11.5-14.5); WBC 7.86 X 10*3/uL (4.50-10.00)
[2021-12-16] MEDS ORDERED: METOCLOPRAMIDE 5 MG/ML 2 ML VIAL IVP PRN (12:25)
[2021-12-16] MEDS ORDERED: DEXTROSE 50% SYRINGE 50 ML IVP PRN ×2 (12:56)
[2021-12-16] MEDS ORDERED: FUROSEMIDE 10 MG/ML 2 ML VIAL IV ONE (14:15)
[2021-12-16 17:03] LABS: Glucose,Whole Blood 74 mg/dL (70-110)
[2021-12-16] MEDS: INSULIN ASPART (NovoLOG) 100 UNIT/ML VIAL SQ SCH ×2 (17:03→22:18)
[2021-12-16 21:47] LABS: Glucose,Whole Blood 105 mg/dL (70-110)
[2021-12-16] MEDS: PRAVASTATIN SODIUM 20 MG TAB PO SCH (21:53)
--- NOTE | 2021-12-16 23:39 | P.PN ---
Subjective Progress Note Date: 12/15/21 Principal diagnosis: Urinary tract infection Patient is a 71-year-old male presented to hospital for weakness and decrease oral intake in this patient with a chronic indwelling Epps catheter patient was noticed to have a positive UA concerning for catheter associated a ttack infection and also have multiple ulceration to the sacral and gluteal area but no evidence of any cellulitis. On today's evaluation that is 12/15/2021, the patient remains to be afebrile, patient is breathing comfortably on nasal cannula oxygen, complaining of some nausea but no vomiting no abdominal pain and no diarrhea Objective - Vital Signs Vital signs: Vital Signs Temp 99.2 F 12/15/21 08:00 Pulse 74 12/15/21 08:00 Resp 17 12/15/21 08:00 BP 94/55 12/15/21 08:00 Pulse Ox 93 L 12/15/21 08:00 FiO2 Intake & Output 12/14/21 12/15/21 12/15/21 18:59 06:59 18:59 Intake Total 200 760 Output Total 150 700 Balance 50 60 Weight 79.107 kg Intake: IV 200 Intake, IV Titration 400 Amount Lactated Ringers 1,000 ml 400 @ 125 mls/hr IV .Q8H [facility] Rx#:[id number] Oral 360 Output: Urine 150 700 Other: Voiding Method Indwelling Catheter Indwelling Catheter Indwelling Catheter # Bowel Movements 1 - Exam GENERAL DESCRIPTION: An elderly male lying in bed in no distress RESPIRATORY SYSTEM: Unlabored breathing , decreased breath sounds at bases HEART: S1 S2 regular rate and rhythm , ABDOMEN: Soft , no tenderness EXTREMITIES: No edema feet - Labs CBC & Chem 7: 12/16/21 06:50 12/16/21 06:50 Labs: Abnormal Lab Results - Last 24 Hours (Table) 12/14/21 12/15/21 Range/Units 20:37 11:50 POC Glucose (mg/dL) 118 H 152 H (70-110) mg/dL Microbiology - Last 24 Hours (Table) 12/12/21 20:30 Blood Culture - Preliminary Blood No Growth after 48 hours 12/12/21 20:40 Blood Culture - Preliminary Blood No Growth after 48 hours Assessment and Plan (1) UTI (urinary tract infection) Current Visit: Yes Status: Acute Code(s): N39.0 - URINARY TRACT INFECTION, SITE NOT SPECIFIED SNOMED Code(s): 53855455 Plan: 1patient presented to hospital with generalized weakness decreased urine output more likely related to the catheter assisted UTI and more likely from a gram- negative pathogen. 2patient with mildly elevated procalcitonin of 0.11 patient did have some atelectasis on the chest x-ray and do not have significant respiratory symptoms to be concerned for pneumonia. 3patient did have multiple pressure ulceration to his sacral area as well as left hip with no evidence of any cellulitis we will recommend local wound care. 4patient has shown clinical improvement and the patient will continue cefepime while waiting for the culture to finalize and monitor clinical course closely. Time with Patient: Less than 30
--- NOTE | 2021-12-16 23:40 | P.PN ---
Subjective Progress Note Date: 12/16/21 Principal diagnosis: Urinary tract infection Patient is a 71-year-old male presented to hospital for weakness and decrease oral intake in this patient with a chronic indwelling Epps catheter patient was noticed to have a positive UA concerning for catheter associated a ttack infection and also have multiple ulceration to the sacral and gluteal area but no evidence of any cellulitis. On today's evaluation that is 12/16/2021, the patient continues to be afebrile, patient is breathing comfortably on nasal cannula oxygen, the patient is complaining of some nausea but no vomiting , the patient denies abdominal pain and no diarrhea Objective - Vital Signs Vital signs: Vital Signs Temp 98.5 F 12/16/21 07:52 Pulse 76 12/16/21 07:52 Resp 19 12/16/21 07:52 BP 95/59 12/16/21 07:52 Pulse Ox 93 L 12/16/21 07:52 FiO2 Intake & Output 12/15/21 12/16/21 12/16/21 18:59 06:59 18:59 Output Total 800 Balance -800 Output: Urine 800 Other: Voiding Method Indwelling Catheter Indwelling Catheter Indwelling Catheter - Exam GENERAL DESCRIPTION: An elderly male lying in bed in no distress RESPIRATORY SYSTEM: Unlabored breathing , decreased breath sounds at bases HEART: S1 S2 regular rate and rhythm , ABDOMEN: Soft , no tenderness EXTREMITIES: No edema feet - Labs CBC & Chem 7: 12/16/21 06:50 12/16/21 06:50 Labs: Abnormal Lab Results - Last 24 Hours (Table) 12/16/21 12/16/21 12/16/21 Range/Units 06:50 06:50 14:22 RBC 2.81 L (4.40-5.60) X 10*6/uL Hgb 6.5 L* (13.0-17.0) g/dL Hct 22.5 L (39.6-50.0) % MCH 23.1 L (27.0-32.0) pg MCHC 28.9 L (32.0-37.0) g/dL RDW 17.6 H (11.5-14.5) % MPV 9.0 L (9.5-12.2) fL Immature Gran # 0.06 H (0.00-0.04) X 10*3/uL Lymphocytes # 0.42 L (0.90-5.00) X 10*3/uL Sodium 134 L (135-145) mmol/L Anion Gap 7.10 L (10.00-18.00) mmol/L Creatinine 0.5 L (0.6-1.5) mg/dL BUN/Creatinine Ratio 21.72 H (12.00-20.00) Ratio Calcium 7.9 L (8.7-10.3) mg/dL Crossmatch See Detail Microbiology - Last 24 Hours (Table) 12/12/21 13:27 Urine Culture - Final Urine,Voided Pseudomonas aeruginosa 12/12/21 20:30 Blood Culture - Preliminary Blood No Growth after 72 hours 12/12/21 20:40 Blood Culture - Preliminary Blood No Growth after 72 hours Assessment and Plan (1) UTI (urinary tract infection) Current Visit: Yes Status: Acute Code(s): N39.0 - URINARY TRACT INFECTION, SITE NOT SPECIFIED SNOMED Code(s): 60472999 Plan: 1patient presented to hospital with generalized weakness decreased urine output more likely related to the catheter assisted UTI and more likely from a gram- negative pathogen. 2patient with mildly elevated procalcitonin of 0.11 patient did have some atelectasis on the chest x-ray and do not have significant respiratory symptoms to be concerned for pneumonia. 3patient did have multiple pressure ulceration to his sacral area as well as left hip with no evidence of any cellulitis we will recommend local wound care. 4patient has shown clinical improvement and the patient urine cultures have been finalized with a Pseudomonas that is sensitive to cefepime but resistant oral Cipro blood culture had been negative. 5patient to continue with the cefepime with no oral options available he will need to midline and outpatient IV antibiotic therapy Time with Patient: Less than 30
--- NOTE | 2021-12-16 23:55 | PN ---
PROGRESS NOTE DATE OF SERVICE: 12/15/2021 SUBJECTIVE: This 71-year-old gentleman, who was admitted with spinal cord injury, had significant weakness. The patient is currently admitted with possible pneumonia and questionable UTI. The patient is receiving empiric antibiotics. The patient is being closely monitored. PAST MEDICAL HISTORY: Reviewed. REVIEW OF SYSTEMS: A 14-point review of systems is negative except as mentioned earlier. CURRENT MEDICATIONS: Reviewed and include cefepime. Doses and rest of the medication noted. PHYSICAL EXAMINATION: VITAL SIGNS: Pulse is 74, blood pressure ntd_, respirations 17. HEENT: Conjunctivae normal. NECK: No JVD. CARDIOVASCULAR: S1, S2. RESPIRATIONS: Breath sounds diminished at the bases. Scattered rhonchi. ABDOMEN: Soft, nontender. LEGS: No edema. NERVOUS SYSTEM: Minimal weakness of the limbs also present. LABORATORY DATA: Reviewed. ASSESSMENT: 1. Possible pneumonia, suspect gram-negative organism. 2. Questionable urinary tract infection with cystitis. 3. Intermittent nausea and vomiting. 4. Chronic decubitus wounds. 5. Diabetes mellitus, type 2. 6. Multiple medical issues. RECOMMENDATIONS: I recommend to continue current . Closely follow with Infectious Disease. Urine culture is growing gram-negative bacilli. I would also recommend to repeat labs. Resume the home medications. PT/OT evaluation. Further recommendations to follow. I had a detailed discussion with the family. DARA / ELINAN: [id number] / MTDD
--- NOTE | 2021-12-17 04:10 | P.PN ---
Subjective Progress Note Date: 12/16/21 Chief Complaint: Decreased appetite This is a 71-year-old patient, follows with visiting physicians. 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 Chronic Epps catheter. Colostomy was done because patient being bedridden. And wounds. Patient now presents with at least 4 weeks or more of nausea vomiting. Especially with eating. Unable to keep much down. Has been losing weight. Some shortness of breath. Has been having weight loss. Lives with his at home. 12/14/2021: Earlier underwent EGD. Showed mild diffuse gastritis. By Dr. Amair Darling. Put on Reglan and Zofran. We will change to a ground diet. Had ensure. 12/16/2021 Patient is seen today in follow up with ID following for UTI and continued on cefepime while awaiting finalized cultures. Multiple medical comorbidities and will continue current medications. Continue to monitor blood sugars closely and continue current regimen. Encourage oral intake and recommend repeat am labs. Afebrile and denies chest pain or shortness of breath. Monitor hemoglobin. Continue local wound care. Active Medications Ascorbic Acid (Ascorbic Acid 500 Mg Tab) 500 mg PO DAILY [facility] Last Admin: 12/16/21 07:44 Dose: 500 mg Cholecalciferol (Cholecalciferol 10 Mcg (400 Iu) Tablet) 10 mcg PO DAILY [facility] Last Admin: 12/16/21 07:44 Dose: 10 mcg Dextrose/Water (Dextrose 50% Syringe 50 Ml) 25 ml IVP PER PROTOCOL PRN; Protocol PRN Reason: Hypoglycemia Dextrose/Water (Dextrose 50% Syringe 50 Ml) 50 ml IVP PER PROTOCOL PRN; Protocol PRN Reason: Hypoglycemia Glipizide (Glipizide 5 Mg Tab) 5 mg PO BID [facility] Last Admin: 12/16/21 22:18 Dose: Not Given Acetaminophen 1,000 mg/ IV (Solution) 100 mls @ 400 mls/hr IVPB Q6H PRN PRN Reason: Fever and/ or Pain Cefepime HCl 2 gm/ Sodium (Chloride) 100 mls @ 200 mls/hr IVPB Q8H [facility]; Protocol Last Admin: 12/16/21 21:53 Dose: 200 mls/hr Lactated Ringer's (Lactated Ringers) 1,000 mls @ 125 mls/hr IV .Q8H [facility] Last Admin: 12/16/21 16:03 Dose: Not Given Imipramine HCl (Imipramine 10 Mg Tab) 10 mg PO BID [facility] Last Admin: 12/16/21 21:53 Dose: 10 mg Imipramine HCl (Imipramine 10 Mg Tab) 10 mg PO DAILY PRN PRN Reason: leaking (urinary incontinence) Last Admin: 12/13/21 11:04 Dose: 10 mg Insulin Aspart (Insulin Aspart (Novolog) 100 Unit/Ml Vial) 0 unit SQ ACHS [facility]; Protocol Last Admin: 12/16/21 22:18 Dose: Not Given Lisinopril (Lisinopril 10 Mg Tab) 10 mg PO DAILY [facility] Last Admin: 12/16/21 07:44 Dose: 10 mg Metoclopramide HCl (Metoclopramide 5 Mg/Ml 2 Ml Vial) 5 mg IVP ACHS PRN PRN Reason: Nausea And Vomiting Naloxone HCl (Naloxone 0.4 Mg/Ml 1 Ml Vial) 0.2 mg IV Q2M PRN PRN Reason: Opioid Reversal Ondansetron HCl (Ondansetron 4 Mg/2 Ml Vial) 4 mg IVP Q8HR PRN PRN Reason: Nausea And Vomiting Last Admin: 12/16/21 07:44 Dose: 4 mg Oxybutynin Chloride (Oxybutynin Chloride 5 Mg Tab) 5 mg PO BID [facility] Last Admin: 12/16/21 21:53 Dose: 5 mg Pantoprazole Sodium (Pantoprazole 40 Mg Tablet) 40 mg PO BID [facility] Last Admin: 12/16/21 21:53 Dose: 40 mg Pravastatin Sodium (Pravastatin Sodium 20 Mg Tab) 20 mg PO HS [facility] Last Admin: 12/16/21 21:53 Dose: 20 mg Sodium Hypochlorite (Sodium Hypochlorite 0.25% 480 Ml Bot) 10 ml MISCELLANE DAILY [facility] Last Admin: 12/16/21 07:47 Dose: Not Given Tramadol HCl (Tramadol 50 Mg Tab) 50 mg PO QID PRN PRN Reason: Pain Physical examination: GENERAL APPEARANCE: Propped up in bed, tired HEENT: Normal external appearance of nose and ear. Oral cavity normal EYES: Pupils equal. Conjunctiva normal. NECK: JVD not raised. Mass not palpable. RESPIRATORY: Respiratory effort normal. Lungs clear to auscultation. CARDIOVASCULAR: First and second sounds normal. No edema. ABDOMEN: Soft. Liver and spleen not palpable. No tenderness. No mass palpable. Colostomy bag PSYCHIATRY: Alert and oriented x3. Mood and affect normal. NEUROLOGICAL: No power sensation lower extremity. DERMATOLOGICAL: Wounds more details look at nursing pictures Assessment and plan: -Possible pneumonia, suspect gram-negative organism -Questionable UTI with cystitis secondary to Epps catheter , difficult to assess patient nausea vomiting could be attributed to UTI. -Intermittent nausea vomiting. Difficulty swallowing. possibly secondary to gastritis as noted on EGD -Chronic Decubitus wounds. -Diabetes mellitus type 2, on oral hypoglycemic -Chronic neurogenic bladder secondary to T8 injury -GERD -Hyperlipidemia -Chronic paraplegia from T8 spinal cord injury in 1990. -Chronic colostomy for diversion Plan: Continue with current medications and IV abx with ID following Recommend repeat am labs and monitor closely Continue to monitor accuchecks achs Transfuse if less than 7 Follow up on hemoglobin. Encourage oral intake Continue local wound care Due to multiple complex medical issues, prognosis is guarded The impression and plan of care has been dictated as a scribe by Karly Zimmerman, nurse practitioner as directed. Dr. Brandon MD I have performed a history and examination and MDM of this patient, discussed the same with the dictator, and has been documented as a scribe. Based on total visit time, I have performed more than 50% of the visit. Any additional findings or plans will be noted. Objective - Vital Signs Vital signs: Vital Signs Temp 98.5 F 12/16/21 07:52 Pulse 76 12/16/21 07:52 Resp 19 12/16/21 07:52 BP 95/59 12/16/21 07:52 Pulse Ox 93 L 12/16/21 07:52 FiO2 Intake & Output 12/15/21 12/16/21 12/16/21 18:59 06:59 18:59 Output Total 800 Balance -800 Output: Urine 800 Other: Voiding Method Indwelling Catheter Indwelling Catheter Indwelling Catheter - Labs CBC & Chem 7: 12/16/21 06:50 12/16/21 06:50 Labs: Abnormal Lab Results - Last 24 Hours (Table) 12/16/21 12/16/21 Range/Units 06:50 06:50 RBC 2.81 L (4.40-5.60) X 10*6/uL Hgb 6.5 L* (13.0-17.0) g/dL Hct 22.5 L (39.6-50.0) % MCH 23.1 L (27.0-32.0) pg MCHC 28.9 L (32.0-37.0) g/dL RDW 17.6 H (11.5-14.5) % MPV 9.0 L (9.5-12.2) fL Immature Gran # 0.06 H (0.00-0.04) X 10*3/uL Lymphocytes # 0.42 L (0.90-5.00) X 10*3/uL Sodium 134 L (135-145) mmol/L Anion Gap 7.10 L (10.00-18.00) mmol/L Creatinine 0.5 L (0.6-1.5) mg/dL BUN/Creatinine Ratio 21.72 H (12.00-20.00) Ratio Calcium 7.9 L (8.7-10.3) mg/dL Microbiology - Last 24 Hours (Table) 12/12/21 13:27 Urine Culture - Final Urine,Voided Pseudomonas aeruginosa 12/12/21 20:30 Blood Culture - Preliminary Blood No Growth after 72 hours 12/12/21 20:40 Blood Culture - Preliminary Blood No Growth after 72 hours
[2021-12-17] MEDS: LACTATED RINGERS 1,000 ML IV SCH ×4 (05:58→20:36)
[2021-12-17] MEDS: CEFEPIME 2 GM in SODIUM CHLORIDE 0.9% 100 ML IVPB SCH ×3 (05:58→20:34)
[2021-12-17 06:34] LABS: Glucose,Whole Blood 104 mg/dL (70-110)
[2021-12-17] MEDS: glipiZIDE 5 MG TAB PO SCH ×2 (07:51→20:34)
[2021-12-17] MEDS: SODIUM HYPOCHLORITE 0.25% 480 ML BOT MISCELLANE SCH (07:52)
[2021-12-17] MEDS: ASCORBIC ACID 500 MG TAB PO SCH (07:52)
[2021-12-17] MEDS: INSULIN ASPART (NovoLOG) 100 UNIT/ML VIAL SQ SCH ×4 (07:52→20:58)
[2021-12-17] MEDS: CHOLECALCIFEROL 10 MCG (400 IU) TABLET PO SCH (07:52)
[2021-12-17] MEDS: PANTOPRAZOLE 40 MG TABLET PO SCH ×2 (07:52→20:34)
[2021-12-17] MEDS: IMIPRAMINE 10 MG TAB PO SCH ×2 (07:52→20:34)
[2021-12-17] MEDS: OXYBUTYNIN CHLORIDE 5 MG TAB PO SCH ×2 (07:52→20:34)
[2021-12-17] MEDS: lisinopriL 10 MG TAB PO SCH (07:52)
[2021-12-17 11:27] LABS: Basophils # (A) 0.04 X 10*3/uL (0.00-0.10); Basophils % (A) 0.5 %; Eosinophils # (A) 0.31 X 10*3/uL (0.04-0.35); Eosinophils % (A) 3.8 %; HCT 26.6 % (39.6-50.0); Immature Grans, Automated 0.6 %; Lymphocytes # (A) 0.45 X 10*3/uL (0.90-5.00); Lymphocytes % (A) 5.5 %; MCH 23.9 pg (27.0-32.0); MCHC 30.1 g/dL (32.0-37.0); MCV 79.4 fL (80.0-97.0); Mean Platelet Volume 8.9 fL (9.5-12.2); Monocytes # (A) 0.94 X 10*3/uL (0.20-1.00); Monocytes % (A) 11.6 %; NRBC Per 100 WBC 0 /100 WBCS (0.0-0.0); Neutrophils # (A) 6.34 X 10*3/uL (1.80-7.70); Platelet Count 365 X 10*3/uL (140-440); RBC 3.35 X 10*6/uL (4.40-5.60); RDW 17.2 % (11.5-14.5); WBC 8.13 X 10*3/uL (4.50-10.00)
[2021-12-17 11:45] LABS: Glucose,Whole Blood 114 mg/dL (70-110)
[2021-12-17 12:05] LABS: African American GFR (CKD) 115.6 (60.0-200.0); Anion Gap 10.1 mmol/L (10.00-18.00); BUN/Creat Ratio 17.67 Ratio (12.00-20.00); Blood Urea Nitrogen 10.6 mg/dL (9.0-27.0); Calcium 8.3 mg/dL (8.7-10.3); Carbon Dioxide 24.9 mmol/L (20.0-27.5); Non-African American GFR(CKD) 99.7 (60.0-200.0); Potassium 3.4 mmol/L (3.5-5.5)
[2021-12-17] MEDS: METOCLOPRAMIDE 5 MG/ML 2 ML VIAL IVP SCH ×3 (12:59→20:34)
[2021-12-17 16:45] LABS: Glucose,Whole Blood 96 mg/dL (70-110)
[2021-12-17] MEDS: PRAVASTATIN SODIUM 20 MG TAB PO SCH (20:34)
[2021-12-17 20:54] LABS: Glucose,Whole Blood 128 mg/dL (70-110)
[2021-12-18] MEDS: CEFEPIME 2 GM in SODIUM CHLORIDE 0.9% 100 ML IVPB SCH ×3 (05:14→21:50)
[2021-12-18] MEDS: LACTATED RINGERS 1,000 ML IV SCH ×2 (05:15→15:59)
[2021-12-18 06:10] LABS: Glucose,Whole Blood 94 mg/dL (70-110)
--- NOTE | 2021-12-18 06:27 | P.PN ---
Subjective Progress Note Date: 12/17/21 Chief Complaint: Decreased appetite This is a 71-year-old patient, follows with visiting physicians. 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 Chronic Epps catheter. Colostomy was done because patient being bedridden. And wounds. Patient now presents with at least 4 weeks or more of nausea vomiting. Especially with eating. Unable to keep much down. Has been losing weight. Some shortness of breath. Has been having weight loss. Lives with his at home. 12/14/2021: Earlier underwent EGD. Showed mild diffuse gastritis. By Dr. Aamir Darling. Put on Reglan and Zofran. We will change to a ground diet. Had ensure. 12/16/2021 Patient is seen today in follow up with ID following for UTI and continued on cefepime while awaiting finalized cultures. Multiple medical comorbidities and will continue current medications. Continue to monitor blood sugars closely and continue current regimen. Encourage oral intake and recommend repeat am labs. Afebrile and denies chest pain or shortness of breath. Monitor hemoglobin. Continue local wound care. 12/17/2021 Patient is seen today with at the bedside. Patient to receive a midline for outpatient IV abx. Hemoglobin is 8.0 today after one unit of PRBC given. Patient reports to feeling improved after. Plan is for home with home care and working on discharge planning with IV abx and director of casework following. Patient does not want to go to a rehab facility. Reglan was as needed and changed to scheduled and continue protonix for gastritis. Afebrile and denies chest pain or shortness of breath. Physical examination: GENERAL APPEARANCE: Propped up in bed, awake and talking with at the bedside HEENT: Normal external appearance of nose and ear. Oral cavity normal EYES: Pupils equal. Conjunctiva normal. NECK: JVD not raised. Mass not palpable. RESPIRATORY: Respiratory effort normal. Lungs clear to auscultation. CARDIOVASCULAR: First and second sounds normal. No edema. ABDOMEN: Soft. Liver and spleen not palpable. No tenderness. No mass palpable. Colostomy bag PSYCHIATRY: Alert and oriented x3. Mood and affect normal. NEUROLOGICAL: No power sensation lower extremity. DERMATOLOGICAL: Wounds more details look at nursing pictures Assessment and plan: -Possible pneumonia, suspect gram-negative organism -Questionable UTI with cystitis secondary to Epps catheter , difficult to assess patient nausea vomiting could be attributed to UTI. -Intermittent nausea vomiting. Difficulty swallowing. possibly secondary to gastritis as noted on EGD -Chronic Decubitus wounds. -Diabetes mellitus type 2, on oral hypoglycemic -Chronic neurogenic bladder secondary to T8 injury -GERD -Hyperlipidemia -Chronic paraplegia from T8 spinal cord injury in 1990. -Chronic colostomy for diversion Plan: Continue with current medications and IV abx with ID following, scheduled to receive a midline today Recommend repeat am labs and monitor closely Continue to monitor accuchecks achs Transfuse if less than 7 Encourage oral intake Continue local wound [facility] with home care being arranged Due to multiple complex medical issues, prognosis is guarded The impression and plan of care has been dictated as a scribe by Karly Zimmerman, nurse practitioner as directed. Dr. Brandon MD I have performed a history and examination and MDM of this patient, discussed the same with the dictator, and has been documented as a scribe. Based on total visit time, I have performed more than 50% of the visit. Any additional findings or plans will be noted. Objective - Vital Signs Vital signs: Vital Signs Temp 98.1 F 12/17/21 07:29 Pulse 78 12/17/21 07:29 Resp 17 12/17/21 07:29 BP 100/63 12/17/21 07:29 Pulse Ox 91 L 12/17/21 07:29 FiO2 Intake & Output 12/16/21 12/17/21 12/17/21 18:59 06:59 18:59 Intake Total 310 1600 Output Total 350 2500 Balance -40 -900 Intake: Intake, IV Titration 1500 Amount Lactated Ringers 1,000 ml 1500 @ 125 mls/hr IV .Q8H [facility] Rx#:[id number] Oral 100 Blood Product 310 Rc As-1 Unit 310 [id number] Output: Urine 350 2500 Other: Voiding Method Indwelling Catheter Indwelling Catheter Indwelling Catheter # Bowel Movements 0 - Labs CBC & Chem 7: 12/17/21 06:48 12/17/21 06:48 Labs: Abnormal Lab Results - Last 24 Hours (Table) 12/16/21 12/16/21 12/16/21 Range/Units 06:50 06:50 06:50 RBC 2.81 L (4.40-5.60) X 10*6/uL Hgb 6.5 L* (13.0-17.0) g/dL Hct 22.5 L (39.6-50.0) % MCH 23.1 L (27.0-32.0) pg MCHC 28.9 L (32.0-37.0) g/dL RDW 17.6 H (11.5-14.5) % MPV 9.0 L (9.5-12.2) fL Immature Gran # 0.06 H (0.00-0.04) X 10*3/uL Lymphocytes # 0.42 L (0.90-5.00) X 10*3/uL Sodium 134 L (135-145) mmol/L Anion Gap 7.10 L (10.00-18.00) mmol/L Creatinine 0.5 L (0.6-1.5) mg/dL BUN/Creatinine Ratio 21.72 H (12.00-20.00) Ratio Hemoglobin A1c 6.2 H (0.0-6.0) % Calcium 7.9 L (8.7-10.3) mg/dL Crossmatch 12/16/21 Range/Units 14:22 RBC (4.40-5.60) X 10*6/uL Hgb (13.0-17.0) g/dL Hct (39.6-50.0) % MCH (27.0-32.0) pg MCHC (32.0-37.0) g/dL RDW (11.5-14.5) % MPV (9.5-12.2) fL Immature Gran # (0.00-0.04) X 10*3/uL Lymphocytes # (0.90-5.00) X 10*3/uL Sodium (135-145) mmol/L Anion Gap (10.00-18.00) mmol/L Creatinine (0.6-1.5) mg/dL BUN/Creatinine Ratio (12.00-20.00) Ratio Hemoglobin A1c (0.0-6.0) % Calcium (8.7-10.3) mg/dL Crossmatch See Detail Microbiology - Last 24 Hours (Table) 12/12/21 20:30 Blood Culture - Preliminary Blood No Growth after 96 hours 12/12/21 20:40 Blood Culture - Preliminary Blood No Growth after 96 hours
[2021-12-18] MEDS: METOCLOPRAMIDE 5 MG/ML 2 ML VIAL IVP SCH ×4 (06:31→21:32)
[2021-12-18] MEDS: INSULIN ASPART (NovoLOG) 100 UNIT/ML VIAL SQ SCH ×4 (06:31→21:34)
[2021-12-18 07:41] LABS: Anisocytosis Slight; Basophils % (A) 0 %; Eosinophils # (A) 0.3 k/uL (0-0.7); Eosinophils % (A) 4 %; HCT 27.6 % (39.0-53.0); HGB 8.3 gm/dL (13.0-17.5); Hypochromasia Marked; Lymphocytes # (A) 0.5 k/uL (1.0-4.8); Lymphocytes % (A) 8 %; MCH 24.3 pg (25.0-35.0); MCV 81.2 fL (80.0-100.0); Mean Platelet Volume 7.3; Monocytes # (A) 0.5 k/uL (0-1.0); Monocytes % (A) 7 %; Neutrophils # (A) 5.3 k/uL (1.3-7.7); Neutrophils % (A) 79 %; Platelet Count 348 k/uL (150-450); Poikilocytosis Slight; RDW 16.6 % (11.5-15.5); WBC 6.7 k/uL (3.8-10.6)
[2021-12-18 07:53] LABS: African American GFR (CKD) >90 (>60 ml/min/1.73 sqM); Anion Gap 7 mmol/L; Blood Urea Nitrogen 9 mg/dL (9-20); Calcium 7.9 mg/dL (8.4-10.2); Carbon Dioxide 31 mmol/L (22-30); Chloride 99 mmol/L (98-107); Glucose 83 mg/dL (74-99); Non-African American GFR(CKD) >90 (>60 ml/min/1.73 sqM); Sodium 137 mmol/L (137-145)
[2021-12-18] MEDS: OXYBUTYNIN CHLORIDE 5 MG TAB PO SCH ×2 (08:07→21:34)
[2021-12-18] MEDS: glipiZIDE 5 MG TAB PO SCH ×2 (08:07→21:34)
[2021-12-18] MEDS: PANTOPRAZOLE 40 MG TABLET PO SCH (08:07)
[2021-12-18] MEDS: ASCORBIC ACID 500 MG TAB PO SCH (08:07)
[2021-12-18] MEDS: lisinopriL 10 MG TAB PO SCH ×2 (08:07→08:13)
[2021-12-18] MEDS: IMIPRAMINE 10 MG TAB PO SCH ×2 (08:08→21:34)
[2021-12-18] MEDS: SODIUM HYPOCHLORITE 0.25% 480 ML BOT MISCELLANE SCH (08:08)
[2021-12-18] MEDS: CHOLECALCIFEROL 10 MCG (400 IU) TABLET PO SCH (08:08)
[2021-12-18 11:09] LABS: Glucose,Whole Blood 136 mg/dL (70-110)
[2021-12-18] MEDS ORDERED: Potassium Replacement Protocol 1 EACH MISC MISCELLANE PRN (12:02)
--- NOTE | 2021-12-18 12:34 | XR ---
EXAMINATION TYPE: XR chest 1V portable DATE OF EXAM: 12/18/2021 12:23 PM COMPARISON: Chest radiographs from 12/12/2021. TECHNIQUE: XR chest 1V portable Frontal view of the chest. CLINICAL INDICATION:Male, 71 years old with history of short of breath; FINDINGS: Lungs/Pleura: Persistent small left pleural effusion. No pneumothorax. Persistent left basilar opacit y. Pulmonary vascularity: Unremarkable. Heart/mediastinum: Cardiomediastinal silhouette is enlarged and stable. Musculoskeletal: No acute osseous pathology. Long segment Shirley rods partially imaged. High ridi ng right humeral head suggests chronic rotator cuff tear, similar to prior exam. IMPRESSION: Persistent small left pleural effusion with cardiomegaly and left basilar infiltrate and/or atelectas is.
[2021-12-18] MEDS ORDERED: FUROSEMIDE 10 MG/ML 2 ML VIAL IV ONE (14:00)
[2021-12-18] MEDS: POTASSIUM CHLORIDE 10 MEQ in WATER FOR INJECTION 1 100ML.BAG IVPB SCH ×4 (14:05→21:21)
[2021-12-18 16:51] LABS: Glucose,Whole Blood 109 mg/dL (70-110)
[2021-12-18 21:26] LABS: Glucose,Whole Blood 129 mg/dL (70-110)
[2021-12-18] MEDS: PANTOPRAZOLE 40 MG/10 ML VIAL IVP SCH (21:33)
[2021-12-18] MEDS: PRAVASTATIN SODIUM 20 MG TAB PO SCH (21:34)
--- NOTE | 2021-12-19 | P.PN ---
Subjective Progress Note Date: 12/17/21 Principal diagnosis: Urinary tract infection Patient is a 71-year-old male presented to hospital for weakness and decrease oral intake in this patient with a chronic indwelling Epps catheter patient was noticed to have a positive UA concerning for catheter associated a ttack infection and also have multiple ulceration to the sacral and gluteal area but no evidence of any cellulitis. On today's evaluation that is 12/17/2021, the patient remains to be afebrile, patient is breathing comfortably on nasal cannula oxygen, the patient nausea is better and denies any vomiting , the patient denies abdominal pain and no diarrhea Objective - Vital Signs Vital signs: Vital Signs Temp 98.4 F 12/17/21 19:20 Pulse 80 12/17/21 19:20 Resp 18 12/17/21 19:20 BP 91/48 12/17/21 19:20 Pulse Ox 93 L 12/17/21 19:20 FiO2 Intake & Output 12/17/21 12/17/21 12/18/21 06:59 18:59 06:59 Intake Total 1600 1080 Output Total 2500 550 Balance -900 530 Weight 79.107 kg Intake: Intake, IV Titration 1500 Amount Lactated Ringers 1,000 ml 1500 @ 125 mls/hr IV .Q8H [facility] Rx#:[id number] Oral 100 1080 Output: Urine 2500 550 Other: Voiding Method Indwelling Catheter Indwelling Catheter # Bowel Movements 0 - Exam GENERAL DESCRIPTION: An elderly male lying in bed in no distress RESPIRATORY SYSTEM: Unlabored breathing , decreased breath sounds at bases HEART: S1 S2 regular rate and rhythm , ABDOMEN: Soft , no tenderness EXTREMITIES: No edema feet - Labs CBC & Chem 7: 12/18/21 07:02 12/18/21 07:02 Labs: Abnormal Lab Results - Last 24 Hours (Table) 12/17/21 12/17/21 12/17/21 Range/Units 06:48 06:48 11:44 RBC 3.35 L (4.40-5.60) X 10*6/uL Hgb 8.0 L (13.0-17.0) g/dL Hct 26.6 L (39.6-50.0) % MCV 79.4 L (80.0-97.0) fL MCH 23.9 L (27.0-32.0) pg MCHC 30.1 L (32.0-37.0) g/dL RDW 17.2 H (11.5-14.5) % MPV 8.9 L (9.5-12.2) fL Immature Gran # 0.05 H (0.00-0.04) X 10*3/uL Lymphocytes # 0.45 L (0.90-5.00) X 10*3/uL Potassium 3.4 L (3.5-5.5) mmol/L POC Glucose (mg/dL) 114 H (70-110) mg/dL Calcium 8.3 L (8.7-10.3) mg/dL 12/17/21 Range/Units 20:53 RBC (4.40-5.60) X 10*6/uL Hgb (13.0-17.0) g/dL Hct (39.6-50.0) % MCV (80.0-97.0) fL MCH (27.0-32.0) pg MCHC (32.0-37.0) g/dL RDW (11.5-14.5) % MPV (9.5-12.2) fL Immature Gran # (0.00-0.04) X 10*3/uL Lymphocytes # (0.90-5.00) X 10*3/uL Potassium (3.5-5.5) mmol/L POC Glucose (mg/dL) 128 H (70-110) mg/dL Calcium (8.7-10.3) mg/dL Microbiology - Last 24 Hours (Table) 12/12/21 20:30 Blood Culture - Preliminary Blood No Growth after 120 hours 12/12/21 20:40 Blood Culture - Preliminary Blood No Growth after 120 hours Assessment and Plan (1) UTI (urinary tract infection) Current Visit: Yes Status: Acute Code(s): N39.0 - URINARY TRACT INFECTION, SITE NOT SPECIFIED SNOMED Code(s): 23995340 Plan: 1patient presented to hospital with generalized weakness decreased urine output more likely related to the catheter assisted UTI and more likely from a gram- negative pathogen. 2patient with mildly elevated procalcitonin of 0.11 patient did have some atelectasis on the chest x-ray and do not have significant respiratory symptoms to be concerned for pneumonia. 3patient did have multiple pressure ulceration to his sacral area as well as left hip with no evidence of any cellulitis we will recommend local wound care. 4patient urine cultures have been finalized with a Pseudomonas that is sensitive to cefepime but resistant oral Cipro blood culture had been negative. 5patient seemed Clinically and Will continue with the cefepime with no oral options available he will need to midline and outpatient IV antibiotic therapy Time with Patient: Less than 30
--- NOTE | 2021-12-19 00:01 | P.PN ---
Subjective Progress Note Date: 12/18/21 Principal diagnosis: Urinary tract infection Patient is a 71-year-old male presented to hospital for weakness and decrease oral intake in this patient with a chronic indwelling Epps catheter patient was noticed to have a positive UA concerning for catheter associated a ttack infection and also have multiple ulceration to the sacral and gluteal area but no evidence of any cellulitis. On today's evaluation that is 12/18/2021, the patient is afebrile, patient is breathing comfortably on nasal cannula oxygen, the patient denies any further nausea or vomiting no abdominal pain no chest pain shortness of breath or cough and no diarrhea Objective - Vital Signs Vital signs: Vital Signs Temp 98.2 F 12/18/21 14:00 Pulse 82 12/18/21 14:00 Resp 17 12/18/21 14:00 BP 105/67 12/18/21 14:00 Pulse Ox 94 L 12/18/21 14:00 FiO2 Intake & Output 12/17/21 12/18/21 12/18/21 18:59 06:59 18:59 Intake Total 1080 Output Total 550 2000 2600 Balance 530 -2000 -2600 Weight 79.107 kg Intake: Oral 1080 Output: Urine 550 2000 2600 Uretheral (Epps) 750 Other: Voiding Method Indwelling Catheter Indwelling Catheter Indwelling Catheter - Exam GENERAL DESCRIPTION: An elderly male lying in bed in no distress RESPIRATORY SYSTEM: Unlabored breathing , decreased breath sounds at bases HEART: S1 S2 regular rate and rhythm , ABDOMEN: Soft , no tenderness EXTREMITIES: No edema feet - Labs CBC & Chem 7: 12/18/21 07:02 12/18/21 07:02 Labs: Abnormal Lab Results - Last 24 Hours (Table) 12/17/21 12/18/21 12/18/21 Range/Units 20:53 07:02 07:02 RBC 3.40 L (4.30-5.90) m/uL Hgb 8.3 L (13.0-17.5) gm/dL Hct 27.6 L (39.0-53.0) % MCH 24.3 L (25.0-35.0) pg MCHC 30.0 L (31.0-37.0) g/dL RDW 16.6 H (11.5-15.5) % Lymphocytes # 0.5 L (1.0-4.8) k/uL Potassium 3.0 L (3.5-5.1) mmol/L Carbon Dioxide 31 H (22-30) mmol/L Creatinine 0.57 L (0.66-1.25) mg/dL POC Glucose (mg/dL) 128 H (70-110) mg/dL Calcium 7.9 L (8.4-10.2) mg/dL 12/18/21 Range/Units 11:06 RBC (4.30-5.90) m/uL Hgb (13.0-17.5) gm/dL Hct (39.0-53.0) % MCH (25.0-35.0) pg MCHC (31.0-37.0) g/dL RDW (11.5-15.5) % Lymphocytes # (1.0-4.8) k/uL Potassium (3.5-5.1) mmol/L Carbon Dioxide (22-30) mmol/L Creatinine (0.66-1.25) mg/dL POC Glucose (mg/dL) 136 H (70-110) mg/dL Calcium (8.4-10.2) mg/dL Microbiology - Last 24 Hours (Table) 12/12/21 20:30 Blood Culture - Preliminary Blood No Growth after 120 hours 12/12/21 20:40 Blood Culture - Preliminary Blood No Growth after 120 hours Assessment and Plan (1) UTI (urinary tract infection) Current Visit: Yes Status: Acute Code(s): N39.0 - URINARY TRACT INFECTION, SITE NOT SPECIFIED SNOMED Code(s): 96347071 Plan: 1patient presented to hospital with generalized weakness decreased urine output more likely related to the catheter assisted UTI and more likely from a gram- negative pathogen. 2patient with mildly elevated procalcitonin of 0.11 patient did have some atelectasis on the chest x-ray and do not have significant respiratory symptoms to be concerned for pneumonia. 3patient did have multiple pressure ulceration to his sacral area as well as left hip with no evidence of any cellulitis we will recommend local wound care. 4patient urine cultures have been finalized with a Pseudomonas that is sensitive to cefepime but resistant oral Cipro blood culture had been negative. 5patient as showing clinical improvement, patient Will continue with the cefepime with no oral options available he will need to midline and outpatient IV cefepime 1 week on discharge Time with Patient: Less than 30
[2021-12-19] MEDS: CEFEPIME 2 GM in SODIUM CHLORIDE 0.9% 100 ML IVPB SCH ×2 (05:41→12:31)
--- NOTE | 2021-12-19 05:47 | P.PN ---
Subjective Progress Note Date: 12/18/21 Chief Complaint: Decreased appetite This is a 71-year-old patient, follows with visiting physicians. 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 Chronic Epps catheter. Colostomy was done because patient being bedridden. And wounds. Patient now presents with at least 4 weeks or more of nausea vomiting. Especially with eating. Unable to keep much down. Has been losing weight. Some shortness of breath. Has been having weight loss. Lives with his at home. 12/14/2021: Earlier underwent EGD. Showed mild diffuse gastritis. By Dr. Aamir Darling. Put on Reglan and Zofran. We will change to a ground diet. Had ensure. 12/16/2021 Patient is seen today in follow up with ID following for UTI and continued on cefepime while awaiting finalized cultures. Multiple medical comorbidities and will continue current medications. Continue to monitor blood sugars closely and continue current regimen. Encourage oral intake and recommend repeat am labs. Afebrile and denies chest pain or shortness of breath. Monitor hemoglobin. Continue local wound care. 12/17/2021 Patient is seen today with at the bedside. Patient to receive a midline for outpatient IV abx. Hemoglobin is 8.0 today after one unit of PRBC given. Patient reports to feeling improved after. Plan is for home with home care and working on discharge planning with IV abx and case folder following. Patient does not want to go to a rehab facility. Reglan was as needed and changed to scheduled and continue protonix for gastritis. Afebrile and denies chest pain or shortness of breath. 12/18/2021 Patient is seen this morning and reports some shortness of breath and will obtain chest xray. Patient received midline and will have one week of cefepime in the outpatient setting. Arranging for at home vs. office with case management. Potassium is 3.0 today and will replace per protocol. Patient also reports that he is having nausea when he puts food in his mouth. Encouraged small frequent meals. Oral intake is poor. Continue with local wound care. Fluids of LR were at 130 and will decrease to 75. Awaiting chest xray. No reports of chest pain or palpitations. Physical examination: GENERAL APPEARANCE: Propped up in bed, awake and on room air HEENT: Normal external appearance of nose and ear. Oral cavity normal EYES: Pupils equal. Conjunctiva normal. NECK: JVD not raised. Mass not palpable. RESPIRATORY: Respiratory effort normal. diminished breath sounds bilaterally otherwise lungs are clear to auscultation. CARDIOVASCULAR: First and second sounds normal. No edema. ABDOMEN: Soft. Liver and spleen not palpable. No tenderness. No mass palpable. Colostomy bag PSYCHIATRY: Alert and oriented x3. Mood and affect normal. NEUROLOGICAL: No power sensation lower extremity. DERMATOLOGICAL: Wounds more details look at nursing pictures Assessment and plan: -Possible pneumonia, suspect gram-negative organism -Questionable UTI with cystitis secondary to Epps catheter , difficult to assess patient nausea vomiting could be attributed to UTI. -Intermittent nausea vomiting. Difficulty swallowing. possibly secondary to gastritis as noted on EGD -Chronic Decubitus wounds. -Diabetes mellitus type 2, on oral hypoglycemic -Chronic neurogenic bladder secondary to T8 injury -GERD -Hyperlipidemia -Chronic paraplegia from T8 spinal cord injury in 1990. -Chronic colostomy for diversion Plan: Continue with current medications and IV abx with ID following, received a midline today for outpatient IV cefepime for one week on discharge Recommend repeat am labs and monitor closely and replace electrolytes per protocol. potassium is 3.0 Continue to monitor accuchecks achs Transfuse if less than 7, stable over 8 today Encourage oral intake althgough patient reports when he puts food in his mouth he gags Recommend chest xray and is pending as patient reports he feels short of breath. 93% on room air. Will add incentive spirometer, cut down fluids to 75ml/hr Continue local wound prison with home care being arranged Due to multiple complex medical issues, prognosis is guarded The impression and plan of care has been dictated as a scribe by Karly Zimmerman, nurse practitioner as directed. Dr. Atilio MD I have performed a history and examination and MDM of this patient, discussed the same with the dictator, and has been documented as a scribe. Based on total visit time, I have performed more than 50% of the visit. Any additional findings or plans will be noted. Objective - Vital Signs Vital signs: Vital Signs Temp 98.5 F 12/19/21 02:00 Pulse 79 12/19/21 02:00 Resp 17 12/19/21 02:00 BP 92/54 12/19/21 02:00 Pulse Ox 93 L 10/26/22 02:00 FiO2 Intake & Output 12/18/21 12/18/21 12/19/21 06:59 18:59 06:59 Output Total 19990 3600 Balance -1999 -2600 -3600 Output: Urine 1999 2600 3600 Uretheral (Epps) 750 Other: Voiding Method Indwelling Catheter Indwelling Catheter Indwelling Catheter - Labs CBC & Chem 7: 12/18/21 07:02 12/18/21 07:02 Labs: Abnormal Lab Results - Last 24 Hours (Table) 12/18/21 12/18/21 12/18/21 Range/Units 07:02 07:02 11:06 RBC 3.40 L (4.30-5.90) m/uL Hgb 8.3 L (13.0-17.5) gm/dL Hct 27.6 L (39.0-53.0) % MCH 24.3 L (25.0-35.0) pg MCHC 30.0 L (31.0-37.0) g/dL RDW 16.6 H (11.5-15.5) % Lymphocytes # 0.5 L (1.0-4.8) k/uL Potassium 3.0 L (3.5-5.1) mmol/L Carbon Dioxide 31 H (22-30) mmol/L Creatinine 0.57 L (0.66-1.25) mg/dL POC Glucose (mg/dL) 136 H (70-110) mg/dL Calcium 7.9 L (8.4-10.2) mg/dL 12/18/21 Range/Units 21:23 RBC (4.30-5.90) m/uL Hgb (13.0-17.5) gm/dL Hct (39.0-53.0) % MCH (25.0-35.0) pg MCHC (31.0-37.0) g/dL RDW (11.5-15.5) % Lymphocytes # (1.0-4.8) k/uL Potassium (3.5-5.1) mmol/L Carbon Dioxide (22-30) mmol/L Creatinine (0.66-1.25) mg/dL POC Glucose (mg/dL) 129 H (70-110) mg/dL Calcium (8.4-10.2) mg/dL Microbiology - Last 24 Hours (Table) 12/12/21 20:30 Blood Culture - Final Blood No Growth after 144 hours 12/12/21 20:40 Blood Culture - Final Blood No Growth after 144 hours
[2021-12-19 06:49] LABS: Glucose,Whole Blood 94 mg/dL (70-110)
[2021-12-19] MEDS: INSULIN ASPART (NovoLOG) 100 UNIT/ML VIAL SQ SCH ×2 (07:13→12:27)
[2021-12-19] MEDS: METOCLOPRAMIDE 5 MG/ML 2 ML VIAL IVP SCH ×2 (07:28→12:31)
[2021-12-19] MEDS: LACTATED RINGERS 1,000 ML IV SCH (07:28)
[2021-12-19] MEDS: ONDANSETRON 4 MG/2 ML VIAL IVP PRN (08:35)
[2021-12-19] MEDS: ASCORBIC ACID 500 MG TAB PO SCH (08:36)
[2021-12-19] MEDS: PANTOPRAZOLE 40 MG/10 ML VIAL IVP SCH (08:36)
[2021-12-19] MEDS: CHOLECALCIFEROL 10 MCG (400 IU) TABLET PO SCH (08:37)
[2021-12-19] MEDS: glipiZIDE 5 MG TAB PO SCH (08:37)
[2021-12-19] MEDS: IMIPRAMINE 10 MG TAB PO SCH (08:38)
[2021-12-19] MEDS: OXYBUTYNIN CHLORIDE 5 MG TAB PO SCH (08:38)
[2021-12-19 09:21] LABS: African American GFR (CKD) 124.6 (60.0-200.0); Anion Gap 6.7 mmol/L (10.00-18.00); BUN/Creat Ratio 15.2 Ratio (12.00-20.00); Blood Urea Nitrogen 7.6 mg/dL (9.0-27.0); Calcium 8.2 mg/dL (8.7-10.3); Carbon Dioxide 32.3 mmol/L (20.0-27.5); Non-African American GFR(CKD) 107.5 (60.0-200.0); Potassium 3.1 mmol/L (3.5-5.5)
[2021-12-19] MEDS ORDERED: POTASSIUM CHLORIDE ER 20 MEQ TAB.ER PO STA (10:39)
[2021-12-19 11:05] VITALS: BP 93/53; PULSE 72; RESP 16; TEMP 98.8
[2021-12-19 11:05] LABS: Glucose,Whole Blood 145 mg/dL (70-110)
[2021-12-19] MEDS: SODIUM HYPOCHLORITE 0.25% 480 ML BOT MISCELLANE SCH (12:31)
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
== END 2021-12-19 15:20 | disposition home health service (06) | DRG 698 ==
LOC: EC 13:07 → 4SSUR 17:53
PROVIDERS: ADMIT Hospitalist; ATTEND Hospitalist
PROC: 0DB68ZX Excision of Stomach, Via Natural or Artificial Opening Endoscopic, Diagnostic (ICD-10-PCS; 2021-12-14)
PROC: 0DB98ZX Excision of Duodenum, Via Natural or Artificial Opening Endoscopic, Diagnostic (ICD-10-PCS; 2021-12-14)
PROC: 30233N1 Transfusion of Nonautologous Red Blood Cells into Peripheral Vein, Percutaneous Approach (ICD-10-PCS; 2021-12-16)
PROC: 02HV33Z Insertion of Infusion Device into Superior Vena Cava, Percutaneous Approach (ICD-10-PCS; principal; 2021-12-17 13:15)
DX: T83.511A Infection and inflammatory reaction due to indwelling urethral catheter, initial encounter (principal); J15.6 Pneumonia due to other Gram-negative bacteria; L89.213 Pressure ulcer of right hip, stage 3; G82.20 Paraplegia, unspecified; K29.70 Gastritis, unspecified, without bleeding; E11.9 Type 2 diabetes mellitus without complications; N31.9 Neuromuscular dysfunction of bladder, unspecified; E78.5 Hyperlipidemia, unspecified; N20.0 Calculus of kidney; N21.0 Calculus in bladder; I10 Essential (primary) hypertension; L89.222 Pressure ulcer of left hip, stage 2; L89.312 Pressure ulcer of right buttock, stage 2; L89.322 Pressure ulcer of left buttock, stage 2; R13.10 Dysphagia, unspecified; R47.02 Dysphasia; F32.A Depression, unspecified; K21.9 Gastro-esophageal reflux disease without esophagitis; N30.90 Cystitis, unspecified without hematuria; Y73.2 Prosthetic and other implants, materials and accessory gastroenterology and urology devices associated with adverse incidents; Z74.01 Bed confinement status; Z93.3 Colostomy status; Z87.891 Personal history of nicotine dependence; Z86.14 Personal history of Methicillin resistant Staphylococcus aureus infection; Z87.440 Personal history of urinary (tract) infections; S24.103S Unspecified injury at T7-T10 level of thoracic spinal cord, sequela; W14.XXXS Fall from tree, sequela; Z79.84 Long term (current) use of oral hypoglycemic drugs; Z79.899 Other long term (current) drug therapy; Z85.828 Personal history of other malignant neoplasm of skin; Z86.718 Personal history of other venous thrombosis and embolism
CPT/HCPCS: 36410; 36415; 43239; 71045; 71046; 74176; 74230; 76937; 80048; 80053; 81001; 82150; 82272; 83036; 83605; 83690; 83735; 83880; 84145; 84484; 85025; 85610; 85730; 86850; 86900; 86901; 86920; 87040; 87077; 87086; 87186; 87635; 88305; 88313; 88342; 93005; 96365; 99285

== ENCOUNTER 2022-02-06 11:11 | Inpatient (IN) | payer MEDICARE, OTHER ==
[2022-02-06] MEDS ORDERED: ONDANSETRON 4 MG/2 ML VIAL IVP STA (11:43)
[2022-02-06] MEDS ORDERED: SODIUM CHLORIDE 0.9% 1,000 ML IV STA (11:43)
[2022-02-06 13:28] LABS: Anisocytosis Slight; Basophils % (A) 1 %; Eosinophils # (A) 0.3 k/uL (0-0.7); Eosinophils % (A) 3 %; HCT 29.8 % (39.0-53.0); HGB 9.5 gm/dL (13.0-17.5); Hypochromasia Marked; Lymphocytes # (A) 0.7 k/uL (1.0-4.8); Lymphocytes % (A) 9 %; MCH 25.3 pg (25.0-35.0); MCHC 31.7 g/dL (31.0-37.0); Mean Platelet Volume 7.7; Microcytosis Slight; Monocytes # (A) 0.7 k/uL (0-1.0); Monocytes % (A) 9 %; Neutrophils # (A) 6.3 k/uL (1.3-7.7); Neutrophils % (A) 77 %; Platelet Count 444 k/uL (150-450); RBC 3.73 m/uL (4.30-5.90); RDW 16.1 % (11.5-15.5); WBC 8.1 k/uL (3.8-10.6)
[2022-02-06 13:54] LABS: ALT 6 U/L (4-49); AST 11 U/L (17-59); African American GFR (CKD) >90 (>60 ml/min/1.73 sqM); Albumin 3.1 g/dL (3.5-5.0); Alkaline Phosphatase 81 U/L (38-126); Amylase 40 U/L (30-110); Anion Gap 13 mmol/L; Blood Urea Nitrogen 11 mg/dL (9-20); Calcium 9.3 mg/dL (8.4-10.2); Carbon Dioxide 27 mmol/L (22-30); Chloride 96 mmol/L (98-107); Glucose 95 mg/dL (74-99); Lipase 32 U/L (23-300); Non-African American GFR(CKD) >90 (>60 ml/min/1.73 sqM); Sodium 136 mmol/L (137-145); Total Bilirubin 0.4 mg/dL (0.2-1.3); Total Protein 7.9 g/dL (6.3-8.2)
[2022-02-06 14:02] LABS: INR 1.2 (<1.2); Prothrombin Time 12.4 sec (9.0-12.0)
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
--- NOTE | 2022-02-06 14:57 | XR ---
EXAMINATION TYPE: XR chest 2V DATE OF EXAM: 02/06/2022 COMPARISON: Chest x-ray December 18, 2021 HISTORY: Chest and abdominal pain TECHNIQUE: Frontal and lateral views of the chest are obtained. FINDINGS: There is consolidation with air bronchograms in the left lower lung. Persistent small left pleural effusion. There is chronic parenchymal change bilaterally. The cardiac silhouette size is st able and enlarged. Long segment fusion rods in the thoracolumbar spine are redemonstrated. IMPRESSION: Persistent cardiomegaly with small left pleural effusion and left basilar consolidation and/or atelectasis redemonstrated, lateral findings less prominent from prior study.
[2022-02-06] MEDS ORDERED: VANCOMYCIN IV PER PHARMACY 1 EACH MISC MISCELLANE PRN (15:09)
[2022-02-06] MEDS ORDERED: VANCOMYCIN 1,250 MG in SODIUM CHLORIDE 0.9% 250 ML IVPB STA (15:12)
[2022-02-06] MEDS ORDERED: NALOXONE 0.4 MG/ML 1 ML VIAL IV PRN (15:17)
[2022-02-06] MEDS ORDERED: ACETAMINOPHEN TAB 325 MG TAB PO PRN (15:17)
[2022-02-06] MEDS ORDERED: ALBUTEROL HFA INHALER INHALATION PRN (15:19)
[2022-02-06 15:59] LABS: Appearance,Urine Turbid (Clear); Bacteria,Urine Moderate /hpf; Bilirubin,Urine Negative (Negative); Blood,Urine Large (Negative); Color,Urine Yellow; Glucose,Urine (UA) Negative (Negative); Ketones,Urine 3+ (Negative); Leukocyte Esterase,Urine Large (Negative); Mucus,Urine Many /hpf; Nitrite,Urine Positive (Negative); Protein,Urine 2+ (Negative); RBC,Urine 172 /hpf (0-5); Specific Gravity,Urine 1.021 (1.001-1.035); Squamous Epithelial Cell,Urine 5 /hpf (0-4); Urobilinogen,Urine <2.0 mg/dL (<2.0); WBC,Urine >182 /hpf (0-5)
[2022-02-06] MEDS ORDERED: PIPERACILLIN-TAZOBACTAM 3.375 GM in SODIUM CHLORIDE 0.9% 100 ML IVPB SCH ×2 (16:00→21:00)
[2022-02-06] MEDS: SODIUM CHLORIDE 0.9% 1,000 ML IV SCH (17:30)
[2022-02-06] MEDS ORDERED: DEXTROSE 50% SYRINGE 50 ML IVP PRN ×2 (20:30)
[2022-02-06] MEDS ORDERED: CALCIUM CARBONATE 500 MG CHEWABLE PO PRN (20:31)
[2022-02-06] MEDS ORDERED: LORazepam 0.5 MG TAB PO PRN (20:31)
[2022-02-06] MEDS ORDERED: LACTULOSE 20 GM/30 ML CUP PO PRN (20:31)
[2022-02-06] MEDS ORDERED: TEMAZEPAM 15 MG CAP PO PRN (20:31)
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
[2022-02-06] MEDS: metFORMIN 500 MG TAB PO SCH (21:22)
[2022-02-06] MEDS: OXYBUTYNIN CHLORIDE 5 MG TAB PO SCH (21:22)
[2022-02-06] MEDS: HEPARIN SODIUM,PORCINE/PF 5,000 UNIT/0.5 ML SYRINGE SQ SCH (21:22)
[2022-02-06] MEDS: PRAVASTATIN SODIUM 20 MG TAB PO SCH (21:22)
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
[2022-02-07] MEDS: VANCOMYCIN 1,250 MG in SODIUM CHLORIDE 0.9% 250 ML IVPB SCH ×3 (02:38→17:04)
[2022-02-07] MEDS: SODIUM CHLORIDE 0.9% 1,000 ML IV SCH ×3 (02:41→17:08)
[2022-02-07] MEDS: metFORMIN 500 MG TAB PO SCH (07:58)
[2022-02-07] MEDS: OXYBUTYNIN CHLORIDE 5 MG TAB PO SCH ×2 (07:58→20:35)
[2022-02-07 08:04] LABS: Glucose,Whole Blood 82 mg/dL (70-110)
[2022-02-07] MEDS: INSULIN ASPART (NovoLOG) 100 UNIT/ML VIAL SQ SCH ×3 (08:06→17:17)
[2022-02-07] MEDS: HEPARIN SODIUM,PORCINE/PF 5,000 UNIT/0.5 ML SYRINGE SQ SCH ×2 (08:18→20:38)
[2022-02-07] MEDS: PANTOPRAZOLE 40 MG/10 ML VIAL IV SCH (08:18)
[2022-02-07 08:53] LABS: Basophils # (A) 0.07 X 10*3/uL (0.00-0.10); Basophils % (A) 0.9 %; Eosinophils # (A) 0.22 X 10*3/uL (0.04-0.35); Eosinophils % (A) 2.8 %; HCT 29.5 % (39.6-50.0); HGB 8.9 g/dL (13.0-17.0); Immature Grans, Automated 0.5 %; Lymphocytes # (A) 0.84 X 10*3/uL (0.90-5.00); Lymphocytes % (A) 10.9 %; MCH 24.3 pg (27.0-32.0); MCHC 30.2 g/dL (32.0-37.0); MCV 80.4 fL (80.0-97.0); Mean Platelet Volume 9.7 fL (9.5-12.2); Monocytes # (A) 0.87 X 10*3/uL (0.20-1.00); Monocytes % (A) 11.3 %; NRBC Per 100 WBC 0 /100 WBCS (0.0-0.0); Neutrophils # (A) 5.69 X 10*3/uL (1.80-7.70); Neutrophils % (A) 73.6 %; Platelet Count 450 X 10*3/uL (140-440); RBC 3.67 X 10*6/uL (4.40-5.60); WBC 7.73 X 10*3/uL (4.50-10.00)
[2022-02-07] MEDS ORDERED: glipiZIDE 5 MG TAB PO SCH (09:00)
[2022-02-07 09:17] LABS: African American GFR (CKD) 115.6 (60.0-200.0); Anion Gap 16.9 mmol/L (10.00-18.00); BUN/Creat Ratio 17.33 Ratio (12.00-20.00); Blood Urea Nitrogen 10.4 mg/dL (9.0-27.0); Calcium 9.2 mg/dL (8.7-10.3); Carbon Dioxide 21.1 mmol/L (20.0-27.5); Non-African American GFR(CKD) 99.7 (60.0-200.0)
--- NOTE | 2022-02-07 11:23 | FL ---
EXAMINATION TYPE: FL barium swallow DATE OF EXAM: 02/07/2022 10:45 AM COMPARISON: Chest 02/06/2022. CLINICAL INDICATION:Male, 71 years old with history of Trouble swallowing; TECHNIQUE: The procedure was explained and patient history elicited. All patient questions were ans wered prior to start of procedure. Multiple spot fluoroscopic images of the esophagus were obtained a fter the oral ingestion of effervescent crystals and liquid barium as the contrast agent. Fluoroscopic time: 57 seconds Fluoroscopic images: 45 Radiographs taken: 0 FINDINGS: There is delayed transit of contrast through the esophagus which accumulate in the distal esophagus a nd eventually passed into the stomach. The esophageal mucosa is smooth without evidence of focal stri cture, ulceration, or abnormal outpouching. No gastroesophageal reflux disease was identified. Fixat ion hardware limits evaluation slightly. IMPRESSION: Supine only esophagram due to patient's condition with delayed transit of contrast through the esopha jason with accumulation of the distal esophagus which eventually drains into the stomach.
[2022-02-07 11:49] LABS: Glucose,Whole Blood 83 mg/dL (70-110)
[2022-02-07 17:08] LABS: Glucose,Whole Blood 111 mg/dL (70-110)
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
[2022-02-07 20:30] LABS: Glucose,Whole Blood 111 mg/dL (70-110)
[2022-02-07] MEDS: PRAVASTATIN SODIUM 20 MG TAB PO SCH (20:35)
[2022-02-08] MEDS: VANCOMYCIN 1,250 MG in SODIUM CHLORIDE 0.9% 250 ML IVPB SCH ×3 (00:34→08:36)
[2022-02-08 07:10] LABS: Glucose,Whole Blood 97 mg/dL (70-110)
[2022-02-08] MEDS: HEPARIN SODIUM,PORCINE/PF 5,000 UNIT/0.5 ML SYRINGE SQ SCH ×2 (07:10→20:12)
[2022-02-08] MEDS ORDERED: VANCOMYCIN TROUGH DUE 1 EACH MISC MISCELLANE ONE (08:00)
[2022-02-08] MEDS: INSULIN ASPART (NovoLOG) 100 UNIT/ML VIAL SQ SCH ×3 (08:10→16:05)
[2022-02-08] MEDS: OXYBUTYNIN CHLORIDE 5 MG TAB PO SCH ×2 (08:12→20:12)
[2022-02-08] MEDS: PANTOPRAZOLE 40 MG/10 ML VIAL IV SCH (08:13)
[2022-02-08] MEDS: SODIUM CHLORIDE 0.9% 1,000 ML IV SCH ×3 (08:13→23:49)
[2022-02-08 08:18] LABS: African American GFR (CKD) >90 (>60 ml/min/1.73 sqM); Non-African American GFR(CKD) >90 (>60 ml/min/1.73 sqM)
[2022-02-08] MEDS ORDERED: VANCOMYCIN IV PER PHARMACY 1 EACH MISC MISCELLANE PRN (08:39)
[2022-02-08 11:30] LABS: Glucose,Whole Blood 91 mg/dL (70-110)
[2022-02-08] MEDS ORDERED: IV FLUID CONTINUATION 1,000 ML IV ONE (15:16)
[2022-02-08] MEDS ORDERED: PROPOFOL 10 MG/ML 20 ML VIAL IV ONE (15:23)
[2022-02-08] MEDS ORDERED: ONDANSETRON 4 MG/2 ML VIAL ONE (15:23)
[2022-02-08] MEDS ORDERED: LIDOCAINE 2% INJ 20 MG/ML (2 ML VIAL) ONE (15:23)
--- NOTE | 2022-02-08 15:40 | P.PCN ---
Date of Procedure: 02/08/22 Procedure(s) Performed: Brief history: Patient is a 71-year-old pleasant scheduled for an EGD with PEG tube placement today.. His been having progressive dysphagia to solids and had an upper endoscopy in November of this year which revealed no evidence of esophageal stricture. He did have a barium swallow done that showed no stricture but delay in transit of barium into the stomach. He lost 50 pounds in the last 6 months duration. Because of the concern of decreased oral intake/malnutrition he is scheduled for an elective placement today. Procedure performed: EGD with PEG tube placement Preoperative diagnosis: Progressive weight loss and dysphagia 6 months duration IV sedation by anesthesia Procedure: After informed consent was obtained with the patient as well as the family the patient was brought into the endoscopy unit. IV conscious sedation was administered by anesthesia under continuous monitoring. The Olympus GF 160 video endoscope was inserted into the mouth and esophagus intubated without any difficulty and was gradually advanced to the stomach and duodenum. The bulb and second part of the duodenum was visualized which appeared normal. The scope at this time was withdrawn to the stomach adequately insufflated with air. Adequate transillumination was achieved onto the anterior abdominal wall. At the site of adequate transillumination and maximal finger indentation, on the anterior abdominal wall, this area was sterilely prepped and draped. One percent Xylocaine was infiltrated into the skin and a small incision was made. Trocar and cannula was passed through the incision into the stomach cavity. The trocar was removed. Guidewire was passed through the cannula into the stomach cavity which was held by the snare that was passed through the scope. The guidewire along with the scope was gently withdrawn from the stomach esophagus out of the mouth. A 20[employer] PEG tube was passed over the guidewire and was gently advanced into the mouth and esophagus and stomach. With gentle traction the guidewire along with the PEG tube was pulled from the anterior abdominal wall until the internal bumper appeared to be in secure position. Repeat EGD was performed and the esophagus intubated without any difficulty and was advanced into the stomach. The internal bumper appeared to be in secure position. The visualized portions of the antrum body cardia and fundus of the stomach appeared normal. The esophagus was carefully examined as the scope was gradually being withdrawn which appeared normal. At this time external bumper was placed on the PEG tube closer to the anterior abdominal wall at 3 cm alexis. The patient tolerated the procedure well. Impression: Successful 20[employer] PEG tube placement as described above. Recommendations: Findings of this examination were discussed with the patient's family. The patient will be started on tube feeds tomorrow. Post-PEG tube orders were written.
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
[2022-02-08 17:08] LABS: Glucose,Whole Blood 94 mg/dL (70-110)
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
[2022-02-08] MEDS: PRAVASTATIN SODIUM 20 MG TAB PO SCH (20:12)
[2022-02-08 20:59] LABS: Glucose,Whole Blood 95 mg/dL (70-110)
[2022-02-09 06:17] LABS: African American GFR (CKD) >90 (>60 ml/min/1.73 sqM); Anion Gap 13 mmol/L; Blood Urea Nitrogen 7 mg/dL (9-20); Calcium 8.4 mg/dL (8.4-10.2); Carbon Dioxide 17 mmol/L (22-30); Chloride 112 mmol/L (98-107); Glucose 84 mg/dL (74-99); Non-African American GFR(CKD) >90 (>60 ml/min/1.73 sqM); Sodium 142 mmol/L (137-145)
[2022-02-09 07:41] LABS: Glucose,Whole Blood 78 mg/dL (70-110)
[2022-02-09 09:05] LABS: Basophils # (A) 0.04 X 10*3/uL (0.00-0.10); Basophils % (A) 0.6 %; Eosinophils % (A) 1.6 %; HCT 28.9 % (39.6-50.0); HGB 8.2 g/dL (13.0-17.0); Immature Grans, Automated 0.8 %; Lymphocytes # (A) 0.63 X 10*3/uL (0.90-5.00); MCH 24.1 pg (27.0-32.0); MCHC 28.4 g/dL (32.0-37.0); Mean Platelet Volume 9.6 fL (9.5-12.2); Monocytes # (A) 0.52 X 10*3/uL (0.20-1.00); Monocytes % (A) 8.2 %; NRBC Per 100 WBC 0 /100 WBCS (0.0-0.0); Neutrophils # (A) 4.97 X 10*3/uL (1.80-7.70); Neutrophils % (A) 78.8 %; Platelet Count 395 X 10*3/uL (140-440); RDW 18.5 % (11.5-14.5); WBC 6.31 X 10*3/uL (4.50-10.00)
[2022-02-09] MEDS: PANTOPRAZOLE 40 MG/10 ML VIAL IV SCH (10:19)
[2022-02-09] MEDS: HEPARIN SODIUM,PORCINE/PF 5,000 UNIT/0.5 ML SYRINGE SQ SCH ×2 (10:19→21:13)
[2022-02-09] MEDS: OXYBUTYNIN CHLORIDE 5 MG TAB PO SCH ×2 (10:20→21:13)
--- NOTE | 2022-02-09 11:44 | P.PN ---
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 Neck supple patient also have a sacral and right hip pressure ulcer. On today's evaluation that is 02/09/2022, the patient remains to be afebrile, the patient is breathing comfortably on room air, the patient denies chest pain shortness of breath or cough no abdominal pain or diarrhea, patient mentioned he is feeling slightly better Objective - Vital Signs Vital signs: Vital Signs Temp 97.6 F 02/09/22 05:00 Pulse 64 02/09/22 05:00 Resp 16 02/09/22 05:00 BP 91/54 02/09/22 05:00 Pulse Ox 96 02/09/22 05:00 FiO2 Intake & Output 02/08/22 02/09/22 02/09/22 18:59 06:59 18:59 Intake Total 300 Output Total 700 400 Balance -400 -400 Weight 74.843 kg Intake: IV 300 Output: Urine 700 400 Other: Voiding Method Indwelling Catheter Indwelling Catheter Indwelling Catheter # Voids 2 - Exam GENERAL DESCRIPTION: An elderly male lying in bed in no distress RESPIRATORY SYSTEM: Unlabored breathing , decreased breath sounds at bases HEART: S1 S2 regular rate and rhythm , ABDOMEN: Soft , no tenderness EXTREMITIES: Patient right hip and sacral wounds are currently dressed - Labs CBC & Chem 7: 02/09/22 05:28 02/09/22 05:28 Labs: Abnormal Lab Results - Last 24 Hours (Table) 02/09/22 02/09/22 Range/Units 05:28 05:28 RBC 3.40 L (4.40-5.60) X 10*6/uL Hgb 8.2 L (13.0-17.0) g/dL Hct 28.9 L (39.6-50.0) % MCH 24.1 L (27.0-32.0) pg MCHC 28.4 L (32.0-37.0) g/dL RDW 18.5 H (11.5-14.5) % Immature Gran # 0.05 H (0.00-0.04) X 10*3/uL Lymphocytes # 0.63 L (0.90-5.00) X 10*3/uL Chloride 112 H (98-107) mmol/L Carbon Dioxide 17 L (22-30) mmol/L BUN 7 L (9-20) mg/dL Creatinine 0.48 L (0.66-1.25) mg/dL Microbiology - Last 24 Hours (Table) 02/06/22 11:54 Urine Culture - Final Urine,Voided Pseudomonas aeruginosa 02/06/22 11:54 Gram Stain - Final Hip - Right Wound Culture - Final Pseudomonas aeruginosa 02/06/22 15:30 Blood Culture - Preliminary Blood No Growth after 48 hours 02/06/22 15:15 Blood Culture - Preliminary Blood No Growth after 48 hours Assessment and Plan (1) Decubitus ulcer Current Visit: Yes Status: Acute Code(s): L89.90 - PRESSURE ULCER OF UNSPECIFIED SITE, UNSPECIFIED STAGE SNOMED Code(s): 1496649444 (2) UTI (urinary tract infection) Current Visit: Yes Status: Acute Code(s): N39.0 - URINARY TRACT INFECTION, SITE NOT SPECIFIED SNOMED Code(s): 82204498 Plan: 1patient presented to hospital with generalized weakness not feeling well concerning for catheter associated UTI in this patient with history of recurrent UTI current Epps catheter was changed few days ago with a recent urine culture positive for Pseudomonas with intermediate sensitivity to cefepime and resistant to quinolones. 2patient also with a wound to the right hip, however clinically the wound does not appear infected, culture grow pseudomonas that is a sensitive pathogen 3local wound care to the sacral wound with Aquacel silver dressing into the right hip wound with the hoaoney followed by moist dressing changes daily and keep the area off the pressure 4-the patient urine culture did grew multidrug-resistant pseudomonas we will discontinue Fortaz and start the patient on meropenem patient will need midline and outpatient antibiotic on discharge Time with Patient: Less than 30
[2022-02-09 11:49] LABS: Glucose,Whole Blood 108 mg/dL (70-110)
[2022-02-09] MEDS: INSULIN ASPART (NovoLOG) 100 UNIT/ML VIAL SQ SCH ×2 (13:07→18:48)
[2022-02-09] MEDS: MEROPENEM 1 GM in SODIUM CHLORIDE 0.9% 100 ML IVPB SCH ×2 (13:22→21:13)
--- NOTE | 2022-02-09 13:34 | P.PN ---
Subjective This is a 71-year-old patient, follows with visiting physicians. 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 Chronic Epps catheter. Colostomy was done because patient being bedridden. Chronic wounds. Patient is in November 2021:. Present his admit weight loss. Underwent EGD by Dr. Aamir Darling. Found to have gastritis. Also had a UTI. For last 3 months patient with having nausea trouble swallowing. Unable to keep food down. Modified barium swallow was suboptimal. Patient now presented multiple symptoms. Urine was leaking around the Epps catheter. That was changed yesterday. By the visiting nurse. Also having bouts of perspiration. Consent about UTI. Patient has not been able to swallow well last 2 weeks. Prior to last admission. Has lost about 40 pounds. Per the . No fevers on levo to eat small amounts. 02/07/2022: Patient underwent barium swallow this morning. Showed some delayed transit but. He was able to pass through. Patient on IV ceftazidime and IV vancomycin for wound per ID. Cultures pending. Had a lengthy discussion with the patient and the at the bedside. He has lost significant weight and I'm concerned about significantly interfere with his wound healing. Has the emphasis on PEG tube. The patient and the decide about the same. Also seen by Dr. Aamir Darling. 02/08/2022: Patient was seen by me earlier this morning. Patient this afternoon due for EGD/PEG tube. Discussed with patient. Wound care per ID. new Epps catheter leaking around the meatus. Urology consulted. 02/09/2022 Patient a pleasant 71 years old male who presents with cellulitis of the right wound although there is no significant infection but wasn't culture is growing Pseudomonas, also patient has evidence of Pseudomonas UTI. By infectious disease team and he was started on meropenem today. Patient is bedridden and baseline secondary to T8 injury when he fell from the ladder in 1990, he is not walking since then. Patient is fully awake and oriented does not look in distress and does not have respiratory symptoms are at Hemoglobin is 8.2, blood pressure is at baseline Patient may benefit from intravenous antibiotics upon discharge Objective - Vital Signs Vital signs: Vital Signs Temp 98.6 F 02/09/22 11:45 Pulse 73 02/09/22 11:45 Resp 18 02/09/22 11:45 BP 92/57 02/09/22 11:45 Pulse Ox 95 02/09/22 11:45 FiO2 Intake & Output 02/08/22 02/09/22 02/09/22 18:59 06:59 18:59 Intake Total 300 Output Total 700 400 Balance -400 -400 Weight 74.843 kg Intake: IV 300 Output: Urine 700 400 Other: Voiding Method Indwelling Catheter Indwelling Catheter Indwelling Catheter # Voids 2 - Exam GENERAL: The patient is alert and oriented x3, not in any acute distress. Well developed, well nourished. HEENT: Pupils are round and equally reacting to light. EOMI. No scleral icterus. No conjunctival pallor. Normocephalic, atraumatic. No pharyngeal erythema. No thyromegaly. CARDIOVASCULAR: S1 and S2 present. No murmurs, rubs, or gallops. PULMONARY: Chest is clear to auscultation, no wheezing or crackles. -ABDOMEN: Soft, nontender, nondistended, normoactive bowel sounds. No palpable organomegaly. PEG tube in a Place. Epps catheter in place MUSCULOSKELETAL: No joint swelling or deformity. Right hip wound with additional past EXTREMITIES: No cyanosis, clubbing, or pedal edema. -NEUROLOGICAL: Gross neurological examination did not reveal any focal deficits. Except for his Chronic paraplegia SKIN: No rashes. no petechiae. - Labs CBC & Chem 7: 02/09/22 05:28 02/09/22 05:28 Labs: Abnormal Lab Results - Last 24 Hours (Table) 02/09/22 02/09/22 Range/Units 05:28 05:28 RBC 3.40 L (4.40-5.60) X 10*6/uL Hgb 8.2 L (13.0-17.0) g/dL Hct 28.9 L (39.6-50.0) % MCH 24.1 L (27.0-32.0) pg MCHC 28.4 L (32.0-37.0) g/dL RDW 18.5 H (11.5-14.5) % Immature Gran # 0.05 H (0.00-0.04) X 10*3/uL Lymphocytes # 0.63 L (0.90-5.00) X 10*3/uL Chloride 112 H (98-107) mmol/L Carbon Dioxide 17 L (22-30) mmol/L BUN 7 L (9-20) mg/dL Creatinine 0.48 L (0.66-1.25) mg/dL Microbiology - Last 24 Hours (Table) 02/06/22 11:54 Urine Culture - Final Urine,Voided Pseudomonas aeruginosa 02/06/22 11:54 Gram Stain - Final Hip - Right Wound Culture - Final Pseudomonas aeruginosa 02/06/22 15:30 Blood Culture - Preliminary Blood No Growth after 48 hours 02/06/22 15:15 Blood Culture - Preliminary Blood No Growth after 48 hours Assessment and Plan Assessment: Right hip wound, with possible cellulitis secondary to pseudomonas and culture Acute pseudomonas UTI, related to Epps catheter Neurogenic bladder status post indwelling Epps catheter history of back injury since 1990, patient is bedridden since then Chronic borderline low blood pressure, systolic around 8200 Chronic anemia Left basal consolidation versus atelectasis Progressive dysphagia over 6 months status post PEG tube placement on 02/08 Plan: Consult dietary team for tube feeding Continue with antibiotic per ID team, currently on meropenem Continue gentle hydration Neurology consult Infectious disease team GI team consult, signed off the case Labs and medication were reviewed.. Continue same treatment. Continue with symptomatic treatment. Resume home medication. Monitor labs and vitals. DVT and GI prophylaxis. Further recommendations as per clinical course of the patient DVT prophylaxis: Subcutaneous heparin GI Prophylaxis: ppi Prognosis is guarded
[2022-02-09] MEDS: SODIUM CHLORIDE 0.9% 1,000 ML IV SCH (16:51)
[2022-02-09 17:52] LABS: Glucose,Whole Blood 101 mg/dL (70-110)
[2022-02-09 21:13] LABS: Glucose,Whole Blood 130 mg/dL (70-110)
[2022-02-09] MEDS: PRAVASTATIN SODIUM 20 MG TAB PO SCH (21:13)
[2022-02-10] MEDS: MEROPENEM 1 GM in SODIUM CHLORIDE 0.9% 100 ML IVPB SCH ×3 (06:45→19:55)
[2022-02-10] MEDS: SODIUM CHLORIDE 0.9% 1,000 ML IV SCH ×3 (06:45→19:56)
[2022-02-10 07:56] LABS: Glucose,Whole Blood 94 mg/dL (70-110)
[2022-02-10 09:32] LABS: Basophils # (A) 0.04 X 10*3/uL (0.00-0.10); Basophils % (A) 0.8 %; Eosinophils # (A) 0.15 X 10*3/uL (0.04-0.35); Eosinophils % (A) 2.9 %; HCT 26.7 % (39.6-50.0); HGB 7.6 g/dL (13.0-17.0); Immature Grans, Automated 0.8 %; Lymphocytes # (A) 0.56 X 10*3/uL (0.90-5.00); Lymphocytes % (A) 10.7 %; MCH 23.5 pg (27.0-32.0); MCHC 28.5 g/dL (32.0-37.0); MCV 82.4 fL (80.0-97.0); Mean Platelet Volume 9.1 fL (9.5-12.2); Monocytes # (A) 0.65 X 10*3/uL (0.20-1.00); Monocytes % (A) 12.5 %; NRBC Per 100 WBC 0 /100 WBCS (0.0-0.0); Neutrophils # (A) 3.77 X 10*3/uL (1.80-7.70); Neutrophils % (A) 72.3 %; Platelet Count 322 X 10*3/uL (140-440); RBC 3.24 X 10*6/uL (4.40-5.60); RDW 18.6 % (11.5-14.5); WBC 5.21 X 10*3/uL (4.50-10.00)
[2022-02-10] MEDS: INSULIN ASPART (NovoLOG) 100 UNIT/ML VIAL SQ SCH ×3 (10:43→17:49)
[2022-02-10] MEDS: HEPARIN SODIUM,PORCINE/PF 5,000 UNIT/0.5 ML SYRINGE SQ SCH ×2 (10:45→19:55)
[2022-02-10] MEDS: OXYBUTYNIN CHLORIDE 5 MG TAB PO SCH ×2 (10:45→19:55)
[2022-02-10] MEDS: PANTOPRAZOLE 40 MG/10 ML VIAL IV SCH (10:45)
[2022-02-10 12:15] LABS: Glucose,Whole Blood 106 mg/dL (70-110)
--- NOTE | 2022-02-10 14:12 | P.PN ---
Subjective This is a 71-year-old patient, follows with visiting physicians. 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 Chronic Epps catheter. Colostomy was done because patient being bedridden. Chronic wounds. Patient is in November 2021:. Present his admit weight loss. Underwent EGD by Dr. Aamir Darling. Found to have gastritis. Also had a UTI. For last 3 months patient with having nausea trouble swallowing. Unable to keep food down. Modified barium swallow was suboptimal. Patient now presented multiple symptoms. Urine was leaking around the Epps catheter. That was changed yesterday. By the visiting nurse. Also having bouts of perspiration. Consent about UTI. Patient has not been able to swallow well last 2 weeks. Prior to last admission. Has lost about 40 pounds. Per the . No fevers on levo to eat small amounts. 02/07/2022: Patient underwent barium swallow this morning. Showed some delayed transit but. He was able to pass through. Patient on IV ceftazidime and IV vancomycin for wound per ID. Cultures pending. Had a lengthy discussion with the patient and the at the bedside. He has lost significant weight and I'm concerned about significantly interfere with his wound healing. Has the emphasis on PEG tube. The patient and the decide about the same. Also seen by Dr. Aamir Darling. 02/08/2022: Patient was seen by me earlier this morning. Patient this afternoon due for EGD/PEG tube. Discussed with patient. Wound care per ID. new Epps catheter leaking around the meatus. Urology consulted. 02/09/2022 Patient a pleasant 71 years old male who presents with cellulitis of the right wound although there is no significant infection but wasn't culture is growing Pseudomonas, also patient has evidence of Pseudomonas UTI. By infectious disease team and he was started on meropenem today. Patient is bedridden and baseline secondary to T8 injury when he fell from the ladder in 1990, he is not walking since then. Patient is fully awake and oriented does not look in distress and does not have respiratory symptoms are at Hemoglobin is 8.2, blood pressure is at baseline Patient may benefit from intravenous antibiotics upon discharge 02/10/2022 Patient with known new complaints, is here for cellulitis on the right hip status post debridement also with UTI Pseudomonas infection of his currently covered with meropenem. Also he status post PEG tube placement since 02/08, dietary consult for starting over PEG tube History is x-ray showing atelectasis started on pneumonia especially with normal respiratory symptoms. His hemoglobin is dropping though 9.5 on admission came down to 8.2 on today down to 7.6. Patient is on subcutaneous heparin and Protonix He is on normal saline at 100 mL per hour. We going to do anemia workup and return hemoglobin. Blood pressure is chronically low normal at baseline, patient is asymptomatic regarding this Objective - Vital Signs Vital signs: Vital Signs Temp 98.4 F 02/10/22 12:10 Pulse 72 02/10/22 12:10 Resp 18 02/10/22 12:10 BP 94/58 02/10/22 12:10 Pulse Ox 97 02/10/22 12:10 FiO2 Intake & Output 02/09/22 02/10/22 02/10/22 18:59 06:59 18:59 Intake Total 1540 Output Total 1 Balance 1540 -1 Intake: Intake, IV Titration 1300 Amount Meropenem 1 gm In Sodium 100 Chloride 0.9% 100 ml @ 33 .3 mls/hr IVPB Q8H [facility] Rx #:[id number] Sodium Chloride 0.9% 1, 1200 000 ml @ 100 mls/hr IV . Q10H [facility] Rx#:[id number] Oral 240 Output: Urine/Stool Mix 1 Other: Voiding Method Indwelling Catheter Indwelling Catheter Indwelling Catheter # Voids 875 - Exam GENERAL: The patient is alert and oriented x3, not in any acute distress. Well developed, well nourished. HEENT: Pupils are round and equally reacting to light. EOMI. No scleral icterus. No conjunctival pallor. Normocephalic, atraumatic. No pharyngeal erythema. No thyromegaly. CARDIOVASCULAR: S1 and S2 present. No murmurs, rubs, or gallops. PULMONARY: Chest is clear to auscultation, no wheezing or crackles. -ABDOMEN: Soft, nontender, nondistended, normoactive bowel sounds. No palpable organomegaly. PEG tube in a Place. Epps catheter in place MUSCULOSKELETAL: No joint swelling or deformity. Right hip wound with additional past EXTREMITIES: No cyanosis, clubbing, or pedal edema. -NEUROLOGICAL: Gross neurological examination did not reveal any focal deficits. Except for his Chronic paraplegia SKIN: No rashes. no petechiae. - Labs CBC & Chem 7: 02/10/22 05:21 02/09/22 05:28 Labs: Abnormal Lab Results - Last 24 Hours (Table) 02/09/22 02/10/22 Range/Units 21:10 05:21 RBC 3.24 L (4.40-5.60) X 10*6/uL Hgb 7.6 L (13.0-17.0) g/dL Hct 26.7 L (39.6-50.0) % MCH 23.5 L (27.0-32.0) pg MCHC 28.5 L (32.0-37.0) g/dL RDW 18.6 H (11.5-14.5) % MPV 9.1 L (9.5-12.2) fL Lymphocytes # 0.56 L (0.90-5.00) X 10*3/uL POC Glucose (mg/dL) 130 H (70-110) mg/dL Microbiology - Last 24 Hours (Table) 02/06/22 15:15 Blood Culture - Preliminary Blood No Growth after 72 hours 02/06/22 15:30 Blood Culture - Preliminary Blood No Growth after 72 hours 02/06/22 11:54 Anaerobic Culture - Final Hip - Right Anaerobic Gm Negative Bacilli 02/06/22 11:54 Urine Culture - Final Urine,Voided Pseudomonas aeruginosa 02/06/22 11:54 Gram Stain - Final Hip - Right Wound Culture - Final Pseudomonas aeruginosa Assessment and Plan Assessment: Right hip wound, with possible cellulitis secondary to pseudomonas and culture Acute pseudomonas UTI, related to Epps catheter Neurogenic bladder status post indwelling Epps catheter history of back injury since 1990, patient is bedridden since then Chronic borderline low blood pressure, systolic around 8200 Chronic anemia Left basal consolidation versus atelectasis Progressive dysphagia over 6 months status post PEG tube placement on 02/08 Plan: Consult dietary team for tube feeding Continue with antibiotic per ID team, currently on meropenem Continue gentle hydration Neurology consult Infectious disease team GI team consult, signed off the case Labs and medication were reviewed.. Continue same treatment. Continue with symptomatic treatment. Resume home medication. Monitor labs and vitals. DVT and GI prophylaxis. Further recommendations as per clinical course of the patient DVT prophylaxis: Subcutaneous heparin GI Prophylaxis: ppi Prognosis is guarded
[2022-02-10 17:14] LABS: Glucose,Whole Blood 98 mg/dL (70-110)
[2022-02-10] MEDS: PRAVASTATIN SODIUM 20 MG TAB PO SCH (19:55)
[2022-02-10 21:03] LABS: Glucose,Whole Blood 109 mg/dL (70-110)
--- NOTE | 2022-02-10 21:41 | P.PN ---
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 Neck supple patient also have a sacral and right hip pressure ulcer. On today's evaluation that is 02/10/2022, the patient continues to be afebrile, the patient is breathing comfortably on room air, the patient denies chest pain shortness of breath or cough no abdominal pain or diarrhea, no new symptoms Objective - Vital Signs Vital signs: Vital Signs Temp 98.2 F 02/10/22 05:00 Pulse 79 02/10/22 05:00 Resp 16 02/10/22 05:00 BP 104/65 02/10/22 05:00 Pulse Ox 97 02/10/22 05:00 FiO2 Intake & Output 02/09/22 02/10/22 02/10/22 18:59 06:59 18:59 Intake Total 1540 Output Total 1 Balance 1540 -1 Intake: Intake, IV Titration 1300 Amount Meropenem 1 gm In Sodium 100 Chloride 0.9% 100 ml @ 33 .3 mls/hr IVPB Q8H [facility] Rx #:[id number] Sodium Chloride 0.9% 1, 1200 000 ml @ 100 mls/hr IV . Q10H [facility] Rx#:[id number] Oral 240 Output: Urine/Stool Mix 1 Other: Voiding Method Indwelling Catheter Indwelling Catheter # Voids 875 - Exam GENERAL DESCRIPTION: An elderly male lying in bed in no distress RESPIRATORY SYSTEM: Unlabored breathing , decreased breath sounds at bases HEART: S1 S2 regular rate and rhythm , ABDOMEN: Soft , no tenderness EXTREMITIES: Patient right hip and sacral wounds are currently dressed - Labs CBC & Chem 7: 02/10/22 05:21 02/09/22 05:28 Labs: Abnormal Lab Results - Last 24 Hours (Table) 02/09/22 02/10/22 Range/Units 21:10 05:21 RBC 3.24 L (4.40-5.60) X 10*6/uL Hgb 7.6 L (13.0-17.0) g/dL Hct 26.7 L (39.6-50.0) % MCH 23.5 L (27.0-32.0) pg MCHC 28.5 L (32.0-37.0) g/dL RDW 18.6 H (11.5-14.5) % MPV 9.1 L (9.5-12.2) fL Lymphocytes # 0.56 L (0.90-5.00) X 10*3/uL POC Glucose (mg/dL) 130 H (70-110) mg/dL Microbiology - Last 24 Hours (Table) 02/06/22 15:15 Blood Culture - Preliminary Blood No Growth after 72 hours 02/06/22 15:30 Blood Culture - Preliminary Blood No Growth after 72 hours 02/06/22 11:54 Anaerobic Culture - Final Hip - Right Anaerobic Gm Negative Bacilli 02/06/22 11:54 Urine Culture - Final Urine,Voided Pseudomonas aeruginosa 02/06/22 11:54 Gram Stain - Final Hip - Right Wound Culture - Final Pseudomonas aeruginosa Assessment and Plan (1) Decubitus ulcer Current Visit: Yes Status: Acute Code(s): L89.90 - PRESSURE ULCER OF UNSPECIFIED SITE, UNSPECIFIED STAGE SNOMED Code(s): 5769655063 (2) UTI (urinary tract infection) Current Visit: Yes Status: Acute Code(s): N39.0 - URINARY TRACT INFECTION, SITE NOT SPECIFIED SNOMED Code(s): 18471729 Plan: 1patient presented to hospital with generalized weakness not feeling well concerning for catheter associated UTI in this patient with history of recurrent UTI current Epps catheter was changed few days ago with a recent urine culture positive for Pseudomonas with intermediate sensitivity to cefepime and resistant to quinolones. 2patient also with a wound to the right hip, however clinically the wound does not appear infected, culture grow pseudomonas that is a sensitive pathogen 3local wound care to the sacral wound with Aquacel silver dressing into the right hip wound with the medchanteloney followed by moist dressing changes daily and keep the area off the pressure 4-the patient urine culture did grew multidrug-resistant pseudomonas for which the patient will continue with meropenem patient will need midline and outpatient IV antibiotic on discharge at the bedside multiple questions concerned were answered in Layman terms Time with Patient: Less than 30
[2022-02-11] MEDS: MEROPENEM 1 GM in SODIUM CHLORIDE 0.9% 100 ML IVPB SCH ×3 (05:16→20:38)
[2022-02-11 07:03] LABS: Glucose,Whole Blood 86 mg/dL (70-110)
[2022-02-11] MEDS: PANTOPRAZOLE 40 MG/10 ML VIAL IV SCH (08:29)
[2022-02-11] MEDS: OXYBUTYNIN CHLORIDE 5 MG TAB PO SCH ×2 (08:29→20:39)
[2022-02-11] MEDS: HEPARIN SODIUM,PORCINE/PF 5,000 UNIT/0.5 ML SYRINGE SQ SCH ×2 (08:30→20:38)
[2022-02-11] MEDS: SODIUM CHLORIDE 0.9% 1,000 ML IV SCH ×2 (08:40→12:01)
[2022-02-11] MEDS: INSULIN ASPART (NovoLOG) 100 UNIT/ML VIAL SQ SCH ×3 (08:40→17:31)
[2022-02-11 08:54] LABS: Basophils # (A) 0.02 X 10*3/uL (0.00-0.10); Basophils % (A) 0.4 %; Eosinophils # (A) 0.23 X 10*3/uL (0.04-0.35); Eosinophils % (A) 4.3 %; HCT 27.1 % (39.6-50.0); HGB 7.9 g/dL (13.0-17.0); Immature Grans, Automated 0.6 %; Lymphocytes # (A) 0.75 X 10*3/uL (0.90-5.00); Lymphocytes % (A) 14.1 %; MCH 24.3 pg (27.0-32.0); MCHC 29.2 g/dL (32.0-37.0); MCV 83.4 fL (80.0-97.0); Mean Platelet Volume 9.3 fL (9.5-12.2); Monocytes # (A) 0.62 X 10*3/uL (0.20-1.00); Monocytes % (A) 11.7 %; NRBC Per 100 WBC 0 /100 WBCS (0.0-0.0); Neutrophils # (A) 3.67 X 10*3/uL (1.80-7.70); Neutrophils % (A) 68.9 %; Platelet Count 327 X 10*3/uL (140-440); RBC 3.25 X 10*6/uL (4.40-5.60); RDW 18.6 % (11.5-14.5); WBC 5.32 X 10*3/uL (4.50-10.00)
[2022-02-11 09:28] LABS: % Iron Saturation 12.35 (15.00-50.00); African American GFR (CKD) 124.6 (60.0-200.0); Anion Gap 9.1 mmol/L (10.00-18.00); BUN/Creat Ratio 9.8 Ratio (12.00-20.00); Blood Urea Nitrogen 4.9 mg/dL (9.0-27.0); Calcium 8.5 mg/dL (8.7-10.3); Carbon Dioxide 25.9 mmol/L (20.0-27.5); Non-African American GFR(CKD) 107.5 (60.0-200.0); Potassium 3.2 mmol/L (3.5-5.5)
[2022-02-11] MEDS ORDERED: Potassium Replacement Protocol 1 EACH MISC MISCELLANE PRN ×2 (09:39→15:39)
[2022-02-11] MEDS: FOLIC ACID 1 MG TAB PO SCH (10:49)
[2022-02-11] MEDS: CYANOCOBALAMIN 500 MCG TAB PO SCH (10:49)
[2022-02-11] MEDS: POTASSIUM CHLORIDE ER 20 MEQ TAB.ER PO SCH ×6 (10:49→20:39)
[2022-02-11 11:24] LABS: Glucose,Whole Blood 122 mg/dL (70-110)
--- NOTE | 2022-02-11 11:59 | CDI ---
Documentation Clarification Form Date: 02/11/2022 11:14:13 AM From: Nina Ascencio RN, CCDS Admit Date: 02/06/2022 03:17:00 PM Patient Name: Barak Caputo Visit Number: [id number] Discharge Date: ATTENTION: The Clinical Documentation Specialists (CDI) and [facility] Coding Staff appreciate your assistance in clarifying documentation. Please respond to the clarification below the line at the bottom and electronically sign. The CDI & [facility] Coding staff will review the response and follow-up if needed. Please note: Queries are made part of the Legal Health Record. If you have any questions, please contact the author of this message via ITS. Dr. Leesa Pal Left hip, Right hip, Sacrum stage IV pressure ulcer is documented by Nursing Wound Care assessment on 02/06/22. Based on this information and the findings below, is there an additional diagnosis that is clinically appropriate for this patient? History/Risk Factors: Neurogenic bladder, Diabetes Mellitus DVT, HTN, Paraplegic Chronic benavides Clinical Indicators: 71-year-old male with hex of T8 spinal cord injury from fall present with UTI. Has chronic decubitus ulcers to left hip, right hip sacrum. Per nursing assessment on admission. In order to capture the severity of illness further documentation must be provided. Location: Left hip, right hip sacrum: slight odor Treatment: Local wound care to the sacral wound with Vilma silver dressing to the right hip wound with the medahoney follow by moist dressing changes daily and keep the area off the pressure Is there an additional diagnosis that is clinically appropriate for this patient? [ } Left hip pressure ulcer stage IV, Right hip stage IV, Sacrum Stage IV, all present on admission [ ] Left hip pressure ulcer Unstageable, Right hip stage IV, Sacrum Stage IV all present on admission [ x ] Other condition, please specify location, stage, present on admission , right hip stage III, sacral stage III pressure ulcer with no cellulitis present on admission [ ] Unable to determine Clinical Definitions: Stage 1 Pressure Ulcer: intact skin, non-blanching redness of local area Stage 2 Pressure Ulcer: Partial thickness, loss of dermis, pink wound bed Stage 3 Pressure Ulcer: Full thickness tissue loss Stage 4 Pressure Ulcer: Full thickness tissue loss with exposed bone, tendon, or muscle. Unstageable pressure ulcer: Full thickness tissue loss in which the base of the ulcer is covered by slough (yellow, jasso, fontana, green or brown) and/or eschar (jasso, brown or black) in the wound bed. (Template Last Revised: April 2020) MTDD
--- NOTE | 2022-02-11 12:12 | CDI ---
Documentation Clarification Form Date: 02/08/2022 07:39:00 PM From: Nina Ascencio RN,CCDS Phone: LAURA, JASSIKleber Admit Date: 02/06/2022 03:17:00 PM Patient Name: Barak Caputo Visit Number: [id number] Discharge Date: ATTENTION: The Clinical Documentation Specialists (CDI) and [facility] Coding Staff appreciate your assistance in clarifying documentation. Please respond to the clarification below the line at the bottom and electronically sign. The CDI & [facility] Coding staff will review the response and follow-up if needed. Please note: Queries are made part of the Legal Health Record. If you have any questions, please contact the author of this message via ITS. Dr. Mdai Cabrera Malnutrition is documented in the urology consult on 02/08/22. Additional clarification regarding the severity of malnutrition is requested. History/Risk Factors: paraplegia T8 spinal cord injury, UITI, chronic wounds, Colostomy, DM, HTN CA Clinical Indicators: 71-year-old with painful, difficulty chewing/swallowing greater than 6 months. Current BMI: 21.2 Insufficient energy intake: Appetite poor, NPO failed swallow evaluation Weight Loss: Underweight RD Consult Assessment: Increased metabolic demand for wound healings multiple stage >II pressure injuries Treatment: Dietary Consult: Underweight stage IV right hip and sacrum, unstagable left hip pressure injury Supplements: Tube Feedings: Glucerna 75 ml hr 30 ml free water flus every 4 hrs Please clarify the type of malnutrition, if known: [ ] Mild Protein-Calorie Malnutrition [ ] Moderate Protein-Calorie Malnutrition [ ] Severe Protein-Calorie Malnutrition [ ] Other condition, please specify [ ] Unable to Determine (Template Last Revised: April 2020) Mild Protein-Calorie Malnutrition MTDD
--- NOTE | 2022-02-11 12:37 | P.PN ---
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 Neck supple patient also have a sacral and right hip pressure ulcer. On today's evaluation that is 02/11/2022, the patient remains to be afebrile, the patient is breathing comfortably on room air, the patient denies chest pain, shortness of breath no significant cough no abdominal pain or diarrhea ,overall feeling better Objective - Vital Signs Vital signs: Vital Signs Temp 98.2 F 02/11/22 11:20 Pulse 85 02/11/22 11:20 Resp 17 02/11/22 11:20 BP 99/60 02/11/22 11:20 Pulse Ox 96 02/11/22 11:20 FiO2 Intake & Output 02/10/22 02/11/22 02/11/22 18:59 06:59 18:59 Output Total 700 650 Balance -700 -650 Weight 78.47 kg Output: Urine 700 650 Other: Voiding Method Indwelling Catheter Indwelling Catheter Indwelling Catheter - Exam GENERAL DESCRIPTION: An elderly male lying in bed in no distress RESPIRATORY SYSTEM: Unlabored breathing , decreased breath sounds at bases HEART: S1 S2 regular rate and rhythm , ABDOMEN: Soft , no tenderness EXTREMITIES: Patient right hip and sacral wounds are currently dressed - Labs CBC & Chem 7: 02/11/22 05:38 02/11/22 05:38 Labs: Abnormal Lab Results - Last 24 Hours (Table) 02/11/22 02/11/22 02/11/22 Range/Units 05:38 05:38 05:38 RBC 3.25 L (4.40-5.60) X 10*6/uL Hgb 7.9 L (13.0-17.0) g/dL Hct 27.1 L (39.6-50.0) % MCH 24.3 L (27.0-32.0) pg MCHC 29.2 L (32.0-37.0) g/dL RDW 18.6 H (11.5-14.5) % MPV 9.3 L (9.5-12.2) fL Lymphocytes # 0.75 L (0.90-5.00) X 10*3/uL Potassium 3.2 L (3.5-5.5) mmol/L Anion Gap 9.10 L (10.00-18.00) mmol/L BUN 4.9 L (9.0-27.0) mg/dL Creatinine 0.5 L (0.6-1.5) mg/dL BUN/Creatinine Ratio 9.80 L (12.00-20.00) Ratio POC Glucose (mg/dL) (70-110) mg/dL Calcium 8.5 L (8.7-10.3) mg/dL Iron 16 L (65-175) ug/dL TIBC 128 L (228-460) ug/dL % Saturation 12.35 L (15.00-50.00) Transferrin 91.4 L (204.0-354.0) mg/dL Folate 3.30 L (4.40-31.00) ng/mL 02/11/22 Range/Units 11:23 RBC (4.40-5.60) X 10*6/uL Hgb (13.0-17.0) g/dL Hct (39.6-50.0) % MCH (27.0-32.0) pg MCHC (32.0-37.0) g/dL RDW (11.5-14.5) % MPV (9.5-12.2) fL Lymphocytes # (0.90-5.00) X 10*3/uL Potassium (3.5-5.5) mmol/L Anion Gap (10.00-18.00) mmol/L BUN (9.0-27.0) mg/dL Creatinine (0.6-1.5) mg/dL BUN/Creatinine Ratio (12.00-20.00) Ratio POC Glucose (mg/dL) 122 H (70-110) mg/dL Calcium (8.7-10.3) mg/dL Iron (65-175) ug/dL TIBC (228-460) ug/dL % Saturation (15.00-50.00) Transferrin (204.0-354.0) mg/dL Folate (4.40-31.00) ng/mL Microbiology - Last 24 Hours (Table) 02/06/22 15:15 Blood Culture - Preliminary Blood No Growth after 96 hours 02/06/22 15:30 Blood Culture - Preliminary Blood No Growth after 96 hours Assessment and Plan (1) Decubitus ulcer Current Visit: Yes Status: Acute Code(s): L89.90 - PRESSURE ULCER OF UNSPECIFIED SITE, UNSPECIFIED STAGE SNOMED Code(s): 6577447108 (2) UTI (urinary tract infection) Current Visit: Yes Status: Acute Code(s): N39.0 - URINARY TRACT INFECTION, SITE NOT SPECIFIED SNOMED Code(s): 20896485 Plan: 1patient presented to hospital with generalized weakness not feeling well concerning for catheter associated UTI in this patient with history of recurrent UTI current Epps catheter was changed few days ago with a recent urine culture positive for Pseudomonas with intermediate sensitivity to cefepime and resistant to quinolones. 2patient also with a wound to the right hip, however clinically the wound does not appear infected, culture grow pseudomonas that is a sensitive pathogen 3local wound care to the sacral wound with Aquacel silver dressing into the right hip wound with the medahoney followed by moist dressing changes daily and keep the area off the pressure 4-the patient urine culture did grew multidrug-resistant pseudomonas for which the patient will continue with meropenem patient is currently waiting for placement of the midline and outpatient IV antibiotic arrangement before discharge, questions concerned were answered Time with Patient: Less than 30
--- NOTE | 2022-02-11 14:16 | P.PN ---
Subjective This is a 71-year-old patient, follows with visiting physicians. 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 Chronic Epps catheter. Colostomy was done because patient being bedridden. Chronic wounds. Patient is in November 2021:. Present his admit weight loss. Underwent EGD by Dr. Aamir Darling. Found to have gastritis. Also had a UTI. For last 3 months patient with having nausea trouble swallowing. Unable to keep food down. Modified barium swallow was suboptimal. Patient now presented multiple symptoms. Urine was leaking around the Epps catheter. That was changed yesterday. By the visiting nurse. Also having bouts of perspiration. Consent about UTI. Patient has not been able to swallow well last 2 weeks. Prior to last admission. Has lost about 40 pounds. Per the . No fevers on levo to eat small amounts. 02/07/2022: Patient underwent barium swallow this morning. Showed some delayed transit but. He was able to pass through. Patient on IV ceftazidime and IV vancomycin for wound per ID. Cultures pending. Had a lengthy discussion with the patient and the at the bedside. He has lost significant weight and I'm concerned about significantly interfere with his wound healing. Has the emphasis on PEG tube. The patient and the decide about the same. Also seen by Dr. Aamir Darling. 02/08/2022: Patient was seen by me earlier this morning. Patient this afternoon due for EGD/PEG tube. Discussed with patient. Wound care per ID. new Epps catheter leaking around the meatus. Urology consulted. 02/09/2022 Patient a pleasant 71 years old male who presents with cellulitis of the right wound although there is no significant infection but wasn't culture is growing Pseudomonas, also patient has evidence of Pseudomonas UTI. By infectious disease team and he was started on meropenem today. Patient is bedridden and baseline secondary to T8 injury when he fell from the ladder in 1990, he is not walking since then. Patient is fully awake and oriented does not look in distress and does not have respiratory symptoms are at Hemoglobin is 8.2, blood pressure is at baseline Patient may benefit from intravenous antibiotics upon discharge 02/10/2022 Patient with known new complaints, is here for cellulitis on the right hip status post debridement also with UTI Pseudomonas infection of his currently covered with meropenem. Also he status post PEG tube placement since 02/08, dietary consult for starting over PEG tube History is x-ray showing atelectasis started on pneumonia especially with normal respiratory symptoms. His hemoglobin is dropping though 9.5 on admission came down to 8.2 on today down to 7.6. Patient is on subcutaneous heparin and Protonix He is on normal saline at 100 mL per hour. We going to do anemia workup and return hemoglobin. Blood pressure is chronically low normal at baseline, patient is asymptomatic regarding this 02/11/2022 patient generally doing well, he is fully awake and oriented and looks comfortable Patient with no urinary complaints, Peg tube feedings started today at 10 mL/h, he denies that well with plan to going to goal of feeding hopefully by tomorrow Patient will need midline for outpatient antibiotic and his subacute rehab, per recommendation of infectious disease team, currently he is on meropenem for pseu domonas infection in his right hip wound and UTI. He has brown stool with no evidence of active bleeding, hemoglobin is stable at 7.9. 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 Replacement electrolytes per protocol Discussed with staff Possible discharge in 24-48 hours Objective - Vital Signs Vital signs: Vital Signs Temp 98.2 F 02/11/22 11:20 Pulse 85 02/11/22 11:20 Resp 17 02/11/22 11:20 BP 99/60 02/11/22 11:20 Pulse Ox 96 02/11/22 11:20 FiO2 Intake & Output 02/10/22 02/11/22 02/11/22 18:59 06:59 18:59 Output Total 700 650 Balance -700 -650 Weight 78.47 kg Output: Urine 700 650 Other: Voiding Method Indwelling Catheter Indwelling Catheter Indwelling Catheter - Exam GENERAL: The patient is alert and oriented x3, not in any acute distress. Well developed, well nourished. HEENT: Pupils are round and equally reacting to light. EOMI. No scleral icterus. No conjunctival pallor. Normocephalic, atraumatic. No pharyngeal erythema. No thyromegaly. CARDIOVASCULAR: S1 and S2 present. No murmurs, rubs, or gallops. PULMONARY: Chest is clear to auscultation, no wheezing or crackles. -ABDOMEN: Soft, nontender, nondistended, normoactive bowel sounds. No palpable organomegaly. PEG tube in a Place. Epps catheter in place MUSCULOSKELETAL: No joint swelling or deformity. Right hip wound with additional past EXTREMITIES: No cyanosis, clubbing, or pedal edema. -NEUROLOGICAL: Gross neurological examination did not reveal any focal deficits. Except for his Chronic paraplegia SKIN: No rashes. no petechiae. - Labs CBC & Chem 7: 02/11/22 05:38 02/11/22 05:38 Labs: Abnormal Lab Results - Last 24 Hours (Table) 02/11/22 02/11/22 02/11/22 Range/Units 05:38 05:38 05:38 RBC 3.25 L (4.40-5.60) X 10*6/uL Hgb 7.9 L (13.0-17.0) g/dL Hct 27.1 L (39.6-50.0) % MCH 24.3 L (27.0-32.0) pg MCHC 29.2 L (32.0-37.0) g/dL RDW 18.6 H (11.5-14.5) % MPV 9.3 L (9.5-12.2) fL Lymphocytes # 0.75 L (0.90-5.00) X 10*3/uL Potassium 3.2 L (3.5-5.5) mmol/L Anion Gap 9.10 L (10.00-18.00) mmol/L BUN 4.9 L (9.0-27.0) mg/dL Creatinine 0.5 L (0.6-1.5) mg/dL BUN/Creatinine Ratio 9.80 L (12.00-20.00) Ratio POC Glucose (mg/dL) (70-110) mg/dL Calcium 8.5 L (8.7-10.3) mg/dL Iron 16 L (65-175) ug/dL TIBC 128 L (228-460) ug/dL % Saturation 12.35 L (15.00-50.00) Transferrin 91.4 L (204.0-354.0) mg/dL Folate 3.30 L (4.40-31.00) ng/mL 12/19/22 Range/Units 11:23 RBC (4.40-5.60) X 10*6/uL Hgb (13.0-17.0) g/dL Hct (39.6-50.0) % MCH (27.0-32.0) pg MCHC (32.0-37.0) g/dL RDW (11.5-14.5) % MPV (9.5-12.2) fL Lymphocytes # (0.90-5.00) X 10*3/uL Potassium (3.5-5.5) mmol/L Anion Gap (10.00-18.00) mmol/L BUN (9.0-27.0) mg/dL Creatinine (0.6-1.5) mg/dL BUN/Creatinine Ratio (12.00-20.00) Ratio POC Glucose (mg/dL) 122 H (70-110) mg/dL Calcium (8.7-10.3) mg/dL Iron (65-175) ug/dL TIBC (228-460) ug/dL % Saturation (15.00-50.00) Transferrin (204.0-354.0) mg/dL Folate (4.40-31.00) ng/mL Microbiology - Last 24 Hours (Table) 02/06/22 15:15 Blood Culture - Preliminary Blood No Growth after 96 hours 02/06/22 15:30 Blood Culture - Preliminary Blood No Growth after 96 hours Assessment and Plan Assessment: Right hip wound, with possible cellulitis secondary to pseudomonas and culture Acute pseudomonas UTI, related to Epps catheter Neurogenic bladder status post indwelling Epps catheter history of back injury since 1990, patient is bedridden since then Chronic borderline low blood pressure, systolic around 8200 Chronic anemia Left basal consolidation versus atelectasis Progressive dysphagia over 6 months status post PEG tube placement on 02/08 Plan: Consult dietary team for tube feeding Continue with antibiotic per ID team, currently on meropenem Continue gentle hydration Neurology consult Infectious disease team GI team consult, signed off the case Labs and medication were reviewed.. Continue same treatment. Continue with symptomatic treatment. Resume home medication. Monitor labs and vitals. DVT and GI prophylaxis. Further recommendations as per clinical course of the patient DVT prophylaxis: Subcutaneous heparin GI Prophylaxis: ppi Prognosis is guarded
[2022-02-11 17:05] LABS: Glucose,Whole Blood 114 mg/dL (70-110)
[2022-02-11 20:32] LABS: Glucose,Whole Blood 121 mg/dL (70-110)
[2022-02-11] MEDS: PRAVASTATIN SODIUM 20 MG TAB PO SCH (20:39)
[2022-02-12] MEDS: SODIUM CHLORIDE 0.9% 1,000 ML IV SCH ×3 (04:04→19:39)
[2022-02-12] MEDS: MEROPENEM 1 GM in SODIUM CHLORIDE 0.9% 100 ML IVPB SCH ×3 (04:04→21:42)
[2022-02-12 07:06] LABS: Glucose,Whole Blood 122 mg/dL (70-110)
[2022-02-12] MEDS: INSULIN ASPART (NovoLOG) 100 UNIT/ML VIAL SQ SCH ×3 (07:18→17:33)
[2022-02-12] MEDS: ONDANSETRON 4 MG/2 ML VIAL IVP PRN (07:41)
[2022-02-12] MEDS: HEPARIN SODIUM,PORCINE/PF 5,000 UNIT/0.5 ML SYRINGE SQ SCH ×2 (07:42→21:42)
[2022-02-12] MEDS: PANTOPRAZOLE 40 MG/10 ML VIAL IV SCH (07:42)
[2022-02-12] MEDS: CYANOCOBALAMIN 500 MCG TAB PO SCH (10:09)
[2022-02-12] MEDS: FOLIC ACID 1 MG TAB PO SCH (10:09)
[2022-02-12] MEDS: OXYBUTYNIN CHLORIDE 5 MG TAB PO SCH ×2 (10:09→21:43)
[2022-02-12 11:23] LABS: Glucose,Whole Blood 121 mg/dL (70-110)
--- NOTE | 2022-02-12 14:31 | P.PN ---
Subjective This is a 71-year-old patient, follows with visiting physicians. 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 Chronic Epps catheter. Colostomy was done because patient being bedridden. Chronic wounds. Patient is in November 2021:. Present his admit weight loss. Underwent EGD by Dr. Aamir Darling. Found to have gastritis. Also had a UTI. For last 3 months patient with having nausea trouble swallowing. Unable to keep food down. Modified barium swallow was suboptimal. Patient now presented multiple symptoms. Urine was leaking around the Epps catheter. That was changed yesterday. By the visiting nurse. Also having bouts of perspiration. Consent about UTI. Patient has not been able to swallow well last 2 weeks. Prior to last admission. Has lost about 40 pounds. Per the . No fevers on levo to eat small amounts. 02/07/2022: Patient underwent barium swallow this morning. Showed some delayed transit but. He was able to pass through. Patient on IV ceftazidime and IV vancomycin for wound per ID. Cultures pending. Had a lengthy discussion with the patient and the at the bedside. He has lost significant weight and I'm concerned about significantly interfere with his wound healing. Has the emphasis on PEG tube. The patient and the decide about the same. Also seen by Dr. Aamir Darling. 02/08/2022: Patient was seen by me earlier this morning. Patient this afternoon due for EGD/PEG tube. Discussed with patient. Wound care per ID. new Epps catheter leaking around the meatus. Urology consulted. 02/09/2022 Patient a pleasant 71 years old male who presents with cellulitis of the right wound although there is no significant infection but wasn't culture is growing Pseudomonas, also patient has evidence of Pseudomonas UTI. By infectious disease team and he was started on meropenem today. Patient is bedridden and baseline secondary to T8 injury when he fell from the ladder in 1990, he is not walking since then. Patient is fully awake and oriented does not look in distress and does not have respiratory symptoms are at Hemoglobin is 8.2, blood pressure is at baseline Patient may benefit from intravenous antibiotics upon discharge 02/10/2022 Patient with known new complaints, is here for cellulitis on the right hip status post debridement also with UTI Pseudomonas infection of his currently covered with meropenem. Also he status post PEG tube placement since 02/08, dietary consult for starting over PEG tube History is x-ray showing atelectasis started on pneumonia especially with normal respiratory symptoms. His hemoglobin is dropping though 9.5 on admission came down to 8.2 on today down to 7.6. Patient is on subcutaneous heparin and Protonix He is on normal saline at 100 mL per hour. We going to do anemia workup and return hemoglobin. Blood pressure is chronically low normal at baseline, patient is asymptomatic regarding this 02/11/2022 patient generally doing well, he is fully awake and oriented and looks comfortable Patient with no urinary complaints, Peg tube feedings started today at 10 mL/h, he denies that well with plan to going to goal of feeding hopefully by tomorrow Patient will need midline for outpatient antibiotic and his subacute rehab, per recommendation of infectious disease team, currently he is on meropenem for pseu domonas infection in his right hip wound and UTI. He has brown stool with no evidence of active bleeding, hemoglobin is stable at 7.9. 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 Replacement electrolytes per protocol Discussed with staff Possible discharge in 24-48 hours 02/12/2022 Patient is awake and alert, he denies any specific complaint. Peg Tube is in a Place, tube feeding is a started and today he is snf into his goal, also we are checking his residual His blood pressure always low-normal and patient is asymptomatic, looks at baseline. He denies any pain today. He has some nausea but is controlled with no vomiting. He has midline place with plan for IV antibiotics upon discharge Possible discharge in 24-48 hours Objective - Vital Signs Vital signs: Vital Signs Temp 98 F 02/12/22 11:20 Pulse 85 02/12/22 11:20 Resp 16 02/12/22 11:20 BP 96/60 02/12/22 11:20 Pulse Ox 99 02/12/22 11:20 FiO2 Intake & Output 02/11/22 02/12/22 02/12/22 18:59 06:59 18:59 Intake Total 150 Output Total 750 1200 Balance -750 -1200 150 Weight 78.47 kg 77.882 kg Intake: Tube Feeding 150 Output: Urine 750 1200 Other: Voiding Method Indwelling Catheter Indwelling Catheter Indwelling Catheter - Exam GENERAL: The patient is alert and oriented x3, not in any acute distress. Well developed, well nourished. HEENT: Pupils are round and equally reacting to light. EOMI. No scleral icterus. No conjunctival pallor. Normocephalic, atraumatic. No pharyngeal erythema. No thyromegaly. CARDIOVASCULAR: S1 and S2 present. No murmurs, rubs, or gallops. PULMONARY: Chest is clear to auscultation, no wheezing or crackles. -ABDOMEN: Soft, nontender, nondistended, normoactive bowel sounds. No palpable organomegaly. PEG tube in a Place. Epps catheter in place MUSCULOSKELETAL: No joint swelling or deformity. Right hip wound with additional past EXTREMITIES: No cyanosis, clubbing, or pedal edema. -NEUROLOGICAL: Gross neurological examination did not reveal any focal deficits. Except for his Chronic paraplegia SKIN: No rashes. no petechiae. - Labs CBC & Chem 7: 02/11/22 05:38 02/12/22 06:15 Labs: Abnormal Lab Results - Last 24 Hours (Table) 02/11/22 02/11/22 02/11/22 Range/Units 14:50 17:03 19:32 Potassium 3.2 L 3.3 L (3.5-5.1) mmol/L POC Glucose (mg/dL) 114 H (70-110) mg/dL 02/11/22 02/12/22 02/12/22 Range/Units 20:30 07:04 11:21 Potassium (3.5-5.1) mmol/L POC Glucose (mg/dL) 121 H 122 H 121 H (70-110) mg/dL Microbiology - Last 24 Hours (Table) 02/06/22 15:30 Blood Culture - Preliminary Blood No Growth after 120 hours 02/06/22 15:15 Blood Culture - Preliminary Blood No Growth after 120 hours Assessment and Plan Assessment: Right hip wound, with possible cellulitis secondary to pseudomonas and culture Acute pseudomonas UTI, related to Epps catheter Neurogenic bladder status post indwelling Epps catheter history of back injury since 1990, patient is bedridden since then Chronic borderline low blood pressure, systolic around 8200 Chronic anemia Left basal consolidation versus atelectasis Progressive dysphagia over 6 months status post PEG tube placement on 02/08 Plan: Consult dietary team for tube feeding Continue with antibiotic per ID team, currently on meropenem Continue gentle hydration Neurology consult Infectious disease team GI team consult, signed off the case Labs and medication were reviewed.. Continue same treatment. Continue with symptomatic treatment. Resume home medication. Monitor labs and vitals. DVT and GI prophylaxis. Further recommendations as per clinical course of the patient DVT prophylaxis: Subcutaneous heparin GI Prophylaxis: ppi Prognosis is guarded
[2022-02-12 17:05] LABS: Glucose,Whole Blood 135 mg/dL (70-110)
--- NOTE | 2022-02-12 17:43 | P.PN ---
Subjective Progress Note Date: 02/12/22 Principal diagnosis: Urinary tract infection and sacral/right hip pressure ulcer Patient is a 71-year-old male with a past medical history taken for paraplegia secondary to T8 spinal cord injury sustained from a fall from a tree, the patient did have a neurogenic bladder with chronic indwelling Epps catheter and history of recurrent UTI. Neck supple patient also have a sacral and right hip pressure ulcer. On today's evaluation that is 02/12/2022, the patient continues to be afebrile, the patient is breathing comfortably on room air, the patient denies chest pain, shortness of breath , no significant cough or sputum production patient denies any abdominal pain and no diarrhea has been reported Objective - Vital Signs Vital signs: Vital Signs Temp 98 F 02/12/22 11:20 Pulse 85 02/12/22 11:20 Resp 16 02/12/22 11:20 BP 96/60 02/12/22 11:20 Pulse Ox 99 02/12/22 11:20 FiO2 Intake & Output 02/11/22 02/12/22 02/12/22 18:59 06:59 18:59 Intake Total 30 Output Total 750 1200 Balance -750 -1200 30 Weight 78.47 kg 77.882 kg Intake: Tube Feeding 30 Output: Urine 750 1200 Other: Voiding Method Indwelling Catheter Indwelling Catheter Indwelling Catheter - Exam GENERAL DESCRIPTION: An elderly male lying in bed in no distress RESPIRATORY SYSTEM: Unlabored breathing , decreased breath sounds at bases HEART: S1 S2 regular rate and rhythm , ABDOMEN: Soft , no tenderness EXTREMITIES: Patient right hip and sacral wounds are currently dressed - Labs CBC & Chem 7: 02/11/22 05:38 02/12/22 06:15 Labs: Abnormal Lab Results - Last 24 Hours (Table) 02/11/22 02/11/22 02/11/22 Range/Units 14:50 17:03 19:32 Potassium 3.2 L 3.3 L (3.5-5.1) mmol/L POC Glucose (mg/dL) 114 H (70-110) mg/dL 02/11/22 02/12/22 02/12/22 Range/Units 20:30 07:04 11:21 Potassium (3.5-5.1) mmol/L POC Glucose (mg/dL) 121 H 122 H 121 H (70-110) mg/dL Microbiology - Last 24 Hours (Table) 02/06/22 15:30 Blood Culture - Preliminary Blood No Growth after 120 hours 02/06/22 15:15 Blood Culture - Preliminary Blood No Growth after 120 hours Assessment and Plan (1) Decubitus ulcer Current Visit: Yes Status: Acute Code(s): L89.90 - PRESSURE ULCER OF UNSPECIFIED SITE, UNSPECIFIED STAGE SNOMED Code(s): 9158977951 (2) UTI (urinary tract infection) Current Visit: Yes Status: Acute Code(s): N39.0 - URINARY TRACT INFECTION, SITE NOT SPECIFIED SNOMED Code(s): 08212764 Plan: 1patient presented to hospital with generalized weakness not feeling well concerning for catheter associated UTI in this patient with history of recurrent UTI current Epps catheter was changed few days ago with a recent urine culture positive for Pseudomonas with intermediate sensitivity to cefepime and resistant to quinolones. 2patient also with a wound to the right hip, however clinically the wound does not appear infected, culture grow pseudomonas that is a sensitive pathogen 3local wound care to the sacral wound with Aquacel silver dressing into the right hip wound with the medahoney followed by moist dressing changes daily and keep the area off the pressure 4-the patient urine culture did grew multidrug-resistant pseudomonas for which the patient will continue with meropenem 2 weeks on discharge and close outpatient follow-up Time with Patient: Less than 30
[2022-02-12 21:08] LABS: Glucose,Whole Blood 148 mg/dL (70-110)
[2022-02-12] MEDS: PRAVASTATIN SODIUM 20 MG TAB PO SCH (21:43)
[2022-02-13] MEDS: MEROPENEM 1 GM in SODIUM CHLORIDE 0.9% 100 ML IVPB SCH ×3 (04:38→20:29)
[2022-02-13 06:53] LABS: Glucose,Whole Blood 127 mg/dL (70-110)
[2022-02-13] MEDS: INSULIN ASPART (NovoLOG) 100 UNIT/ML VIAL SQ SCH ×3 (07:33→16:55)
[2022-02-13 07:41] LABS: Anisocytosis Slight; Basophils % (A) 0 %; Eosinophils # (A) 0.2 k/uL (0-0.7); Eosinophils % (A) 3 %; HCT 27.8 % (39.0-53.0); HGB 8.5 gm/dL (13.0-17.5); Hypochromasia Marked; Lymphocytes # (A) 0.8 k/uL (1.0-4.8); Lymphocytes % (A) 14 %; MCH 25.2 pg (25.0-35.0); MCHC 30.5 g/dL (31.0-37.0); MCV 82.6 fL (80.0-100.0); Mean Platelet Volume 7.3; Monocytes # (A) 0.4 k/uL (0-1.0); Monocytes % (A) 8 %; Neutrophils % (A) 73 %; Platelet Count 283 k/uL (150-450); RBC 3.37 m/uL (4.30-5.90); RDW 16.9 % (11.5-15.5); WBC 5.5 k/uL (3.8-10.6)
[2022-02-13 07:52] LABS: African American GFR (CKD) >90 (>60 ml/min/1.73 sqM); Anion Gap 2 mmol/L; Blood Urea Nitrogen 8 mg/dL (9-20); Carbon Dioxide 29 mmol/L (22-30); Chloride 103 mmol/L (98-107); Glucose 131 mg/dL (74-99); Magnesium 1.5 mg/dL (1.6-2.3); Non-African American GFR(CKD) >90 (>60 ml/min/1.73 sqM); Potassium 4.5 mmol/L (3.5-5.1); Sodium 134 mmol/L (137-145)
[2022-02-13] MEDS: ONDANSETRON 4 MG/2 ML VIAL IVP PRN ×2 (08:41→17:54)
[2022-02-13] MEDS: OXYBUTYNIN CHLORIDE 5 MG TAB PO SCH ×2 (08:42→20:30)
[2022-02-13] MEDS: PANTOPRAZOLE 40 MG/10 ML VIAL IV SCH (08:42)
[2022-02-13] MEDS: FOLIC ACID 1 MG TAB PO SCH (08:42)
[2022-02-13] MEDS: CYANOCOBALAMIN 500 MCG TAB PO SCH (08:42)
[2022-02-13] MEDS: HEPARIN SODIUM,PORCINE/PF 5,000 UNIT/0.5 ML SYRINGE SQ SCH ×2 (08:42→20:29)
[2022-02-13] MEDS: SODIUM CHLORIDE 0.9% 1,000 ML IV SCH ×2 (09:06→12:09)
[2022-02-13 11:54] LABS: Glucose,Whole Blood 143 mg/dL (70-110)
[2022-02-13 14:02] VITALS: BMI 26.7
[2022-02-13] MEDS ORDERED: Magnesium Replacement Protocol 1 EACH MISC MISCELLANE PRN (14:58)
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
[2022-02-13 17:33] LABS: Glucose,Whole Blood 127 mg/dL (70-110)
[2022-02-13] MEDS: PRAVASTATIN SODIUM 20 MG TAB PO SCH (20:30)
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
[2022-02-13 23:53] LABS: Glucose,Whole Blood 127 mg/dL (70-110)
[2022-02-14] MEDS: MEROPENEM 1 GM in SODIUM CHLORIDE 0.9% 100 ML IVPB SCH ×2 (04:14→12:37)
[2022-02-14] MEDS: SODIUM CHLORIDE 0.9% 1,000 ML IV SCH ×2 (04:15→13:35)
[2022-02-14 05:58] LABS: Glucose,Whole Blood 123 mg/dL (70-110)
[2022-02-14] MEDS: INSULIN ASPART (NovoLOG) 100 UNIT/ML VIAL SQ SCH ×3 (09:22→17:09)
[2022-02-14] MEDS: FOLIC ACID 1 MG TAB PO SCH (09:22)
[2022-02-14] MEDS: CYANOCOBALAMIN 500 MCG TAB PO SCH (09:22)
[2022-02-14] MEDS: HEPARIN SODIUM,PORCINE/PF 5,000 UNIT/0.5 ML SYRINGE SQ SCH (09:22)
[2022-02-14] MEDS: PANTOPRAZOLE 40 MG/10 ML VIAL IV SCH (09:23)
[2022-02-14] MEDS: OXYBUTYNIN CHLORIDE 5 MG TAB PO SCH (09:23)
[2022-02-14 11:50] LABS: Glucose,Whole Blood 124 mg/dL (70-110)
[2022-02-14 12:04] VITALS: BP 102/63; PULSE 73; RESP 16; TEMP 98.4
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
== END 2022-02-14 17:43 | disposition home health service (06) | DRG 698 ==
LOC: EC 11:11 → 5NMEDONC 15:17
PROVIDERS: ADMIT Hospitalist; ATTEND Hospitalist
PROC: 3E0G76Z Introduction of Nutritional Substance into Upper GI, Via Natural or Artificial Opening (ICD-10-PCS; 2022-02-08)
PROC: 0DH63UZ Insertion of Feeding Device into Stomach, Percutaneous Approach (ICD-10-PCS; principal; 2022-02-08 07:30)
PROC: 05HA33Z Insertion of Infusion Device into Left Brachial Vein, Percutaneous Approach (ICD-10-PCS; 2022-02-11)
PROC: 05H933Z Insertion of Infusion Device into Right Brachial Vein, Percutaneous Approach (ICD-10-PCS; 2022-02-12)
DX: T83.511A Infection and inflammatory reaction due to indwelling urethral catheter, initial encounter (principal); L89.153 Pressure ulcer of sacral region, stage 3; L89.213 Pressure ulcer of right hip, stage 3; E44.1 Mild protein-calorie malnutrition; G82.20 Paraplegia, unspecified; Z16.24 Resistance to multiple antibiotics; J98.11 Atelectasis; I11.9 Hypertensive heart disease without heart failure; E11.9 Type 2 diabetes mellitus without complications; F10.11 Alcohol abuse, in remission; D64.9 Anemia, unspecified; R13.14 Dysphagia, pharyngoesophageal phase; N31.8 Other neuromuscular dysfunction of bladder; N30.90 Cystitis, unspecified without hematuria; T83.031A Leakage of indwelling urethral catheter, initial encounter; E78.5 Hyperlipidemia, unspecified; K21.9 Gastro-esophageal reflux disease without esophagitis; B96.5 Pseudomonas (aeruginosa) (mallei) (pseudomallei) as the cause of diseases classified elsewhere; B96.89 Other specified bacterial agents as the cause of diseases classified elsewhere; Y84.6 Urinary catheterization as the cause of abnormal reaction of the patient, or of later complication, without mention of misadventure at the time of the procedure; Z20.822 Contact with and (suspected) exposure to COVID-19; S24.103S Unspecified injury at T7-T10 level of thoracic spinal cord, sequela; Z87.442 Personal history of urinary calculi; Z68.21 Body mass index [BMI] 21.0-21.9, adult; Z74.01 Bed confinement status; Z93.3 Colostomy status; Z79.899 Other long term (current) drug therapy; Z79.84 Long term (current) use of oral hypoglycemic drugs; Z87.440 Personal history of urinary (tract) infections; Z91.013 Allergy to seafood; Z91.041 Radiographic dye allergy status; Z88.2 Allergy status to sulfonamides; Z87.820 Personal history of traumatic brain injury; Z86.14 Personal history of Methicillin resistant Staphylococcus aureus infection; Z87.828 Personal history of other (healed) physical injury and trauma; Z87.19 Personal history of other diseases of the digestive system; Z87.891 Personal history of nicotine dependence; Z87.01 Personal history of pneumonia (recurrent)
CPT/HCPCS: 36410; 36415; 43246; 71046; 74220; 76937; 80048; 80053; 80202; 81001; 82150; 82565; 82607; 82728; 82746; 83540; 83550; 83605; 83690; 83735; 84132; 85025; 85610; 85730; 87040; 87070; 87075; 87077; 87086; 87186; 87205; 87636; 93005; 96365; 96375; 99285

== ENCOUNTER 2022-02-20 12:54 | Emergency (ER) | payer MEDICARE, OTHER ==
[2022-02-20 13:05] VITALS: TEMP 97.5
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
[2022-02-20 17:15] VITALS: BP 116/68; PULSE 89; RESP 20
== END 2022-02-20 17:15 | disposition home or self-care (01) ==
LOC: EC 12:54
DX: N39.0 Urinary tract infection, site not specified (principal); T83.091A Other mechanical complication of indwelling urethral catheter, initial encounter; I10 Essential (primary) hypertension; E11.9 Type 2 diabetes mellitus without complications; E78.5 Hyperlipidemia, unspecified; K21.9 Gastro-esophageal reflux disease without esophagitis; Z88.1 Allergy status to other antibiotic agents; Z88.2 Allergy status to sulfonamides; Z88.8 Allergy status to other drugs, medicaments and biological substances; Z79.84 Long term (current) use of oral hypoglycemic drugs; Z87.891 Personal history of nicotine dependence; Z79.899 Other long term (current) drug therapy
CPT/HCPCS: 99283

== ENCOUNTER 2022-02-21 15:37 | Observation (INO) | payer MEDICARE, OTHER ==
[2022-02-21] MEDS ORDERED: MEROPENEM 1 GM VIAL IVPB SCH (16:00)
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
[2022-02-21] MEDS ORDERED: ACETAMINOPHEN TAB 500 MG TAB PO STA (17:34)
[2022-02-21 18:16] LABS: Anisocytosis Slight; Basophils % (A) 1 %; Eosinophils # (A) 0.2 k/uL (0-0.7); Eosinophils % (A) 3 %; HCT 27.8 % (39.0-53.0); HGB 8.8 gm/dL (13.0-17.5); Hypochromasia Moderate; Lymphocytes # (A) 0.9 k/uL (1.0-4.8); Lymphocytes % (A) 11 %; MCH 25.1 pg (25.0-35.0); MCHC 31.6 g/dL (31.0-37.0); MCV 79.5 fL (80.0-100.0); Mean Platelet Volume 7.2; Microcytosis Slight; Monocytes # (A) 0.5 k/uL (0-1.0); Monocytes % (A) 7 %; Neutrophils # (A) 6.3 k/uL (1.3-7.7); Neutrophils % (A) 77 %; Platelet Count 407 k/uL (150-450); RDW 16.1 % (11.5-15.5); WBC 8.1 k/uL (3.8-10.6)
[2022-02-21 18:50] LABS: African American GFR (CKD) >90 (>60 ml/min/1.73 sqM); Anion Gap 5 mmol/L; Blood Urea Nitrogen 21 mg/dL (9-20); Calcium 8.6 mg/dL (8.4-10.2); Carbon Dioxide 30 mmol/L (22-30); Chloride 101 mmol/L (98-107); Glucose 130 mg/dL (74-99); Non-African American GFR(CKD) >90 (>60 ml/min/1.73 sqM); Potassium 4.3 mmol/L (3.5-5.1); Sodium 136 mmol/L (137-145)
[2022-02-21] MEDS ORDERED: NALOXONE 0.4 MG/ML 1 ML VIAL IV PRN (19:49)
[2022-02-21] MEDS ORDERED: SODIUM CHLORIDE 0.9% 1,000 ML IV SCH (20:00)
[2022-02-21] MEDS ORDERED: METOCLOPRAMIDE 10 MG TAB PO PRN (20:08)
[2022-02-21] MEDS ORDERED: IMIPRAMINE 10 MG TAB PO PRN (20:08)
[2022-02-21] MEDS ORDERED: traMADol 50 MG TAB PO PRN (20:08)
[2022-02-21] MEDS ORDERED: PRAVASTATIN SODIUM 20 MG TAB PO SCH (21:00)
[2022-02-21] MEDS ORDERED: PANTOPRAZOLE 40 MG TABLET PO SCH (21:00)
[2022-02-21] MEDS: metFORMIN 500 MG TAB PO SCH (21:54)
[2022-02-21] MEDS: FERROUS SULFATE 325 MG TAB PO SCH (21:55)
[2022-02-21] MEDS: OXYBUTYNIN CHLORIDE 5 MG TAB PO SCH (21:55)
[2022-02-21] MEDS: IMIPRAMINE 10 MG TAB PO SCH (21:55)
[2022-02-22] MEDS: MEROPENEM 1 GM in SODIUM CHLORIDE 0.9% 100 ML IVPB SCH ×2 (00:08→09:43)
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
[2022-02-22 03:16] VITALS: RESP 18
[2022-02-22] MEDS ORDERED: HEPARIN SODIUM,PORCINE/PF 5,000 UNIT/0.5 ML SYRINGE SQ SCH (08:00)
[2022-02-22 08:06] VITALS: BP 94/58; PULSE 68; TEMP 98
[2022-02-22 08:55] LABS: Glucose,Whole Blood 136 mg/dL (70-110)
[2022-02-22] MEDS ORDERED: MEGESTROL 400 MG/10 ML CUP PO SCH (09:00)
[2022-02-22] MEDS ORDERED: FOLIC ACID 1 MG TAB PO SCH (09:00)
[2022-02-22] MEDS ORDERED: ASCORBIC ACID 500 MG TAB PO SCH (09:00)
[2022-02-22] MEDS ORDERED: CYANOCOBALAMIN 500 MCG TAB PO SCH (09:00)
[2022-02-22] MEDS ORDERED: CHOLECALCIFEROL 10 MCG (400 IU) TABLET PO SCH (09:00)
[2022-02-22] MEDS: FERROUS SULFATE 325 MG TAB PO SCH (09:42)
[2022-02-22] MEDS: metFORMIN 500 MG TAB PO SCH (09:42)
[2022-02-22] MEDS: IMIPRAMINE 10 MG TAB PO SCH (09:43)
[2022-02-22] MEDS: OXYBUTYNIN CHLORIDE 5 MG TAB PO SCH (09:58)
[2022-02-22 10:15] VITALS: BMI 22.5
[2022-02-22 12:02] LABS: Glucose,Whole Blood 131 mg/dL (70-110)
--- NOTE | 2022-02-22 15:08 | P.DS ---
Providers Date of admission: 02/21/22 19:49 Expected date of discharge: 02/22/22 Attending physician: Chi House MD Primary care physician: Howard William MD Hospital Course: Discharge Diagnosis: PICC line malfunction Right hip wound, POA, udetermined stable Pseudomonas UTI, related to Epps catheter T8 paraplegia Chronic anemia status post PEG tube placement on 02/08 Hospital Course: Patient is a 71-year-old male with T8 spinal cord injury resulting in paraplegia complicated by chronic indwelling Epps catheter, colostomy, and chronic wounds who initially presented to the hospital on 02/06 through 02/14. During that hospital stay he was found have a Pseudomonas urinary tract infection had a midline placement plan was for outpatient meropenem. He also underwent PEG tube placement during that same hospital stay. He reviewed presented to the ER secondary to midline malfunction. He is admitted overnight and midline was replaced on the morning of 02/22. He was determined stable for discharge home. He will complete his outpatient course of meropenem. Patient seen and examined at bedside. Family present. He is doing well and feels like he is in a chronic state of health. He is ready to go home. Vital signs reviewed and stable. General: nontoxic, no distress, appears at stated age Derm: warm, dry Head: atraumatic, normocephalic, symmetric Eyes: EOMI, no lid lag, anicteric sclera Mouth: no lip lesion, mucus membranes moist Cardiovascular: S1S2 reg, no murmur, positive posterior tibial pulse bilateral, Lungs: CTA bilateral, no rhonchi, no rales , no accessory muscle use Abdominal: soft, nontender to palpation, no guarding, no appreciable organomegaly Psych: Alert, oriented, appropriate affect A total of 22 minutes of time were spent preparing this complex discharge summary. Patient was discharged on 02/22/22. Patient Condition at Discharge: Fair Plan - Discharge Summary New Discharge Prescriptions: Continue traMADol HCl [Ultram] 50 mg PO QID PRN PRN Reason: Pain Ferrous Sulfate [Iron (65 MG Elemental)] 325 mg PO BID Imipramine HCl [Tofranil] 10 mg PO BID Oxybutynin Chloride [Ditropan] 5 mg PO BID metFORMIN HCL [Glucophage] 500 mg PO BID Pravastatin Sodium [Pravachol] 20 mg PO HS Albuterol Sulfate [Ventolin HFA] 1 - 2 puff INHALATION RT-Q6H PRN PRN Reason: Shortness Of Breath Ascorbic Acid [Vitamin C chew] 500 mg PO DAILY Pantoprazole [Protonix] 40 mg PO HS #30 tab Megestrol [Megace] 400 mg PO DAILY Folic Acid 1 mg PO DAILY #30 tab Meropenem [Merrem] 1 gm IVPB Q8H Dakin's Solution 0.25% 1 applic TOPICAL DAILY Imipramine [Tofranil] 10 mg PO DAILY PRN PRN Reason: leaking Vitamin D3 Chew 1 tab PO DAILY Metoclopramide [Reglan] 10 mg PO ACHS PRN PRN Reason: Nausea Cyanocobalamin [Vitamin B-12] 1,000 mcg PO DAILY #60 tab Discharge Medication List Ferrous Sulfate [Iron (65 MG Elemental)] 325 mg PO BID 06/03/16 [History] Imipramine HCl [Tofranil] 10 mg PO BID 06/03/16 [History] Oxybutynin Chloride [Ditropan] 5 mg PO BID 06/03/16 [History] Pravastatin Sodium [Pravachol] 20 mg PO HS 06/03/16 [History] metFORMIN HCL [Glucophage] 500 mg PO BID 06/03/16 [History] traMADol HCl [Ultram] 50 mg PO QID PRN 06/03/16 [History] Dakin's Solution 0.25% 1 applic TOPICAL DAILY 11/06/21 [History] Imipramine [Tofranil] 10 mg PO DAILY PRN 11/06/21 [History] Albuterol Sulfate [Ventolin HFA] 1 - 2 puff INHALATION RT-Q6H PRN 12/12/21 [History] Ascorbic Acid [Vitamin C chew] 500 mg PO DAILY 12/12/21 [History] Metoclopramide [Reglan] 10 mg PO ACHS PRN 12/12/21 [History] Vitamin D3 Chew 1 tab PO DAILY 12/12/21 [History] Pantoprazole [Protonix] 40 mg PO HS #30 tab 12/19/21 [Rx] Megestrol [Megace] 400 mg PO DAILY 02/06/22 [History] Cyanocobalamin [Vitamin B-12] 1,000 mcg PO DAILY #60 tab 02/14/22 [Rx] Folic Acid 1 mg PO DAILY #30 tab 02/14/22 [Rx] Meropenem [Merrem] 1 gm IVPB Q8H 02/20/22 [History] Follow up Appointment(s)/Referral(s): Howard William MD [Primary Care Provider] - 1-2 days Patient Instructions/Handouts: How to Care for Your Midline Catheter (DC), How to Flush Your Midline Catheter (DC) Activity/Diet/Wound Care/Special Instructions: Diet: Resume prior home tub feeds. Special Instructions: Follow up with Dr. William. Ideally follow up with Dr. Darling and Dr. Pal Complete Merrem at home Discharge Disposition: HOME WITH HOME HEALTH SERVICES
== END 2022-02-22 14:35 | disposition home health service (06) ==
LOC: EC 15:37 → 6NMEDSUR 19:49
PROVIDERS: ADMIT Internal Medicine; ATTEND Internal Medicine
DX: T82.514A Breakdown (mechanical) of infusion catheter, initial encounter (principal); N39.0 Urinary tract infection, site not specified; B96.5 Pseudomonas (aeruginosa) (mallei) (pseudomallei) as the cause of diseases classified elsewhere; G82.20 Paraplegia, unspecified; S24.103S Unspecified injury at T7-T10 level of thoracic spinal cord, sequela; W14.XXXS Fall from tree, sequela; Z93.3 Colostomy status; L89.309 Pressure ulcer of unspecified buttock, unspecified stage; D50.9 Iron deficiency anemia, unspecified; L89.899 Pressure ulcer of other site, unspecified stage; E11.9 Type 2 diabetes mellitus without complications; K21.9 Gastro-esophageal reflux disease without esophagitis; E78.5 Hyperlipidemia, unspecified; I10 Essential (primary) hypertension; F32.A Depression, unspecified; Z79.899 Other long term (current) drug therapy; Z79.84 Long term (current) use of oral hypoglycemic drugs; Z85.828 Personal history of other malignant neoplasm of skin; Z86.718 Personal history of other venous thrombosis and embolism; Z87.891 Personal history of nicotine dependence; Z82.49 Family history of ischemic heart disease and other diseases of the circulatory system; Z80.8 Family history of malignant neoplasm of other organs or systems; Z82.61 Family history of arthritis; Z81.8 Family history of other mental and behavioral disorders; Z88.2 Allergy status to sulfonamides
CPT/HCPCS: 36415; 80048; 85025; 99284